=== PATIENT | female | born 1960 | race Caucasian/White ===

== ENCOUNTER 2022-11-04 08:55 | Emergency (ER) | payer BC, SELFPAY ==
[2022-11-04 08:56] VITALS: BP 135/81; PULSE 104; RESP 18; TEMP 36.8; O2SAT 96; BMI 32.3
[2022-11-04 09:06] LABS: Coronavirus 19, PCR Not Detected (NotDetected); Influenza A, PCR Not Detected (NotDetected); Influenza B, PCR Not Detected (NotDetected)
--- NOTE | 2022-11-04 09:28 | XR_ITS ---
PROCEDURE INFORMATION: Exam: XR Chest Exam date and time: 11/04/2022 9:29 AM Age: 62 years old Clinical indication: Fever and shortness of breath; Additional info: Fever, body aches TECHNIQUE: Imaging protocol: Radiologic exam of the chest. Views: 2 views. COMPARISON: No relevant prior studies available. FINDINGS: Lungs: Unremarkable. No consolidation. Pleural spaces: Unremarkable. No pleural effusion. No pneumothorax. Heart/Mediastinum: Unremarkable. No cardiomegaly. Bones/joints: Unremarkable. IMPRESSION: No acute findings.
--- NOTE | 2022-11-04 09:29 | HMH.EDGENADL ---
Discharge Plan Disposition Patient Disposition: Home, Self-Care Condition: Good Prescriptions Prescriptions: New cefdinir 300 mg capsule 300 mg PO BID 10 Days Qty: 20 0RF No Action zolpidem [Ambien] 5 mg tablet 5 mg PO QHS PRN (Reason: Sleep) omeprazole 40 mg capsule,delayed release(DR/EC) 40 mg PO DAILY glyburide-metformin 5-500 mg tablet 1 tab PO BID atorvastatin 10 mg tablet 10 mg PO DAILY escitalopram oxalate 20 mg tablet 20 mg PO DAILY lisinopril 20 mg tablet 20 mg PO DAILY oxybutynin chloride 10 mg tablet extended release 24hr 10 mg PO DAILY levothyroxine 75 mcg tablet 75 mcg PO DAILY Lantus Solostar U-100 Insulin 100 unit/mL (3 mL) insulin pen 10 unit SQ DAILY sodium,potassium,mag sulfates 177 ML recon soln 177 ml PO DAILY Rx Instructions: drink entire amount PM before + AM of procedure, 10-12 hr apart Referrals Follow up/Referrals: Provider,Referral, MD [Primary Care Provider] - See instructions Activity Restrictions/Add. Instructions Additional Instructions/Restrictions: Additional instructions for URINARY TRACT INFECTION: Take antibiotic as prescribed. See your physician in 2-3 days for follow up and culture results. Return immediately if you have an uncontrollable fever greater than 102 degrees, severe back or abdominal pain, inability to urinate, or repetitive vomiting. Continue Tylenol as needed for fever. Clinical Impressions Clinical Impression: Urinary tract infection Instructions Patient Instructions: DI for Urinary Tract Infection (UTI) Discharge ED Provider: Andres Emery General Adult HPI General Chief complaint: Upper Respiratory Infection Stated complaint: Bodyaches weakness fever Time Seen by Provider: 11/04/22 09:25 Mode of Arrival: Ambulatory Source of Information: Patient Limitations: No Limitations Description of Symptoms (Recalled from ER Triage Doc. by RN): pt to ed c/o body ches since she woke up this morning. pt states she has no other symptoms. History of Present Illness HPI narrative: Patient states she woke up this morning with generalized body aches and a low-grade fever. No rhinorrhea, sore throat, earache. No cough. No other pain including no abdominal pain. No dysuria, but had urinary frequency throughout the night. No back or flank pain. No known exposures. She took Tylenol about 1 hour ago for her fever and aches. Related Data Home Medications Medication Instructions Recorded Confirmed atorvastatin 10 mg tablet 10 mg PO DAILY Cholesterol 03/19/19 05/07/19 escitalopram oxalate 20 mg tablet 20 mg PO DAILY GERD 03/19/19 05/07/19 glyburide 5 mg-metformin 500 mg 1 tab PO BID Diabetes 03/19/19 05/07/19 tablet insulin glargine 100 unit/mL (3 10 unit SQ DAILY Diabetes 03/19/19 05/07/19 mL) subcutaneous pen (Lantus Solostar U-100 Insulin) levothyroxine 75 mcg tablet 75 mcg PO DAILY thyroid 03/19/19 05/07/19 lisinopril 20 mg tablet 20 mg PO DAILY bp 03/19/19 05/07/19 omeprazole 40 mg capsule,delayed 40 mg PO DAILY gred 03/19/19 05/07/19 release oxybutynin chloride 10 mg 10 mg PO DAILY bladder 03/19/19 05/07/19 tablet,extended release 24 hr zolpidem 5 mg tablet (Ambien) 5 mg PO QHS PRN Sleep 03/19/19 05/07/19 sodium,potassium,mag sulfates 17.5 177 ml PO DAILY prep 05/01/19 05/07/19 gram-3.13 gram-1.6 gram oral soln Previous Rx's Medication Instructions Recorded cefdinir 300 mg capsule 300 mg PO BID 10 days #20 caps 11/04/22 Allergies Allergy/AdvReac Type Severity Reaction Status Date / Time Sulfa (Sulfonamide Allergy Verified 05/07/19 13:38 Antibiotics) [facility] Disclaimer: The information contained in this section may have been updated after the patient was seen, as this information can be updated by other users. Social History Smoking Status: Never smoker alcohol intake: never substance use type: denies use current occup
[2022-11-04 09:30] VITALS: BP 126/77; PULSE 102; RESP 20; O2SAT 95
[2022-11-04 10:09] LABS: Microscopic, Urine URINE MICROSCOPIC (MICROSCOPIC)
[2022-11-04 10:15] LABS: Basophils # 0.1 K/mm3 (0-0.2); Eosinophils # 0.1 K/mm3 (0.0-0.4); Eosinophils % 0.5 % (0.1-12.0); Hematocrit 41.2 % (37.0-47.0); Hemoglobin 13.4 g/dL (12.2-16.2); Lymphocytes # 1.5 K/mm3 (0.7-4.5); Lymphocytes % 15.2 % (10-50); Mean Corpuscular HGB Conc 32.5 g/dL (31.8-35.4); Mean Corpuscular Volume 89.3 fl (81-99); Monocytes # 0.5 K/mm3 (0.1-1.0); Neutrophils # 7.8 K/mm3 (1.8-7.8); Neutrophils % 78.4 % (37.0-80.0); Platelet Count 250 K/mm3 (142-424); Red Blood Count 4.61 M/mm3 (4.20-5.40); Red Cell Distribution Width 13.3 % (11.5-17.5)
[2022-11-04 10:20] LABS: Appearance,Urine CLEAR (Clear); Blood, Urine 2+ (Negative); Color,Urine YELLOW (Yellow); Glucose,Urine (UA) Negative (Negative); Ketones,Urine Negative (Negative); Leukocyte Esterase,Urine 2+ (Negative); Nitrate,Urine Negative (Negative); Protein,Urine Negative (Negative)
[2022-11-04 10:22] LABS: Bilirubin,Urine Negative (Negative)
[2022-11-04 10:23] LABS: Alanine Aminotransferase 24 U/L (12-78); Albumin Level 4.2 g/dl (3.5-5.0); Albumin/Globulin Ratio 1.4 (1.1-1.8); Alkaline Phosphatase 67 U/L (38-126); Aspartate Amino Transferase 27 U/L (14-36); Bilirubin,Total 1.5 mg/dl (0.2-1.3); Blood Urea Nitrogen 12 mg/dl (7-17); Carbon Dioxide 29 mmol/L (22.0-30.0); Chloride 102 mmol/L (98-107); Creatinine Clearance Estimated 81 mL/min (50-200); Estimated Glomerular Filt Rate 72 ml/min (>60); GFR (African American) 87 ML/MIN (>60); Glucose 160 mg/dl (74-100); Sodium 136 mmol/L (136-145); Total Protein,Serum 7.2 g/dl (6.3-8.2)
[2022-11-04 10:26] LABS: Lactic Acid 1.1 mmol/L (0.7-2.1)
--- NOTE | 2022-11-04 10:53 | PC.NURSE ---
pt given a warm blanket, no other needs at this time. She is aware that we are still waiting on some results to come back. SO at BS. Call light within reach. Pts spouse was given something to drink.
[2022-11-04 10:57] VITALS: BP 101/60; PULSE 96; O2SAT 96
[2022-11-04 11:00] VITALS: BP 102/52; PULSE 95; RESP 17; O2SAT 96
[2022-11-04 11:05] LABS: Bacteria,Urine 2+ /lpf; Squamous Epithelial Cell,Urine Occasional #/hpf (0-5)
--- NOTE | 2022-11-04 11:23 | PC.NURSE ---
MINDI BUITRAGO at to update on POC
[2022-11-04 11:30] VITALS: BP 113/59; PULSE 95; RESP 16; O2SAT 96
[2022-11-04 11:50] VITALS: BP 113/59; PULSE 95; RESP 18; TEMP 36.8; O2SAT 97
== END 2022-11-04 11:52 | disposition home or self-care (01) ==
PROVIDERS: Emergency Provider Emergency Medicine
DX: N39.0 Urinary tract infection, site not specified (principal); R50.9 Fever, unspecified; Z20.822 Contact with and (suspected) exposure to COVID-19
CPT/HCPCS: 71046; 80053; 81001; 83605; 85025; 87040; 87086; 87186; 96374; 99285; C9803; J0696; U0003; U0005

== ENCOUNTER 2022-12-03 12:02 | Emergency (ER) | payer BC, SELFPAY ==
[2022-12-03 12:33] VITALS: BP 133/93; PULSE 88; RESP 18; TEMP 36.6; O2SAT 97; BMI 32.3
--- NOTE | 2022-12-03 13:05 | EXP.UTC ---
Discharge Plan Disposition Patient Disposition: Home, Self-Care Condition: Good Prescriptions Prescriptions: No Action zolpidem [Ambien] 5 mg tablet 5 mg PO QHS PRN (Reason: Sleep) omeprazole 40 mg capsule,delayed release(DR/EC) 40 mg PO DAILY glyburide-metformin 5-500 mg tablet 1 tab PO BID atorvastatin 10 mg tablet 10 mg PO DAILY escitalopram oxalate 20 mg tablet 20 mg PO DAILY lisinopril 20 mg tablet 20 mg PO DAILY oxybutynin chloride 10 mg tablet extended release 24hr 10 mg PO DAILY levothyroxine 75 mcg tablet 75 mcg PO DAILY Lantus Solostar U-100 Insulin 100 unit/mL (3 mL) insulin pen 10 unit SQ DAILY sodium,potassium,mag sulfates 177 ML recon soln 177 ml PO DAILY Rx Instructions: drink entire amount PM before + AM of procedure, 10-12 hr apart cefdinir 300 mg capsule 300 mg PO BID 10 Days Qty: 20 0RF Referrals Follow up/Referrals: Provider,Referral, MD [Primary Care Provider] - See instructions Activity Restrictions/Add. Instructions Additional Instructions/Restrictions: *Monitor Temp, Over the counter Motrin or Tylenol as directed/as needed Tylenol every 4 hours and Motrin every 6 hours (as long as your family doctor has told you that you can take it) for fever or pain. and straight to ER if unable to lower temp less than 101.0 after medication given *Warm salt water gargles may help to soothe the throat *Throat Lozenges? *Warm fluids like tea with honey may help to soothe the throat? *Sleep elevated *Humidifier/Vaporizer Follow up IMMEDIATELY for new or worsening symptoms or no Noticeable improvement over the next 48-72 hours. 911 for difficulty breathing or swallowing You were tested for today for COVID19 your test result should be back in the next 24-48 hours, you may check your results on the [facility] My Health Portal Clinical Impressions Clinical Impression: Encounter for laboratory testing for COVID-19 virus, Viral syndrome Instructions Patient Instructions: COVID-19: Testing and Tracing, Preventing the Spread of Coronavirus Discharge Instructions, DI for Nasal Congestion Discharge ED Provider: Soni Rubio [facility] HPI General Stated complaint: at home covid pos 12/03, cough, runny nose Mode of Arrival: Ambulatory Source of Information: Patient Limitations: No Limitations Time Seen by Provider: 12/03/22 13:05 Description of Symptoms (Recalled from Triage Doc. by RN): C/O CONGESTION, SNEEZING AND COUGH SINCE SUNDAY, HOME TEST WAS POSITIVE FOR COVID HEENT Symptoms (Recalled from RN notes): Yes Resp Symptoms (Recalled from RN notes): No Skin Symptoms (Recalled from RN notes): No MS Symptoms (Recalled from RN notes): No Functional Status (Recalled from RN notes): NA History of Present Illness Provider Complaint: Patient states that she has been having cough, sneezing, and nasal congestion States that she was feeling achy this morning and took and at home COVID test and it was positive States that she came in wanting to get a COVID test to make sure Related Data Home Medications Medication Instructions Recorded Confirmed atorvastatin 10 mg tablet 10 mg PO DAILY Cholesterol 03/19/19 05/07/19 escitalopram oxalate 20 mg tablet 20 mg PO DAILY GERD 03/19/19 05/07/19 glyburide 5 mg-metformin 500 mg 1 tab PO BID Diabetes 03/19/19 05/07/19 tablet insulin glargine 100 unit/mL (3 10 unit SQ DAILY Diabetes 03/19/19 05/07/19 mL) subcutaneous pen (Lantus Solostar U-100 Insulin) levothyroxine 75 mcg tablet 75 mcg PO DAILY thyroid 03/19/19 05/07/19 lisinopril 20 mg tablet 20 mg PO DAILY bp 03/19/19 05/07/19 omeprazole 40 mg capsule,delayed 40 mg PO DAILY gred 03/19/19 05/07/19 release oxybutynin chloride 10 mg 10 mg PO DAILY bladder 03/19/19 05/07/19 tablet,extended release 24 hr zolpidem 5 mg tablet (Ambien) 5 mg PO QHS PRN Sleep 03/19/19 05/07/19 sodium,potassium,mag sulfates 17.5 177 ml PO D
[2022-12-03 13:16] VITALS: BP 133/93; PULSE 88; RESP 18; TEMP 36.6; O2SAT 97
== END 2022-12-03 13:20 | disposition home or self-care (01) ==
PROVIDERS: Emergency Provider Nurse Practitioner
DX: U07.1 COVID-19 (principal); R05.9 Cough, unspecified; R09.89 Other specified symptoms and signs involving the circulatory and respiratory systems; R06.2 Wheezing
CPT/HCPCS: 99212; C9803; G0463; U0003; U0005

== ENCOUNTER 2023-01-02 07:33 | Day surgery (SDC) | payer BC, SELFPAY ==
[2022-12-29 11:30] VITALS: BMI 31.3
[2023-01-02 07:55] VITALS: BP 119/76; PULSE 90; RESP 18; TEMP 36.1; O2SAT 95
--- NOTE | 2023-01-02 08:07 | EXP.ANES.CKL ---
[facility] Disclaimer: The information contained in this section may have been updated after the patient was seen, as this information can be updated by other users. Medical History Hyperlipidemia Hypertension Surgical History History of carpal tunnel release of both wrists Hx of cervical discectomy Family History Other Family history of diabetes mellitus type II Family history of stroke Social History Smoking Status: Never smoker alcohol intake: current substance use type: denies use current occupational status: employed Travel in the last 8 weeks: None household members: spouse and children housing: house education level: college service: No caffeine: Yes special mary needs: No agree to transfusion: No do you feel safe at home: Yes victim of physical abuse: No victim of emotional abuse: No victim of sexual abuse: No would you like helpful sources: No [facility] Anesthesia Checklist Patient Identification Patient Identification: Verbal (Name & ) Structural Data Admitted From: Home Planned Operative Procedure/s: colonoscopy Consent for Planned Operative Procedure(s) Verified: Yes Additional verifications Anesthesia Reactions: No Airway Assessment C-Spine Mobility Assessed: Yes TMJ Mobility Assessed: Yes Dentition: Good Dentition Neurological Assessment Level of Consciousness: Awake, Alert and Appropriate Anesthesia Plan Anesthesia Risk discussed: Yes Anesthesia Plan: Verified ASA Class: II Anesthesia Type: MAC
--- NOTE | 2023-01-02 08:11 | P.PCN_ITS ---
Procedure: Date: 01/02/23 Patient Date of :: 1960 Procedure Performed:: Colonoscopy Indications:: History of colon polyps Note: Colonoscopy in May 2019 revealed a right colon adenoma, hemorrhoids, mo derate bowel preparation, and spasticity/lack of relaxation. A 1-2-year repeat was recommended secondary to the above findings. Performing Provider:: Hugo Abernathy MD Referring Provider:: . Sedation:: Monitored anesthesia care Procedure:: After informed consent was obtained the patient was taken to the endoscopy suite. Sedation ensued after the patient was transferred to the left lateral decubitus position. Pulse, blood pressure, and oxygen saturation were monitored throughout the procedure. Digital rectal exam revealed no significant abnormality. The colonoscope was placed in position. The entire colon was evaluated. The colonoscope was carefully removed and the patient was transferred to recovery in stable condition. Please see findings and specimens below for detail. Findings:: Bowel preparation moderate to poor Note:Preparation quite poor in mid/distal colon Specimens:: None Recommendations:: Repeat colonoscopy in 1-2 years with alternate/extended bowel preparation Complications:: No immediate with the exception of limited preparation Estimated blood obtained (mL): 0
[2023-01-02 08:21] VITALS: O2SAT 95
[2023-01-02 08:55] VITALS: BP 95/58; PULSE 80; RESP 15; TEMP 36.1; O2SAT 92
[2023-01-02 09:05] VITALS: BP 111/61; PULSE 75; RESP 16; O2SAT 94
[2023-01-02 09:25] VITALS: BP 112/76; PULSE 71; RESP 17; O2SAT 96
[2023-01-05 10:20] LABS: POC Glucose,Bedside 201 (70-110)
== END 2023-01-02 09:30 | disposition home or self-care (01) ==
PROVIDERS: Visit Provider Surgery
PROC: 0DJD8ZZ Inspection of Lower Intestinal Tract, Via Natural or Artificial Opening Endoscopic (ICD-10-PCS; CPT 45378; principal; 2023-01-02 08:30)
DX: Z12.11 Encounter for screening for malignant neoplasm of colon (principal); Z86.010 Personal history of colon polyps; Z91.199 Patient's noncompliance with other medical treatment and regimen due to unspecified reason; Z79.899 Other long term (current) drug therapy
CPT/HCPCS: 45378; 82962

== ENCOUNTER 2023-03-11 07:15 | Emergency (ER) | payer BC, SELFPAY ==
[2023-03-11 07:22] VITALS: BP 145/80; PULSE 104; O2SAT 96
[2023-03-11 07:27] VITALS: BP 145/80; PULSE 109; RESP 18; TEMP 37; O2SAT 97; BMI 32.3
[2023-03-11 07:30] VITALS: BP 117/66; PULSE 104; O2SAT 97
[2023-03-11 07:48] LABS: Microscopic, Urine URINE MICROSCOPIC (MICROSCOPIC)
[2023-03-11 08:00] VITALS: BP 124/68; PULSE 89; O2SAT 96
[2023-03-11 08:02] LABS: Appearance,Urine CLEAR (Clear); Bilirubin,Urine Negative (Negative); Blood, Urine 2+ (Negative); Color,Urine YELLOW (Yellow); Glucose,Urine (UA) Negative (Negative); Ketones,Urine Negative (Negative); Leukocyte Esterase,Urine 2+ (Negative); Nitrate,Urine Negative (Negative); PH,Urine 6.5 (5.0-8.5); Protein,Urine Negative (Negative)
--- NOTE | 2023-03-11 08:03 | HMH.EDGENADL ---
Discharge Plan Disposition Patient Disposition: Home, Self-Care Prescriptions Prescriptions: New cefdinir 300 mg capsule 300 mg PO BID 7 Days Qty: 14 0RF No Action zolpidem [Ambien] 5 mg tablet 5 mg PO QHS PRN (Reason: Sleep) omeprazole 40 mg capsule,delayed release(DR/EC) 40 mg PO DAILY glyburide-metformin 5-500 mg tablet 1 tab PO BID atorvastatin 10 mg tablet 10 mg PO DAILY escitalopram oxalate 20 mg tablet 20 mg PO DAILY lisinopril 20 mg tablet 20 mg PO DAILY oxybutynin chloride 10 mg tablet extended release 24hr 10 mg PO DAILY levothyroxine 75 mcg tablet 75 mcg PO DAILY Lantus Solostar U-100 Insulin 100 unit/mL (3 mL) insulin pen 20 unit SQ DAILY Referrals Follow up/Referrals: Provider,Referral, MD [Primary Care Provider] - See instructions Clinical Impressions Clinical Impression: Urinary tract infection Discharge ED Provider: Kartik Stanton General Adult HPI General Chief complaint: PAIN Stated complaint: Bodyaches, possible UTI Time Seen by Provider: 03/11/23 08:03 Mode of Arrival: Ambulatory Source of Information: Patient Limitations: No Limitations Description of Symptoms (Recalled from ER Triage Doc. by RN): Patient reports she feels like her whole body has a slight ache that started sunday. reports she was puling up hemlock plants in the yard night that are poisonous. History of Present Illness HPI narrative: Patient is a 62-year-old female history of diabetes presenting today with generalized malaise and body aches. She states last time she felt like this that she was becoming septic with a urinary tract infection. She has had urinary incontinence which is not a new symptom and denies dysuria urgency or frequency. She denies any other focal symptoms no chest pain abdominal pain no cough fevers chills etc. She just states he feels weird feeling over her body. She did state that she was in her yard on pulling up hemlock however she had no immediate symptoms around that time and began to feel the presenting symptoms the next day. Related Data Home Medications Medication Instructions Recorded Confirmed atorvastatin 10 mg tablet 10 mg PO DAILY Cholesterol 03/19/19 01/02/23 escitalopram oxalate 20 mg tablet 20 mg PO DAILY Anxiety 03/19/19 01/02/23 glyburide 5 mg-metformin 500 mg 1 tab PO BID Diabetes 03/19/19 01/02/23 tablet insulin glargine 100 unit/mL (3 20 unit SQ DAILY Diabetes 03/19/19 01/02/23 mL) subcutaneous pen (Lantus Solostar U-100 Insulin) levothyroxine 75 mcg tablet 75 mcg PO DAILY thyroid 03/19/19 01/02/23 lisinopril 20 mg tablet 20 mg PO DAILY bp 03/19/19 01/02/23 omeprazole 40 mg capsule,delayed 40 mg PO DAILY gred 03/19/19 01/02/23 release oxybutynin chloride 10 mg 10 mg PO DAILY bladder 03/19/19 01/02/23 tablet,extended release 24 hr zolpidem 5 mg tablet (Ambien) 5 mg PO QHS PRN Sleep 03/19/19 01/02/23 Previous Rx's Medication Instructions Recorded cefdinir 300 mg capsule 300 mg PO BID 7 days #14 caps 03/11/23 Allergies Allergy/AdvReac Type Severity Reaction Status Date / Time Sulfa (Sulfonamide Allergy Verified 05/07/19 13:38 Antibiotics) [facility] Disclaimer: The information contained in this section may have been updated after the patient was seen, as this information can be updated by other users. Medical History (Updated 03/11/23 @ 09:28 by Yefri Martinez MD) Hyperlipidemia Hypertension Surgical History History of carpal tunnel release of both wrists Hx of cervical discectomy Family History Other Family history of diabetes mellitus type II Family history of stroke Social History Smoking Status: Never smoker alcohol intake: current substance use type: denies use current
[2023-03-11 08:30] LABS: Bacteria,Urine Trace /lpf; Squamous Epithelial Cell,Urine Occasional #/hpf (0-5)
--- NOTE | 2023-03-11 08:48 | PC.NURSE ---
checked on pt gave her some harlan crackers, at bedside
[2023-03-11 08:51] LABS: Basophils % 0.5 % (0.1-2.0); Chloride 99 mmol/L (98-107); Eosinophils # 0.1 K/mm3 (0.0-0.4); Eosinophils % 1.4 % (0.1-12.0); Hematocrit 39.4 % (37.0-47.0); Hemoglobin 12.4 g/dL (12.2-16.2); Lymphocytes # 1.4 K/mm3 (0.7-4.5); Lymphocytes % 18.8 % (10-50); Mean Corpuscular HGB Conc 31.5 g/dL (31.8-35.4); Mean Corpuscular Hemoglobin 28.5 pg (27.0-31.2); Mean Corpuscular Volume 90.5 fl (81-99); Mean Platelet Volume 9.3 fl (7.4-10.4); Monocytes # 0.4 K/mm3 (0.1-1.0); Monocytes % 4.9 % (1.7-9.3); Neutrophils # 5.6 K/mm3 (1.8-7.8); Neutrophils % 74.3 % (37.0-80.0); Platelet Count 204 K/mm3 (142-424); Potassium 4.2 mmoL/L (3.5-5.1); Red Blood Count 4.35 M/mm3 (4.20-5.40); Red Cell Distribution Width 13.4 % (11.5-17.5); Sodium 136 mmol/L (136-145); White Blood Count 7.6 K/mm3 (4.8-10.8)
[2023-03-11 08:53] LABS: Alanine Aminotransferase 29 U/L (12-78); Aspartate Amino Transferase 26 U/L (14-36); Blood Urea Nitrogen 11 mg/dl (7-17); Creatinine Clearance Estimated 81 mL/min (50-200); Estimated Glomerular Filt Rate 84 ml/min (>60); GFR (African American) 102 ML/MIN (>60)
[2023-03-11 08:54] LABS: Albumin Level 3.9 g/dl (3.5-5.0); Albumin/Globulin Ratio 1.3 (1.1-1.8); Alkaline Phosphatase 66 U/L (38-126); Anion Gap 13.2 mEq/L (5-15); Bilirubin,Total 1.1 mg/dl (0.2-1.3); Carbon Dioxide 28 mmol/L (22.0-30.0); Creatine Kinase 83 U/L (30-135); Globulin 2.9 g/dL (1.3-3.2); Glucose 154 mg/dl (74-100); Magnesium 1.4 mg/dl (1.6-2.3); Phosphorous 4.1 mg/dl (2.5-4.5); Total Protein,Serum 6.8 g/dl (6.3-8.2)
[2023-03-11 09:46] VITALS: BP 117/74; PULSE 84; RESP 18; TEMP 37; O2SAT 97
== END 2023-03-11 09:49 | disposition home or self-care (01) ==
PROVIDERS: Student in an Organized Health Care Education/Training Program; Emergency Provider Family Medicine
DX: N39.0 Urinary tract infection, site not specified (principal); I10 Essential (primary) hypertension; E78.5 Hyperlipidemia, unspecified; E11.9 Type 2 diabetes mellitus without complications
CPT/HCPCS: 80053; 81001; 82550; 83735; 84100; 85025; 87086; 87088; 87186; 96360; 99284; 99285

== ENCOUNTER 2024-08-16 08:03 | Emergency (ER) | payer OTHER, SELFPAY ==
[2024-08-16 08:20] VITALS: BP 110/73; PULSE 82; RESP 20; TEMP 36.4; O2SAT 97; BMI 28.1
--- NOTE | 2024-08-16 08:36 | EXP.UTC ---
Discharge Plan Disposition Patient Disposition: Home, Self-Care Condition: Good Prescriptions Prescriptions: New phenazopyridine [Pyridium] 200 mg tablet 200 mg PO Q8H 2 Days Qty: 6 0RF nitrofurantoin monohyd/m-cryst [Macrobid] 100 mg Capsule 100 mg PO BID Qty: 10 0RF Rx Instructions: must administer with a meal/food ondansetron 4 mg Tablet,Disintegrating 4 mg PO Q8H PRN (Reason: Nausea) Qty: 12 0RF No Action omeprazole 40 mg capsule,delayed release(DR/EC) 40 mg PO DAILY atorvastatin 10 mg tablet 10 mg PO DAILY escitalopram oxalate 20 mg tablet 20 mg PO DAILY lisinopril 20 mg tablet 20 mg PO DAILY tolterodine 4 mg Capsule,Extended Release 24hr 4 mg PO DAILY metformin 500 mg tablet extended release 24 hr 500 mg PO DAILY Patient Comments: TAKE 1 TABLET BY MOUTH EVERY DAY WITH BREAKFAST Mounjaro 7.5 mg/0.5 mL pen injector 7.5 mg SQ WEEKLY Patient Comments: INJECT 7.5 MG UNDER THE SKIN DIRECTED ONCE A WEEK Referrals Follow up/Referrals: Myron Davis MD [Primary Care Provider] - See instructions Activity Restrictions/Add. Instructions Additional Instructions/Restrictions: Drink plenty of fluids. Take tylenol or ibuprofen for pain or fever. Take the medications as directed. Follow up with your regular doctor. GO TO THE ER FOR ANY WORSENING SYMPTOMS We will culture the urine. That will tell what bacteria is causing your infection and which antibiotics will treat it best.This test takes 3 days to complete. The pyridium will make your urine turn orange, this is an expected side effect. It will stain your clothes if it comes into contact with them. Clinical Impressions Clinical Impression: Urinary tract infection Instructions Patient Instructions: Urinary Tract Infection, DI for Urinary Tract Infection (UTI) Print Language Print Language: Tristanian Discharge ED Provider: Ricky Verdugo [facility] General Stated complaint: Pain and frequent urination Mode of Arrival: Ambulatory Source of Information: Patient Limitations: No Limitations Time Seen by Provider: 08/16/24 08:36 Description of Symptoms (Recalled from Triage Doc. by RN): PATIENT C/O BURNING WITH URINATION AND BLADDER PRESSURE X 3 DAYS HEENT Symptoms (Recalled from RN notes): No Resp Symptoms (Recalled from RN notes): No Skin Symptoms (Recalled from RN notes): No MS Symptoms (Recalled from RN notes): No Functional Status (Recalled from RN notes): WNL Related Data Home Medications ?Medication ?Instructions ?Recorded ?Confirmed atorvastatin 10 mg tablet 10 mg PO DAILY Cholesterol 03/19/19 08/16/24 escitalopram oxalate 20 mg tablet 20 mg PO DAILY Anxiety 03/19/19 08/16/24 lisinopril 20 mg tablet 20 mg PO DAILY bp 03/19/19 08/16/24 omeprazole 40 mg capsule,delayed 40 mg PO DAILY gred 03/19/19 08/16/24 release metformin 500 mg tablet,extended 500 mg PO DAILY 08/16/24 08/16/24 release 24 hr tirzepatide 7.5 mg/0.5 mL 7.5 mg SQ WEEKLY 08/16/24 08/16/24 subcutaneous pen injector (Mounjaro) tolterodine 4 mg capsule,extended 4 mg PO DAILY 08/16/24 08/16/24 release 24 hr Previous Rx's ?Medication ?Instructions ?Recorded nitrofurantoin 100 mg PO BID #10 caps 08/16/24 monohydrate/macrocrystals 100 mg capsule (Macrobid) ondansetron 4 mg disintegrating 4 mg PO Q8H PRN Nausea #12 tabs 08/16/24 tablet phenazopyridine 200 mg tablet 200 mg PO Q8H 2 days #6 tabs 08/16/24 (Pyridium) Allergies Allergy/AdvReac Type Severity Reaction Status Date / Time Sulfa (Sulfonamide Allergy Verified 05/07/19 13:38 Antibiotics) Worker's Comp Is this a Worker's Comp case?: No [facility] Disclaimer: The information contained in this section may have been updated after the patient was seen, as this information can be updated by other users. Medical History (Updated 08/16/24 @ 09:37 by Ricky Verdugo APRN) Diabetes mellitus, type 2 Thyroid disease UTI (urinary tract infection) Depression Hyperlipidemia Hypertension Surgical History Hx of cervical discectomy History of carpal tunnel release of both wrists Family History Other Family history of diabetes mellitus type II Family history of stroke Social History Smoking Status: Never smoker alcohol intake: current substance use type: denies use current occupational status: employed Travel in the last 8 weeks: None household members: spouse and children housing: house education level: college service: No caffeine: Yes special mary needs: No agree to transfusion: No do you feel safe at home: Yes victim of physical abuse: No victim of emotional abuse: No victim of sexual abuse: No would you like helpful sources: No ROS Obtained: Yes All systems reviewed & no additional complaints except as documented Constitutional Constitutional: Reports system reviewed and no additional complaints, except as documented, Denies chills and Denies fever(s) Eyes Eyes: Denies eye discharge ENT Ears, Nose, Mouth, and Throat: Denies dysphagia, Denies sore throat and Denies throat swelling Cardiovascular Cardiovascular: Denies chest pain and Denies dyspnea Respiratory Respiratory: Denies chest congestion, Denies cough and Denies dyspnea Gastrointestinal Gastrointestingal: Denies abdominal pain, constipation, diarrhea, dysphagia, nausea or vomiting Genitourinary Female Genitourinary: Reports as per HPI, Reports dysuria, Reports sexual dysfunction, Reports urinary frequency, Denies urinary incontinence and Reports urinary hesitancy Musculoskeletal Musculoskeletal: Denies arthralgias and Reports back pain Integumentary/Breasts Skin/Breast: Denies rash Neurologic Neurologic: Denies paresthesias Allergic/Immunologic Allergic/Immunologic: Denies throat swelling Physical Exam General General appearance: alert and in no apparent distress Head Head exam: atraumatic and normocephalic Eye Eye exam: Present normal appearance, PERRL and EOMI ENT ENT exam: Present normal exam, mucous membranes moist, TM's normal bilaterally and normal external ear exam Neck Neck exam: Present normal inspection, full ROM and trachea midline; Absent tenderness, meningismus or lymphadenopathy Chest Chest inspection: Present normal inspection and symmetric chest wall rise; Absent tenderness Respiratory Respiratory exam: Present normal lung sounds bilaterally; Absent respiratory distress, wheezes or stridor Cardiovascular Cardiovascular exam: Present regular rate, normal rhythm and normal heart sounds Abdominal Exam Abdominal exam: Present soft and normal bowel sounds; Absent distention, tenderness, guarding, rebound, rigidity, incision, psoas sign, obturator sign, heel tap sign, Chahal's sign, Rovsing's sign or tenderness at McBurney's Point Extremities Exam Extremities exam: Present normal inspection, full ROM and normal capillary refill; Absent tenderness, edema, joint swelling, calf tenderness or cyanosis Back Exam Back exam: Present normal inspection and full ROM; Absent tenderness, CVA tenderness (R) or CVA tenderness (L) Neurological Exam Neurological exam: Present alert, oriented X3 and normal gait Psychiatric Psychiatric exam: Present normal affect and normal mood Skin Skin exam: Present warm, dry, intact and normal color Lymphatic Lymphatic Findings: no adenopathy Medical Decision Making Medical Records Medical records reviewed: No I reviewed the patient's medical records. Screening: Per USPSTF and CDC recommendations, given the prevalence of disease in our region, it is our hospital?s policy to screen for HIV and viral Hepatitis for all patients aged 18 and over and those with ongoing risk factors. Jose G Inquiry Pt receiving controlled substance: No Vital Signs: 08/16/24 08:20 Temperature 97.6 F Temperature Source Oral Pulse Rate [Left Brachial] 82 Respiratory Rate 20 Blood Pressure [Left Arm] 110/73 Blood Pressure Mean [Left Arm] 85 Blood Pressure Source [Left Arm] Automatic Cuff Blood Pressure Position [Left Arm] Sitting 02 Sat by Pulse Oximetry 97 Oxygen Delivery Method Room Air Lab Data Lab results reviewed: Yes I reviewed the patient's lab results. Orders (Tests/Meds): ORDERS Category Date Time Status Urine Culture Stat Micro 08/16/24 08:20 Received
[2024-08-16 08:37] LABS: Apearance,Urine Clear (Clear); Color,Urine Yellow (Yellow); Protein,Urine Trace (Negative); Specific Gravity, Urine 1.025 (1.005-1.030)
[2024-08-16 08:38] LABS: Bilirubin,Urine Negative (Negative); Blood, Urine 3+ (Negative); Glucose,Urine (UA) Negative (Negative); Ketones,Urine Negative (Negative); UTC Leukocyte Esterase,Urine 3+ (Negative); UTC Nitrate,Urine Negative (Negative); Urobilinogen,Urine 2 EU/dl (0.2)
[2024-08-16] MEDS: cefTRIAXone 1GM VIAL 1 GM IM (09:10)
[2024-08-16] MEDS: LIDOCAINE 1% 5ML PF VIAL IM (09:10)
[2024-08-16 09:37] VITALS: BP 110/73; PULSE 82; RESP 20; TEMP 36.4; O2SAT 97
== END 2024-08-16 09:40 | disposition home or self-care (01) ==
PROVIDERS: Emergency Provider Nurse Practitioner Family; PCP Internal Medicine
DX: N39.0 Urinary tract infection, site not specified (principal)
CPT/HCPCS: 81003; 87086; 87088; 87186; 96372; 99213; G0381; J0696

== ENCOUNTER 2024-11-04 06:30 | Day surgery (SDC) | payer OTHER, SELFPAY ==
[2024-11-03 11:39] VITALS: BMI 26.6
--- NOTE | 2024-11-04 07:19 | EXP.ANES.CKL ---
[facility] Disclaimer: The information contained in this section may have been updated after the patient was seen, as this information can be updated by other users. Medical History Diabetes mellitus, type 2 Thyroid disease UTI (urinary tract infection) Depression Hyperlipidemia Hypertension Surgical History Hx of cervical discectomy History of carpal tunnel release of both wrists Family History Other Family history of diabetes mellitus type II Family history of stroke Social History Smoking Status: Never smoker alcohol intake: current substance use type: denies use current occupational status: employed Travel in the last 8 weeks: None household members: spouse and children housing: house education level: college service: No caffeine: Yes special mary needs: No agree to transfusion: No do you feel safe at home: Yes victim of physical abuse: No victim of emotional abuse: No victim of sexual abuse: No would you like helpful sources: No Have you lived/traveled outside [place] in past 30 days?: No Contact w/someone who lives/traveled outside [place] past 30 days?: No Exposure to someone with infectious disease in past 14 days?: No Do you have a fever (greater than 100.4 F or 38 C)?: No Have you tested positive for COVID-19: No Exposed to someone with COVID-19 in past 14 days?: No Do you have a sore throat?: No Do you have a cough?: No Do you have any weakness?: No Do you have any diarrhea?: No Are you experiencing any unusual bleeding?: No Do you have any muscle aches/pain?: No Do you have any abdominal pain?: No Are you experiencing loss of taste or smell?: No [facility] Anesthesia Checklist Patient Identification Patient Identification: Arm Band and Verbal (Name & ) Structural Data Admitted From: Home Planned Operative Procedure/s: colonoscopy Consent for Planned Operative Procedure(s) Verified: Yes Verified Documents: Surgical Consent NPO Status Verified Time NPO: 00:00 Additional verifications Patient : No Anesthesia Reactions: No Cardiovascular Assessment Heart Sounds: S1 & S2 Pulse Strength: Baseline Pulse Rhythm: Regular Airway Assessment Mallampati Score:: Class II C-Spine Mobility Assessed: Yes TMJ Mobility Assessed: Yes Dentition: Good Dentition Neurological Assessment Level of Consciousness: Awake and Alert Hx Seizures: No Numbness or tingling in extremities: No Anesthesia Plan Anesthesia Risk discussed: Yes (mac) ASA Class: II Anesthesia Type: MAC
--- NOTE | 2024-11-04 07:21 | HMH.SCOPE ---
Procedure: Date: 11/04/24 Patient Date of :: 1960 Procedure Performed:: Colonoscopy Indications:: History of colon polyps Note: Most recent colonoscopy in December 2022 was complicated by moderate to poor bowel preparation. Prior colonoscopy in May 2019 was somewhat complicated by moderate bowel preparation and fairly significant spasticity. Moderate tortuosity and hemorrhoidal cushions confirmed. An adenomatous polyp of the right colon was excised. Performing Provider:: Hugo Abernathy MD Referring Provider:: . Sedation:: Monitored anesthesia care Procedure:: After informed consent was obtained the patient was taken to the endoscopy suite. Sedation ensued after the patient was transferred to the left lateral decubitus position. Pulse, blood pressure, and oxygen saturation were monitored throughout the procedure. Digital rectal exam revealed no significant abnormality. The colonoscope was placed in position. The entire colon was evaluated. The colonoscope was carefully removed and the patient was transferred to recovery in stable condition. Please see findings and specimens below for detail. Findings:: Bowel preparation poor Specimens:: None Recommendations:: Repeat colonoscopy approximately 3 years with extended/alternate bowel preparation Complications:: No immediate with the exception of poor bowel preparation Estimated blood obtained (mL): 0 Colonoscopy Component Colonoscopy Component Was a colonoscopy performed during today's procedure?: Yes Recommended follow up colonoscopy of at least 10 years?: No If no, follow up colonoscopy recommended in ___ years?: (See above) Reason for not recommending >/= 10 yr follow-up interval?: (See above)
[2024-11-04 07:23] VITALS: BP 108/69; PULSE 77; RESP 18; TEMP 36.5; O2SAT 99; BMI 26.6
[2024-11-04 07:37] LABS: POC Glucose,Bedside 85 (70-110)
--- NOTE | 2024-11-04 07:59 | P.PNANES_ITS ---
[facility] Disclaimer: The information contained in this section may have been updated after the patient was seen, as this information can be updated by other users. Medical History Diabetes mellitus, type 2 Thyroid disease UTI (urinary tract infection) Depression Hyperlipidemia Hypertension Surgical History Hx of cervical discectomy History of carpal tunnel release of both wrists Family History Other Family history of diabetes mellitus type II Family history of stroke Social History Smoking Status: Never smoker alcohol intake: current substance use type: denies use current occupational status: employed Travel in the last 8 weeks: None household members: spouse and children housing: house education level: college service: No caffeine: Yes special mary needs: No agree to transfusion: No do you feel safe at home: Yes victim of physical abuse: No victim of emotional abuse: No victim of sexual abuse: No would you like helpful sources: No Have you lived/traveled outside [place] in past 30 days?: No Contact w/someone who lives/traveled outside [place] past 30 days?: No Exposure to someone with infectious disease in past 14 days?: No Do you have a fever (greater than 100.4 F or 38 C)?: No Have you tested positive for COVID-19: No Exposed to someone with COVID-19 in past 14 days?: No Do you have a sore throat?: No Do you have a cough?: No Do you have any weakness?: No Do you have any diarrhea?: No Are you experiencing any unusual bleeding?: No Do you have any muscle aches/pain?: No Do you have any abdominal pain?: No Are you experiencing loss of taste or smell?: No [facility] Anesthesia Checklist Patient Identification Patient Identification: Verbal (Name & ) Structural Data Admitted From: Home Planned Operative Procedure/s: colonoscopy NPO Status Verified Time NPO: 00:00 Additional verifications Anesthesia Reactions: No Airway Assessment Mallampati Score:: Class II C-Spine Mobility Assessed: Yes TMJ Mobility Assessed: Yes Dentition: Good Dentition (chipped front and back) Neurological Assessment Level of Consciousness: Awake, Alert and Appropriate Anesthesia Plan Anesthesia Risk discussed: Yes Anesthesia Plan: Verified ASA Class: II Anesthesia Type: MAC
[2024-11-04 08:18] VITALS: O2SAT 99
[2024-11-04 08:54] VITALS: BP 109/68; PULSE 75; RESP 16; O2SAT 95
[2024-11-04 09:04] VITALS: BP 123/80; PULSE 79; RESP 16; O2SAT 97
[2024-11-04 09:14] VITALS: BP 129/71; PULSE 77; RESP 16; O2SAT 98
[2024-11-04 09:24] VITALS: BP 133/78; PULSE 70; RESP 16; O2SAT 100
== END 2024-11-04 09:28 | disposition home or self-care (01) ==
PROVIDERS: PCP Internal Medicine; Visit Provider Surgery
PROC: 0DJD8ZZ Inspection of Lower Intestinal Tract, Via Natural or Artificial Opening Endoscopic (ICD-10-PCS; CPT 45378; principal; 2024-11-04 08:20)
DX: Z09 Encounter for follow-up examination after completed treatment for conditions other than malignant neoplasm (principal); Z86.0100 Personal history of colon polyps, unspecified
CPT/HCPCS: 45378; 82962

== ENCOUNTER 2025-03-20 09:31 | Outpatient (CLI) | payer OTHER, SELFPAY | END 2025-03-20 23:59 | disposition home or self-care (01) | LOC: LAB.DROPOF 03-23 09:33 | PROVIDERS: PCP Nurse Practitioner Family; Visit Provider Nurse Practitioner Family | DX: N39.0 Urinary tract infection, site not specified (principal) | CPT/HCPCS: 87086; 87088; 87186 ==

== ENCOUNTER 2025-04-07 15:15 | Outpatient (CLI) | payer OTHER, SELFPAY ==
[2025-04-07 16:48] LABS: Microscopic, Urine URINE MICROSCOPIC (MICROSCOPIC)
[2025-04-07 17:05] LABS: Bilirubin,Urine Negative (Negative); Color,Urine YELLOW (Yellow); Glucose,Urine (UA) Negative (Negative); Ketones,Urine Negative (Negative); Leukocyte Esterase,Urine 1+ (Negative); PH,Urine 6.0 (5.0-8.5); Protein,Urine Negative (Negative); Specific Gravity, Urine 1.020 (1.005-1.030); Urobilinogen,Urine 1.0 EU/dl (0.2)
[2025-04-07 18:48] LABS: RBC,Urine 50-100 #/hpf (0-3); WBC,Urine TNTC #/hpf (0-3)
[2025-04-07 18:49] LABS: Bacteria,Urine 4+ /lpf; Squamous Epithelial Cell,Urine 20-50 #/hpf (0-5)
== END 2025-04-07 23:59 | disposition home or self-care (01) ==
LOC: LAB.DROPOF 04-08 10:49
PROVIDERS: PCP Nurse Practitioner Family; Visit Provider Nurse Practitioner Family
DX: N39.0 Urinary tract infection, site not specified (principal)
CPT/HCPCS: 81001; 87086; 87088; 87186

== ENCOUNTER 2025-04-14 14:03 | Outpatient (CLI) | payer OTHER, SELFPAY ==
--- OUTSIDE RECORDS SUMMARY | 2025-04-14 14:08 | XMS_ITS ---
Author Organization Unknown TREATMENT PLAN Planned Care Start Date Provider Encounter for Check-up [id number] [facility]
--- OUTSIDE RECORDS SUMMARY | 2025-04-14 14:08 | XMS_ITS | Data Portability ---
Author Organization [facility] [address] Omar conley Kristopher FINE CLOSED Address [address] [facility] [address] [place] [address] Assessment Encounter Date Assessment Date Assessment LastModified by Organization Details LastModified Time 10/19/2023 10/19/2023 PREOPERATIVE DIAGNOSES: Urgency, urinary incontinence. POSTOPERATIVE DIAGNOSES: Urgency, urinary incontinence. PROCEDURE: Neuromodulation lead and generator placement with intraoperative programming, complex. ANESTHESIA: General. COMPLICATIONS: None. DISPOSITION: The patient was taken to the recovery room in stable condition. SURGEON: Wilfrido Roman Jr., MD OPERATIVE NOTE: The patient was brought to the operating suite where she was placed in a supine position. Anesthesia was induced without difficulty. She was then placed carefully in the prone position, padding all pressure points. She was sterilely prepped and draped in a normal fashion. We identified the S3 foramen using our finer needles and the assistance of fluoroscopic guidance. We tested the S3 foramen and S3 nerve with good motor responses on the left side. Using the Seldinger technique and the kit provided by [employer], we placed our permanent lead under good position with good responses at all 4 electrodes. This was then tunneled over to a small subcutaneous pocket where it was connected to the rechargeable generator and then placed into the pocket. Intraoperative programming was carried out successfully. The subcutaneous tissue was brought together using 3-0 Vicryl. The skin was brought together using Dermabond. Anesthesia was reversed. The patient was taken to the recovery room in stable condition. [email or web address] Not available 10/19/2023 18:04:18 11/13/2024 11/13/2024 64-year-old fema le with a history of urinary urgency and incontinence, presenting with urinary symptoms. Frequent UTIs persistent. Initial symptom improvement with neuromodulation. Consider weight loss implications on treatment. Evaluate Methionamine use with vitamin C. [email or web address] Not available 11/13/2024 19:26:48 Plan of Treatment Reminders Order Date Submit Date Provider Last Modified By Organization Details Last Modified Time Details Appointments RECHECK 2025 02:45P Sarina ROMAN MD Not available Not available Not available Lab urinalysi s panel, auto 2024 025 [facility], [address], [address], [place], [address], 11/15/2024 12:55:00 culture, urine 2023 024 surya [facility], [address] [place] [address], [id number], 12/14/2023 11:26:48 urinalysi s panel, auto 2023 024 [facility], [address], [address], [place], [address], 11/17/2023 10:50:10 urinalysi s panel, auto 2022 023 [facility], [address], [address], [place], [address], 09/27/2023 07:36:04 culture, urine 2022 023 [facility], [address] [place] [address], [address], 09/27/2023 07:36:04 Referral None recorded. Procedures None recorded. Surgeries sacral neuromodu lation stage 1 (SURG) [email or web address] [facility], [address] [facility], [address], [address], 11/23/2023 16:51:41 sacral neuromodu lation stage 2 (SURG) [email or web address] [facility], [address] [facility], [facility] [address], [place], [address], 11/23/2023 16:51:41 Imaging None recorded. Medication Orders Percocet 5 mg-325 mg tablet 2023 024 [facility], [address] [place] [address], [address], [address], 10/19/2023 13:55:03 doxycycli ne monohydra te 100 mg capsule 2023 024 [facility], [address] [place] [address], [address], 10/19/2023 13:54:59 Patient TargetsNo targets recorded. Patient Instructions Encounter Date Encounter Id Patient Instructions Last Modified By Organization Details Last Modified Time 11/13/2024 [id number] - Add vitamin C to your current Methionamine regimen to increase effectiveness against UTIs. - Monitor your urinary symptoms and report any persistent issues. 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 - Keep track of any changes or recurrence of UTIs and inform us for further evaluation. [email or web address] Not available 11/13/2024 19:26:50 Reason for Referral None Reported. Results Created Date Observation Date Name Description Value Unit Range Abnormal Flag Note LastModifiedBy Organization Detail LastModifiedTime 09/20/2009/20/2023 URINE CULTU RE klebsiella pneumoniae Organi sm: Klebsi lana pneumo niae Not Available [facility] [address] [place], [address], 09/22/2023 16:04:38 09/20/20 23 09/22/2023 URINE CULTU RE urine culture abnormal ISOLA TE #1 COLON Y COUNT : 10,00 0 - 100,0 00 CFU/M L Proba ble Gram Negat martha Bacil rogerio. ID and sensi tivit y in progr ess. See [place] te Resul t(s) Below Klebs iella pneum oniae Not Available [facility] [address] [place] [address], [phone], 09/22/2023 16:04:38 09/20/20 23 09/22/2023 URINE CULTU RE amox/K clav'ate(C) <=8/4 ug/mL susceptib le Not Available [facility] [address] [place] [address], [id number], 09/22/2023 16:04:38 09/20/20 23 09/22/2023 URINE CULTU RE cefazolin <=2 ug/mL susceptib le Not Available [facility] [address] [place] [address], [address], 09/22/2023 16:04:38 09/20/20 23 09/22/2023 URINE CULTU RE ceftazidime <=1 ug/mL susceptib le Not Available [facility] [address] [place] [address], [address], 09/22/2023 16:04:38 09/20/20 23 09/22/2023 URINE CULTU RE ceftriaxone <=1 ug/mL susceptib le Not Available [facility] [address] [place] [address], [address], 09/22/2023 16:04:38 09/20/20 23 09/22/2023 URINE CULTU RE cefuroxime <=4 ug/mL susceptib le Not Available [facility] [address] [place] [address], [address], 09/22/2023 16:04:38 09/20/20 23 09/22/2023 URINE CULTU RE ciprofloxaci n <=0.25 ug/mL susceptib le Not Available [facility] [address] [place] [address], [address], 09/22/2023 16:04:38 09/20/20 23 09/22/2023 URINE CULTU RE gentamicin <=4 ug/mL susceptib le Not Available [facility] [address] [place] [address], [phone], 09/22/2023 16:04:38 09/20/20 23 09/22/2023 URINE CULTU RE imipenem <=1 ug/mL susceptib le Not Available [facility] [address] [place] [address], [id number], 09/22/2023 16:04:38 09/20/20 23 09/22/2023 URINE CULTU RE levofloxacin <=0.5 ug/mL susceptib le Not Available [facility] [address] [place] [address], [address], 09/22/2023 16:04:38 09/20/20 23 09/22/2023 URINE CULTU RE nitrofuranto in >64 ug/mL resistant Not Available [facility] [address] [place] [address], [address], 09/22/2023 16:04:38 09/20/20 23 09/22/2023 URINE CULTU RE piperacillin /robby <=16 ug/mL susceptib le Not Available [facility] [address] [place] [address], [address], 09/22/2023 16:04:38 09/20/20 23 09/22/2023 URINE CULTU RE tetracycline <=4 ug/mL susceptib le Not Available [facility] [address] [place] [address], [address], 09/22/2023 16:04:38 09/20/20 23 09/22/2023 URINE CULTU RE tobramycin <=2 ug/mL susceptib le Not Available [facility] [address] [place] [address], [address], 09/22/2023 16:04:38 09/20/20 23 09/22/2023 URINE CULTU RE trimeth/sulf a <=2/38 ug/mL susceptib le Not Available [facility] [address] [facility], [place], [address], 09/22/2023 16:04:38 09/20/20 23 09/20/2023 urina lysis panel , auto Unknown Analyte Clean Catch Not Available [facility] [address], [place], [address], 09/20/2023 16:18:59 09/20/20 23 09/20/2023 urina lysis panel , auto Unknown Analyte Yellow Not Available [facility] [address], [place], [address], 09/20/2023 16:18:59 09/20/20 23 09/20/2023 urina lysis panel , auto Unknown Analyte Cloudy Not Available [facility] [address], [place], [address], 09/20/2023 16:18:59 09/20/20 23 09/20/2023 urina lysis panel , auto Unknown Analyte 1.020 Not Available [facility] [address], [place], [address], 09/20/2023 16:18:59 09/20/20 23 09/20/2023 urina lysis panel , auto Unknown Analyte 1.003- 1.035 Not Available [facility] [address], [place], [address], 09/20/2023 16:18:59 09/20/20 23 09/20/2023 urina lysis panel , auto Unknown Analyte 5.0 Not Available [facility] [address], [place], [address], 09/20/2023 16:18:59 09/20/20 23 09/20/2023 urina lysis panel , auto Unknown Analyte 5.0-8. 0 Not Available [facility] [address], [place], [address], 09/20/2023 16:18:59 09/20/20 23 09/20/2023 urina lysis panel , auto Unknown Analyte 500 Suim/ul (++) Not Available [facility] [address], [place], [address], 09/20/2023 16:18:59 09/20/20 23 09/20/2023 urina lysis panel , auto Unknown Analyte Negati ve Not Available [facility] [address], [place], [address], 09/20/2023 16:18:59 09/20/20 23 09/20/2023 urina lysis panel , auto Unknown Analyte Negati ve Not Available [facility] [address], [place], [address], 09/20/2023 16:18:59 09/20/20 23 09/20/2023 urina lysis panel , auto Unknown Analyte Negati ve Not Available [facility] [address], [place], [address], 09/20/2023 16:18:59 09/20/20 23 09/20/2023 urina lysis panel , auto Unknown Analyte Negati ve Not Available [facility] [address], [place], [address], 09/20/2023 16:18:59 09/20/20 23 09/20/2023 urina lysis panel , auto Unknown Analyte Negati ve Not Available [facility] [address], [place], [address], 09/20/2023 16:18:59 09/20/20 23 09/20/2023 urina lysis panel , auto Unknown Analyte Normal Not Available [facility] [address], [place], [address], 09/20/2023 16:18:59 09/20/20 23 09/20/2023 urina lysis panel , auto Unknown Analyte Normal Not Available [facility] [address], [place], [address], 09/20/2023 16:18:59 09/20/20 23 09/20/2023 urina lysis panel , auto Unknown Analyte Negati ve Not Available [facility] [address], [place], [address], 09/20/2023 16:18:59 09/20/20 23 09/20/2023 urina lysis panel , auto Unknown Analyte Negati ve Not Available [facility] [address], [place], [address], 09/20/2023 16:18:59 09/20/20 23 09/20/2023 urina lysis panel , auto Unknown Analyte Normal Not Available [facility] [address], [place], [address], 09/20/2023 16:18:59 09/20/20 23 09/20/2023 urina lysis panel , auto Unknown Analyte Normal 1 mg/dl Not Available [facility] [address], [place], [address], 09/20/2023 16:18:59 09/20/20 23 09/20/2023 urina lysis panel , auto Unknown Analyte Negati ve Not Available [facility] [address], [place], [address], 09/20/2023 16:18:59 09/20/20 23 09/20/2023 urina lysis panel , auto Unknown Analyte Negati ve Not Available [facility] [address], [place], [address], 09/20/2023 16:18:59 09/20/20 23 09/20/2023 urina lysis panel , auto Unknown Analyte 250 Kike/ul Not Available [facility] [address], [place], [address], 09/20/2023 16:18:59 09/20/20 23 09/20/2023 urina lysis panel , auto Unknown Analyte Negati ve Not Available [facility] [address], [place], [address], 09/20/2023 16:18:59 10/10/19 24 10/10/2023 urina lysis panel , auto Unknown Analyte Clean Catch Not Available [facility] [address] [place], [address], 10/10/2023 13:39:50 10/10/19 24 10/10/2023 urina lysis panel , auto Unknown Analyte Yellow Not Available [facility] [address] [place], [address], 10/10/2023 13:39:50 10/10/19 24 10/10/2023 urina lysis panel , auto Unknown Analyte Clear Not Available [facility] [address] [place], [address], 10/10/2023 13:39:50 10/10/19 24 10/10/2023 urina lysis panel , auto Unknown Analyte 1.015 Not Available [facility] [address] [place], [address], 10/10/2023 13:39:50 10/10/19 24 10/10/2023 urina lysis panel , auto Unknown Analyte 1.003- 1.035 Not Available [facility] [address] [place], [address], 10/10/2023 13:39:50 10/10/19 24 10/10/2023 urina lysis panel , auto Unknown Analyte 6.0 Not Available [facility] [address] [place], [address], 10/10/2023 13:39:50 10/10/19 24 10/10/2023 urina lysis panel , auto Unknown Analyte 5.0-8. 0 Not Available [facility] [address] [place], [address], 10/10/2023 13:39:50 10/10/19 24 10/10/2023 urina lysis panel , auto Unknown Analyte 25 Sumi/ul Trace Not Available [facility] [address] [place], [address], 10/10/2023 13:39:50 10/10/19 24 10/10/2023 urina lysis panel , auto Unknown Analyte Negati ve Not Available [facility] Schedule [address] [place] [address], [address], 10/10/2023 13:39:50 10/10/19 24 10/10/2023 urina lysis panel , auto Unknown Analyte Negati ve Not Available [facility] Schedule [address] [place] [address], [address], 10/10/2023 13:39:50 10/10/19 24 10/10/2023 urina lysis panel , auto Unknown Analyte Negati ve Not Available [facility] Schedule [address] [place] [address], [address], 10/10/2023 13:39:50 10/10/19 24 10/10/2023 urina lysis panel , auto Unknown Analyte Negati ve Not Available [facility] Schedule [address] [place] [address], [address], 10/10/2023 13:39:50 10/10/19 24 10/10/2023 urina lysis panel , auto Unknown Analyte Negati ve Not Available [facility] Schedule [address] [place] [address], [address], 10/10/2023 13:39:50 10/10/19 24 10/10/2023 urina lysis panel , auto Unknown Analyte Normal Not Available [facility] Schedule [address] [place] [address], [address], 10/10/2023 13:39:50 10/10/19 24 10/10/2023 urina lysis panel , auto Unknown Analyte Normal Not Available [facility] Schedule [address] [place] [address], [address], 10/10/2023 13:39:50 10/10/19 24 10/10/2023 urina lysis panel , auto Unknown Analyte Negati ve Not Available [facility] Schedule [address] [place] [address], [place], [address], 10/10/2023 13:39:50 10/10/19 24 10/10/2023 urina lysis panel , auto Unknown Analyte Negati ve Not Available [facility] Schedule [address] [place], [address], 10/10/2023 13:39:50 10/10/19 24 10/10/2023 urina lysis panel , auto Unknown Analyte Normal Not Available [facility] Schedule [address] [place], [address], 10/10/2023 13:39:50 10/10/19 24 10/10/2023 urina lysis panel , auto Unknown Analyte Normal 1 mg/dl Not Available [facility] Schedule [address] [place], [address], 10/10/2023 13:39:50 10/10/19 24 10/10/2023 urina lysis panel , auto Unknown Analyte Negati ve Not Available [facility] Schedule [address] [place], [address], 10/10/2023 13:39:50 10/10/19 24 10/10/2023 urina lysis panel , auto Unknown Analyte Negati ve Not Available [facility] Schedule [address] [place], [address], 10/10/2023 13:39:50 10/10/19 24 10/10/2023 urina lysis panel , auto Unknown Analyte 50 Kike/ul Not Available [facility] Schedule [address] [place], [address], 10/10/2023 13:39:50 10/10/19 24 10/10/2023 urina lysis panel , auto Unknown Analyte Negati ve Not Available [facility] Schedule [address] [place], [address], 10/10/2023 13:39:50 10/19/19 24 10/19/2023 urina lysis panel , auto Unknown Analyte Clean Catch Not Available [facility] Schedule [address] [place], [address], 10/19/2023 11:45:16 10/19/19 24 10/19/2023 urina lysis panel , auto Unknown Analyte Yellow Not Available [facility] Schedule [address] [place], [address], 10/19/2023 11:45:16 10/19/19 24 10/19/2023 urina lysis panel , auto Unknown Analyte Clear Not Available [facility] Schedule [address] [place] [address], [address], 10/19/2023 11:45:16 10/19/19 24 10/19/2023 urina lysis panel , auto Unknown Analyte 1.020 Not Available [facility] Schedule [address] [place] [address], [address], 10/19/2023 11:45:16 10/19/19 24 10/19/2023 urina lysis panel , auto Unknown Analyte 1.003- 1.035 Not Available [facility] Schedule [address] [place] [address], [address], 10/19/2023 11:45:16 10/19/19 24 10/19/2023 urina lysis panel , auto Unknown Analyte 5.0 Not Available [facility] Schedule [address] [place] [address], [address], 10/19/2023 11:45:16 10/19/19 24 10/19/2023 urina lysis panel , auto Unknown Analyte 5.0-8. 0 Not Available [facility] Schedule [address] [place] [address], [address], 10/19/2023 11:45:16 10/19/19 24 10/19/2023 urina lysis panel , auto Unknown Analyte 75 Sumi/ul (+) Not Available [facility] Schedule [address] [place], [address], 10/19/2023 11:45:16 10/19/19 24 10/19/2023 urina lysis panel , auto Unknown Analyte Negati ve Not Available [facility] Schedule [address] [place], [address], 10/19/2023 11:45:16 10/19/19 24 10/19/2023 urina lysis panel , auto Unknown Analyte Negati ve Not Available [facility] Schedule [address] [place], [address], 10/19/2023 11:45:16 10/19/19 24 10/19/2023 urina lysis panel , auto Unknown Analyte Negati ve Not Available [facility] Schedule [address] [place], [address], 10/19/2023 11:45:16 10/19/19 24 10/19/2023 urina lysis panel , auto Unknown Analyte Negati ve Not Available [facility] Schedule [address] [place], [address], 10/19/2023 11:45:16 10/19/19 24 10/19/2023 urina lysis panel , auto Unknown Analyte Negati ve Not Available [facility] Schedule [address] [place], [address], 10/19/2023 11:45:16 10/19/19 24 10/19/2023 urina lysis panel , auto Unknown Analyte Normal Not Available [facility] Schedule [address] [place], [address], 10/19/2023 11:45:16 10/19/19 24 10/19/2023 urina lysis panel , auto Unknown Analyte Normal Not Available [facility] Schedule [address] [place], [address], 10/19/2023 11:45:16 10/19/19 24 10/19/2023 urina lysis panel , auto Unknown Analyte Negati ve Not Available [facility] Schedule [address] [place], [address], 10/19/2023 11:45:16 10/19/19 24 10/19/2023 urina lysis panel , auto Unknown Analyte Negati ve Not Available [facility] Schedule [address] [place], [address], 10/19/2023 11:45:16 10/19/19 24 10/19/2023 urina lysis panel , auto Unknown Analyte Normal Not Available [facility] Schedule [address] [place], [address], 10/19/2023 11:45:16 10/19/19 24 10/19/2023 urina lysis panel , auto Unknown Analyte Normal 1 mg/dl Not Available [facility] Schedule [address] [place], [address], 10/19/2023 11:45:16 10/19/19 24 10/19/2023 urina lysis panel , auto Unknown Analyte Negati ve Not Available [facility] Schedule [address] [place], [address], 10/19/2023 11:45:16 10/19/19 24 10/19/2023 urina lysis panel , auto Unknown Analyte Negati ve Not Available [facility] Schedule [address] [place], [address], 10/19/2023 11:45:16 10/19/19 24 10/19/2023 urina lysis panel , auto Unknown Analyte 250 Kike/ul Not Available [facility] Schedule [address] [place], [address], 10/19/2023 11:45:16 10/19/19 24 10/19/2023 urina lysis panel , auto Unknown Analyte Negati ve Not Available [facility] Schedule [address] [place], [address], 10/19/2023 11:45:16 11/15/19 24 11/15/2023 urina lysis panel , auto Unknown Analyte Clean Catch Not Available [facility] [address], [place], [address], 11/15/2023 16:39:36 11/15/19 24 11/15/2023 urina lysis panel , auto Unknown Analyte Yellow Not Available [facility] [address], [place], [address], 11/15/2023 16:39:36 11/15/19 24 11/15/2023 urina lysis panel , auto Unknown Analyte Clear Not Available [facility] [address], [place], [address], 11/15/2023 16:39:36 11/15/19 24 11/15/2023 urina lysis panel , auto Unknown Analyte 1.020 Not Available [facility] [address], [place], [address], 11/15/2023 16:39:36 11/15/19 24 11/15/2023 urina lysis panel , auto Unknown Analyte 1.003- 1.035 Not Available [facility] [address], [place], [address], 11/15/2023 16:39:36 11/15/19 24 11/15/2023 urina lysis panel , auto Unknown Analyte 5.0 Not Available [facility] [address], [place], [address], 11/15/2023 16:39:36 11/15/19 24 11/15/2023 urina lysis panel , auto Unknown Analyte 5.0-8. 0 Not Available [facility] [address], [place], [address], 11/15/2023 16:39:36 11/15/19 24 11/15/2023 urina lysis panel , auto Unknown Analyte 500 Sumi/ul (++) Not Available [facility] [facility] [address], [place], [address], 11/15/2023 16:39:36 11/15/19 24 11/15/2023 urina lysis panel , auto Unknown Analyte Negati ve Not Available [facility] [address], [place], [address], 11/15/2023 16:39:36 11/15/19 24 11/15/2023 urina lysis panel , auto Unknown Analyte Negati ve Not Available [facility] [address], [place], [address], 11/15/2023 16:39:36 11/15/19 24 11/15/2023 urina lysis panel , auto Unknown Analyte Negati ve Not Available [facility] [address], [place], [address], 11/15/2023 16:39:36 11/15/19 24 11/15/2023 urina lysis panel , auto Unknown Analyte Negati ve Not Available [facility] [address], [place], [address], 11/15/2023 16:39:36 11/15/19 24 11/15/2023 urina lysis panel , auto Unknown Analyte Negati ve Not Available [facility] [address], [place], [address], 11/15/2023 16:39:36 11/15/19 24 11/15/2023 urina lysis panel , auto Unknown Analyte Normal Not Available [facility] [address], [place], [address], 11/15/2023 16:39:36 11/15/19 24 11/15/2023 urina lysis panel , auto Unknown Analyte Normal Not Available [facility] [address], [place], [address], 11/15/2023 16:39:36 11/15/19 24 11/15/2023 urina lysis panel , auto Unknown Analyte Negati ve Not Available [facility] [address], [place], [address], 11/15/2023 16:39:36 11/15/19 24 11/15/2023 urina lysis panel , auto Unknown Analyte Negati ve Not Available [facility] [address], [place], [address], 11/15/2023 16:39:36 11/15/19 24 11/15/2023 urina lysis panel , auto Unknown Analyte Normal Not Available [facility] [address], [place], [address], 11/15/2023 16:39:36 11/15/19 24 11/15/2023 urina lysis panel , auto Unknown Analyte Normal 1 mg/dl Not Available [facility] [address], [place], [address], 11/15/2023 16:39:36 11/15/19 24 11/15/2023 urina lysis panel , auto Unknown Analyte Negati ve Not Available [facility] [address], [place], [address], 11/15/2023 16:39:36 11/15/19 24 11/15/2023 urina lysis panel , auto Unknown Analyte Negati ve Not Available [facility] [address] [facility] [address], [place], [address], 11/15/2023 16:39:36 11/15/19 24 11/15/2023 urina lysis panel , auto Unknown Analyte 250 Kike/ul Not Available [facility] [address], [place], [address], 11/15/2023 16:39:36 11/15/19 24 11/15/2023 urina lysis panel , auto Unknown Analyte Negati ve Not Available [facility] [address], [place], [address], 11/15/2023 16:39:36 12/07/19 24 12/07/2023 URINE CULTU RE klebsiella pneumoniae Organi sm: Klebsi lana pneumo niae Not Available [facility] [address] [facility] [address], [place], [address], 12/10/2023 09:33:47 12/07/19 24 12/10/2023 URINE CULTU RE urine culture abnormal ISOLA TE #1 COLON Y COUNT : 10,00 0 - 100,0 00 CFU/M L Proba ble Gram Negat martha Bacil rogerio. ID and sensi tivit y in progr ess. See [place] te Resul t(s) Below Klebs iella pneum oniae Not Available [facility] [address] [place] [address], [address], 12/10/2023 09:33:47 12/07/19 24 12/10/2023 URINE CULTU RE amox/K clav'ate(C) <=8/4 ug/mL susceptib le Not Available [facility] [address] [place] [address], [address], 12/10/2023 09:33:47 12/07/19 24 12/10/2023 URINE CULTU RE cefazolin <=2 ug/mL susceptib le Not Available [facility] [address] [place] [address], [address], 12/10/2023 09:33:47 12/07/19 24 12/10/2023 URINE CULTU RE ceftazidime <=1 ug/mL susceptib le Not Available [facility] [address] [place] [address], [address], 12/10/2023 09:33:47 12/07/19 24 12/10/2023 URINE CULTU RE ceftriaxone <=1 ug/mL susceptib le Not Available [facility] [address] [place] [address], [address], 12/10/2023 09:33:47 12/07/19 24 12/10/2023 URINE CULTU RE cefuroxime 16 ug/mL intermedi ate Not Available [facility] [address] [place] [address], [address], 12/10/2023 09:33:47 12/07/19 24 12/10/2023 URINE CULTU RE ciprofloxaci n 0.5 ug/mL intermedi ate Not Available [facility] [address] [place] [address], [address], 12/10/2023 09:33:47 12/07/19 24 12/10/2023 URINE CULTU RE gentamicin <=4 ug/mL susceptib le Not Available [facility] [address] [place] [address], [address], 12/10/2023 09:33:47 12/07/19 24 12/10/2023 URINE CULTU RE imipenem <=1 ug/mL susceptib le Not Available [facility] [address] [place] [address], [address], 12/10/2023 09:33:47 12/07/19 24 12/10/2023 URINE CULTU RE levofloxacin <=0.5 ug/mL susceptib le Not Available [facility] [address] [place] [address], [address], 12/10/2023 09:33:47 12/07/19 24 12/10/2023 URINE CULTU RE nitrofuranto in 64 ug/mL intermedi ate Not Available [facility] [address] [place] [address], [address], 12/10/2023 09:33:47 12/07/19 24 12/10/2023 URINE CULTU RE piperacillin /robby <=16 ug/mL susceptib le Not Available [facility] [address] [place] [address], [address], 12/10/2023 09:33:47 12/07/19 24 12/10/2023 URINE CULTU RE tetracycline <=4 ug/mL susceptib le Not Available [facility] [address] [place] [address], [address], 12/10/2023 09:33:47 12/07/19 24 12/10/2023 URINE CULTU RE tobramycin <=2 ug/mL susceptib le Not Available [facility] [address] [place] [address], [address], 12/10/2023 09:33:47 12/07/19 24 12/10/2023 URINE CULTU RE trimeth/sulf a <=2/38 ug/mL susceptib le Not Available [facility] [address] [facility] [address], [place], [address], 12/10/2023 09:33:47 11/13/19 25 11/13/2024 urina lysis panel , auto Unknown Analyte Clean Catch Not Available [facility] [address], [place], [address], 11/13/2024 14:36:14 11/13/19 25 11/13/2024 urina lysis panel , auto Unknown Analyte Yellow Not Available [facility] [address], [place], [address], 11/13/2024 14:36:14 11/13/19 25 11/13/2024 urina lysis panel , auto Unknown Analyte Clear Not Available [facility] [address], [place], [address], 11/13/2024 14:36:14 11/13/19 25 11/13/2024 urina lysis panel , auto Unknown Analyte 1.005 Not Available [facility] [address], [place], [address], 11/13/2024 14:36:14 11/13/19 25 11/13/2024 urina lysis panel , auto Unknown Analyte 1.003- 1.035 Not Available [facility] [address], [place], [address], 11/13/2024 14:36:14 11/13/19 25 11/13/2024 urina lysis panel , auto Unknown Analyte 6.0 Not Available [facility] [address], [place], [address], 11/13/2024 14:36:14 11/13/19 25 11/13/2024 urina lysis panel , auto Unknown Analyte 5.0-8. 0 Not Available [facility] [address], [place], [address], 11/13/2024 14:36:14 11/13/19 25 11/13/2024 urina lysis panel , auto Unknown Analyte 25 Sumi/ul Trace Not Available [facility] [address], [place], [address], 11/13/2024 14:36:14 11/13/19 25 11/13/2024 urina lysis panel , auto Unknown Analyte Negati ve Not Available [facility] [address], [place], [address], 11/13/2024 14:36:14 11/13/19 25 11/13/2024 urina lysis panel , auto Unknown Analyte Negati ve Not Available [facility] [address], [place], [address], 11/13/2024 14:36:14 11/13/19 25 11/13/2024 urina lysis panel , auto Unknown Analyte Negati ve Not Available [facility] [address], [place], [address], 11/13/2024 14:36:14 11/13/19 25 11/13/2024 urina lysis panel , auto Unknown Analyte Negati ve Not Available [facility] [address], [place], [address], 11/13/2024 14:36:14 11/13/19 25 11/13/2024 urina lysis panel , auto Unknown Analyte Negati ve Not Available [facility] [address], [place], [address], 11/13/2024 14:36:14 11/13/19 25 11/13/2024 urina lysis panel , auto Unknown Analyte Normal Not Available [facility] [address], [place], [address], 11/13/2024 14:36:14 11/13/19 25 11/13/2024 urina lysis panel , auto Unknown Analyte Normal Not Available [facility] [address], [place], [address], 11/13/2024 14:36:14 11/13/19 25 11/13/2024 urina lysis panel , auto Unknown Analyte Negati ve Not Available [facility] [address], [place], [address], 11/13/2024 14:36:14 11/13/19 25 11/13/2024 urina lysis panel , auto Unknown Analyte Negati ve Not Available [facility] [address], [place], [address], 11/13/2024 14:36:14 11/13/19 25 11/13/2024 urina lysis panel , auto Unknown Analyte Normal Not Available [facility] [address], [place], [address], 11/13/2024 14:36:14 11/13/19 25 11/13/2024 urina lysis panel , auto Unknown Analyte Normal 1 mg/dl Not Available [facility] [address], [place], [address], 11/13/2024 14:36:14 11/13/19 25 11/13/2024 urina lysis panel , auto Unknown Analyte Negati ve Not Available [facility] [address], [place], [address], 11/13/2024 14:36:14 11/13/19 25 11/13/2024 urina lysis panel , auto Unknown Analyte Negati ve Not Available [facility] [address], [place], [address], 11/13/2024 14:36:14 11/13/19 25 11/13/2024 urina lysis panel , auto Unknown Analyte 50 Kike/ul Not Available [facility] [address], [place], [address], 11/13/2024 14:36:14 11/13/19 25 11/13/2024 urina lysis panel , auto Unknown Analyte Negati ve Not Available [facility] [address], [place], [address], 11/13/2024 14:36:14 Result Notes None recorded. Problems Name Problem SNOMED Code Status Onset Date Resolution Date Notes Provider Name and Address Organization Details Recorded Time Recurrent urinary tract infection 805086554 Active 2022 WILFRIDO ROMAN JR, MD [address] [place] [address], [address] , [facility] 3 09:29:45 Urinary tract infectious disease 21202688 Active 2022 WILFRIDO ROMAN JR, MD [address] [place] [address], [address], [facility] 3 09:29:46 Urge incontinence of urine 50139596 Active 2022 WILFRIDO ROMAN JR, MD [address] [place] [address], [address] , [facility] 3 09:29:47 Problem Notes None recorded. Procedures Surgical History Date Name Laterality Status Provider Name and Address Organization Details Recorded Time 3 PNE Implantation; Sacral Nerve completed WILFRIDO ROMAN JR, MD [address] [place] [address], [address], [facility] 09/17/2023 07:38:44 3 Cystoscopy - female completed WILFRIDO ROMAN JR, MD [address] [place] [address], [address], [facility] 08/29/2023 14:45:16 9 Post Void Residual; Ultrasound completed Evelyne Hoppern [facility] 10/28/2018 11:26:22 Other completed Evelyne [place] [facility] 10/28/2018 11:17:20 Other completed Evelyne [place] [facility] 10/28/2018 11:17:29 Other completed Evelyne [place] [facility] 10/28/2018 11:17:39 Other completed Evelyne [place] [facility] 10/28/2018 11:17:45 Imaging Results None recorded. Procedure Notes None recorded. Medical Equipment None Reported. Allergies Allergen ID Allergen Name Allergen Category Reaction Reaction Severity Criticality Documentation Date Start Date Code Code System Note Provider Name and Address Organization Details Recorded Time 501644 Substance with sulfonami de structure and antibacte rial mechanism of action (substanc e) medicatio n Not available Not available Not available 10/28/2018 09374 8003 SNOMED Evelyne Ya [facility] 9 11:10:53 Medications Name Sig Start Date Stop Date Status Note LastModified by Organization Details LastModified Time Glucophag e 500 mg tablet As Directed 10/28 completed Frequenc y: as direct.; Medicati on Descript ion: metformi n; Dosage:a s directed ; Route:or al; refills: 0 Not Available Not Available Not Available atorvasta tin 10 mg tablet active Not Available Not Available Not Available oxybutyni n chloride ER 10 mg tablet,ex tended release 24 hr active Not Available Not Available Not Available fluconazo le 150 mg tablet active Not Available Not Available Not Available tolterodi ne ER 4 mg capsule,e xtended release 24 hr active Not Available Not Available Not Available lisinopri l 20 mg tablet active Not Available Not Available Not Available omeprazol e 40 mg capsule,d elayed release active Not Available Not Available Not Available levothyro xine 75 mcg tablet Daily active Not Available Not Available Not Available Macrobid 100 mg capsule Take 1 capsule every 12 hours by oral route. 2022 active Not Available Not Available Not Avai lable levothyro xine 100 mcg tablet active Not Available Not Available Not Available methenami ne hippurate 1 gram tablet TAKE 1 TABLET BY MOUTH TWICE DAILY 2023 active Not Available Not Available Not Avai lable famotidin e 20 mg tablet active Not Available Not Available Not Available glyburide 5 mg-metfor min 500 mg tablet Daily active Not Available Not Available No t Available OneTouch Ultra Test strips active Not Available Not Available Not Available doxycycli ne monohydra te 100 mg capsule Take 1 capsule twice a day by oral route. 2023 active Not Available Not Available Not Avai lable Cipro 500 mg tablet Take 1 tablet every 12 hours by oral route for 14 days. 2023 active Not Available Not Available Not Avai lable pravastat in 20 mg tablet Every night at bedtime 10/28 completed Instruct ions: for choleste rol;Freq uency: qhs;Medi cation Descript ion: pravasta tin; Dosage:1 ; Route:or al; refills: 12 Not Available Not Available Not Available zolpidem 5 mg tablet Bedtime active Not Available Not Available Not Available Percocet 5 mg-325 mg tablet Take 1 tablet every 6 hours by oral route as needed. 2023 active Not Available Not Available Not Avai lable cefdinir 300 mg capsule active Not Available Not Available Not Available multivita min with iron tablet Daily active Duration : 10 days;Josh quency: daily;Me dication Descript ion: multivit mary with iron; Dosage:1 ; Route:or al; refills: 0; Quantity :30 tablet Not Available Not Available Not Available escitalop babs 20 mg tablet active Not Available Not Available Not Available biotin 1 mg tablet Daily active Frequenc y: daily;Me dication Descript ion: biotin; Dosage:1 ; Route:or al; refills: 0 Not Available Not Available Not Available Basaglghanshyam óLpezikPen U-100 Insulin 100 unit/mL (3 mL) subcutane ous active Not Available Not Available Not Available BD Ultra-Fin e Micro Pen Needle 32 gauge x 1/4 active Not Available Not Available Not Available Clenpiq 10 mg-3.5 gram-12 gram/160 mL oral solution active Not Available Not Available Not Available Mounjaro active Not Available Not Avai lable Not Available Vitals Date Recorded Body height Body mass index (BMI) Body weight Provider Name and Address Organization Details Last Updated DateTime 11/13/2024 167.64 cm 33.9 kg/m2 58071.4 g Shruthi Elías [facility] 11/13/2024 14:24:19 Date Recorded Body height Body mass index (BMI) Body weight Provider Name and Address Organization Details Last Updated DateTime 11/15/2023 167.64 cm 33.9 kg/m2 35023.4 g Danny Pyle [facility] 11/15/2023 16:06:35 Date Recorded Body height Body mass index (BMI) Body weight Provider Name and Address Organization Details Last Updated DateTime 09/20/2023 170.18 cm 32.9 kg/m2 88324.4 g Sheree Donald [facility] 09/20/2023 15:02:49 Social History Question Answer Notes LastModified by Organizat ion Details LastModified Time Tobacco Smoking Status Never Smoker Evelyne carlos, [facility] 10/28/2018 11:16:44 Marital Status Informatio n not available 10/28/2018 What Was The Date Of Your Most Recent Tobacco Screening? 04/02/2023 Information not available 04/02/2023 How Much Tobacco Do You Smoke? No Information not available 10/28/2018 Sex: Unknown Functional Status Question Answer Note LastModified by Organizat ion Details LastModified Time What is your level of alcohol consumption? 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 Family History Relationship Description Onset Age of this Age Resolved Age Notes LastModified by Organization Details LastModified Time Unspecified Relation Malignant neoplasm of prostate Uncle Not available 2018 11:16:16 Unspecified Relation Diabetes mellitus Grandm other Not available 10/28/2018 11:16:28 Unspecified Relation Family history of malignant neoplasm Grandf ather Not available 10/28/2018 11:16:35 Unspecified Relation Kidney disease [email or web address] Not available 2022 14:48:03 Mother Diabetes mellitus Not available 2018 11:16:28 Medical History Condition Response Depression Y Diabetes Y Arthritis Y Thyroid Disorder Y Hypertension Y Gynecological HistoryNo gynecological history recorded. Obstetrics History GPAL:G 0 P 0 0 0 0 Past Encounters Encounter ID Performer Location Encounter Start Date Encounter Closed Date Diagnosis/Indication Diagnosis SNOMED-CT Code Diagnosis ICD10 Code Diagnosis Note [id number] MARIA R [facility]LEJO [facility] [address] [facility] [facility] [place] [address] 10/28/2018 10:25:59 10/29/2018 08:43:14 Urge incontinence of urine 64197057 N39.41 Pt has been doing well with oxybutinin until recently. Her u/a today is wnl and PVR only 52 cc. Discussed that her increased caffeine use is probably responsibl e for her increased urgency and leakage. She has been drinking up to 40 oz/day. Discussed drinking 8 0z day of decaf. [id number] WILFRIDO ROMAN JR, MD [facility]ARAH DANI[facility] [address] [place] [address] 04/02/2023 13:16:15 04/09/2023 04:02:50 Recurrent urinary tract infection 165252295 N39.0 Urinary tr act infectious disease 60010993 N39.0 Urge incon tinence of urine 95542818 N39.41 [id number] WILFRIDO ROMAN JR, MD [facility] [address] [place] [address] 08/02/2023 15:01:31 08/02/2023 16:32:59 Acute urinary tract infection 205013841 N39.0 Urge incon tinence of urine 30656035 N39.41 Recurrent urinary tract infection 699196321 N39.0 , [id number] WILFRIDO ROMAN JR, MD SURGERY SCHEDULE [address] [place] [address] 1 08/29/2023 14:42:52 08/29/2023 14:43:44 Recurrent urinary tract infection 524791235 N39.0 , Urge incon tinence of urine 95497546 N39.41 [id number] WILFRIDO ROMAN JR, MD [facility] [address] [place] [address] 0 09/13/2023 16:11:52 09/19/2023 10:45:57 Urge incontinence of urine 46034419 N39.41 [id number] WILFRIDO ROMAN JR, MD [facility] [address] [place] [address] 0 09/20/2023 14:57:25 09/20/2023 15:41:37 Acute urinary tract infection 843530628 N39.0 Urge incon tinence of urine 90374941 N39.41 [id number] WILFRIDO ROMAN JR, MD SURGERY SCHEDULE [address] [place] [address] 1 10/19/2023 11:27:51 10/19/2023 12:19:29 Postoperative pain 455956551 G89.18 [id number] WILFRIDO ROMAN JR, MD [facility] [address] [place] [address] 11/15/2023 15:54:23 11/15/2023 16:22:19 Urge incontinence of urine 76715816 N39.41 [id number] ALLISON ALBERTS MD [facility] [address] [place] [address] 12/07/2023 16:06:10 12/07/2023 16:09:12 Acute urinary tract infection 050594134 N39.0 [id number] WILFRIDO ROMAN JR, MD [facility] [address] [place] [address] 11/13/2024 13:53:24 11/13/2024 14:34:39 Recurrent urinary tract infection 374664899 N39.0 Recommend addition of vitamin C with Methionami ne. Monitor recurrence . Adjust preventive strategies if necessary. Urge incon tinence of urine 29482440 N39.41 Continue neuromodul ation therapy. 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 Evaluate future interventi ons if needed. Health Concerns Section Related Observation LastModified by Organization Detai ls LastModified Time None Recorded Concern Status LastModified by Organization Details LastModified Time None Recorded Advance Directives Directive None Recorded Payers Insurance Date Sequence Insurance Name Policy Number Policy Espinal Covered Member ID Espinal Member ID Guarantor Name 11/16/2024 2 [place] [id number] Salvador Booker Ewalt [id number] Vianey Kenyon Ewewelinat 12/04/2018 1 *SELF PAY* Robert Kenyon Ewalt 11/16/2024 1 [facility] [id number] Vianey Kenyon Ewalt [id number] Vianey Kenyon Ewalt 11/16/2024 GENERIC [facility] [employer] Vianey Kenyon Ewsherman Vianey Kenyon Ewsherman Notes Date Note Type Note Provider Name and Address Organization Details Recorded Time 09/20/2023 text/html Patient has a hi story of two urinary tract infections in November and March. She has never had urinary tract infections before. She did not have any significant symptoms associated with urinary tract infections. Her urinary tract infections were treated easily with anabiotic therapy. She denies hematuria. She denies dysuria. She is asymptomatic today. Methenamine prophylaxis with no urinary infections in the last three months. - Patient does have problems with urgency incontinence. She has been treated with oxybutynin until tolteradine in the past. She remains on tolteradine. Interested in neuromodulation due to persistent symptoms Patient is in today for follow up after peripheral nerve evaluation. She is seeing greater than 50% improvement in her lower urinary tract symptoms, including a decrease in urgency and urgency incontinence. She wishes to proceed with implantation of neuromodulator device. WILFRIDO ROMAN JR, MD [address] [place] [address], [phone], [facility] 09/30/2023 17:02:11 11/15/2023 text/html Patient is in to day for follow-up of urgency incontinence. She underwent neuromodulation, Axonix implantation stages, and 02 October 2023. She reports significant improvement of lower urinary tract symptoms. WILFRIDO ROMAN JR, MD [address] [place] [address], [phone], [facility] 11/17/2023 10:50:13 11/13/2024 text/html The patient is a 64-year-old female presenting with urinary symptoms and recurrent urinary tract infections. Experiencing urinary urgency and incontinence. Reports frequent UTIs approximately monthly. Previous treatment with Methionamine. Ongoing urinary issues. Significant weight loss of 40 pounds noted. Recent neuromodulation therapy. Initially improved symptoms before deterioration. Not taking Methionamine with vitamin C. Patient is in today for follow-up of urgency incontinence. She underwent neuromodulation, Axonix implantation stages, and 02 October 2023. WILFRIDO ROMAN JR, MD [address] [place] [address], [phone], [facility] 11/15/2024 12:55:04 OBGyn Episode No OBEpisode recorded.
[2025-04-14 14:25] VITALS: BMI 26.6
[2025-04-14 14:32] VITALS: BP 115/70; PULSE 80; RESP 16; TEMP 36.7; O2SAT 98
[2025-04-14] MEDS: ERTAPENEM SODIUM 1 GM in 0.9 % SODIUM CHLORIDE 50 ML IV (14:32)
[2025-04-14] MEDS: SODIUM CHLORIDE 0.9% 10ML FLUSH SYRINGE 10 ML IV (14:32)
[2025-04-14] MEDS: 0.9 % SODIUM CHLORIDE 50 ML 25 ML IV (14:32)
[2025-04-14 14:45] LABS: Anion Gap 14.2 mEq/L (5-15); Blood Urea Nitrogen 16 mg/dl (7-17); Calcium 9.3 mg/dl (8.4-10.2); Carbon Dioxide 27 mmol/L (22.0-30.0); Chloride 101 mmol/L (98-107); Creatinine Clearance Estimated 67 mL/min (50-200); Creatinine,Serum 0.80 mg/dl (0.52-1.04); Estimated Glomerular Filt Rate 72 ml/min (>60); GFR (African American) 87 ML/MIN (>60); Glucose 85 mg/dl (74-100); Potassium 4.2 mmoL/L (3.5-5.1); Sodium 138 mmol/L (136-145)
[2025-04-14 15:17] VITALS: BP 111/68; PULSE 78; RESP 16; TEMP 36.7; O2SAT 98
== END 2025-04-14 15:20 | disposition home or self-care (01) ==
LOC: INF 14:05
PROVIDERS: PCP Nurse Practitioner Family; Visit Provider Nurse Practitioner Family
DX: N39.0 Urinary tract infection, site not specified (principal)
CPT/HCPCS: 80048; 96365; J1335

== ENCOUNTER 2025-04-15 14:08 | Outpatient (CLI) | payer OTHER, SELFPAY ==
[2025-04-15 14:10] VITALS: BP 92/64; PULSE 91; RESP 18; TEMP 36.9; O2SAT 96
--- OUTSIDE RECORDS SUMMARY | 2025-04-15 14:11 | XMS_ITS | Data Portability ---
Author Organization [facility] Tyler Omar conley Kristopher PAHOKEE CLOSED Address [address] [facility] [address] [place] [address] Assessment Encounter Date Assessment Date Assessment LastModified [...] Seldinger technique and the kit provided by [employer], we placed our permanent lead under good [...] Lab urinalysi s panel, auto 2024 025 [facility], [address], [address], [place], [address], 11/15/2024 12:55:00 culture, urine 2023 024 surya [facility], [address] [place] [address], [address], 12/14/2023 11:26:48 urinalysi s panel, auto 2023 024 [facility], [address], [address], [place], [address], 11/17/2023 10:50:10 urinalysi s panel, auto 2022 023 [facility], [address], [address], [place], [address], 09/27/2023 07:36:04 culture, urine 2022 023 [facility], [address] [place] [address], [address], 09/27/2023 07:36:04 Referral None recorded. Procedures None recorded. Surgeries sacral neuromodu lation stage 1 (SURG) [email or web address] [facility], [address] [facility], [address], [address], 11/23/2023 16:51:41 sacral neuromodu lation stage 2 (SURG) [email or web address] [facility], [address] [facility], [facility] [address], [place], [address], 11/23/2023 16:51:41 Imaging None recorded. Medication Orders Percocet 5 mg-325 mg tablet 2023 024 [facility], [address] [place] [address], [address], [address], 10/19/2023 13:55:03 doxycycli ne monohydra te 100 mg capsule 2023 024 [facility], [address] [place] [address], [id number], 10/19/2023 13:54:59 Patient TargetsNo targets recorded. Patient Instructions Encounter Date Encounter Id Patient Instructions Last Modified By Organization Details Last Modified Time 11/13/2024 [id number] - Add vitamin C to your current Methionamine regimen to increase effectiveness against UTIs. - Monitor your urinary symptoms and report any persistent issues. 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 [...] sm: Klebsi lana pneumo niae Not Available [facility] [address] [place], [address], 09/22/2023 16:04:38 09/20/20 23 09/22/2023 URINE CULTU RE urine culture abnormal ISOLA TE #1 COLON Y COUNT : 10,00 0 - 100,0 00 CFU/M L Proba ble Gram Negat martha Bacil rogerio. ID and sensi tivit y in progr ess. See [place] te Resul t(s) Below Klebs iella pneum oniae Not Available [facility] [address] [place] [address], [address], 09/22/2023 16:04:38 09/20/20 23 09/22/2023 URINE CULTU RE amox/K clav'ate(C) <=8/4 ug/mL susceptib le Not Available [facility] [address] [place] [address], [address], 09/22/2023 16:04:38 09/20/20 23 09/22/2023 URINE CULTU RE cefazolin <=2 ug/mL susceptib le Not Available [facility] [address] [place] [address], [address], 09/22/2023 16:04:38 09/20/20 23 09/22/2023 URINE CULTU RE ceftazidime <=1 ug/mL susceptib le Not Available [facility] [address] [place] [address], [address], 09/22/2023 16:04:38 09/20/20 23 09/22/2023 URINE CULTU RE ceftriaxone <=1 ug/mL susceptib le Not Available [facility] [address] [place] [address], [address], 09/22/2023 16:04:38 09/20/20 23 09/22/2023 URINE CULTU RE cefuroxime <=4 ug/mL susceptib le Not Available [facility] [address] [place] [address], [address], 09/22/2023 16:04:38 09/20/20 23 09/22/2023 URINE CULTU RE ciprofloxaci n <=0.25 ug/mL susceptib le Not Available [facility] [address] [place] [address], [address], 09/22/2023 16:04:38 09/20/20 23 09/22/2023 URINE CULTU RE gentamicin <=4 ug/mL susceptib le Not Available [facility] [address] [place] [address], [address], 09/22/2023 16:04:38 09/20/20 23 09/22/2023 URINE CULTU RE imipenem <=1 ug/mL susceptib le Not Available [facility] [address] [place] [address], [address], 09/22/2023 16:04:38 09/20/20 23 09/22/2023 URINE CULTU RE levofloxacin <=0.5 ug/mL susceptib le Not Available [facility] [address] [place] [address], [address], 09/22/2023 16:04:38 09/20/20 23 09/22/2023 URINE CULTU RE nitrofuranto in >64 ug/mL resistant Not Available [facility] [address] [place] [address], [address], 09/22/2023 16:04:38 09/20/20 23 09/22/2023 URINE CULTU RE piperacillin /robby <=16 ug/mL susceptib le Not Available [facility] [address] [place] [address], [address], 09/22/2023 16:04:38 09/20/20 23 09/22/2023 URINE CULTU RE tetracycline <=4 ug/mL susceptib le Not Available [facility] [address] [place] [address], [address], 09/22/2023 16:04:38 09/20/20 23 09/22/2023 URINE CULTU RE tobramycin <=2 ug/mL susceptib le Not Available [facility] [address] [place] [address], [address], 09/22/2023 16:04:38 09/20/20 23 09/22/2023 URINE CULTU RE trimeth/sulf a <=2/38 ug/mL susceptib le Not Available [facility] [address] [facility], [place], [address], 09/22/2023 16:04:38 09/20/20 23 09/20/2023 urina lysis panel , auto Unknown Analyte Clean Catch Not Available [facility] [address], [place], [address], 09/20/2023 16:18:59 09/20/20 23 09/20/2023 urina lysis panel , auto Unknown Analyte Yellow Not Available [facility] [address], [place], [address], 09/20/2023 16:18:59 09/20/20 23 09/20/2023 urina lysis panel , auto Unknown Analyte Cloudy Not Available [facility] [address], [place], [address], 09/20/2023 16:18:59 09/20/20 23 09/20/2023 urina lysis panel , auto Unknown Analyte 1.020 Not Available [facility] [address], [place], [address], 09/20/2023 16:18:59 09/20/20 23 09/20/2023 urina lysis panel , auto Unknown Analyte 1.003- 1.035 Not Available [facility] [address], [place], [address], 09/20/2023 16:18:59 09/20/20 23 09/20/2023 urina lysis panel , auto Unknown Analyte 5.0 Not Available [facility] [address], [place], [address], 09/20/2023 16:18:59 09/20/20 23 09/20/2023 urina lysis panel , auto Unknown Analyte 5.0-8. 0 Not Available [facility] [address], [place], [address], 09/20/2023 16:18:59 09/20/20 23 09/20/2023 urina lysis panel , auto Unknown Analyte 500 Sumi/ul (++) Not Available [facility] [address], [place], [address], 09/20/2023 16:18:59 09/20/20 23 09/20/2023 urina lysis panel , auto Unknown Analyte Negati ve Not Available [facility] [address], [place], [address], 09/20/2023 16:18:59 09/20/20 23 09/20/2023 urina lysis panel , auto Unknown Analyte Negati ve Not Available [facility] [address], [place], [address], 09/20/2023 16:18:59 09/20/20 23 09/20/2023 urina lysis panel , auto Unknown Analyte Negati ve Not Available [facility] [address], [place], [address], 09/20/2023 16:18:59 09/20/20 23 09/20/2023 urina lysis panel , auto Unknown Analyte Negati ve Not Available [facility] [address], [place], [address], 09/20/2023 16:18:59 09/20/20 23 09/20/2023 urina lysis panel , auto Unknown Analyte Negati ve Not Available [facility] [address], [place], [address], 09/20/2023 16:18:59 09/20/20 23 09/20/2023 urina lysis panel , auto Unknown Analyte Normal Not Available [facility] [address], [place], [address], 09/20/2023 16:18:59 09/20/20 23 09/20/2023 urina lysis panel , auto Unknown Analyte Normal Not Available [facility] [address], [place], [address], 09/20/2023 16:18:59 09/20/20 23 09/20/2023 urina lysis panel , auto Unknown Analyte Negati ve Not Available [facility] [address], [place], [address], 09/20/2023 16:18:59 09/20/20 23 09/20/2023 urina lysis panel , auto Unknown Analyte Negati ve Not Available [facility] [address], [place], [address], 09/20/2023 16:18:59 09/20/20 23 09/20/2023 urina lysis panel , auto Unknown Analyte Normal Not Available [facility] [address], [place], [address], 09/20/2023 16:18:59 09/20/20 23 09/20/2023 urina lysis panel , auto Unknown Analyte Normal 1 mg/dl Not Available [facility] [address], [place], [address], 09/20/2023 16:18:59 09/20/20 23 09/20/2023 urina lysis panel , auto Unknown Analyte Negati ve Not Available [facility] [address], [place], [address], 09/20/2023 16:18:59 09/20/20 23 09/20/2023 urina lysis panel , auto Unknown Analyte Negati ve Not Available [facility] [address], [place], [address], 09/20/2023 16:18:59 09/20/20 23 09/20/2023 urina lysis panel , auto Unknown Analyte 250 Kike/ul Not Available [facility] [address], [place], [address], 09/20/2023 16:18:59 09/20/20 23 09/20/2023 urina lysis panel , auto Unknown Analyte Negati ve Not Available [facility] [address], [place], [address], 09/20/2023 16:18:59 10/10/19 24 10/10/2023 urina lysis panel , auto Unknown Analyte Clean Catch Not Available [facility] Schedule [address] [place], [address], 10/10/2023 13:39:50 10/10/19 24 10/10/2023 urina lysis panel , auto Unknown Analyte Yellow Not Available [facility] Schedule [address] [place], [address], 10/10/2023 13:39:50 10/10/19 24 10/10/2023 urina lysis panel , auto Unknown Analyte Clear Not Available [facility] Schedule [address] [place], [address], 10/10/2023 13:39:50 10/10/19 24 10/10/2023 urina lysis panel , auto Unknown Analyte 1.015 Not Available [facility] Schedule [address] [place], [address], 10/10/2023 13:39:50 10/10/19 24 10/10/2023 urina lysis panel , auto Unknown Analyte 1.003- 1.035 Not Available [facility] Schedule [address] [place], [address], 10/10/2023 13:39:50 10/10/19 24 10/10/2023 urina lysis panel , auto Unknown Analyte 6.0 Not Available [facility] Schedule [address] [place], [address], 10/10/2023 13:39:50 10/10/19 24 10/10/2023 urina lysis panel , auto Unknown Analyte 5.0-8. 0 Not Available [facility] Schedule [address] [place], [address], 10/10/2023 13:39:50 10/10/19 24 10/10/2023 urina lysis panel , auto Unknown Analyte 25 Sumi/ul Trace Not Available [facility] Schedule [address] [place], [address], 10/10/2023 13:39:50 10/10/19 24 10/10/2023 urina lysis panel , auto Unknown Analyte Negati ve Not Available [facility] Schedule [address] [place] [address], [address], 10/10/2023 13:39:50 10/10/19 24 10/10/2023 urina lysis panel , auto Unknown Analyte Negati ve Not Available [facility] Schedule [address] [place] [address], [address], 10/10/2023 13:39:50 10/10/19 24 10/10/2023 urina lysis panel , auto Unknown Analyte Negati ve Not Available [facility] Schedule [address] [place] [address], [address], 10/10/2023 13:39:50 10/10/19 24 10/10/2023 urina lysis panel , auto Unknown Analyte Negati ve Not Available [facility] Schedule [address] [place] [address], [address], 10/10/2023 13:39:50 10/10/19 24 10/10/2023 urina lysis panel , auto Unknown Analyte Negati ve Not Available [facility] Schedule [address] [place] [address], [address], 10/10/2023 13:39:50 10/10/19 24 10/10/2023 urina lysis panel , auto Unknown Analyte Normal Not Available [facility] Schedule [address] [place] [address], [address], 10/10/2023 13:39:50 10/10/19 24 10/10/2023 urina lysis panel , auto Unknown Analyte Normal Not Available [facility] Schedule [address] [place] [address], [address], 10/10/2023 13:39:50 10/10/19 24 10/10/2023 urina lysis panel , auto Unknown Analyte Negati ve Not Available [facility] Schedule [address] [place] [address], [place], [address], 10/10/2023 13:39:50 10/10/19 24 10/10/2023 urina lysis panel , auto Unknown Analyte Negati ve Not Available [facility] Schedule [address] [place], [address], 10/10/2023 13:39:50 10/10/19 24 10/10/2023 urina lysis panel , auto Unknown Analyte Normal Not Available [facility] Schedule [address] [place], [address], 10/10/2023 13:39:50 10/10/19 24 10/10/2023 urina lysis panel , auto Unknown Analyte Normal 1 mg/dl Not Available [facility] Schedule [address] [place], [address], 10/10/2023 13:39:50 10/10/19 24 10/10/2023 urina lysis panel , auto Unknown Analyte Negati ve Not Available [facility] Schedule [address] [place], [address], 10/10/2023 13:39:50 10/10/19 24 10/10/2023 urina lysis panel , auto Unknown Analyte Negati ve Not Available [facility] Schedule [address] [place], [address], 10/10/2023 13:39:50 10/10/19 24 10/10/2023 urina lysis panel , auto Unknown Analyte 50 Kike/ul Not Available [facility] Schedule [address] [place], [address], 10/10/2023 13:39:50 10/10/19 24 10/10/2023 urina lysis panel , auto Unknown Analyte Negati ve Not Available [facility] Schedule [address] [place], [address], 10/10/2023 13:39:50 10/19/19 24 10/19/2023 urina lysis panel , auto Unknown Analyte Clean Catch Not Available [facility] Schedule [address] [place], [address], 10/19/2023 11:45:16 10/19/19 24 10/19/2023 urina lysis panel , auto Unknown Analyte Yellow Not Available [facility] Schedule [address] [place], [address], 10/19/2023 11:45:16 10/19/19 24 10/19/2023 urina lysis panel , auto Unknown Analyte Clear Not Available [facility] Schedule [address] [place] [address], [address], 10/19/2023 11:45:16 10/19/19 24 10/19/2023 urina lysis panel , auto Unknown Analyte 1.020 Not Available [facility] Schedule [address] [place] [address], [address], 10/19/2023 11:45:16 10/19/19 24 10/19/2023 urina lysis panel , auto Unknown Analyte 1.003- 1.035 Not Available [facility] Schedule [address] [place] [address], [address], 10/19/2023 11:45:16 10/19/19 24 10/19/2023 urina lysis panel , auto Unknown Analyte 5.0 Not Available [facility] Schedule [address] [place] [address], [address], 10/19/2023 11:45:16 10/19/19 24 10/19/2023 urina lysis panel , auto Unknown Analyte 5.0-8. 0 Not Available [facility] Schedule [address] [place] [address], [address], 10/19/2023 11:45:16 10/19/19 24 10/19/2023 urina lysis panel , auto Unknown Analyte 75 Sumi/ul (+) Not Available [facility] Schedule [address] [place], [address], 10/19/2023 11:45:16 10/19/19 24 10/19/2023 urina lysis panel , auto Unknown Analyte Negati ve Not Available [facility] Schedule [address] [place], [address], 10/19/2023 11:45:16 10/19/19 24 10/19/2023 urina lysis panel , auto Unknown Analyte Negati ve Not Available [facility] Schedule [address] [place], [address], 10/19/2023 11:45:16 10/19/19 24 10/19/2023 urina lysis panel , auto Unknown Analyte Negati ve Not Available [facility] Schedule [address] [place], [address], 10/19/2023 11:45:16 10/19/19 24 10/19/2023 urina lysis panel , auto Unknown Analyte Negati ve Not Available [facility] Schedule [address] [place], [address], 10/19/2023 11:45:16 10/19/19 24 10/19/2023 urina lysis panel , auto Unknown Analyte Negati ve Not Available [facility] Schedule [address] [place], [address], 10/19/2023 11:45:16 10/19/19 24 10/19/2023 urina lysis panel , auto Unknown Analyte Normal Not Available [facility] Schedule [address] [place], [address], 10/19/2023 11:45:16 10/19/19 24 10/19/2023 urina lysis panel , auto Unknown Analyte Normal Not Available [facility] Surgery Schedule [address] [place], [address], 10/19/2023 11:45:16 10/19/19 24 10/19/2023 urina lysis panel , auto Unknown Analyte Negati ve Not Available [facility] Schedule [address] [place], [address], 10/19/2023 11:45:16 10/19/19 24 10/19/2023 urina lysis panel , auto Unknown Analyte Negati ve Not Available [facility] Surgery Schedule [address] [place], [address], 10/19/2023 11:45:16 10/19/19 24 10/19/2023 urina lysis panel , auto Unknown Analyte Normal Not Available [facility] Surgery Schedule [address] [place], [address], 10/19/2023 11:45:16 10/19/19 24 10/19/2023 urina lysis panel , auto Unknown Analyte Normal 1 mg/dl Not Available [facility] Schedule [address] [place], [address], 10/19/2023 11:45:16 10/19/19 24 10/19/2023 urina lysis panel , auto Unknown Analyte Negati ve Not Available [facility] Schedule [address] [place], [address], 10/19/2023 11:45:16 10/19/19 24 10/19/2023 urina lysis panel , auto Unknown Analyte Negati ve Not Available [facility] Schedule [address] [place], [address], 10/19/2023 11:45:16 10/19/19 24 10/19/2023 urina lysis panel , auto Unknown Analyte 250 Kike/ul Not Available [facility] Schedule [address] [place], [address], 10/19/2023 11:45:16 10/19/19 24 10/19/2023 urina lysis panel , auto Unknown Analyte Negati ve Not Available [facility] Schedule [address] [place], [address], 10/19/2023 11:45:16 11/15/19 24 11/15/2023 urina lysis panel , auto Unknown Analyte Clean Catch Not Available [facility] [address], [place], [address], 11/15/2023 16:39:36 11/15/19 24 11/15/2023 urina lysis panel , auto Unknown Analyte Yellow Not Available [facility] [address], [place], [address], 11/15/2023 16:39:36 11/15/19 24 11/15/2023 urina lysis panel , auto Unknown Analyte Clear Not Available [facility] [address], [place], [address], 11/15/2023 16:39:36 11/15/19 24 11/15/2023 urina lysis panel , auto Unknown Analyte 1.020 Not Available [facility] [address], [place], [address], 11/15/2023 16:39:36 11/15/19 24 11/15/2023 urina lysis panel , auto Unknown Analyte 1.003- 1.035 Not Available [facility] [address], [place], [address], 11/15/2023 16:39:36 11/15/19 24 11/15/2023 urina lysis panel , auto Unknown Analyte 5.0 Not Available [facility] [address], [place], [address], 11/15/2023 16:39:36 11/15/19 24 11/15/2023 urina lysis panel , auto Unknown Analyte 5.0-8. 0 Not Available [facility] [address], [place], [address], 11/15/2023 16:39:36 11/15/19 24 11/15/2023 urina lysis panel , auto Unknown Analyte 500 Sumi/ul (++) Not Available [facility] [address], [place], [address], 11/15/2023 16:39:36 11/15/19 24 11/15/2023 urina lysis panel , auto Unknown Analyte Negati ve Not Available [facility] [address], [place], [address], 11/15/2023 16:39:36 11/15/19 24 11/15/2023 urina lysis panel , auto Unknown Analyte Negati ve Not Available [facility] [address], [place], [address], 11/15/2023 16:39:36 11/15/19 24 11/15/2023 urina lysis panel , auto Unknown Analyte Negati ve Not Available [facility] [address], [place], [address], 11/15/2023 16:39:36 11/15/19 24 11/15/2023 urina lysis panel , auto Unknown Analyte Negati ve Not Available [facility] [facility] [address], [place], [address], 11/15/2023 16:39:36 11/15/19 24 11/15/2023 urina lysis panel , auto Unknown Analyte Negati ve Not Available [facility] [address], [place], [address], 11/15/2023 16:39:36 11/15/19 24 11/15/2023 urina lysis panel , auto Unknown Analyte Normal Not Available [facility] [address], [place], [address], 11/15/2023 16:39:36 11/15/19 24 11/15/2023 urina lysis panel , auto Unknown Analyte Normal Not Available [facility] [address], [place], [address], 11/15/2023 16:39:36 11/15/19 24 11/15/2023 urina lysis panel , auto Unknown Analyte Negati ve Not Available [facility] [address], [place], [address], 11/15/2023 16:39:36 11/15/19 24 11/15/2023 urina lysis panel , auto Unknown Analyte Negati ve Not Available [facility] [address], [place], [address], 11/15/2023 16:39:36 11/15/19 24 11/15/2023 urina lysis panel , auto Unknown Analyte Normal Not Available [facility] [address], [place], [address], 11/15/2023 16:39:36 11/15/19 24 11/15/2023 urina lysis panel , auto Unknown Analyte Normal 1 mg/dl Not Available [facility] [address], [place], [address], 11/15/2023 16:39:36 11/15/19 24 11/15/2023 urina lysis panel , auto Unknown Analyte Negati ve Not Available [facility] [address], [place], [address], 11/15/2023 16:39:36 11/15/19 24 11/15/2023 urina lysis panel , auto Unknown Analyte Negati ve Not Available [facility] [address] [facility] [address], [place], [address], 11/15/2023 16:39:36 11/15/19 24 11/15/2023 urina lysis panel , auto Unknown Analyte 250 Kike/ul Not Available [facility] [address], [place], [address], 11/15/2023 16:39:36 11/15/19 24 11/15/2023 urina lysis panel , auto Unknown Analyte Negati ve Not Available [facility] [address], [place], [address], 11/15/2023 16:39:36 12/07/19 24 12/07/2023 URINE CULTU RE klebsiella pneumoniae Organi sm: Klebsi lana pneumo niae Not Available [facility] [address] [facility], [place], [address], 12/10/2023 09:33:47 12/07/19 24 12/10/2023 URINE CULTU RE urine culture abnormal ISOLA TE #1 COLON Y COUNT : 10,00 0 - 100,0 00 CFU/M L Proba ble Gram Negat martha Bacil rogerio. ID and sensi tivit y in progr ess. See [place] te Resul t(s) Below Klebs iella pneum oniae Not Available [facility] [address] [place] [address], [address], 12/10/2023 09:33:47 12/07/19 24 12/10/2023 URINE CULTU RE amox/K clav'ate(C) <=8/4 ug/mL susceptib le Not Available [facility] [address] [place] [address], [address], 12/10/2023 09:33:47 12/07/19 24 12/10/2023 URINE CULTU RE cefazolin <=2 ug/mL susceptib le Not Available [facility] [address] [place] [address], [address], 12/10/2023 09:33:47 12/07/19 24 12/10/2023 URINE CULTU RE ceftazidime <=1 ug/mL susceptib le Not Available [facility] [address] [place] [address], [address], 12/10/2023 09:33:47 12/07/19 24 12/10/2023 URINE CULTU RE ceftriaxone <=1 ug/mL susceptib le Not Available [facility] [address] [place] [address], [address], 12/10/2023 09:33:47 12/07/19 24 12/10/2023 URINE CULTU RE cefuroxime 16 ug/mL intermedi ate Not Available [facility] [address] [place] [address], [address], 12/10/2023 09:33:47 12/07/19 24 12/10/2023 URINE CULTU RE ciprofloxaci n 0.5 ug/mL intermedi ate Not Available [facility] [address] [place] [address], [address], 12/10/2023 09:33:47 12/07/19 24 12/10/2023 URINE CULTU RE gentamicin <=4 ug/mL susceptib le Not Available [facility] [address] [place] [address], [address], 12/10/2023 09:33:47 12/07/19 24 12/10/2023 URINE CULTU RE imipenem <=1 ug/mL susceptib le Not Available [facility] [address] [place] [address], [address], 12/10/2023 09:33:47 12/07/19 24 12/10/2023 URINE CULTU RE levofloxacin <=0.5 ug/mL susceptib le Not Available [facility] [address] [place] [address], [address], 12/10/2023 09:33:47 12/07/19 24 12/10/2023 URINE CULTU RE nitrofuranto in 64 ug/mL intermedi ate Not Available [facility] [address] [place] [address], [address], 12/10/2023 09:33:47 12/07/19 24 12/10/2023 URINE CULTU RE piperacillin /robby <=16 ug/mL susceptib le Not Available [facility] [address] [place] [address], [address], 12/10/2023 09:33:47 12/07/19 24 12/10/2023 URINE CULTU RE tetracycline <=4 ug/mL susceptib le Not Available [facility] [address] [place] [address], [address], 12/10/2023 09:33:47 12/07/19 24 12/10/2023 URINE CULTU RE tobramycin <=2 ug/mL susceptib le Not Available [facility] [address] [place] [address], [address], 12/10/2023 09:33:47 12/07/19 24 12/10/2023 URINE CULTU RE trimeth/sulf a <=2/38 ug/mL susceptib le Not Available [facility] [address] [facility], [place], [address], 12/10/2023 09:33:47 11/13/19 25 11/13/2024 urina lysis panel , auto Unknown Analyte Clean Catch Not Available [facility] [address], [place], [address], 11/13/2024 14:36:14 11/13/19 25 11/13/2024 urina lysis panel , auto Unknown Analyte Yellow Not Available [facility] [address], [place], [address], 11/13/2024 14:36:14 11/13/19 25 11/13/2024 urina lysis panel , auto Unknown Analyte Clear Not Available [facility] [address], [place], [address], 11/13/2024 14:36:14 11/13/19 25 11/13/2024 urina lysis panel , auto Unknown Analyte 1.005 Not Available [facility] [address], [place], [address], 11/13/2024 14:36:14 11/13/19 25 11/13/2024 urina lysis panel , auto Unknown Analyte 1.003- 1.035 Not Available [facility] [address], [place], [address], 11/13/2024 14:36:14 11/13/19 25 11/13/2024 urina lysis panel , auto Unknown Analyte 6.0 Not Available [facility] [address], [place], [address], 11/13/2024 14:36:14 11/13/19 25 11/13/2024 urina lysis panel , auto Unknown Analyte 5.0-8. 0 Not Available [facility] [address], [place], [address], 11/13/2024 14:36:14 11/13/19 25 11/13/2024 urina lysis panel , auto Unknown Analyte 25 Sumi/ul Trace Not Available [facility] [address], [place], [address], 11/13/2024 14:36:14 11/13/19 25 11/13/2024 urina lysis panel , auto Unknown Analyte Negati ve Not Available [facility] [address], [place], [address], 11/13/2024 14:36:14 11/13/19 25 11/13/2024 urina lysis panel , auto Unknown Analyte Negati ve Not Available [facility] [address], [place], [address], 11/13/2024 14:36:14 11/13/19 25 11/13/2024 urina lysis panel , auto Unknown Analyte Negati ve Not Available [facility] [address], [place], [address], 11/13/2024 14:36:14 11/13/19 25 11/13/2024 urina lysis panel , auto Unknown Analyte Negati ve Not Available [facility] [address], [place], [address], 11/13/2024 14:36:14 11/13/19 25 11/13/2024 urina lysis panel , auto Unknown Analyte Negati ve Not Available [facility] [address], [place], [address], 11/13/2024 14:36:14 11/13/19 25 11/13/2024 urina lysis panel , auto Unknown Analyte Normal Not Available [facility] [address], [place], [address], 11/13/2024 14:36:14 11/13/19 25 11/13/2024 urina lysis panel , auto Unknown Analyte Normal Not Available [facility] [address], [place], [address], 11/13/2024 14:36:14 11/13/19 25 11/13/2024 urina lysis panel , auto Unknown Analyte Negati ve Not Available [facility] [address], [place], [address], 11/13/2024 14:36:14 11/13/19 25 11/13/2024 urina lysis panel , auto Unknown Analyte Negati ve Not Available [facility] [address], [place], [address], 11/13/2024 14:36:14 11/13/19 25 11/13/2024 urina lysis panel , auto Unknown Analyte Normal Not Available [facility] [address], [place], [address], 11/13/2024 14:36:14 11/13/19 25 11/13/2024 urina lysis panel , auto Unknown Analyte Normal 1 mg/dl Not Available [facility] [address], [place], [address], 11/13/2024 14:36:14 11/13/19 25 11/13/2024 urina lysis panel , auto Unknown Analyte Negati ve Not Available [facility] [address], [place], [address], 11/13/2024 14:36:14 11/13/19 25 11/13/2024 urina lysis panel , auto Unknown Analyte Negati ve Not Available [facility] [address], [place], [address], 11/13/2024 14:36:14 11/13/19 25 11/13/2024 urina lysis panel , auto Unknown Analyte 50 Kike/ul Not Available [facility] [address], [place], [address], 11/13/2024 14:36:14 11/13/19 25 11/13/2024 urina lysis panel , auto Unknown Analyte Negati ve Not Available [facility] [address], [place], [address], 11/13/2024 14:36:14 Result Notes None recorded. Problems Name Problem SNOMED Code Status Onset Date Resolution Date Notes Provider Name and Address Organization Details Recorded Time Recurrent urinary tract infection 328115961 Active 2022 WILFRIDO ROMAN JR, MD [address] [place] [address], [address] , [facility] 3 09:29:45 Urinary tract infectious disease 90416888 Active 2022 WILFRIDO ROMAN JR, MD [address] [place] [address], [address], [facility] 3 09:29:46 Urge incontinence of urine 46470270 Active 2022 WILFRIDO ROMAN JR, MD [address] [place] [address], [address] , [facility] 3 09:29:47 Problem Notes None recorded. Procedures Surgical History Date Name Laterality Status Provider Name and Address Organization Details Recorded Time 3 PNE Implantation; Sacral Nerve completed WILFRIDO ROMAN JR, MD [address] [place] [address], [address], [facility] 09/17/2023 07:38:44 3 Cystoscopy - female completed WILFRIDO ROMAN JR, MD [address] [place] [address], [address], [facility] 08/29/2023 14:45:16 9 Post Void Residual; Ultrasound completed Evelyne Hoppern [facility] 10/28/2018 11:26:22 Other completed Evelyne [place] [facility] 10/28/2018 11:17:20 Other completed Evelyne [place] [facility] 10/28/2018 11:17:29 Other completed Evelyne [place] [facility] 10/28/2018 11:17:39 Other completed Evelyne [place] [facility] 10/28/2018 11:17:45 Imaging Results None recorded. Procedure Notes None recorded. Medical Equipment None Reported. Allergies Allergen ID Allergen Name Allergen Category Reaction Reaction Severity Criticality Documentation Date Start Date Code Code System Note Provider Name and Address Organization Details Recorded Time 955007 Substance with sulfonami de structure and antibacte rial mechanism of action (substanc e) medicatio n Not available Not available Not available 10/28/2018 02479 8003 SNOMED Evelyne Ya [facility] 9 11:10:53 Medications Name Sig Start Date [...] Not Available Not Available Not Available Basaglghanshyam LópezikPen U-100 Insulin 100 unit/mL (3 mL) subcutane [...] Updated DateTime 11/13/2024 167.64 cm 33.9 kg/m2 66121.4 g Shruthi Elías [facility] 11/13/2024 14:24:19 Date Recorded Body height Body mass index (BMI) Body weight Provider Name and Address Organization Details Last Updated DateTime 11/15/2023 167.64 cm 33.9 kg/m2 50078.4 g Danny Pyle [facility] 11/15/2023 16:06:35 Date Recorded Body height Body mass index (BMI) Body weight Provider Name and Address Organization Details Last Updated DateTime 09/20/2023 170.18 cm 32.9 kg/m2 88361.4 g Sheree Donald [facility] 09/20/2023 15:02:49 Social History Question Answer Notes LastModified by Organizat ion Details LastModified Time Tobacco Smoking Status Never Smoker Evelyne carlos, [facility] 10/28/2018 11:16:44 Marital Status Informatio [...] not available 04/02/2023 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 Obstetrics History GPAL:G 0 P 0 0 0 0 Past Encounters Encounter ID Performer Location Encounter Start Date Encounter Closed Date Diagnosis/Indication Diagnosis SNOMED-CT Code Diagnosis ICD10 Code Diagnosis Note [id number] MARIA R ALEJO [facility] [address] [facility] [place] [address] 10/28/2018 10:25:59 10/29/2018 08:43:14 Urge incontinence of urine 27770629 N39.41 Pt has been doing well with oxybutinin until recently. Her u/a today is wnl and PVR only 52 cc. Discussed that her increased caffeine use is probably responsibl e for her increased urgency and leakage. She has been drinking up to 40 oz/day. Discussed drinking 8 0z day of decaf. [id number] WILFRIDO ROMAN JR, MD TARAH DANIELA [facility] [address] [place] [address] 04/02/2023 13:16:15 04/09/2023 04:02:50 Recurrent urinary tract infection 082791442 N39.0 Urinary tr act infectious disease 55719201 N39.0 Urge incon tinence of urine 07397545 N39.41 [id number] WILFRIDO ROMAN JR, MD [facility] [address] [address] 08/02/2023 15:01:31 08/02/2023 16:32:59 Acute urinary tract infection 823418045 N39.0 Urge incon tinence of urine 52987870 N39.41 Recurrent urinary tract infection 195704651 N39.0 , [id number] WILFRIDO ROMAN JR, MD SURGERY SCHEDULE [address] [place] [address] 1 08/29/2023 14:42:52 08/29/2023 14:43:44 Recurrent urinary tract infection 166300984 N39.0 , Urge incon tinence of urine 48614789 N39.41 [id number] WILFRIDO ROMAN JR, MD [facility] [address] [facility] [address] 0 09/13/2023 16:11:52 09/19/2023 10:45:57 Urge incontinence of urine 38568258 N39.41 [id number] WILFRIDO ROMAN JR, MD [facility] [address] [facility] [address] [address] 0 09/20/2023 14:57:25 09/20/2023 15:41:37 Acute urinary tract infection 903143574 N39.0 Urge incon tinence of urine 53426555 N39.41 [id number] WILFRIDO ROMAN JR, MD SURGERY SCHEDULE [address] [place] [address] 1 10/19/2023 11:27:51 10/19/2023 12:19:29 Postoperative pain 745034379 G89.18 [id number] WILFRIDO ROMAN JR, MD [facility] [address] [place] [address] 11/15/2023 15:54:23 11/15/2023 16:22:19 Urge incontinence of urine 93992288 N39.41 [id number] ALLISON ALBERTS MD [facility] [address] [place] [address] 12/07/2023 16:06:10 12/07/2023 16:09:12 Acute urinary tract infection 138094859 N39.0 [id number] WILFRIDO ROMAN JR, MD [facility] [address] [facility] [address] [place] [address] 11/13/2024 13:53:24 11/13/2024 14:34:39 Recurrent urinary tract infection 019774080 N39.0 Recommend addition of vitamin C with Methionami ne. Monitor recurrence . Adjust preventive strategies if necessary. Urge incon tinence of urine 93275056 N39.41 Continue neuromodul ation therapy. 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 Evaluate future interventi ons if needed. Health Concerns Section Related Observation LastModified by Organization Detai ls LastModified Time None Recorded Concern Status LastModified by Organization Details LastModified Time None Recorded Advance Directives Directive None Recorded Payers Insurance Date Sequence Insurance Name Policy Number Policy Espinal Covered Member ID Espinal Member ID Guarantor Name 11/16/2024 2 [place] [id number] Salvador Booker Ewalt [id number] Vianey Kenyon Ewewelinat 12/04/2018 1 *SELF PAY* Robert Kenyon Ewalt 11/16/2024 1 [facility] [id number] Vianey Kenyon Ewalt [id number] Vianey Kenyon Ewalt 11/16/2024 GENERIC INSURANCE - [...] of neuromodulator device. WILFRIDO ROMAN JR, MD [address] [place] [address], [address], [facility] 09/30/2023 17:02:11 11/15/2023 text/html Patient is in to day for follow-up of urgency incontinence. She underwent neuromodulation, Axonix implantation stages, and 02 October 2023. She reports significant improvement of lower urinary tract symptoms. WILFRIDO ROMAN JR, MD [address] [place] [address], [address], [facility] 11/17/2023 10:50:13 11/13/2024 text/html The patient is [...] 02 October 2023. WILFRIDO ROMAN JR, MD [address] [place] [address], [address], [facility] 11/15/2024 12:55:04 OBGyn Episode No OBEpisode recorded.
[2025-04-15] MEDS: ERTAPENEM SODIUM 1 GM in 0.9 % SODIUM CHLORIDE 50 ML IV (14:19)
[2025-04-15] MEDS: SODIUM CHLORIDE 0.9% 10ML FLUSH SYRINGE 10 ML IV (14:20)
[2025-04-15 15:26] VITALS: BP 99/59; PULSE 82; RESP 18; TEMP 37; O2SAT 96
== END 2025-04-15 23:59 | disposition home or self-care (01) ==
LOC: INF 14:09
PROVIDERS: PCP Nurse Practitioner Family; Visit Provider Nurse Practitioner Family
DX: N39.0 Urinary tract infection, site not specified (principal)
CPT/HCPCS: 96365; J1335

== ENCOUNTER 2025-04-16 13:56 | Outpatient (CLI) | payer OTHER, SELFPAY ==
[2025-04-16 14:15] VITALS: BP 97/58; PULSE 84; RESP 17; O2SAT 96
[2025-04-16] MEDS: ERTAPENEM SODIUM 1 GM in 0.9 % SODIUM CHLORIDE 50 ML IV (14:15)
[2025-04-16 14:50] VITALS: BP 98/60; PULSE 79; RESP 16
== END 2025-04-16 15:00 | disposition home or self-care (01) ==
LOC: INF 13:56
PROVIDERS: PCP Nurse Practitioner Family; Visit Provider Nurse Practitioner Family
DX: N39.0 Urinary tract infection, site not specified (principal)
CPT/HCPCS: 96365; J1335

== ENCOUNTER 2025-04-17 14:28 | Outpatient (CLI) | payer OTHER, SELFPAY ==
--- OUTSIDE RECORDS SUMMARY | 2025-04-17 14:30 | XMS_ITS | Encounter Summary ---
[facility] [address] [place] [address] Care Team Providers Care Wet Process Miller Name Role Phone Vianey Gasca PA-C Primary Care Provider Reason for Visit * Reason Comments Med Refill Encounter Details Date Type Department Care Team (Late Contact Info) Description 03/01/2021 Refill [facility] [address] [address] Vianey Gasca PA-C [address] [address] Acquired hypothyroidism; Benign essential hypertension Social History Tobacco Use Types Packs/Day Years Used Date Smoking Tobacco: Never Smokeless Tobacco: Never Alcohol Use Standard Drinks/Week Comments Yes 0 (1 standard drink = 0.6 oz pur e alcohol) PHQ-2 Answer Date Recorded Retired Total Score 0 03/01/2021 Comments No Sex and Gender Information Value Date Recorded Sex Assigned at Female 12/30/2024 1:06 PM EDT Legal Sex Female 1:34 PM EDT Gender Identity Not on file Sexual Orientation Straight 12/30/2024 1: 06 PM EDT documented as of this encounter Plan of Treatment Upcoming Encounters Date Type Department Care Team (Late Contact Info) Description 05/05/2025 2:45 PM EDT Office Visit [facility] [address] [place] [address] Vianey Gasca PA-C [address] [address] 05/18/2025 2:40 PM EDT Appointment [facility] [address] [place] [address] documented as of this encounter Visit Diagnoses Diagnosis Acquired hypothyroidism Unspecified hypothyroidism Benign essential hypertension Essential hypertension, benign documented in this encounter Care Teams Wet Process Miller Relationship Specialty Start Date End Date Vianey Gasca PA-C [address] [address] PCP - General Internal Medicine 10/27/19 documented as of this encounter
--- OUTSIDE RECORDS SUMMARY | 2025-04-17 14:30 | XMS_ITS | Encounter Summary ---
[facility] Organization [facility] Address [address] [place] [address] Care Team Providers Care Haul Driver Name Role Phone Vianey Gasca PA-C Primary Care Provider Encounter Details Date Type Department Care Team (Late st Contact Info) Description 01/06/2025 Results Follow-Up [facility] [address] [place] [address] Dia Casas MD [address] [facility] [address] [place] [address] Social History Tobacco Use Types Packs/Day Years Used Date Smoking Tobacco: Never Smokeless Tobacco: Never Alcohol Use Standard Drinks/Week Comments Yes 0 (1 standard drink = 0.6 oz pur e alcohol) occ PHQ-2 Answer Date Recorded Retired PHQ-9: Brief Depression Severity Measure Score 0 11/09/2022 PHQ-2 Answer Date Recorded Patient Health Questionnaire-2 Score 0 10/16/2024 Comments No Sex and Gender Information Value Date Recorded Sex Assigned at Female 12/30/2024 1:06 PM EDT Legal Sex Female 1:34 PM EDT Gender Identity Not on file Sexual Orientation Straight 12/30/2024 1: 06 PM EDT documented as of this encounter Progress Notes * Dia Casas MD - 01/06/2025 8:33 AM EDT ASCUS, hpv neg. ASCUS b/c atrophy. documented in this encounter Plan of Treatment Upcoming Encounters Date Type Department Care Team (Late st Contact Info) Description 05/05/2025 2:45 PM EDT Office Visit [facility] INTERNAL MEDICINE [address] [phone] Vianey Gasca PA-C [address] [address] 05/18/2025 2:40 PM EDT Appointment [address] [address] documented as of this encounter Visit Diagnoses Not on filedocumented in this encounter Care Teams Haul Driver Relationship Specialty Start Date End Date Vianey Gasca PA-C [address] [address] PCP - General Internal Medicine 10/27/19 documented as of this encounter
--- OUTSIDE RECORDS SUMMARY | 2025-04-17 14:30 | XMS_ITS | Encounter Summary ---
[facility] Organization [facility] Address [address] [place] [address] Care Team Providers Care Cardiac Care Nurse Name Role Phone Vianey Gasca PA-C Primary Care Provider Reason for Visit * Reason Comments Med Refill Encounter Details Date Type Department Care Team (Late st Contact Info) Description 02/17/2025 Refill [facility] INTERNAL MEDICINE [address] [phone] Vianey Gasca PA-C [address] [address] Social History Tobacco Use Types Packs/Day Years [...] Description 05/05/2025 2:45 PM EDT Office Visit [facility] INTERNAL MEDICINE 2100 [facility] [address] [place] [address] Vianey Gasca PA-C [address] [address] 05/18/2025 2:40 PM EDT Appointment [facility] [address] [place] [address] documented as of this encounter Visit Diagnoses Not on filedocumented in this encounter Care Teams Cardiac Care Nurse Relationship Specialty Start Date End Date Vianey Gasca PA-C [address] [address] PCP - General Internal Medicine 10/27/19 documented as of this encounter
--- OUTSIDE RECORDS SUMMARY | 2025-04-17 14:30 | XMS_ITS | Encounter Summary ---
[facility] [address] [place] [address] Care Team Providers Care Travel Professional Name Role Phone Vianey Gasca PA-C Primary Care Provider Reason for Visit * Reason Comments Med Refill Encounter Details Date Type Department Care Team (Late st Contact Info) Description 03/16/2025 Refill [facility] INTERNAL MEDICINE [address] [phone] Vianey Gasca PA-C [address] [place] [phone] Mixed hyperlipidemia; Benign essential hypertension Social History Tobacco Use [...] Description 05/05/2025 2:45 PM EDT Office Visit [facility] INTERNAL MEDICINE [address] [phone] Vianey Gasca PA-C [address] [address] 05/18/2025 2:40 PM EDT Appointment [facility] [address] [place] [address] documented as of this encounter Visit Diagnoses Diagnosis Mixed hyperlipidemia Benign essential hypertension Essential hypertension, benign documented in this encounter Care Teams Travel Professional Relationship Specialty Start Date End Date Vianey Gasca PA-C [address] [address] PCP - General Internal Medicine 10/27/19 documented as of this encounter
--- OUTSIDE RECORDS SUMMARY | 2025-04-17 14:30 | XMS_ITS | Encounter Summary ---
Author Organization [facility] Address [address] [place] [address] Care Team Providers Care Room Service Food Service Attendant Name Role Phone Vianey Gasca PA-C Primary Care Provider Reason for Visit * Reason Comments Med Refill Encounter Details Date Type Department Care Team (Late st Contact Info) Description 03/16/2025 Refill [facility] INTERNAL MEDICINE [address] [address] Vianey Gasca PA-C [address] [place] [phone] Vitamin D deficiency Social History Tobacco Use Types Packs/Day Years [...] Description 05/05/2025 2:45 PM EDT Office Visit [facility] 2100 [facility] [address] [place] [address] Vianey Gasca PA-C [address] [address] 05/18/2025 2:40 PM EDT Appointment [facility] [address] [place] [address] documented as of this encounter Visit Diagnoses Diagnosis Vitamin D deficiency documented in this encounter Care Teams Room Service Food Service Attendant Relationship Specialty Start Date End Date Vianey Gasca PA-C [address] [address] PCP - General Internal Medicine 10/27/19 documented as of this encounter
--- OUTSIDE RECORDS SUMMARY | 2025-04-17 14:30 | XMS_ITS | Encounter Summary ---
[facility] Address [address] [place] [address] Care Team Providers Care Cardiac Monitor Name Role Phone Vianey Gasca PA-C Primary Care Provider Reason for Visit * Reason Comments Med Refill Encounter Details Date Type Department Care Team (Late st Contact Info) Description 03/16/2025 Refill [facility] INTERNAL MEDICINE [address] [phone] Dilan Chappell MD [address] [address] OAB (overactive bladder) Social History Tobacco Use Types Packs/Day Years [...] [facility]IC[facility] [address] [phone] Vianey Gasca PA-C [address] [address] 05/18/2025 2:40 PM EDT Appointment [facility] [address] [place] [address] documented as of this encounter Visit Diagnoses Diagnosis OAB (overactive bladder) documented in this encounter Care Teams Cardiac Monitor Relationship Specialty Start Date End Date Vianey Gasca PA-C [address] [address] PCP - General Internal Medicine 10/27/19 documented as of this encounter
--- OUTSIDE RECORDS SUMMARY | 2025-04-17 14:30 | XMS_ITS | Encounter Summary ---
[facility] [address] [place] [address] Care Team Providers Care Regulatory Affairs Portfolio Leader Name Role Phone Vianey Gasca PA-C Primary Care Provider Reason for Visit * Reason Onset Date Comments MEDICATION CONCERN 04/09/2025 Encounter Details Date Type Department Care Team (Late st Contact Info) Description 04/09/2025 Telephone [facility] INTERNAL MEDICINE [address] [phone] Vianey Gasca PA-C [address] [address] MEDICATION CONCERN Social History Tobacco Use Types Packs/Day Years [...] PM EDT documented as of this encounter Miscellaneous Notes * Telephone Encounter - Michael Sanchez MD - 04/09/2025 4:54 PM EDT Ok sent in semglee same units as lantus current script * Telephone Encounter - Adriana Vaughan RegSched Rep - 04/09/2025 3:07 PM EDT Caller: Vianey Perla Relationship: Self Best call back number: [phone] Which medication are you concerned about: Lantus SoloStar 100 UNIT/ML injection pen What are your concerns: PATIENT STATES HER INSURANCE WILL NOT COVER THIS MEDICATION ANYMORE BUT WILL COVER SEMGLEE. SHE WOULD LIKE TO KNOW IF THIS CAN BE CHANGED TO SEMGLEE INSTEAD. documented in this encounter Plan of Treatment Upcoming Encounters Date Type Department Care Team (Late st Contact Info) Description 05/05/2025 2:45 PM EDT Office Visit [facility] INTERNAL MEDICINE [address] [address] Vianey Gasca PA-C [address] [address] 05/18/2025 2:40 PM EDT Appointment [facility] [address] [place] [address] documented as of this encounter Visit Diagnoses Diagnosis Type 2 diabetes mellitus without complication, without long-term current use of insulin- Primary documented in this encounter Care Teams Regulatory Affairs Portfolio Leader Relationship Specialty Start Date End Date Vianey Gasca PA-C [address] [address] PCP - General Internal Medicine 10/27/19 documented as of this encounter
--- OUTSIDE RECORDS SUMMARY | 2025-04-17 14:30 | XMS_ITS | Encounter Summary ---
[facility] [address] [place] [address] Care Team Providers Care Nutrition Specialist Name Role Phone Vianey Gasca PA-C Primary Care Provider Reason for Visit * Reason Comments Med Refill Encounter Details Date Type Department Care Team (Late st Contact Info) Description 03/16/2025 Refill [facility] INTERNAL MEDICINE [address] [phone] Dilan Chappell MD [address] [address] Social History Tobacco Use Types [...] Description 05/05/2025 2:45 PM EDT Office Visit [facility] INTER[facility] MEDICINE 2100 [facility] [address] [place] [address] Vianey Gasca PA-C 2100 [facility] [address] [place] [address] 05/18/2025 2:40 PM EDT Appointment [facility] [address] [place] [address] documented as of this encounter Visit Diagnoses Not on filedocumented in this encounter Care Teams Nutrition Specialist Relationship Specialty Start Date End Date Vianey Gasca PA-C [address] [address] PCP - General Internal Medicine 10/27/19 documented as of this encounter
--- OUTSIDE RECORDS SUMMARY | 2025-04-17 14:31 | XMS_ITS | Encounter Summary ---
[facility] Address [address] [place] [address] Care Team Providers Care Process Planner Name Role Phone Vianey Gasca PA-C Primary Care Provider Reason for Visit * Reason Onset Date Comments MAMMOGRAM 04/09/2025 Encounter Details Date Type Department Care Team (Late st Contact Info) Description 04/09/2025 Telephone [facility] INTERNAL MEDICINE [address] [phone] Vianey Gasca PA-C [address] [address] MAMMOGRAM Social History Tobacco Use Types Packs/Day Years [...] MD - 04/09/2025 4:54 PM EDT Ok noted * Telephone Encounter - Earline Galeano RN - 04/09/2025 4:38 PM EDT A referral has been placed for a mammogram by patient's QA TESTER. She will call the [facility] to schedule. * Telephone Encounter - Adriana Vaughan RegSched Rep - 04/09/2025 3:09 PM EDT Caller: Vianey Perla Relationship: Self Best call back number: [phone] What orders are you requesting (i.e. lab or imaging): MAMMOGRAM In what timeframe would the patient need to come in: SOON POSSIBLE Where will you receive your lab/imaging services: [facility] Additional notes: documented in this encounter Plan of Treatment Upcoming Encounters Date Type Department Care Team (Late st Contact Info) Description 05/05/2025 2:45 PM EDT Office Visit [facility] INTER[facility] MEDICINE [address] [phone] Vianey Gasca PA-C [address] [address] 05/18/2025 2:40 PM EDT Appointment [facility] [address] [place] [address] documented as of this encounter Visit Diagnoses Not on filedocumented in this encounter Care Teams Process Planner Relationship Specialty Start Date End Date Vianey Gasca PA-C [address] [address] PCP - General Internal Medicine 10/27/19 documented as of this encounter
--- OUTSIDE RECORDS SUMMARY | 2025-04-17 14:31 | XMS_ITS | Encounter Summary ---
[facility] [address] [place] [address] Care Team Providers Care Miller Head Name Role Phone Vianey Gasca PA-C Primary Care Provider Reason for Visit * Reason Comments Med Refill Encounter Details Date Type Department Care Team (Late st Contact Info) Description 04/15/2025 Refill [facility] INTERNAL MEDICINE [address] [phone] Dilan Chappell MD [address] [address] OAB (overactive bladder) Social History [...] Description 05/05/2025 2:45 PM EDT Office Visit [facility] INTERNAL MEDICINE [address] [phone] Vianey Gasca PA-C [address] [address] 05/18/2025 2:40 PM EDT Appointment [facility] [address] [place] [address] documented as of this encounter Visit Diagnoses Diagnosis OAB (overactive bladder) documented in this encounter Care Teams Miller Head Relationship Specialty Start Date End Date Vianey Gasca PA-C [address] [address] PCP - General Internal Medicine 10/27/19 documented as of this encounter
--- OUTSIDE RECORDS SUMMARY | 2025-04-17 14:31 | XMS_ITS | Encounter Summary ---
[facility] Address [address] [place] [address] Care Team Providers Care Speech And Hearing Director Name Role Phone Vianey Gasca PA-C Primary Care Provider Reason for Visit * Reason Comments Med Refill Encounter Details Date Type Department Care Team (Late st Contact Info) Description 03/28/2024 Refill [facility] INTERNAL MEDICINE [address] [phone] Vianey Gasca PA-C [address] [address] Type 2 diabetes mellitus without complication, without long-term current use of insulin Social History Tobacco Use Types Packs/Day Years Used Date Smoking Tobacco: Never Smokeless Tobacco: Never Alcohol Use Standard Drinks/Week Comments Yes 0 (1 standard drink = 0.6 oz pur e alcohol) occ PHQ-2 Answer Date Recorded Retired PHQ-9: Brief Depression Severity Measure Score 0 11/09/2022 PHQ-2 Answer Date Recorded Retired PHQ-9: Brief Depression Severity Measure Score 0 11/02/2023 Comments No Sex and Gender Information Value Date Recorded Sex Assigned at Female 12/30/2024 1:06 PM EDT Legal Sex Female 1:34 PM EDT Gender Identity Not on file Sexual Orientation Straight 12/30/2024 1: 06 PM EDT documented as of this encounter Miscellaneous Notes * Telephone Encounter - Dorothy Horta MA - 03/28/2024 10:13 AM EDT Rx Refill Note Requested Prescriptions Pending Prescriptions Disp Refills Mounjaro 5 MG/0.5ML solution pen-injector pen [Pharmacy Med Name: MOUNJARO 5 MG/0.5 ML PEN] 2 mL 2 Sig: INJECT 0.5 MG UNDER THE SKIN ONCE WEEKLY Last office visit with prescribing clinician: 03/11/2024 Last telemedicine visit with prescribing clinician: Visit date not found Next office visit with prescribing clinician: 06/12/2024 Would you like a call back once the refill request has been completed: [] Yes [] No If the office needs to give you a call back, can they leave a voicemail: [] Yes [] No Dorothy Horta MA 03/28/24, 10:13 EDT documented in this encounter Plan of Treatment Upcoming Encounters Date Type Department Care Team (Late st Contact Info) Description 05/05/2025 2:45 PM EDT Office Visit [facility] INTERNAL MEDICINE [address] [address] Vianey Gasca PA-C [address] [address] 05/18/2025 2:40 PM EDT Appointment [facility] [address] [place] [address] documented as of this encounter Visit Diagnoses Diagnosis Type 2 diabetes mellitus without complication, without long-term current use of insulin documented in this encounter Care Teams Speech And Hearing Director Relationship Specialty Start Date End Date Vianey Gasca PA-C [address] [address] PCP - General Internal Medicine 10/27/19 documented as of this encounter
--- OUTSIDE RECORDS SUMMARY | 2025-04-17 14:31 | XMS_ITS | Clinical Summary ---
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 023 Active Blood Glucose Monitoring Suppl (ONE TOUCH ULTRA MINI) w/Device kitIndications:Ty pe 2 diabetes mellitus without complication, without long-term current use of insulin CHECK BLOOD SUGAR ONCE DAILY 1 each 024 Active OneTouch Ultra Test test stripIndications: Type 2 diabetes mellitus without complication, without long-term current use of insulin CHECK BLOOD SUGAR ONCE DAILY 100 each 024 Active zolpidem (AMBIEN) 5 MG tabletIndications :Primary insomnia TAKE 1 TABLET BY MOUTH ONCE DAILY AT NIGHT NEEDED FOR SLEEP 30 tablet 025 Active estradiol (ESTRACE VAGINAL) 0.1 MG/GM vaginal cream Insert 1 gm intravaginally 1 times each week 1 each 12 025 Active omeprazole (priLOSEC) 40 MG capsule TAKE 1 CAPSULE BY MOUTH ONCE DAILY BEFORE A MEAL 90 capsule 025 Active Cyanocobalamin (VITAMIN B-12 PO) Take 1 tablet by mouth Daily. Active Ascorbic Acid (VITAMIN C PO) Take 1 tablet by mouth Daily. Active VITAMIN D PO Take 1 tablet by mouth Daily. Active BD Pen Needle Micro U/F 32G X 6 MM misc DIRECTED 100 each Active Mounjaro 10 MG/0.5ML solution auto-injector INJECT 10 MG UNDER THE SKIN ONCE WEEKLY 2 mL 2 Active metFORMIN ER (GLUCOPHAGE-XR) 500 MG 24 hr tablet TAKE 1 TABLET BY MOUTH ONCE DAILY WITH BREAKFAST 90 tablet 025 Active atorvastatin (LIPITOR) 10 MG tabletIndications :Mixed hyperlipidemia TAKE 1 TABLET BY MOUTH ONCE DAILY 90 tablet 025 Active lisinopril (PRINIVIL,ZESTRIL ) 20 MG tabletIndications :Benign essential hypertension TAKE 1 TABLET BY MOUTH ONCE DAILY 90 tablet 025 Active escitalopram (LEXAPRO) 20 MG tablet TAKE 1 TABLET BY MOUTH ONCE DAILY 90 tablet 025 Active levothyroxine (SYNTHROID, LEVOTHROID) 112 MCG tablet TAKE 1 TABLET BY MOUTH ONCE DAILY 30 tablet 4 025 Active vitamin D (ERGOCALCIFEROL) 1.25 MG (75717 UT) capsule capsuleIndication s:Vitamin D deficiency TAKE 1 CAPSULE BY MOUTH 1 (ONE) TIME PER WEEK. 12 capsule 025 Active insulin glargine (Semglee) 100 UNIT/ML injectionIndicati ons:Type 2 diabetes mellitus without complication, without long-term current use of insulin Inject 20 Units under the skin into the appropriate area as directed Daily. 6 mL 2 025 Active tolterodine LA (DETROL LA) 4 MG 24 hr capsuleIndication s:OAB (overactive bladder) TAKE 1 CAPSULE BY MOUTH ONCE DAILY 90 capsule 025 Active Lantus SoloStar 100 UNIT/ML injection pen INJECT 20 UNITS UNDER THE SKIN INTO THE APPROPRIATE AREA DIRECTED DAILY. 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 I have asked her to monitor symptoms since gym started today. She will recheck COVID test in the next couple days at her home. ASCUS with positive high risk HPV cervical 12/28 History of cervical dysplasia 12/29/2023 Overview (12/29/2023): H/o dysplasia in the 20's - burnt off , then in 40's frozen. Encounter for hepatitis C sc reening test for low risk patient 08/09/2023 Recurrent UTI 08/09/2023 Skin lesion 08/09/2023 Right wrist pain 08/09/2023 Acute cystitis without hematuria 11/09/2022 Assessment & Plan (11/11/2022 2:21 PM EST): Finish all medication as directed. Acute vaginitis 11/09/2022 Encounter for screening mamm ogram for malignant neoplasm of breast 04/05/2022 Stress incontinence 04/05/2022 Abnormal EKG 04/05/2022 Overview (04/05/2022): No abnormalities noted today. Routine medical exam 09/11/2021 Overview (11/03/2023): She is current on Covid vaccinations including booster. MMG and DEXA ordered. Pap today. Breast exam WNL Reviewed labs from 08/2023. Focus on weight loss and A1C control. Colonoscopy performed in 2022 suggested repeat in 1-2 years due to poor prep. EKG showed concern for pulmonary hypertension. ECHO ordered. Left hip pain 09/11/2021 Overview (09/11/2021): Osteoarthritis? She really needs to increase her activity and exercise throughout the day. We will first refer to physical therapy for evaluation. She is encouraged to perform gentle stretches each morning. Mixed stress and urge urinary incontinence 10/27 Overview (08/09/2023): She is a candidate for bladder pacemaker. She follow-up with Dr. Baltazar. Assessment & Plan (10/27/2019 9:35 AM EST): Discussed importance of weight loss and keeping blood sugars under control. Hyperlipidemia 11/07/2018 Overview (01/22/2025): Continue atorvastatin 10mg nightly as directed. Assessment & Plan (10/08/2022 1:31 PM EST): Continue atorvastatin 10mg tablets daily. Try and eat a low fat, low cholesterol diet. Repeat cholesterol panel. Assessment & Plan (08/18/2020 12:27 PM EST): Lipid abnormalities are improving with treatment. Nutritional counseling was provided. and Pharmacotherapy as ordered. Lipids will be reassessed in 6 months. Assessment & Plan (03/22/2020 4:33 PM EDT): Fasting order placed. She is due to have labs in 4 weeks. Continue low-fat, low-cholesterol diet. Assessment & Plan (07/16/2019 2:06 PM EDT): Lipid abnormalities are stable. Type 2 diabetes mellitus wit hout complication, without long-term current use of insulin 11/07/2018 Assessment & Plan (08/18/2020 12:30 PM EST): Diabetes is improving with treatment. Continue current treatment regimen. Dietary recommendations for ADA diet. Diabetes will be reassessed in 6 months. Assessment & Plan (03/22/2020 4:34 PM EDT): Patient is compliant with medications. Encouraged her to continue low-fat, low-cholesterol, low sugar diet. Increase physical activity to at least 20 to 30 minutes a day. Assessment & Plan (07/16/2019 2:06 PM EDT): Diabetes is stable. Class 2 severe obesity due t o excess calories with serious comorbidity in adult 11/07/2018 Overview (11/03/2023): Body mass index is 35.23 kg/m . Discussed importance of weight loss. Recommend low fat, low calorie diet. Recommend daily cardiovascular exercise. Goal is to lose 5 lbs in one month. Hypothyroidism 11/07/2018 Assessment & Plan (07/16/2019 2:06 PM EDT): Thyroid is under replaced. Primary insomnia 11/07/2018 Overview (08/18/2020): Continue zolpidem 5mg nightly as needed. OAB (overactive bladder) 11/07/2018 Overview (11/09/2022): Bladder muscle dysfunction- overactive. Symptoms likely worsened by UTI. Assessment & Plan (07/16/2019 2:07 PM EDT): Increase in symptoms on the 10 mg oxybutynin. Benign essential hypertension 11/07/2018 Assessment & Plan (08/18/2020 12:28 PM EST): Hypertension is improving with treatment. Continue current treatment regimen. Dietary sodium restriction. Weight loss. Regular aerobic exercise. Continue current medications. Blood pressure will be reassessed at the next regular appointment. Assessment & Plan (03/22/2020 4:33 PM EDT): Hypertension is improving with treatment. Continue current treatment regimen. Dietary sodium restriction. Weight loss. Regular aerobic exercise. Continue current medications. Ambulatory blood pressure monitoring. Blood pressure will be reassessed at the next regular appointment. Assessment & Plan (07/16/2019 2:05 PM EDT): Hypertension is well controlled. Stress incontinence, female 11/07/2018 Vaginal discharge 11/07/2018 Resolved Problems Problem Noted Date Diagnosed Date Resolved Date Diabetes mellitus 11/07/2018 03/11/2024 Hypertensive disorder 11/07/20182019 Overview (11/07/2018): Hypertensive Disorder, Systemic Arterial Encounters Date Type Department Care Team Description 04/17/2025 Telephone [facility] [address] [phone] Vianey Gasca PA-C 04/15/2025 Refill [facility] [address] [phone] Dilan Chappell MD OAB (overactive bladder) 04/09/2025 [facility] [address] [phone] Vianey Gasca PA-C MAMMOGRAM 04/09/2025 [facility] [address] [phone] Vianey Gasca PA-C MEDICATION CONCERN 03/16/2025 [facility] [address] [phone] Dilan Chappell MD OAB (overactive bladder) 03/16/2025 [facility] [address] [phone] Vianey Gasca PA-C Vitamin D deficiency 03/16/2025 [facility] [address] [phone] Vianey Gasca PA-C Mixed hyperlipidemia; Benign essential hypertension 03/16/2025 [facility] [address] [phone] Dilan Chappell MD 02/17/2025 [facility] [address] [place] [phone] Vianey Gasca PA-C 02/02/2025 Results Follow-Up [facility] [address] [facility] [address] [place] [address] Vianey Gasca PA-C 02/02/2025 Refill [facility] [address] [facility] [address] [place] [address] Vianey Gasca PA-C 01/27/2025 8:50 AM EDT Lab [facility] [place] [address] [place] [address] Benign essential hypertension; Mixed hyperlipidemia; Acquired hypothyroidism; Encounter for vitamin deficiency screening; Vitamin D deficiency; Recurrent UTI 01/27/2025 Travel 01/22/2025 3:30 PM EDT Office Visit [facility] [address] [facility] [address] [place] [address] Vianey Gasca PA-C Type 2 diabetes mellitus without complication, without long-term current use of insulin (Primary Dx); Acquired hypothyroidism; Recurrent UTI; Benign essential hypertension; Mixed hyperlipidemia; Vitamin D deficiency; Encounter for vitamin deficiency screening 01/22/2025 Travel from Last 3 Months Immunizations Immunization Administration Dates Next Due COVID-19 (MODERNA) 1st,2nd,3 rd Dose Monovalent 08/05/2021,12/29/2020,12/01/2020 Flu Vaccine Intradermal Quad 18-64YR 07/16/2019 Flu Vaccine Quad PF >36MO 07/12/2021,08/18/2017 Fluzone (or Fluarix & Flulav al for VFC) >6mos 07/21/2023,07/06/2020,07/18/2018,08/18 Fluzone High-Dose 65+YRS 07/08/2024 Fluzone Quad >6mos (Multi-dose) 07/07/2016,08/18,07/18/2014 Pneumococcal Conjugate 13-Va lent (PCV13) 08/16/2020,07/16/2019 Pneumococcal Conjugate 20-Va lent (PCV20) 11/02/2023 Pneumococcal Polysaccharide (PPSV23) 04/09/2013 Shingrix 09/30/2021,07/22/2021 Tdap 04/09/2013 flucelvax quad pfs =>4 YRS 07/16/2019 Family History Medical History Relation Name Comments Arthritis Father osteo Hypertension Father Osteoarthritis Father Arthritis Mother osteo Diabetes Mother Osteoarthritis Mother Cancer Other 1 grandfather Diabetes Other 2 grandmother Breast cancer Neg Hx Ovarian cancer Neg Hx Relation Name Status Comments Father Mother Other 1 grandfather Other 2 grandmother Social History Tobacco Use Types Packs/Day Years [...] Orientation Straight 12/30/2024 1: 06 PM EDT Last Filed Vital Signs Vital Sign Reading Time Taken Comments Blood Pressure 108/74 01/22/2025 3:14 PM EDT Pulse 80 01/22/2025 3:14 PM EDT Temperature 36.9 C (98.4 F) 01/22/2025 3:14 PM EDT Respiratory Rate 16 09/09/2021 3:24 PM EST Oxygen Saturation 97% 10/16/2024 2:33 PM EST Inhaled Oxygen Concentration - - Weight 79.8 kg (176 lb) 01/22/2025 3:14 PM EDT Height 165.1 cm (5' 5 ) 01/22/2025 3:14 PM EDT Body Mass Index 29.29 01/22/2025 3:14 PM EDT Plan of Treatment Upcoming Encounters Date Type Department Care Team (Late st Contact Info) Description 05/05/2025 2:45 PM EDT Office Visit [facility] [address] [place] [phone] Vianey Gasca PA-C [address] [place] [phone] 05/18/2025 2:40 PM EDT Appointment [facility] [address] [phone] Health Maintenance Due Date Last Done Comments COLOGUARD 2003 COLON CANCER SCREENING 5 YEA R SIGMOID[address]COPY 2003 [address] COLONOGRAPHY 2003 FECAL OCCULT BLOOD TEST 2003 FIT Testing (1 year) 2003 TDAP/TD VACCINES (2 - Td or Tdap) 04/09/2023 013 COVID-19 Vaccine (5 - 2023-2 5 season) 2024 08/03/2023, 08/05/2021, 12/29/2020, Additional history exists DIABETIC EYE EXAM 08/14/2024 08/14/2023, , 06/15/2015 ANNUAL PHYSICAL 11/02/2024 11/02/2023, 12/28/2017 DIABETIC FOOT EXAM 11/02/2024 11/02/2023 INFLUENZA VACCINE 07/01/2025 07/08/2024, , 07/12/2021, Additional history exists HEMOGLOBIN A1C 07/24/2025 01/22/2025, 10/01, 06/05/2024, Additional history exists DXA SCAN 12/11/2025 12/12/2023, 05/09/2021 MAMMOGRAM 12/11/2025 12/12/2023, 12/2022, 05/05/2021, Additional history exists LIPID PANEL 01/27/2026 01/27/2025, 10/01, 06/05/2024, Additional history exists URINE MICROALBUMIN-CREATININ E RATIO (uACR) 01/27/2026 01/27/2025 COLONOSCOPY 01/02/2033 01/02/2023, 07/29/2013 COLORECTAL CANCER SCREENING 01/02/2033 ZOSTER VACCINE Completed 09/30/2021, 07/22/2021 HEPATITIS C SCREENING Completed 09/13/2023 Pneumococcal Vaccine 50+ Completed 024, 08/16/2020, 07/16/2019, Additional history exists Procedures Procedure Name Priority Date/Time Associated Diagnosis Comments CBC AND DIFFERENTIAL Routine 01/27/2025 8:53 AM EDT Benign essential hypertension CBC WITH AUTO DIFFERENTIAL Routine 01/27/2025 8:53 AM EDT Benign essential hypertension URINALYSIS, MICROSCOPIC ONLY Routine 01/27/2025 8:53 AM EDT Recurrent UTI VITAMIN D,25-HYDROXY Routine 01/27/2025 8:53 AM EDT Vitamin D deficiency Encounter for vitamin deficiency screening VITAMIN B12 Routine 01/27/2025 8:53 AM EDT Encounter for vitamin deficiency screening T3, FREE Routine 01/27/2025 8:53 AM EDT Acquired hypothyroidism T4, FREE Routine 01/27/2025 8:53 AM EDT Acquired hypothyroidism TSH Routine 01/27/2025 8:53 AM EDT Acquired hypothyroidism MICROALBUMIN / CREATININE URINE RATIO Routine 01/27/2025 8:53 AM EDT Mixed hyperlipidemia LIPID PANEL Routine 01/27/2025 8:53 AM EDT Mixed hyperlipidemia COMPREHENSIVE METABOLIC PANEL Routine 01/27/2025 8:53 AM EDT Benign essential hypertension Mixed hyperlipidemia POCT GLYCOSYLATED HEMOGLOBIN (HGB A1C) Routine 01/22/2025 3:35 PM EDT Type 2 diabetes mellitus without complication, without long-term current use of insulin DEXA BONE DENSITY AXIAL Routine 12/12/2023 4:23 PM EDT Post-menopausal MAMMO SCREENING DIGITAL TOMOSYNTHESIS BILATERAL W CAD Routine 12/12/2023 4:08 PM EDT Encounter for screening mammogram for malignant neoplasm of breast HEPATITIS C ANTIBODY Routine 09/13/2023 8:34 AM EST Encounter for hepatitis C screening test for low risk patient SCANNED - EYE EXAM 08/14/2023 SCANNED - COLONOSCOPY 01/02/2023 from Last 3 Months or Most Recently Relevant to Health Maintenance Results * (ABNORMAL) Urinalysis, Microscopic Only - Urine, Clean Catch (01/27/2025 8:53 AM EDT) RBC, UA 0-2 None Seen, 0-2 /HPF 01/28/2025 12:36 AM EDT [facility] WBC, UA 21-50(A) None Seen, 0-2 /HPF 01/28/2025 12:36 AM EDT [facility] Bacteria, UA None Seen None Seen /HPF 01/28/2025 12:36 AM EDT [facility] Squamous Epithelial Cells, UA 3-6(A) None Seen, 0-2 /HPF 01/28/2025 12:36 AM EDT [facility] Hyaline Casts, UA 0-2 None Seen /LPF 01/28/2025 12:36 AM EDT [facility] Methodology Automated Microscopy 01/28/2025 12:36 AM EDT [facility] Urine Urine specimen obtained by clean catch procedure / Unknown Collection / Unknown 01/27/2025 8:53 AM EDT 01/27/2025 8:53 AM EDT us Vianey Gasca PA-C URINE ORDERABLES Final Result [facility]
[address] [place] [address], * (ABNORMAL) CBC Auto Differential (01/27/2025 8:53 AM EDT) WBC 5.55 3.40 - 10.80 10*3/mm3 01/28/2025 1:16 AM [facility] RBC 4.41 3.77 - 5.28 10*6/mm3 01/28/2025 1:16 AM [facility] Hemoglobin 13.1 12.0 - 15.9 g/dL 01/28/2025 1:16 AM [facility] Hematocrit 40.6 34.0 - 46.6 % 01/28/2025 1:16 AM [facility] MCV 92.1 79.0 - 97.0 fL 01/28/2025 1:16 AM [facility] MCH 29.7 26.6 - 33.0 pg 01/28/2025 1:16 AM [facility] MCHC 32.3 31.5 - 35.7 g/dL 01/28/2025 1:16 AM [facility] RDW 12.4 12.3 - 15.4 % 01/28/2025 1:16 AM [facility] RDW-SD 42.1 37.0 - 54.0 fl 01/28/2025 1:16 AM [facility] MPV 12.5(H) 6.0 - 12.0 fL 01/28/2025 1:16 AM [facility] Platelets 214 140 - 450 10*3/mm3 01/28/2025 1:16 AM [facility] Neutrophil % 50.4 42.7 - 76.0 % 01/28/2025 1:16 AM [facility] Lymphocyte % 39.6 19.6 - 45.3 % 01/28/2025 1:16 AM [facility] Monocyte % 6.5 5.0 - 12.0 % 01/28/2025 1:16 AM [facility] Eosinophil % 2.2 0.3 - 6.2 % 01/28/2025 1:16 AM [facility] Basophil % 1.1 0.0 - 1.5 % 01/28/2025 1:16 AM [facility] Immature Grans % 0.2 0.0 - 0.5 % 01/28/2025 1:16 AM EDT [facility] Neutrophils, Absolute 2.80 1.70 - 7.00 10*3/mm3 01/28/2025 1:16 AM EDT [facility] Lymphocytes, Absolute 2.20 0.70 - 3.10 10*3/mm3 01/28/2025 1:16 AM EDT [facility] Monocytes, Absolute 0.36 0.10 - 0.90 10*3/mm3 01/28/2025 1:16 AM EDT [facility] Eosinophils, Absolute 0.12 0.00 - 0.40 10*3/mm3 01/28/2025 1:16 AM EDT [facility] Basophils, Absolute 0.06 0.00 - 0.20 10*3/mm3 01/28/2025 1:16 AM EDT [facility] Immature Grans, Absolute 0.01 0.00 - 0.05 10*3/mm3 01/28/2025 1:16 AM EDT [facility] nRBC 0.0 0.0 - 0.2 /100 WBC 01/28/2025 1:16 AM EDT [facility] Blood Venipuncture / Unknown 01/27/2025 8:53 AM EDT 01/27/2025 8:53 AM EDT us Vianey Gasca PA-C LAB BLOOD ORDERABLES F inal Result [facility]
[address] [place] [address], * Microalbumin / Creatinine Urine Ratio - Urine, Clean Catch (01/27/2025 8:53 AM EDT) Microalbumin/C reatinine Ratio 11.0 0.0 - 29.0 mg/g 01/28/2025 2:12 AM EDT [facility] Creatinine, Urine 172.8 mg/dL 01/28/2025 2:12 AM EDT [facility] Microalbumin, Urine 1.9 mg/dL 01/28/2025 2:12 AM EDT [facility] Urine Urine specimen obtained by clean catch procedure / Unknown Collection / Unknown 01/27/2025 8:53 AM EDT 01/27/2025 8:53 AM EDT Vianey Gasca PA-C URINE ORDERABLES Final Result Performing Organization Address City/[facility]/ZIP Co de Phone Number [facility]
[address] [place] [address], * Vitamin D,25-Hydroxy (01/27/2025 8:53 AM EDT) 25 Hydroxy, Vitamin D 83.6 30.0 - 100.0 ng/ml 01/28/2025 1:06 AM EDT [facility] Blood Venipuncture / Unknown 01/27/2025 8:53 AM EDT 01/27/2025 8:53 AM EDT Narrative [facility] - 01/28/2025 1:06 AM EDT Reference Range for Total Vitamin D 25(OH) Deficiency <20.0 ng/mL Insufficiency 21-29 ng/mL Sufficiency 30-100 ng/mL Toxicity >100 ng/ml Vianey Gasca PA-C LAB BLOOD ORDERABLES F inal Result [facility]
[address] [place] [address], * T3, Free (01/27/2025 8:53 AM EDT) T3, Free 2.90 2.00 - 4.40 pg/mL 01/28/2025 12:33 AM EDT [facility] Blood Venipuncture / Unknown 01/27/2025 8:53 AM EDT 01/27/2025 8:53 AM EDT Vianey Gasca PA-C LAB BLOOD ORDERABLES F inal Result Performing Organization Address City/[facility]/ZIP Co de Phone Number [facility]
[address] [place] [address], * TSH (01/27/2025 8:53 AM EDT) Pathologist [facility] TSH 1.170 0.270 - 4.200 uIU/mL 01/28/2025 12:33 AM EDT [facility] Blood Venipuncture / Unknown 01/27/2025 8:53 AM EDT 01/27/2025 8:53 AM EDT Vianey Gasca PA-C LAB BLOOD ORDERABLES F inal Result Performing Organization Address [facility] de Phone Number [facility]
[address] [place] [address], * T4, Free (01/27/2025 8:53 AM EDT) [facility] Free T4 1.45 0.92 - 1.68 ng/dL 01/28/2025 12:33 AM EDT [facility] Blood Venipuncture / Unknown 01/27/2025 8:53 AM EDT 01/27/2025 8:53 AM EDT Vianey Gasca PA-C LAB BLOOD ORDERABLES F inal Result Performing Organization Address City/[facility]/ZIP Co de Phone Number [facility]
[address] [place] [address], * Vitamin B12 (01/27/2025 8:53 AM EDT) Pathologist [facility] Vitamin B-12 360 211 - 946 pg/mL 01/28/2025 1:06 AM EDT [facility] Blood Venipuncture / Unknown 01/27/2025 8:53 AM EDT 01/27/2025 8:53 AM EDT [facility] - 01/28/2025 1:06 AM EDT Results may be falsely increased if patient taking Biotin. Vianey Gasca PA-C LAB BLOOD ORDERABLES F inal Result [facility]
[address] [place] [address], * Lipid Panel (01/27/2025 8:53 AM EDT) Total Cholesterol 129 0 - 200 mg/dL 01/28/2025 12:28 AM EDT [facility] Triglycerides 62 0 - 150 mg/dL 01/28/2025 12:28 AM EDT [facility] HDL Cholesterol 53 40 - 60 mg/dL 01/28/2025 12:28 AM EDT [facility] LDL Cholesterol 63 0 - 100 mg/dL 01/28/2025 12:28 AM EDT [facility] VLDL Cholesterol 13 5 - 40 mg/dL 01/28/2025 12:28 AM EDT [facility] LDL/HDL Ratio 1.20 01/28/2025 12:28 AM EDT [facility] Blood Venipuncture / Unknown 01/27/2025 8:53 AM EDT 01/27/2025 8:53 AM EDT [facility] - 01/28/2025 12:28 AM EDT Cholesterol Reference Ranges (U.S. Department of Health and Human Services ATP III Classifications) Desirable <200 mg/dL Borderline High 200-239 mg/dL High Risk >240 mg/dL Triglyceride Reference Ranges (U.S. Department of Health and Human Services ATP III Classifications) Normal <150 mg/dL Borderline High 150-199 mg/dL High 200-499 mg/dL Very High >500 mg/dL HDL Reference Ranges (U.S. Department of Health and Human Services ATP III Classifications) Low <40 mg/dl (major risk factor for CHD) High >60 mg/dl ('negative' risk factor for CHD) LDL Reference Ranges (U.S. Department of Health and Human Services ATP III Classifications) Optimal <100 mg/dL Near Optimal 100-129 mg/dL Borderline High 130-159 mg/dL High 160-189 mg/dL Very High >189 mg/dL LDL is calculated using the NIH LDL-C calculation. Vianey Gasca PA-C LAB BLOOD ORDERABLES F inal Result [facility]
[address] [place] [address], * Comprehensive Metabolic Panel (01/27/2025 8:53 AM EDT) Glucose 68 65 - 99 mg/dL 01/28/2025 12:28 AM EDT [facility] BUN 15 8 - 23 mg/dL 01/28/2025 12:28 AM EDT [facility] Creatinine 0.70 0.57 - 1.00 mg/dL 01/28/2025 12:28 AM EDT [facility] Sodium 141 136 - 145 mmol/L 01/28/2025 12:28 AM EDT [facility] Potassium 4.4 3.5 - 5.2 mmol/L 01/28/2025 12:28 AM EDT [facility] Chloride 105 98 - 107 mmol/L 01/28/2025 12:28 AM EDT [facility] CO2 27.7 22.0 - 29.0 mmol/L 01/28/2025 12:28 AM EDT [facility] Calcium 9.4 8.6 - 10.5 mg/dL 01/28/2025 12:28 AM EDT [facility] Total Protein 6.6 6.0 - 8.5 g/dL 01/28/2025 12:28 AM EDT [facility] Albumin 4.1 3.5 - 5.2 g/dL 01/28/2025 12:28 AM EDT [facility] ALT (SGPT) 15 1 - 33 U/L 01/28/2025 12:28 AM EDT [facility] AST (SGOT) 23 1 - 32 U/L 01/28/2025 12:28 AM T [facility] Alkaline Phosphatase 62 39 - 117 U/L 01/28/2025 12:28 AM T [facility] Total Bilirubin 0.6 0.0 - 1.2 mg/dL 01/28/2025 12:28 AM [facility] Globulin 2.5 gm/dL 01/28/2025 12:28 AM [facility] A/G Ratio 1.6 g/dL 01/28/2025 12:28 AM [facility] BUN/Creatinine Ratio 21.4 7.0 - 25.0 01/28/2025 12:28 AM T [facility] Anion Gap 8.3 5.0 - 15.0 mmol/L 01/28/2025 12:28 AM [facility] eGFR 95.5 >60.0 mL/min/1.7 3 01/28/2025 12:28 AM [facility] Blood Venipuncture / Unknown 01/27/2025 8:53 AM EDT 01/27/2025 8:53 AM EDT [facility] - 01/28/2025 12:28 AM EDT GFR Categories in Chronic Kidney Disease (CKD) GFR Category GFR (mL/min/1.73) Interpretation G1 90 or greater Normal or high (1) G2 60-89 Mild decrease (1) G3a 45-59 Mild to moderate decrease G3b 30-44 Moderate to severe decrease G4 15-29 Severe decrease G5 14 or less Kidney failure (1)In the absence of evidence of kidney disease, neither GFR category G1 or G2 fulfill the criteria for CKD. eGFR calculation 2020 CKD-EPI creatinine equation, which does not include race as a factor us Vianey Gasca PA-C LAB BLOOD ORDERABLES F inal Result [facility]
[address] [place] [address], * (ABNORMAL) POC Glycosylated Hemoglobin (Hb A1C) (01/22/2025 3:35 PM EDT) Hemoglobin A1C 5.8(A) 4.5 - 5.7 % [facility] Lot Number [id number] [facility] Expiration Date 08/19/2026 [facility] Blood 01/22/2025 3:35 PM EDT us Vianey Gasca PA-C POINT OF CARE TEST ORD ERABLES Final Result [facility]
[address] [place] [address], [place] [phone] * DEXA Bone Density Axial (12/12/2023 4:23 PM EDT) Anatomical Region Laterality Modality Wrist, Hip, L-spine N/A Other 12/13/2023 8:19 AM EDT Impressions 12/13/2023 4:51 PM EDT Osteopenia of the left femoral neck. The ten year fracture risk assessment is calculated at 7.8% for major systemic osteoporotic fracture and 0.6% for a hip fracture. Less than 3% risk in the [place] for hip fracture and less than 20% risk of any systemic osteoporotic fracture is considered less than the threshold for where pharmacological therapy is recommended by the National Osteoporosis Foundation. All the treatment decisions require clinical judgment and consideration of individual patient factors, including patient preferences, co-morbidities, previous drug use, risk factors not captured in the FRAX model (frailty, falls, vitamin D deficiency, increased bone turnover, interval significant decline in bone density) and possible under or over estimation of fracture risk by FRAX. Approaches to reduce osteoporosis related fracture risk include optimizing calcium and vitamin D status, appropriate weight bearing exercises and fall-prevention measurements. The National Osteoporosis Foundation recommends (http://www.nof.org/hcp/practice/cyrrmrzn-ngy-wkqufwtl-guidelines/clinicians-chandrakant de) that FDA-approved medical therapies be considered in postmenopausal women and men aged equal or greater than 50 years with : a) hip or vertebral (clinical or morphometric) fracture; b) T-score of -2.5 or less at the spine or hip; c) Ten-year fracture probability by FRAX of greater than 3% for hip fracture of greater than 20% for major osteoporotic fracture. Secondary causes of bone loss should be evaluated if clinically indicated since the etiology of low BMD cannot be determined by BMD measurement alone. FOLLOWUP: Consider repeating the study in 2-3 years to reassess the patient's status or sooner if there is some new clinical indication. INTERVAL CHANGE: There was a decrease in bone mineral density of the L1-L4 vertebrae by 4.1%, and total left hip by 5.6% compared to previous study performed on 05/09/2021. At this facility, the least significant change in the BMD at the left hip with 95% confidence is 0.392558 gm/cm2 at the hip and 0.612204 g/cm2 at the lumbar spine. Report dictated by: Nikki Sood PA-c I have personally reviewed this case and agree with the findings above: Electronically Signed: Paul Schwab MD 12/13/2023 4:51 PM EDT Workstation ID: [id number] Narrative 12/13/2023 4:51 PM EDT DUAL-ENERGY X-RAY ABSORPTIOMETRY (DXA) INDICATION: Postmenopausal, screening for osteoporosis COMPARISON: Previous bone mineral density exam performed on 05/09/2021 PROCEDURE: A DXA scan was performed using a Hologic densitometer. The lumbar spine L1-L4 was evaluated as well as left total hip. The T-score compares the patient's bone mineral density with the peak bone mass of young normal patients. According to criteria established by the World Health Organization, patients with T-scores between 1.0 and 2.5 standard deviations BELOW the mean are osteopenic (low bone mass). Patients with T-scores EQUAL TO OR GREATER than 2.5 standard deviations below the mean are osteoporotic. The Z-score compares the patient bone mineral density with age and sex matched peers. According to the International Society for Clinical Densitometry's 2007 consensus conference: In women prior to menopause and men less than age 50, Z-scores, not T-scores are preferred. A Z-score of -2.0 or lower is defined as below the expected range for age and a Z-score above -2.0 is within the expected range for age. The WHO diagnostic criteria may be applied in women in the menopausal transition. Osteoporosis cannot be diagnosed in men under age 50 on the basis of BMD alone. TECHNICAL QUALITY: The study is of good technical quality. RESULTS: Lumbar Spine: The BMD measured in the L1-L4 region is 1.100 g/cm2. The average T-score is 0.5. The Z-score is 2.3. Total Hip: The BMD measured at the left total proximal femur is 0.976 g/cm2. The T-score is 0.3. The Z-score is 1.5. Femoral Neck: The BMD measured at the left femoral neck is 0.713 g/cm2. The T-score is -1.2. The Z-score is 0.3. Procedure Note Arben Schwab MD - 12/13/2023 DUAL-ENERGY X-RAY ABSORPTIOMETRY (DXA) INDICATION: Postmenopausal, screening for osteoporosis COMPARISON: Previous bone mineral density exam performed on 05/09/2021 PROCEDURE: A DXA scan was performed using a Hologic densitometer. The lumbar spine L1-L4 was evaluated as well as left total hip. The T-score compares the patient's bone mineral density with the peak bonemass of young normal patients. According to criteria established by the[facility] Health Organization, patients with T-scores between 1.0 and 2.5standard deviations BELOW the mean are osteopenic (low bone mass). Patients with T-scores EQUAL TO ORGREATER than 2.5 standard deviations below the mean are osteoporotic. The Z-score compares the patient bone mineral density with age and sexmatched peers. According to the International Society for ClinicalDensitometry's 2007 consensus conference: In women prior to menopause andmen less than age 50, Z-scores, not T-scores are preferred. A Z-score of -2.0 or lower is defined as belowthe expected range for age and a Z-score above -2.0 is within theexpected range for age. The WHO diagnostic criteria may be applied inwomen in the menopausal transition. Osteoporosis cannot be diagnosed in men under age 50 on the basis of BMDalone. TECHNICAL QUALITY: The study is of good technical quality. RESULTS: Lumbar Spine: The BMD measured in the L1-L4 region is 1.100 g/cm2. Theaverage T- score is 0.5. The Z-score is 2.3. Total Hip: The BMD measured at the left total proximal femur is 0.976g/cm2. The T-score is 0.3. The Z-score is 1.5. Femoral Neck: The BMD measured at the left femoral neck is 0.713 g/cm2.The T- score is -1.2. The Z-score is 0.3. IMPRESSION: Osteopenia of the left femoral neck. The ten year fracture risk assessment is calculated at 7.8% for majorsystemic osteoporotic fracture and 0.6% for a hip fracture. Less than 3%risk in the [place] for hip fracture and less than 20% risk of anysystemic osteoporotic fracture is considered less than the threshold for where pharmacological therapy isrecommended by the National Osteoporosis Foundation. All the treatment decisions require clinical judgment and consideration ofindividual patient factors, including patient preferences, co-morbidities,previous drug use, risk factors not captured in the FRAX model (frailty,falls, vitamin D deficiency, increased bone turnover, interval significant decline in bone density) andpossible under or over estimation of fracture risk by FRAX. Approaches toreduce osteoporosis related fracture risk include optimizing calcium andvitamin D status, appropriate weight bearing exercises and fall-prevention measurements. The NationalOsteoporosis Foundation recommends(http://www.nof.org/hcp/practice/svhqxyrk-frt-dthcgnnr-guidelines/clin ician s-guide) that FDA-approved medical therapies be considered in postmenopausal women and men aged equal or greater than 50 years with :a) hip or vertebral (clinical or morphometric) fracture; b) T-score of-2.5 or less at the spine or hip; c) Ten-year fracture probability by FRAXof greater than 3% for hip fracture of greater than 20% for major osteoporotic fracture. Secondary causes of bone loss should be evaluated if clinically indicatedsince the etiology of low BMD cannot be determined by BMD measurementalone. FOLLOWUP: Consider repeating the study in 2-3 years to reassess thepatient's status or sooner if there is some new clinical indication. INTERVAL CHANGE: There was a decrease in bone mineral density of theL1-L4 vertebrae by 4.1%, and total left hip by 5.6% compared to previousstudy performed on 05/09/2021. At this facility, the least significant change in the BMD at the left hipwith 95% confidence is 0.600339 gm/cm2 at the hip and 0.589602 g/cm2 atthe lumbar spine. Report dictated by: Nikki Sood PA-c I have personally reviewed this case and agree with the findings above: Electronically Signed: Paul Schwab MD 12/13/2023 4:51 PM EDT Workstation ID: [id number] Vianey Gasca PA-C IM DXA ORDERABLES Fin al Result * Mammo Screening Digital Tomosynthesis Bilateral With CAD (12/12/2023 4:08 PM EDT) Anatomical Region Laterality Modality Breast N/A Mammography 12/14/2023 12:1 3 PM EDT Impressions 12/14/2023 12:13 PM EDT Negative bilateral mammogram. RECOMMENDATION: Continue annual screening mammography. BI-RADS CATEGORY 1, NEGATIVE. CAD was utilized. The standard false-negative rate of mammography is between 10% and 25%. Complex patterns or increased breast density will markedly elevate the false-negative rate of mammography. A letter, in lay terminology, with the results of this exam will be mailed to the patient. This report was finalized on 12/14/2023 12:[address] Irlanda Jimenez MD. Narrative 12/14/2023 12:13 PM EDT DIGITAL SCREENING MAMMOGRAM WITH TOMOSYNTHESIS HISTORY: Screening Mammography. Low dose full field digital breast tomosynthesis imaging was performed with 2D and 3D acquisitions consisting of bilateral CC and MLO views. Examination is compared to prior examination dating back to 12/11/2014. Examination is read in conjunction with computer aided detection. FINDINGS: There are scattered areas of fibroglandular density. No suspicious masses, microcalcifications or areas of architectural distortion are present. Vianey Gasca PA-C Ade MAMMOGRAPHY ORDERA BLES Final Result * Hepatitis C antibody (09/13/2023 8:34 AM EST) Hepatitis C Ab Non-Reacti ve Non-Reacti ve 09/14/2023 12:14 AM EST [facility] Blood Venipuncture / Unknown 09/13/2023 8:34 AM EST 09/13/2023 8:41 AM EST Narrative [facility] - 09/14/2023 12:14 AM EST Results may be falsely decreased if patient taking Biotin. Vianey Gasca PA-C LAB BLOOD ORDERABLES F inal Result [facility]
[address] [place] [address], [place] [phone] * SCANNED - EYE EXAM (08/14/2023) Anatomical Region Laterality Modality Other Vianey Gasca PA-C CHART REVIEW TABS F inal Result * SCANNED - COLONOSCOPY (01/02/2023) Vianey Gasca PA-C CHART REVIEW TABS F inal Result from Last 3 Months or Most Recently Relevant to Health Maintenance Insurance R Care Teams [employer]ical Instruments As[employer] Relationship Specialty Start Date End Date Vianey Gasca PA-C [address] [facility] [address] [place] [address] PCP - General Internal Medicine 10/27/19
--- OUTSIDE RECORDS SUMMARY | 2025-04-17 14:31 | XMS_ITS | Encounter Summary ---
[facility] [address] [place] [address] Care Team Providers Care Security Expert Name Role Phone Vianey Gasca PA-C Primary Care Provider Encounter Details Date Type Department Care Team (Late st Contact Info) Description 04/17/2025 Telephone [facility] [address] [facility] [address] [place] [address] Vianey Gasca PA-C [address] [address] Social History Tobacco Use Types [...] encounter Miscellaneous Notes * Telephone Encounter - Kathia Rainey MA - 04/17/2025 11:09 AM EDT Advised patient via my chart that I have received a prior authorization request from the pharmacy for the ALEX valdes injector . I submitted he request to the insurance company and once I have a response back from them I will let her now as well. documented in this encounter Plan of Treatment Upcoming Encounters Date Type Department Care Team (Late st Contact Info) Description 05/05/2025 2:45 PM EDT Office Visit [facility] [address] [phone] Vianey Gasca PA-C [address] [address] 05/18/2025 2:40 PM EDT Appointment PSYCHIATRIC [address] [place] [address] documented as of this encounter Visit Diagnoses Not on filedocumented in this encounter Care Teams Security Expert Relationship Specialty Start Date End Date Vianey Gasca PA-C [address] [address] PCP - General Internal Medicine 10/27/19 documented as of this encounter
--- OUTSIDE RECORDS SUMMARY | 2025-04-17 14:31 | XMS_ITS | Data Portability ---
Author Organization [facility] [place] Omar conley Kristopher [place] [facility] Address [address] [facility] [facility] [address] [place] [address] Assessment Encounter Date Assessment Date Assessment LastModified [...] Seldinger technique and the kit provided by [email or web address], we placed our permanent lead under good [...] Details Last Modified Time Details Appointments RECHECK 2024 04:15P Sarina ROMAN MD Not available Not available Not available RECHECK 2025 02:45P Sarina ROMAN MD Not available Not available Not available Lab urinalysi s panel, auto 2024 025 [facility], [address], [place], [address], 11/15/2024 12:55:00 culture, urine [email or web address] [facility] [address] [facility], [address] [place] [address], [address], 12/14/2023 11:26:48 urinalysi s panel, auto 2023 024 [facility], [address], [address], [place], [address], 11/17/2023 10:50:10 urinalysi s panel, auto 2022 023 [facility], [address], [address], [place], [address], 09/27/2023 07:36:04 culture, urine 2022 023 [facility], [address] [place] [address], [address], 09/27/2023 07:36:04 Referral None recorded. Procedures None recorded. Surgeries sacral neuromodu lation stage 1 (SURG) [email or web address] [facility], [address], [address], 11/23/2023 16:51:41 sacral neuromodu lation stage 2 (SURG) [email or web address] [facility], [address] [address], [place], [address], 11/23/2023 16:51:41 Imaging None recorded. Medication Orders Percocet 5 mg-325 mg tablet 2023 024 [facility], [address] [place] [address], [facility], [place], [address], 10/19/2023 13:55:03 doxycycli ne monohydra te 100 mg capsule 2023 024 [facility], [address] [place] [address], [facility], [place], [address], 10/19/2023 13:54:59 Patient TargetsNo targets recorded. Patient Instructions Encounter Date Encounter Id Patient Instructions Last Modified By Organization Details Last Modified Time 11/13/2024 [id number] - Add vitamin C to your current Methionamine regimen to increase effectiveness against UTIs. - Monitor your urinary symptoms and report any persistent issues. 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 ID and sensi tivit y in progr ess. See [place] te Resul t(s) Below Klebs iella pneum oniae Not Available [facility] [address] [place] [address], [address], 09/22/2023 16:04:38 09/20/20 23 09/22/2023 URINE CULTU RE amox/K clav'ate(C) <=8/4 ug/mL susceptib le Not Available [facility] [address] [place] [address], [address], 09/22/2023 16:04:38 09/20/20 23 09/22/2023 URINE CULTU RE cefazolin <=2 ug/mL susceptib le Not Available [facility] [address] [place] [address], [address], 09/22/2023 16:04:38 09/20/20 23 09/22/2023 URINE CULTU RE ceftazidime <=1 ug/mL susceptib le Not Available [facility] [address] [place] [address], [address], 09/22/2023 16:04:38 09/20/20 23 09/22/2023 URINE CULTU RE ceftriaxone <=1 ug/mL susceptib le Not Available [facility] [address] [place] [address], [address], 09/22/2023 16:04:38 09/20/20 23 09/22/2023 URINE CULTU RE cefuroxime <=4 ug/mL susceptib le Not Available [facility] [address] [place] [address], [address], 09/22/2023 16:04:38 09/20/20 23 09/22/2023 URINE CULTU RE ciprofloxaci n <=0.25 ug/mL susceptib le Not Available [facility] [address] [place] [address], [address], 09/22/2023 16:04:38 09/20/20 23 09/22/2023 URINE CULTU RE gentamicin <=4 ug/mL susceptib le Not Available [facility] [address] [place] [address], [address], 09/22/2023 16:04:38 09/20/20 23 09/22/2023 URINE CULTU RE imipenem <=1 ug/mL susceptib le Not Available [facility] [address] [place] [address], [address], 09/22/2023 16:04:38 09/20/20 23 09/22/2023 URINE CULTU RE levofloxacin <=0.5 ug/mL susceptib le Not Available [facility] [address] [place] [address], [address], 09/22/2023 16:04:38 09/20/20 23 09/22/2023 URINE CULTU RE nitrofuranto in >64 ug/mL resistant Not Available [facility] [address] [place] [address], [address], 09/22/2023 16:04:38 09/20/20 23 09/22/2023 URINE CULTU RE piperacillin /robby <=16 ug/mL susceptib le Not Available [facility] [address] [place] [address], [address], 09/22/2023 16:04:38 09/20/20 23 09/22/2023 URINE CULTU RE tetracycline <=4 ug/mL susceptib le Not Available [facility] [address] [place] [address], [address], 09/22/2023 16:04:38 09/20/20 23 09/22/2023 URINE CULTU RE tobramycin <=2 ug/mL susceptib le Not Available [facility] [address] [place] [address], [address], 09/22/2023 16:04:38 09/20/20 23 09/22/2023 URINE CULTU RE trimeth/sulf a <=2/38 ug/mL susceptib le Not Available [facility] [address] [place], [address], 09/22/2023 16:04:38 09/20/20 23 09/20/2023 urina lysis panel , auto Unknown Analyte Clean Catch Not Available [facility] [address], [place], [address], 09/20/2023 16:18:59 09/20/20 23 09/20/2023 urina lysis panel , auto Unknown Analyte Yellow Not Available [facility] [address], [place], [address], 09/20/2023 16:18:59 09/20/20 23 09/20/2023 urina lysis panel , auto Unknown Analyte Cloudy Not Available [facility] [address], [place], [address], 09/20/2023 16:18:59 09/20/20 23 09/20/2023 urina lysis panel , auto Unknown Analyte 1.020 Not Available [facility] [address], [place], [address], 09/20/2023 16:18:59 09/20/20 23 09/20/2023 urina lysis panel , auto Unknown Analyte 1.003- 1.035 Not Available [facility] [address], [place], [address], 09/20/2023 16:18:59 09/20/20 23 09/20/2023 urina lysis panel , auto Unknown Analyte 5.0 Not Available [facility] [address], [place], [address], 09/20/2023 16:18:59 09/20/20 23 09/20/2023 urina lysis panel , auto Unknown Analyte 5.0-8. 0 Not Available [facility] [address], [place], [address], 09/20/2023 16:18:59 09/20/20 23 09/20/2023 urina lysis panel , auto Unknown Analyte 500 Sumi/ul (++) Not Available [facility] [address], [place], [address], 09/20/2023 16:18:59 09/20/20 23 09/20/2023 urina lysis panel , auto Unknown Analyte Negati ve Not Available [facility] [address], [place], [address], 09/20/2023 16:18:59 09/20/20 23 09/20/2023 urina lysis panel , auto Unknown Analyte Negati ve Not Available [facility] [address], [place], [address], 09/20/2023 16:18:59 09/20/20 23 09/20/2023 urina lysis panel , auto Unknown Analyte Negati ve Not Available [facility] [address], [place], [address], 09/20/2023 16:18:59 09/20/20 23 09/20/2023 urina lysis panel , auto Unknown Analyte Negati ve Not Available [facility] [address], [place], [address], 09/20/2023 16:18:59 09/20/20 23 09/20/2023 urina lysis panel , auto Unknown Analyte Negati ve Not Available [facility] [address], [place], [address], 09/20/2023 16:18:59 09/20/20 23 09/20/2023 urina lysis panel , auto Unknown Analyte Normal Not Available [facility] [address], [place], [address], 09/20/2023 16:18:59 09/20/20 23 09/20/2023 urina lysis panel , auto Unknown Analyte Normal Not Available [facility] [address], [place], [address], 09/20/2023 16:18:59 09/20/20 23 09/20/2023 urina lysis panel , auto Unknown Analyte Negati ve Not Available [facility] [address], [place], [address], 09/20/2023 16:18:59 09/20/20 23 09/20/2023 urina lysis panel , auto Unknown Analyte Negati ve Not Available [facility] [address], [place], [address], 09/20/2023 16:18:59 09/20/20 23 09/20/2023 urina lysis panel , auto Unknown Analyte Normal Not Available [facility] [address], [place], [address], 09/20/2023 16:18:59 09/20/20 23 09/20/2023 urina lysis panel , auto Unknown Analyte Normal 1 mg/dl Not Available [facility] [address], [place], [address], 09/20/2023 16:18:59 09/20/20 23 09/20/2023 urina lysis panel , auto Unknown Analyte Negati ve Not Available [facility] [address], [place], [address], 09/20/2023 16:18:59 09/20/20 23 09/20/2023 urina lysis panel , auto Unknown Analyte Negati ve Not Available [facility] [address], [place], [address], 09/20/2023 16:18:59 09/20/20 23 09/20/2023 urina lysis panel , auto Unknown Analyte 250 Kike/ul Not Available [facility] [address], [place], [address], 09/20/2023 16:18:59 09/20/20 23 09/20/2023 urina lysis panel , auto Unknown Analyte Negati ve Not Available [facility] [address], [place], [address], 09/20/2023 16:18:59 10/10/19 24 10/10/2023 urina lysis panel , auto Unknown Analyte Clean Catch Not Available [facility] Surgery Schedule [address] [place], [address], 10/10/2023 13:39:50 10/10/19 24 10/10/2023 urina lysis panel , auto Unknown Analyte Yellow Not Available [facility] Surgery Schedule [address] [place], [address], 10/10/2023 13:39:50 10/10/19 24 10/10/2023 urina lysis panel , auto Unknown Analyte Clear Not Available [facility] Surgery Schedule [address] [place], [address], 10/10/2023 13:39:50 10/10/19 24 10/10/2023 urina lysis panel , auto Unknown Analyte 1.015 Not Available [facility] Surgery Schedule [address] [place] [address], [address], 10/10/2023 13:39:50 10/10/19 24 10/10/2023 urina lysis panel , auto Unknown Analyte 1.003- 1.035 Not Available [facility] Schedule [address] [place] [address], [address], 10/10/2023 13:39:50 10/10/19 24 10/10/2023 urina lysis panel , auto Unknown Analyte 6.0 Not Available [facility] Schedule [address] [place], [address], 10/10/2023 13:39:50 10/10/19 24 10/10/2023 urina lysis panel , auto Unknown Analyte 5.0-8. 0 Not Available [facility] Surgery Schedule [facility] [place], [address], 10/10/2023 13:39:50 10/10/19 24 10/10/2023 urina lysis panel , auto Unknown Analyte 25 Sumi/ul Trace Not Available [facility] Schedule [address] [place], [address], 10/10/2023 13:39:50 10/10/19 24 10/10/2023 urina lysis panel , auto Unknown Analyte Negati ve Not Available [facility] Surgery Schedule [address] [place], [address], 10/10/2023 13:39:50 10/10/19 24 10/10/2023 urina lysis panel , auto Unknown Analyte Negati ve Not Available [facility] Schedule [address] [place], [address], 10/10/2023 13:39:50 10/10/19 24 10/10/2023 urina lysis panel , auto Unknown Analyte Negati ve Not Available [facility] Surgery Schedule [address] [place], [address], 10/10/2023 13:39:50 10/10/19 24 10/10/2023 urina lysis panel , auto Unknown Analyte Negati ve Not Available [facility] Surgery Schedule [address] [place], [address], 10/10/2023 13:39:50 10/10/19 24 10/10/2023 urina lysis panel , auto Unknown Analyte Negati ve Not Available [facility] Schedule [address] [place], [address], 10/10/2023 13:39:50 10/10/19 24 10/10/2023 urina lysis panel , auto Unknown Analyte Normal Not Available [facility] Surgery Schedule [address] [place], [address], 10/10/2023 13:39:50 10/10/19 24 10/10/2023 urina lysis panel , auto Unknown Analyte Normal Not Available [facility] Surgery Schedule [address] [place], [address], 10/10/2023 13:39:50 10/10/19 24 10/10/2023 urina lysis panel , auto Unknown Analyte Negati ve Not Available [facility] Schedule [address] [place], [address], 10/10/2023 13:39:50 10/10/19 24 10/10/2023 urina lysis panel , auto Unknown Analyte Negati ve Not Available [facility] Schedule [address] [place], [address], 10/10/2023 13:39:50 10/10/19 24 10/10/2023 urina lysis panel , auto Unknown Analyte Normal Not Available [facility] Surgery Schedule [address] [place], [address], 10/10/2023 13:39:50 10/10/19 24 10/10/2023 urina lysis panel , auto Unknown Analyte Normal 1 mg/dl Not Available [facility] Surgery Schedule [address] [place], [address], 10/10/2023 13:39:50 10/10/19 24 10/10/2023 urina lysis panel , auto Unknown Analyte Negati ve Not Available [facility] Schedule [address] [place], [address], 10/10/2023 13:39:50 10/10/19 24 10/10/2023 urina lysis panel , auto Unknown Analyte Negati ve Not Available [facility] Schedule [address] [place], [address], 10/10/2023 13:39:50 10/10/19 24 10/10/2023 urina lysis panel , auto Unknown Analyte 50 Kike/ul Not Available [facility] Surgery Schedule [address] [place], [address], 10/10/2023 13:39:50 10/10/19 24 10/10/2023 urina lysis panel , auto Unknown Analyte Negati ve Not Available [facility] Surgery Schedule [address] [place], [address], 10/10/2023 13:39:50 10/19/19 24 10/19/2023 urina lysis panel , auto Unknown Analyte Clean Catch Not Available [facility] Surgery Schedule [address] [place], [address], 10/19/2023 11:45:16 10/19/19 24 10/19/2023 urina lysis panel , auto Unknown Analyte Yellow Not Available [facility] Surgery Schedule [address] [place], [address], 10/19/2023 11:45:16 10/19/19 24 10/19/2023 urina lysis panel , auto Unknown Analyte Clear Not Available [facility] Surgery Schedule [address] [place], [address], 10/19/2023 11:45:16 10/19/19 24 10/19/2023 urina lysis panel , auto Unknown Analyte 1.020 Not Available [facility] Surgery Schedule [address] [place], [address], 10/19/2023 11:45:16 10/19/19 24 10/19/2023 urina lysis panel , auto Unknown Analyte 1.003- 1.035 Not Available [facility] Surgery Schedule [address] [place], [address], 10/19/2023 11:45:16 10/19/19 24 10/19/2023 urina lysis panel , auto Unknown Analyte 5.0 Not Available [facility] Surgery Schedule [address] [place], [address], 10/19/2023 11:45:16 10/19/19 24 10/19/2023 urina lysis panel , auto Unknown Analyte 5.0-8. 0 Not Available [facility] Surgery Schedule [address] [place], [address], 10/19/2023 11:45:16 10/19/19 24 10/19/2023 urina lysis panel , auto Unknown Analyte 75 Sumi/ul (+) Not Available [facility] Surgery Schedule [address] [place], [address], 10/19/2023 11:45:16 10/19/19 24 10/19/2023 urina lysis panel , auto Unknown Analyte Negati ve Not Available [facility] Surgery Schedule [address] [place], [address], 10/19/2023 11:45:16 10/19/19 24 10/19/2023 urina lysis panel , auto Unknown Analyte Negati ve Not Available [facility] Surgery Schedule [address] [place], [address], 10/19/2023 11:45:16 10/19/19 24 10/19/2023 urina lysis panel , auto Unknown Analyte Negati ve Not Available [facility] Surgery Schedule [address] [place], [address], 10/19/2023 11:45:16 10/19/19 24 10/19/2023 urina lysis panel , auto Unknown Analyte Negati ve Not Available [facility] Surgery Schedule [address] [place], [address], 10/19/2023 11:45:16 10/19/19 24 10/19/2023 urina lysis panel , auto Unknown Analyte Negati ve Not Available [facility] Surgery Schedule [address] [place], [address], 10/19/2023 11:45:16 10/19/19 24 10/19/2023 urina lysis panel , auto Unknown Analyte Normal Not Available [facility] Surgery Schedule [address] [place], [address], 10/19/2023 11:45:16 10/19/19 24 10/19/2023 urina lysis panel , auto Unknown Analyte Normal Not Available [facility] Surgery Schedule [address] [place], [address], 10/19/2023 11:45:16 10/19/19 24 10/19/2023 urina lysis panel , auto Unknown Analyte Negati ve Not Available [facility] Surgery Schedule [address] [place], [address], 10/19/2023 11:45:16 10/19/19 24 10/19/2023 urina lysis panel , auto Unknown Analyte Negati ve Not Available [facility] Surgery Schedule [address] [place], [address], 10/19/2023 11:45:16 10/19/19 24 10/19/2023 urina lysis panel , auto Unknown Analyte Normal Not Available [facility] Surgery Schedule [address] [place], [address], 10/19/2023 11:45:16 10/19/19 24 10/19/2023 urina lysis panel , auto Unknown Analyte Normal 1 mg/dl Not Available [facility] Surgery Schedule [address] [place], [address], 10/19/2023 11:45:16 10/19/19 24 10/19/2023 urina lysis panel , auto Unknown Analyte Negati ve Not Available [facility] Surgery Schedule [address] [place], [address], 10/19/2023 11:45:16 10/19/19 24 10/19/2023 urina lysis panel , auto Unknown Analyte Negati ve Not Available [facility] Surgery Schedule [address] [place], [address], 10/19/2023 11:45:16 10/19/19 24 10/19/2023 urina lysis panel , auto Unknown Analyte 250 Kike/ul Not Available [facility] Surgery Schedule [address] [place], [address], 10/19/2023 11:45:16 10/19/19 24 10/19/2023 urina lysis panel , auto Unknown Analyte Negati ve Not Available [facility] Surgery Schedule [address], [place], [address], 10/19/2023 11:45:16 11/15/19 24 11/15/2023 urina lysis panel , auto Unknown Analyte Clean Catch Not Available [facility] [address], [place], [address], 11/15/2023 16:39:36 11/15/19 24 11/15/2023 urina lysis panel , auto Unknown Analyte Yellow Not Available [facility] [address], [place], [address], 11/15/2023 16:39:36 11/15/19 24 11/15/2023 urina lysis panel , auto Unknown Analyte Clear Not Available [facility] [place] [address], [place], [address], 11/15/2023 16:39:36 11/15/19 24 11/15/2023 urina lysis panel , auto Unknown Analyte 1.020 Not Available [facility] [address], [place], [address], 11/15/2023 16:39:36 11/15/19 24 11/15/2023 urina lysis panel , auto Unknown Analyte 1.003- 1.035 Not Available [facility] [address], [place], [address], 11/15/2023 16:39:36 11/15/19 24 11/15/2023 urina lysis panel , auto Unknown Analyte 5.0 Not Available [facility] [address], [place], [address], 11/15/2023 16:39:36 11/15/19 24 11/15/2023 urina lysis panel , auto Unknown Analyte 5.0-8. 0 Not Available [facility] [address], [place], [address], 11/15/2023 16:39:36 11/15/19 24 11/15/2023 urina lysis panel , auto Unknown Analyte 500 Sumi/ul (++) Not Available [facility] [address], [place], [address], 11/15/2023 16:39:36 11/15/19 24 11/15/2023 urina lysis panel , auto Unknown Analyte Negati ve Not Available [facility] [address], [place], [address], 11/15/2023 16:39:36 11/15/19 24 11/15/2023 urina lysis panel , auto Unknown Analyte Negati ve Not Available [facility] [address], [place], [address], 11/15/2023 16:39:36 11/15/19 24 11/15/2023 urina lysis panel , auto Unknown Analyte Negati ve Not Available [facility] [address], [place], [address], 11/15/2023 16:39:36 11/15/19 24 11/15/2023 urina lysis panel , auto Unknown Analyte Negati ve Not Available [facility] [facility] [address], [place], [address], 11/15/2023 16:39:36 11/15/19 24 11/15/2023 urina lysis panel , auto Unknown Analyte Negati ve Not Available [facility] [address], [place], [address], 11/15/2023 16:39:36 11/15/19 24 11/15/2023 urina lysis panel , auto Unknown Analyte Normal Not Available [facility] [address], [place], [address], 11/15/2023 16:39:36 11/15/19 24 11/15/2023 urina lysis panel , auto Unknown Analyte Normal Not Available [facility] [address], [place], [address], 11/15/2023 16:39:36 11/15/19 24 11/15/2023 urina lysis panel , auto Unknown Analyte Negati ve Not Available [facility] [address], [place], [address], 11/15/2023 16:39:36 11/15/19 24 11/15/2023 urina lysis panel , auto Unknown Analyte Negati ve Not Available [facility] [address], [place], [address], 11/15/2023 16:39:36 11/15/19 24 11/15/2023 urina lysis panel , auto Unknown Analyte Normal Not Available [facility] [address], [place], [address], 11/15/2023 16:39:36 11/15/19 24 11/15/2023 urina lysis panel , auto Unknown Analyte Normal 1 mg/dl Not Available [facility] [address], [place], [address], 11/15/2023 16:39:36 11/15/19 24 11/15/2023 urina lysis panel , auto Unknown Analyte Negati ve Not Available [facility] [address], [place], [address], 11/15/2023 16:39:36 11/15/19 24 11/15/2023 urina lysis panel , auto Unknown Analyte Negati ve Not Available [facility] [address], [place], [address], 11/15/2023 16:39:36 11/15/19 24 11/15/2023 urina lysis panel , auto Unknown Analyte 250 Kike/ul Not Available [facility] [address], [place], [address], 11/15/2023 16:39:36 11/15/19 24 11/15/2023 urina lysis panel , auto Unknown Analyte Negati ve Not Available [facility] [address], [place], [address], 11/15/2023 16:39:36 12/07/19 24 12/07/2023 URINE CULTU RE klebsiella pneumoniae Organi sm: Klebsi lana pneumo niae Not Available [facility] [address] [place] [address], [place], [address], 12/10/2023 09:33:47 12/07/19 24 12/10/2023 URINE CULTU RE urine culture abnormal ISOLA TE #1 COLON Y COUNT : 10,00 0 - 100,0 00 CFU/M L Proba ble Gram Negat martha Bacil rogerio. ID and sensi tivit y in progr ess. See [place] te Resul t(s) Below Klebs iella pneum oniae Not Available [facility] [address] [place] [address], [address], 12/10/2023 09:33:47 12/07/19 24 12/10/2023 URINE CULTU RE amox/K clav'ate(C) <=8/4 ug/mL susceptib le Not Available [facility] [address] [place] [address], [address], 12/10/2023 09:33:47 12/07/19 24 12/10/2023 URINE CULTU RE cefazolin <=2 ug/mL susceptib le Not Available [facility] [address] [place] [address], [address], 12/10/2023 09:33:47 12/07/19 24 12/10/2023 URINE CULTU RE ceftazidime <=1 ug/mL susceptib le Not Available [facility] [address] [place] [address], [address], 12/10/2023 09:33:47 12/07/19 24 12/10/2023 URINE CULTU RE ceftriaxone <=1 ug/mL susceptib le Not Available [facility] [address] [place] [address], [address], 12/10/2023 09:33:47 12/07/19 24 12/10/2023 URINE CULTU RE cefuroxime 16 ug/mL intermedi ate Not Available [facility] [address] [place] [address], [address], 12/10/2023 09:33:47 12/07/19 24 12/10/2023 URINE CULTU RE ciprofloxaci n 0.5 ug/mL intermedi ate Not Available [facility] [address] [place] [address], [address], 12/10/2023 09:33:47 12/07/19 24 12/10/2023 URINE CULTU RE gentamicin <=4 ug/mL susceptib le Not Available [facility] [address] [place] [address], [address], 12/10/2023 09:33:47 12/07/19 24 12/10/2023 URINE CULTU RE imipenem <=1 ug/mL susceptib le Not Available [facility] [address] [place] [address], [address], 12/10/2023 09:33:47 12/07/19 24 12/10/2023 URINE CULTU RE levofloxacin <=0.5 ug/mL susceptib le Not Available [facility] [address] [place] [address], [address], 12/10/2023 09:33:47 12/07/19 24 12/10/2023 URINE CULTU RE nitrofuranto in 64 ug/mL intermedi ate Not Available [facility] [address] [place] [address], [address], 12/10/2023 09:33:47 12/07/19 24 12/10/2023 URINE CULTU RE piperacillin /robby <=16 ug/mL susceptib le Not Available [facility] [address] [place] [address], [address], 12/10/2023 09:33:47 12/07/19 24 12/10/2023 URINE CULTU RE tetracycline <=4 ug/mL susceptib le Not Available [facility] [address] [place] [address], [address], 12/10/2023 09:33:47 12/07/19 24 12/10/2023 URINE CULTU RE tobramycin <=2 ug/mL susceptib le Not Available [facility] [address] [place], [address], 12/10/2023 09:33:47 12/07/19 24 12/10/2023 URINE CULTU RE trimeth/sulf a <=2/38 ug/mL susceptib le Not Available [facility] [address] [place], [address], 12/10/2023 09:33:47 11/13/19 25 11/13/2024 urina lysis panel , auto Unknown Analyte Clean Catch Not Available [facility] [address], [place], [address], 11/13/2024 14:36:14 11/13/19 25 11/13/2024 urina lysis panel , auto Unknown Analyte Yellow Not Available [facility] [address], [place], [address], 11/13/2024 14:36:14 11/13/19 25 11/13/2024 urina lysis panel , auto Unknown Analyte Clear Not Available [facility] [address], [place], [address], 11/13/2024 14:36:14 11/13/19 25 11/13/2024 urina lysis panel , auto Unknown Analyte 1.005 Not Available [facility] [address], [place], [address], 11/13/2024 14:36:14 11/13/19 25 11/13/2024 urina lysis panel , auto Unknown Analyte 1.003- 1.035 Not Available [facility] [address], [place], [address], 11/13/2024 14:36:14 11/13/19 25 11/13/2024 urina lysis panel , auto Unknown Analyte 6.0 Not Available [facility] [address], [place], [address], 11/13/2024 14:36:14 11/13/19 25 11/13/2024 urina lysis panel , auto Unknown Analyte 5.0-8. 0 Not Available [facility] [address], [place], [address], 11/13/2024 14:36:14 11/13/19 25 11/13/2024 urina lysis panel , auto Unknown Analyte 25 Sumi/ul Trace Not Available [facility] [address], [place], [address], 11/13/2024 14:36:14 11/13/19 25 11/13/2024 urina lysis panel , auto Unknown Analyte Negati ve Not Available [facility] [address], [place], [address], 11/13/2024 14:36:14 11/13/19 25 11/13/2024 urina lysis panel , auto Unknown Analyte Negati ve Not Available [facility] [address], [place], [address], 11/13/2024 14:36:14 11/13/19 25 11/13/2024 urina lysis panel , auto Unknown Analyte Negati ve Not Available [facility] [address], [place], [address], 11/13/2024 14:36:14 11/13/19 25 11/13/2024 urina lysis panel , auto Unknown Analyte Negati ve Not Available [facility] [address], [place], [address], 11/13/2024 14:36:14 11/13/19 25 11/13/2024 urina lysis panel , auto Unknown Analyte Negati ve Not Available [facility] [address], [place], [address], 11/13/2024 14:36:14 11/13/19 25 11/13/2024 urina lysis panel , auto Unknown Analyte Normal Not Available [facility] [address], [place], [address], 11/13/2024 14:36:14 11/13/19 25 11/13/2024 urina lysis panel , auto Unknown Analyte Normal Not Available [facility] [address], [place], [address], 11/13/2024 14:36:14 11/13/19 25 11/13/2024 urina lysis panel , auto Unknown Analyte Negati ve Not Available [facility] [address], [place], [address], 11/13/2024 14:36:14 11/13/19 25 11/13/2024 urina lysis panel , auto Unknown Analyte Negati ve Not Available [facility] [address], [place], [address], 11/13/2024 14:36:14 11/13/19 25 11/13/2024 urina lysis panel , auto Unknown Analyte Normal Not Available [facility] [address], [place], [address], 11/13/2024 14:36:14 11/13/19 25 11/13/2024 urina lysis panel , auto Unknown Analyte Normal 1 mg/dl Not Available [facility] [address], [place], [address], 11/13/2024 14:36:14 11/13/19 25 11/13/2024 urina lysis panel , auto Unknown Analyte Negati ve Not Available [facility] [address], [place], [address], 11/13/2024 14:36:14 11/13/19 25 11/13/2024 urina lysis panel , auto Unknown Analyte Negati ve Not Available [facility] [address], [place], [address], 11/13/2024 14:36:14 11/13/19 25 11/13/2024 urina lysis panel , auto Unknown Analyte 50 Kike/ul Not Available [facility] [address], [place], [address], 11/13/2024 14:36:14 11/13/19 25 11/13/2024 urina lysis panel , auto Unknown Analyte Negati ve Not Available [facility] [address], [place], [address], 11/13/2024 14:36:14 Result Notes None recorded. Problems Name Problem SNOMED Code Status Onset Date Resolution Date Notes Provider Name and Address Organization Details Recorded Time Recurrent urinary tract infection 439327132 Active 2022 WILFRIDO ROMAN JR, MD [address] [place] [address], [address], [facility] 3 09:29:45 Urinary tract infectious disease 09136383 Active 2022 WILFRIDO ROMAN JR, MD [address] [place] [address], [address], [facility] 3 09:29:46 Urge incontinence of urine 35185466 Active 2022 WILFRIDO ROMAN JR, MD [address] [place] [address], [address], [facility] 09:29:47 Problem Notes None recorded. Procedures Surgical History Date Name Laterality Status Provider Name and Address Organization Details Recorded Time 3 PNE Implantation; Sacral Nerve completed WILFRIDO ROMAN JR, MD [address] [place] [address], [address], [facility] 09/17/2023 07:38:44 3 Cystoscopy - female completed WILFRIDO ROMAN JR, MD [address] [place] [address], [address], [facility] 08/29/2023 14:45:16 9 Post Void Residual; Ultrasound completed Evelyne Fetlon [place] - [facility] 10/28/2018 11:26:22 Other completed Evelyne Felton [place] [facility] 10/28/2018 11:17:20 Other completed Evelyne Fel[place] [facility] 10/28/2018 11:17:29 Other completed Evelyne [place] [facility] 10/28/2018 11:17:39 Other completed [facility] [place] [facility] 10/28/2018 11:17:45 Imaging Results None recorded. Procedure Notes None recorded. Medical Equipment None Reported. Allergies Allergen ID Allergen Name Allergen Category Reaction Reaction Severity Criticality Documentation Date Start Date Code Code System Note Provider Name and Address Organization Details Recorded Time 160491 Substance with sulfonami de structure and antibacte rial mechanism of action (substanc e) medicatio n Not available Not available Not available 10/28/2018 66389 8003 SNOMED Evelyne Felton carlos [facility] 9 11:10:53 Medications Name Sig Start [...] Not Available Not Available Not Available Basaglghanshyam Leonard U-100 Insulin 100 unit/mL (3 mL) subcutane [...] Updated DateTime 11/13/2024 167.64 cm 33.9 kg/m2 55416.4 g Shruthi Mckilney [facility] 11/13/2024 14:24:19 Date Recorded Body height Body mass index (BMI) Body weight Provider Name and Address Organization Details Last Updated DateTime 11/15/2023 167.64 cm 33.9 kg/m2 45041.4 g Danny Pyle [facility] 11/15/2023 16:06:35 Date Recorded Body height Body mass index (BMI) Body weight Provider Name and Address Organization Details Last Updated DateTime 09/20/2023 170.18 cm 32.9 kg/m2 94875.4 g Sheree Bennett [facility] 09/20/2023 15:02:49 Social History Question Answer Notes LastModified by Organizat ion Details LastModified Time Tobacco Smoking Status Never [facility]/28[facility]2018 11:16:44 Marital Status Informatio n not [...] not available 04/02/2023 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 Her u/a today is wnl and PVR only 52 cc. Discussed that her increased caffeine use is probably responsibl e for her increased urgency and leakage. She has been drinking up to 40 oz/day. Discussed drinking 8 0z day of decaf. [id number] WILFRIDO ROMAN JR, MD [facility] [address] [facility] [address] [place] [address] 04/02/2023 13:16:15 04/09/2023 04:02:50 Recurrent urinary tract infection 633294770 N39.0 Urinary tr act infectious disease 76641650 N39.0 Urge incon tinence of urine 61930213 N39.41 [id number] WILFRIDO ROMAN JR, MD [facility] [address] [place] [address],[address] [place] [address] 08/02/2023 15:01:31 08/02/2023 16:32:59 Acute urinary tract infection 973938124 N39.0 Urge incon tinence of urine 34548421 N39.41 Recurrent urinary tract infection 880699355 N39.0 , [id number] WILFRIDO ROMAN JR, MD SURGERY SCHEDULE [address] [place] [address] 08/29/2023 14:42:52 08/29/2023 14:43:44 Recurrent urinary tract infection 301070399 N39.0 , Urge incon tinence of urine 49821438 N39.41 [id number] WILFRIDO ROMAN JR, MD [facility] [address] [place] [address],[address] [place] [address] 09/13/2023 16:11:52 09/19/2023 10:45:57 Urge incontinence of urine 06819542 N39.41 [id number] WILFRIDO ROMAN JR, MD [facility] [address] [place] [address],[place] [place] [address] 09/20/2023 14:57:25 09/20/2023 15:41:37 Acute urinary tract infection 356845121 N39.0 Urge incon tinence of urine 37088116 N39.41 [id number] WILFRIDO ROMAN JR, MD SURGERY SCHEDULE [address] [place] [address] 1 10/19/2023 11:27:51 10/19/2023 12:19:29 Postoperative pain 213604609 G89.18 [id number] WILFRIDO ROMAN JR, MD [facility] [address] [place] [address] 11/15/2023 15:54:23 11/15/2023 16:22:19 Urge incontinence of urine 93482267 N39.41 [id number] ALLISON ALBERTS MD [facility] [address] [facility] [address] [place] [address] 12/07/2023 16:06:10 12/07/2023 16:09:12 Acute urinary tract infection 966385449 N39.0 [id number] WILFRIDO ROMAN JR, MD [facility] [address] [facility] [address] [place] [address] 11/13/2024 13:53:24 11/13/2024 14:34:39 Recurrent urinary tract infection 201768020 N39.0 Recommend addition of vitamin C with Methionami ne. Monitor recurrence . Adjust preventive strategies if necessary. Urge incon tinence of urine 75881103 N39.41 Continue neuromodul ation therapy. 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 Evaluate future interventi ons if needed. Health Concerns Section Related Observation LastModified by Organization Detai ls LastModified Time None Recorded Concern Status LastModified by Organization Details LastModified Time None Recorded Advance Directives Directive None Recorded Payers Insurance Date Sequence Insurance Name Policy Number Policy Espinal Covered Member ID Espinal Member ID Guarantor Name 11/16/2024 2 [id number] [id number] Salvador Booker Ewewelinat [id number] Vianey Kenyon Ewalt 12/04/2018 1 *SELF PAY* Robert Kenyon Ewalt 11/16/2024 1 UMR [id number] Vianey Kenyon Ewalt [id number] Vianey Kenyon Ewalt 11/16/2024 GENERIC INSURANCE - MOVED-HOLD Vianey Kenyon Ewsherman Vianey Kenyon Minda Notes Date Note Type Note Provider Name [...] of neuromodulator device. WILFRIDO ROMAN JR, MD [address] [place] [address] [place], [address], [facility] 09/30/2023 17:02:11 11/15/2023 text/html Patient is in to day for follow-up of urgency incontinence. She underwent neuromodulation, Axonix implantation stages, and 02 October 2023. She reports significant improvement of lower urinary tract symptoms. WILFRIDO ROMAN JR, MD [facility] [place], [address], [facility] 11/17/2023 10:50:13 11/13/2024 text/html The patient is [...] 02 October 2023. WILFRIDO ROMAN JR, MD [facility] [place], [address], [facility] 11/15/2024 12:55:04 OBGyn Episode No OBEpisode recorded.
[2025-04-17 14:45] VITALS: BP 97/70; PULSE 71; RESP 18; O2SAT 98
[2025-04-17 15:25] VITALS: BP 106/60; PULSE 80; RESP 18; O2SAT 98
== END 2025-04-17 15:26 | disposition home or self-care (01) ==
LOC: INF 14:29
PROVIDERS: PCP Nurse Practitioner Family; Visit Provider Nurse Practitioner Family
DX: N39.0 Urinary tract infection, site not specified (principal)
CPT/HCPCS: 96365

== ENCOUNTER 2025-04-18 14:01 | Outpatient (CLI) | payer OTHER, SELFPAY ==
--- OUTSIDE RECORDS SUMMARY | 2025-04-18 14:04 | XMS_ITS | Encounter Summary ---
[facility] [address] [place] [address] Care Team Providers Care Medical Staffing Coordinator Name Role Phone Vianey Gasca PA-C Primary Care Provider Reason for Visit * Reason Comments Med Refill Encounter Details Date Type Department Care Team (Late st Contact Info) Description 03/16/2025 Refill [facility] [address] [address] Vianey Gasca PA-C [address] [place] [phone] Mixed hyperlipidemia; Benign essential hypertension Social History [...] Description 05/05/2025 2:45 PM EDT Office Visit [facility] [address] [address] Vianey Gasca PA-C [address] [address] 05/18/2025 2:40 PM EDT Appointment [facility] [address] [place] [address] documented as of this encounter Visit Diagnoses Diagnosis Mixed hyperlipidemia Benign essential hypertension Essential hypertension, benign documented in this encounter Care Teams Medical Staffing Coordinator Relationship Specialty Start Date End Date Vianey Gasca PA-C [address] [address] PCP - General Internal Medicine 10/27/19 documented as of this encounter
--- OUTSIDE RECORDS SUMMARY | 2025-04-18 14:04 | XMS_ITS | Encounter Summary ---
Author Organization [facility] Address [address] [place] [address] Care Team Providers Care Financial Analysis Advisor Name Role Phone Vianey Gasca PA-C Primary Care Provider Encounter Details Date Type Department Care Team (Late st Contact Info) Description 01/06/2025 Results Follow-Up [facility] [address] [place] [address] Dia Casas MD [address] [facility] [address] [place] [address] Social History Tobacco Use Types Packs/Day Years [...] [facility] [address] [id number] Vianey Gasca PA-C [address] [address] 05/18/2025 2:40 PM EDT Appointment [address] [address] documented as of this encounter Visit Diagnoses Not on filedocumented in this encounter Care Teams Financial Analysis Advisor Relationship Specialty Start Date End Date Vianey Gasca PA-C [address] [address] PCP - General Internal Medicine 10/27/19 documented as of this encounter
--- OUTSIDE RECORDS SUMMARY | 2025-04-18 14:04 | XMS_ITS | Clinical Summary ---
Author Organization [facility] Address [address] [place] [address] Care Team Providers Care History Department Chair Name Role Phone Vianey Gasca PA-C Primary [...] 025 Active vitamin D (ERGOCALCIFEROL) 1.25 MG (59324 UT) capsule capsuleIndication s:Vitamin D deficiency TAKE [...] Type Department Care Team Description 04/17/2025 Telephone [facility] [address] [address] Vianey Gasca PA-C 04/15/2025 Refill [facility] [address] [address] Dilan Chappell MD OAB (overactive bladder) 04/09/2025 [facility] INTERNAL MEDICINE [address] [address] Vianey Gasca PA-C MAMMOGRAM 04/09/2025 [facility] INTERNAL MEDICINE [address] [address] Vianey Gasca PA-C MEDICATION CONCERN 03/16/2025 [facility] INTERNAL MEDICINE [address] [address] Dilan Chappell MD OAB (overactive bladder) 03/16/[facility] [address] [address] Vianey Gasca PA-C Vitamin D deficiency 03/16/2025 [facility] INTER[facility] MEDICINE [address] [address] Vianey Gasca PA-C Mixed hyperlipidemia; Benign essential hypertension 03/16/2025 [facility] [address] [address] Dilan Chappell MD 02/17/2025 [facility] INTERNAL MEDICINE [address] [place] [address] Vianey Gasca PA-C 02/02/2025 Results Follow-Up [facility] 2101 [facility] [address] [place] [address] Vianey Gasca PA-C 02/02/2025 Refill [facility] 210 [facility] [address] [place] [address] Vianey Gasca PA-C 01/27/2025 8:50 AM EDT Lab [facility] [place] [address] [place] [address] Benign essential hypertension; Mixed hyperlipidemia; Acquired hypothyroidism; Encounter for vitamin deficiency screening; Vitamin D deficiency; Recurrent UTI 01/27/2025 Travel 01/22/2025 3:30 PM EDT Office Visit [facility] 210 [facility] [address] [place] [address] Vianey Gasca PA-C Type 2 diabetes mellitus [...] Description 05/05/2025 2:45 PM EDT Office Visit [facility] [address] [place] [address] Vianey Gasca PA-C [address] [place] [phone] 05/18/2025 2:40 PM EDT Appointment [facility] [address] [place] [address] Health [...] Seen, 0-2 /HPF 01/28/2025 12:36 AM EDT [facility] WBC, UA 21-50(A) None Seen, 0-2 /HPF 01/28/2025 12:36 AM EDT [facility] Bacteria, UA None Seen None Seen /HPF 01/28/2025 12:36 AM EDT [facility] Squamous Epithelial Cells, UA 3-6(A) None Seen, 0-2 /HPF 01/28/2025 12:36 AM EDT [facility] Hyaline Casts, UA 0-2 None Seen /LPF 01/28/2025 12:36 AM EDT [facility] Methodology Automated Microscopy 01/28/2025 12:36 AM EDT [facility] Urine Urine specimen obtained by clean catch procedure / Unknown Collection / Unknown 01/27/2025 8:53 AM EDT 01/27/2025 8:53 AM EDT us Vianey Gasca PA-C URINE ORDERABLES Final Result [facility]
[address] [place] [address], * (ABNORMAL) CBC Auto Differential (01/27/2025 8:53 AM EDT) WBC 5.55 3.40 - 10.80 10*3/mm3 01/28/2025 1:16 AM [facility] RBC 4.41 3.77 - 5.28 10*6/mm3 01/28/2025 1:16 AM [facility] Hemoglobin 13.1 12.0 - 15.9 g/dL 01/28/2025 1:16 AM [facility] Hematocrit 40.6 34.0 - 46.6 % 01/28/2025 1:16 AM [facility] MCV 92.1 79.0 - 97.0 fL 01/28/2025 1:16 AM [facility] MCH 29.7 26.6 - 33.0 pg 01/28/2025 1:16 AM [facility] MCHC 32.3 31.5 - 35.7 g/dL 01/28/2025 1:16 AM [facility] RDW 12.4 12.3 - 15.4 % 01/28/2025 1:16 AM [facility] RDW-SD 42.1 37.0 - 54.0 fl 01/28/2025 1:16 AM [facility] MPV 12.5(H) 6.0 - 12.0 fL 01/28/2025 1:16 AM [facility] Platelets 214 140 - 450 10*3/mm3 01/28/2025 1:16 AM [facility] Neutrophil % 50.4 42.7 - 76.0 % 01/28/2025 1:16 AM [facility] Lymphocyte % 39.6 19.6 - 45.3 % 01/28/2025 1:16 AM [facility] Monocyte % 6.5 5.0 - 12.0 % 01/28/2025 1:16 AM [facility] Eosinophil % 2.2 0.3 - 6.2 % 01/28/2025 1:16 AM [facility] Basophil % 1.1 0.0 - 1.5 % 01/28/2025 1:16 AM [facility] Immature Grans % 0.2 0.0 - 0.5 % 01/28/2025 1:16 AM EDT [facility] Neutrophils, Absolute 2.80 1.70 - 7.00 10*3/mm3 01/28/2025 1:16 AM EDT [facility] Lymphocytes, Absolute 2.20 0.70 - 3.10 10*3/mm3 01/28/2025 1:16 AM EDT [facility] Monocytes, Absolute 0.36 0.10 - 0.90 10*3/mm3 01/28/2025 1:16 AM EDT [facility] Eosinophils, Absolute 0.12 0.00 - 0.40 10*3/mm3 01/28/2025 1:16 AM EDT [facility] Basophils, Absolute 0.06 0.00 - 0.20 10*3/mm3 01/28/2025 1:16 AM EDT [facility] Immature Grans, Absolute 0.01 0.00 - 0.05 10*3/mm3 01/28/2025 1:16 AM EDT [facility] nRBC 0.0 0.0 - 0.2 /100 WBC 01/28/2025 1:16 AM EDT [facility] Blood Venipuncture / Unknown 01/27/2025 8:53 AM EDT 01/27/2025 8:53 AM EDT us Vianey Gasca PA-C LAB BLOOD ORDERABLES F inal Result [facility]
[address] [place] [address], * Microalbumin / Creatinine Urine Ratio - Urine, Clean Catch (01/27/2025 8:53 AM EDT) Microalbumin/C reatinine Ratio 11.0 0.0 - 29.0 mg/g 01/28/2025 2:12 AM EDT [facility] Creatinine, Urine 172.8 mg/dL 01/28/2025 2:12 AM EDT [facility] Microalbumin, Urine 1.9 mg/dL 01/28/2025 2:12 AM EDT [facility] Urine Urine specimen obtained by clean catch procedure / Unknown Collection / Unknown 01/27/2025 8:53 AM EDT 01/27/2025 8:53 AM EDT Vianey Gasca PA-C URINE ORDERABLES Final Result Performing Organization Address City/[facility]/ZIP Co de Phone Number [facility]
[address] [place] [address], * Vitamin D,25-Hydroxy (01/27/2025 8:53 AM EDT) 25 Hydroxy, Vitamin D 83.6 30.0 - 100.0 ng/ml 01/28/2025 1:06 AM EDT [facility] Blood Venipuncture / Unknown 01/27/2025 8:53 AM EDT 01/27/2025 8:53 AM EDT Narrative [facility] - 01/28/2025 1:06 AM EDT Reference Range for Total Vitamin D 25(OH) Deficiency <20.0 ng/mL Insufficiency 21-29 ng/mL Sufficiency 30-100 ng/mL Toxicity >100 ng/ml Vianey Gasca PA-C LAB BLOOD ORDERABLES F inal Result [facility]
[address] [place] [address], * T3, Free (01/27/2025 8:53 AM EDT) T3, Free 2.90 2.00 - 4.40 pg/mL 01/28/2025 12:33 AM EDT [facility] Blood Venipuncture / Unknown 01/27/2025 8:53 AM EDT 01/27/2025 8:53 AM EDT Vianey Gasca PA-C LAB BLOOD ORDERABLES F inal Result Performing Organization Address City/[facility]/ZIP Co de Phone Number [facility]
[address] [place] [address], * TSH (01/27/2025 8:53 AM EDT) Pathologist [facility] TSH 1.170 0.270 - 4.200 uIU/mL 01/28/2025 12:33 AM EDT [facility] Blood Venipuncture / Unknown 01/27/2025 8:53 AM EDT 01/27/2025 8:53 AM EDT Vianey Gasca PA-C LAB BLOOD ORDERABLES F inal Result Performing Organization Address [facility] de Phone Number [facility]
[address] [place] [address], * T4, Free (01/27/2025 8:53 AM EDT) [facility] Free T4 1.45 0.92 - 1.68 ng/dL 01/28/2025 12:33 AM EDT [facility] Blood Venipuncture / Unknown 01/27/2025 8:53 AM EDT 01/27/2025 8:53 AM EDT Vianey Gasca PA-C LAB BLOOD ORDERABLES F inal Result Performing Organization Address [facility]/ZIP Co de Phone Number [facility]
[address] [place] [address], * Vitamin B12 (01/27/2025 8:53 AM EDT) Pathologist [facility] Vitamin B-12 360 211 - 946 pg/mL 01/28/2025 1:06 AM EDT [facility] Blood Venipuncture / Unknown 01/27/2025 8:53 AM EDT 01/27/2025 8:53 AM EDT [facility] - 01/28/2025 1:06 AM EDT Results may be falsely increased if patient taking Biotin. Vianey Gasca PA-C LAB BLOOD ORDERABLES F inal Result [facility]
[address] [place] [address], * Lipid Panel (01/27/2025 8:53 AM EDT) Total Cholesterol 129 0 - 200 mg/dL 01/28/2025 12:28 AM EDT [facility] Triglycerides 62 0 - 150 mg/dL 01/28/2025 12:28 AM EDT [facility] HDL Cholesterol 53 40 - 60 mg/dL 01/28/2025 12:28 AM EDT [facility] LDL Cholesterol 63 0 - 100 mg/dL 01/28/2025 12:28 AM EDT [facility] VLDL Cholesterol 13 5 - 40 mg/dL 01/28/2025 12:28 AM EDT [facility] LDL/HDL Ratio 1.20 01/28/2025 12:28 AM EDT [facility] Blood Venipuncture / Unknown 01/27/2025 8:53 AM EDT 01/27/2025 8:53 AM EDT [facility] - 01/28/2025 12:28 AM EDT [...] PA-C LAB BLOOD ORDERABLES F inal Result [facility]
[address] [place] [address], * Comprehensive Metabolic Panel (01/27/2025 8:53 AM EDT) Glucose 68 65 - 99 mg/dL 01/28/2025 12:28 AM EDT [facility] BUN 15 8 - 23 mg/dL 01/28/2025 12:28 AM EDT [facility] Creatinine 0.70 0.57 - 1.00 mg/dL 01/28/2025 12:28 AM EDT [facility] Sodium 141 136 - 145 mmol/L 01/28/2025 12:28 AM EDT [facility] Potassium 4.4 3.5 - 5.2 mmol/L 01/28/2025 12:28 AM EDT [facility] Chloride 105 98 - 107 mmol/L 01/28/2025 12:28 AM EDT [facility] CO2 27.7 22.0 - 29.0 mmol/L 01/28/2025 12:28 AM EDT [facility] Calcium 9.4 8.6 - 10.5 mg/dL 01/28/2025 12:28 AM EDT [facility] Total Protein 6.6 6.0 - 8.5 g/dL 01/28/2025 12:28 AM EDT [facility] Albumin 4.1 3.5 - 5.2 g/dL 01/28/2025 12:28 AM EDT [facility] ALT (SGPT) 15 1 - 33 U/L 01/28/2025 12:28 AM EDT [facility] AST (SGOT) 23 1 - 32 U/L 01/28/2025 12:28 AM T [facility] Alkaline Phosphatase 62 39 - 117 U/L 01/28/2025 12:28 AM T [facility] Total Bilirubin 0.6 0.0 - 1.2 mg/dL 01/28/2025 12:28 AM [facility] Globulin 2.5 gm/dL 01/28/2025 12:28 AM [facility] A/G Ratio 1.6 g/dL 01/28/2025 12:28 AM [facility] BUN/Creatinine Ratio 21.4 7.0 - 25.0 01/28/2025 12:28 AM T [facility] Anion Gap 8.3 5.0 - 15.0 mmol/L 01/28/2025 12:28 AM [facility] eGFR 95.5 >60.0 mL/min/1.7 3 01/28/2025 12:28 AM [facility] Blood Venipuncture / Unknown 01/27/2025 8:53 AM EDT 01/27/2025 8:53 AM EDT [facility] - 01/28/2025 12:28 AM EDT [...] PA-C LAB BLOOD ORDERABLES F inal Result [facility]
[address] [place] [address], * (ABNORMAL) POC Glycosylated Hemoglobin (Hb A1C) (01/22/2025 3:35 PM EDT) Hemoglobin A1C 5.8(A) 4.5 - 5.7 % [facility] Lot Number [id number] [facility] Expiration Date 08/19/2026 [facility] Blood 01/22/2025 3:35 PM EDT us Vianey Gasca PA-C POINT OF CARE TEST ORD ERABLES Final Result [facility]
[address] [place] [address], [place] [phone] * DEXA Bone Density Axial (12/12/2023 4:23 [...] fall-prevention measurements. The National Osteoporosis Foundation recommends (http://www.nof.org/hcp/practice/zxustjub-wix-pinffgcu-guidelines/clinicians-chandrakant de) that FDA-approved medical therapies be considered [...] the left hip with 95% confidence is 0.508622 gm/cm2 at the hip and 0.103005 g/cm2 at the lumbar spine. Report dictated by: Nikki Sood PA-c I have personally reviewed this case and agree with the findings above: Electronically Signed: Paul Schwab MD 12/13/2023 4:51 PM EDT Workstation ID: [id number] Narrative 12/13/2023 4:51 PM EDT DUAL-ENERGY X-RAY [...] normal patients. According to criteria established by the[facility], patients with T-scores between [...] exercises and fall-prevention measurements. The NationalOsteoporosis Foundation recommends(http://www.nof.org/hcp/practice/vygfqarw-scg-lomfdqho-guidelines/clin ician s-guide) that FDA-approved medical therapies be [...] at the left hipwith 95% confidence is 0.582743 gm/cm2 at the hip and 0.772367 g/cm2 atthe lumbar spine. Report dictated by: Nikki Sood PA-c I have personally reviewed this case and agree with the findings above: Electronically Signed: Paul Schwab MD 12/13/2023 4:51 PM EDT Workstation ID: [id number] Vianey Gasca PA-C IM DXA ORDERABLES Fin [...] ve Non-Reacti ve 09/14/2023 12:14 AM EST [facility] Blood Venipuncture / Unknown 09/13/2023 8:34 AM EST 09/13/2023 8:41 AM EST Narrative [facility] - 09/14/2023 12:14 AM EST Results may be falsely decreased if patient taking Biotin. Vianey Gasca PA-C LAB BLOOD ORDERABLES F inal Result [facility]
[address] [place] [address], [place] [phone] * SCANNED - EYE EXAM (08/14/2023) Anatomical Region Laterality Modality Other Vianey Gasca PA-C CHART REVIEW TABS F inal Result * SCANNED - COLONOSCOPY (01/02/2023) Vianey Gasca PA-C CHART REVIEW TABS F inal Result from Last 3 Months or Most Recently Relevant to Health Maintenance Insurance R Care Teams History Department Chair Relationship Specialty Start Date End Date Vianey Gasca PA-C [address] [facility] [address] [place] [address] PCP - General Internal Medicine 10/27/19
--- OUTSIDE RECORDS SUMMARY | 2025-04-18 14:04 | XMS_ITS | Encounter Summary ---
[facility] Address [address] [place] [address] Care Team Providers Care Set Key Driver Name Role Phone Vianey Gasca PA-C Primary Care Provider Reason for Visit * Reason Onset Date Comments MEDICATION CONCERN 04/09/2025 Encounter Details Date Type Department Care Team (Late st Contact Info) Description 04/09/2025 Telephone [facility] [address] [phone] Vianey Gasca PA-C [address] [address] MEDICATION CONCERN Social History Tobacco [...] Perla Relationship: Self Best call back number: [phone] Which medication are you concerned about: Lantus [...] 05/05/2025 2:45 PM EDT Office Visit [facility] [address] [address] Vianey Gasca PA-C [address] [address] 05/18/2025 2:40 PM EDT Appointment [facility] [address] [place] [address] documented as of this encounter Visit Diagnoses Diagnosis Type 2 diabetes mellitus without complication, without long-term current use of insulin- Primary documented in this encounter Care Teams Set Key Driver Relationship Specialty Start Date End Date Vianey Gasca PA-C [address] [address] PCP - General Internal Medicine 10/27/19 documented as of this encounter
--- OUTSIDE RECORDS SUMMARY | 2025-04-18 14:04 | XMS_ITS | Encounter Summary ---
Author Organization [facility] Address [address] [place] [address] Care Team Providers Care Management Professor Name Role Phone Vianey Gasca PA-C Primary Care Provider Reason for Visit * Reason Comments Med Refill Encounter Details Date Type Department Care Team (Late Contact Info) Description 03/01/2021 Refill [facility] [address] [address] Vianey Gasca PA-C [address] [address] Acquired hypothyroidism; Benign essential hypertension [...] Description 05/05/2025 2:45 PM EDT Office Visit [facility] [address] [place] [phone] Vianey Gasca PA-C [address] [address] 05/18/2025 2:40 PM EDT Appointment [facility] [address] [place] [address] documented as of this encounter Visit Diagnoses Diagnosis Acquired hypothyroidism Unspecified hypothyroidism Benign essential hypertension Essential hypertension, benign documented in this encounter Care Teams Management Professor Relationship Specialty Start Date End Date Vianey Gasca PA-C [address] [address] PCP - General Internal Medicine 10/27/19 documented as of this encounter
--- OUTSIDE RECORDS SUMMARY | 2025-04-18 14:04 | XMS_ITS | Encounter Summary ---
[facility] Address [address] [place] [address] Care Team Providers Care Ammunition Officer Name Role Phone Vianey Gasca PA-C Primary Care Provider Reason for Visit * Reason Comments Med Refill Encounter Details Date Type Department Care Team (Late st Contact Info) Description 02/17/2025 Refill [facility] [address] [phone] Vianey Gasca PA-C [address] [address] Social History Tobacco Use Types [...] [facility] [address] [facility] [address] [place] [address] Vianey Gasca PA-C [address] [address] 05/18/2025 2:40 PM EDT Appointment [facility] [address] [place] [address] documented as of this encounter Visit Diagnoses Not on filedocumented in this encounter Care Teams Ammunition Officer Relationship Specialty Start Date End Date Vianey Gasca PA-C [address] [address] PCP - General Internal Medicine 10/27/19 documented as of this encounter
--- OUTSIDE RECORDS SUMMARY | 2025-04-18 14:04 | XMS_ITS | Encounter Summary ---
[facility] Address [address] [place] [address] Care Team Providers Care Caregiver Services Home Name Role Phone Vianey Gasca PA-C Primary Care Provider Reason for Visit * Reason Comments Med Refill Encounter Details Date Type Department Care Team (Late st Contact Info) Description 03/16/2025 Refill [facility] MEDICINE [address] [phone] Vianey Gasca PA-C [address] [place] [phone] Vitamin D deficiency Social History Tobacco Use [...] Description 05/05/2025 2:45 PM EDT Office Visit [facility] [address] [facility] [address] [place] [address] Vianey Gasca PA-C [address] [address] 05/18/2025 2:40 PM EDT Appointment [facility] [address] [place] [address] documented as of this encounter Visit Diagnoses Diagnosis Vitamin D deficiency documented in this encounter Care Teams Caregiver Services Home Relationship Specialty Start Date End Date Vianey Gasca PA-C [address] [address] PCP - General Internal Medicine 10/27/19 documented as of this encounter
--- OUTSIDE RECORDS SUMMARY | 2025-04-18 14:04 | XMS_ITS | Encounter Summary ---
[facility] Address [address] [place] [address] Care Team Providers Care Schedule Manager Name Role Phone Vianey Gasca PA-C Primary Care Provider Reason for Visit * Reason Comments Med Refill Encounter Details Date Type Department Care Team (Late st Contact Info) Description 03/16/2025 Refill [facility] [address] [phone] Dilan Chappell MD [address] [address] OAB (overactive bladder) Social History [...] Office Visit [facility] [address] [phone] Vianey Gasca PA-C [address] [address] 05/18/2025 2:40 PM EDT [facility]ointment [facility] [address] [place] [address] documented as of this encounter Visit Diagnoses Diagnosis OAB (overactive bladder) documented in this encounter Care Teams Schedule Manager Relationship Specialty Start Date End Date Vianey Gasca PA-C [address] [address] PCP - General Internal Medicine 10/27/19 documented as of this encounter
--- OUTSIDE RECORDS SUMMARY | 2025-04-18 14:04 | XMS_ITS | Encounter Summary ---
[facility] [address] [place] [address] Care Team Providers Care Organ Pipe Maker Metal Name Role Phone Vianey Gasca PA-C Primary Care Provider Reason for Visit * Reason Comments Med Refill Encounter Details Date Type Department Care Team (Late st Contact Info) Description 03/16/2025 Refill [facility] [address] [address] Dilan Chappell MD [address] [address] Social History Tobacco Use Types [...] Office Visit [facility] [address] [facility] [address] [place] [address] Vianey Gasca PA-C [address] [facility] [address] [place] [address] 05/18/2025 2:40 PM EDT Appointment [facility] [address] [place] [address] documented as of this encounter Visit Diagnoses Not on filedocumented in this encounter Care Teams Organ Pipe Maker Metal Relationship Specialty Start Date End Date Vianey Gasca PA-C [address] [address] PCP - General Internal Medicine 10/27/19 documented as of this encounter
--- OUTSIDE RECORDS SUMMARY | 2025-04-18 14:05 | XMS_ITS | Encounter Summary ---
[facility] Address [address] [place] [address] Care Team Providers Care Manager Medical Device Name Role Phone Vianey Gasca PA-C Primary Care Provider Reason for Visit * Reason Comments Med Refill Encounter Details Date Type Department Care Team (Late st Contact Info) Description 03/28/2024 Refill [facility] [address] [address] Vianey Gasca PA-C [address] [address] Type 2 diabetes mellitus without [...] 05/05/2025 2:45 PM EDT Office Visit [facility] [address] [address] Vianey Gasca PA-C [address] [address] 05/18/2025 2:40 PM EDT Appointment [facility] [address] [place] [address] documented as of this encounter Visit Diagnoses Diagnosis Type 2 diabetes mellitus without complication, without long-term current use of insulin documented in this encounter Care Teams Manager Medical Device Relationship Specialty Start Date End Date Vianey Gasca PA-C [address] [address] PCP - General Internal Medicine 10/27/19 documented as of this encounter
--- OUTSIDE RECORDS SUMMARY | 2025-04-18 14:05 | XMS_ITS | Encounter Summary ---
[facility] [address] [place] [address] Care Team Providers Care Sheet Metal Insulator Name Role Phone Vianey Gasca PA-C Primary Care Provider Reason for Visit * Reason Comments Med Refill Encounter Details Date Type Department Care Team (Late st Contact Info) Description 04/15/2025 Refill [facility] INTERNAL MEDICINE [address] [phone] Dilan Chappell MD [address] [address] OAB (overactive bladder) Social History [...] 05/05/2025 2:45 PM EDT Office Visit [facility] INTERNAL MEDICINE [address] [phone] Vianey Gasca PA-C [address] [address] 05/18/2025 2:40 PM EDT Appointment [facility] [address] [place] [address] documented as of this encounter Visit Diagnoses Diagnosis OAB (overactive bladder) documented in this encounter Care Teams Sheet Metal Insulator Relationship Specialty Start Date End Date Vianey Gasca PA-C [address] [address] PCP - General Internal Medicine 10/27/19 documented as of this encounter
--- OUTSIDE RECORDS SUMMARY | 2025-04-18 14:05 | XMS_ITS | Encounter Summary ---
[facility] [address] [place] [address] Care Team Providers Care Electrifier Operator Name Role Phone Vianey Gasca PA-C Primary Care Provider Encounter Details Date Type Department Care Team (Late st Contact Info) Description 04/17/2025 Telephone [facility] INTERNAL MEDICINE 2101 [facility] [address] [place] [address] Vianey Gasca PA-C [address] [address] Social History Tobacco Use Types [...] encounter Miscellaneous Notes * Telephone Encounter - Kathai Rainey MA - 04/17/2025 11:09 AM EDT [...] 2:45 PM EDT Office Visit [facility] INTERNAL MEDICINE [address] [phone] Vianey Gasca PA-C [address] [address] 05/18/2025 2:40 PM EDT Appointment [facility] [address] [place] [address] documented as of this encounter Visit Diagnoses Not on filedocumented in this encounter Care Teams Electrifier Operator Relationship Specialty Start Date End Date Vianey Gasca PA-C [address] [address] PCP - General Internal Medicine 10/27/19 documented as of this encounter
--- OUTSIDE RECORDS SUMMARY | 2025-04-18 14:05 | XMS_ITS | Encounter Summary ---
[facility] [address] [place] [address] Care Team Providers Care Descriptive Catalog Librarian Name Role Phone Vianey Gasca PA-C Primary Care Provider Reason for Visit * Reason Onset Date Comments MAMMOGRAM 04/09/2025 Encounter Details Date Type Department Care Team (Late st Contact Info) Description 04/09/2025 Telephone [facility] INTERNAL MEDICINE [address] [phone] Vianey Gasca PA-C [address] [address] MAMMOGRAM Social History Tobacco Use [...] been placed for a mammogram by patient's EGG SEPARATOR. She will call the [place] mammography center to schedule. * Telephone Encounter - Adriana Vaughan RegSched Rep - 04/09/2025 3:09 PM EDT Caller: Vianey Perla Relationship: Self Best call back number: [phone] What orders are you requesting (i.e. lab or imaging): MAMMOGRAM In what timeframe would the patient need to come in: SOON POSSIBLE Where will you receive your lab/imaging services: [facility] Additional notes: documented in this encounter Plan of Treatment Upcoming Encounters Date Type Department Care Team (Late st Contact Info) Description 05/05/2025 2:45 PM EDT Office Visit [facility] INTERNAL MEDICINE [address] [phone] Vianey Gasca PA-C [address] [address] 05/18/2025 2:40 PM EDT Appointment [facility] [address] [place] [address] documented as of this encounter Visit Diagnoses Not on filedocumented in this encounter Care Teams Descriptive Catalog Librarian Relationship Specialty Start Date End Date Vianey Gasca PA-C [address] [address] PCP - General Internal Medicine 10/27/19 documented as of this encounter
[2025-04-18] MEDS: ERTAPENEM SODIUM 1 GM in 0.9 % SODIUM CHLORIDE 50 ML IV (14:15)
== END 2025-04-18 14:54 | disposition home or self-care (01) ==
LOC: INF 14:02
PROVIDERS: PCP Nurse Practitioner Family; Visit Provider Nurse Practitioner Family
DX: N39.0 Urinary tract infection, site not specified (principal)
CPT/HCPCS: 96365; J1335

== ENCOUNTER 2025-04-19 14:00 | Outpatient (CLI) | payer OTHER, SELFPAY ==
--- OUTSIDE RECORDS SUMMARY | 2025-04-19 14:02 | XMS_ITS | Encounter Summary ---
[facility] [address] [place] [address] Care Team Providers Care Ocean Clam Boat Captain Name Role Phone Vianey Gasca PA-C Primary Care Provider Encounter Details Date Type Department Care Team (Late st Contact Info) Description 01/06/2025 Results Follow-Up [facility] [address] [place] [address] Dia Casas MD 1700 [facility] [address] [place] [address] Social History Tobacco Use Types Packs/Day Years [...] Description 05/05/2025 2:45 PM EDT Office Visit [facility] INTERNAL MEDICINE [address] [phone] Vianey Gasca PA-C [address] [address] 05/18/2025 2:40 PM EDT Appointment [address] [address] documented as of this encounter Visit Diagnoses Not on filedocumented in this encounter Care Teams Ocean Clam Boat Captain Relationship Specialty Start Date End Date Vianey Gasca PA-C [address] [address] PCP - General Internal Medicine 10/27/19 documented as of this encounter
--- OUTSIDE RECORDS SUMMARY | 2025-04-19 14:02 | XMS_ITS | Encounter Summary ---
[facility] Address [address] [place] [address] Care Team Providers Care Mud Boss Name Role Phone Vianey Gasca PA-C Primary Care Provider Reason for Visit * Reason Comments Med Refill Encounter Details Date Type Department Care Team (Late st Contact Info) Description 03/16/2025 Refill [facility] INTERNAL MEDICINE [address] [phone] Dilan Chappell MD [address] [address] Social History Tobacco Use Types [...] Description 05/05/2025 2:45 PM EDT Office Visit [facility] INTERNAL MEDICINE 2100 [facility] [address] [place] [address] Vianey Gasca PA-C 2100 [facility] [address] [place] [address] 05/18/2025 2:40 PM EDT Appointment [facility] [address] [place] [address] documented as of this encounter Visit Diagnoses Not on filedocumented in this encounter Care Teams Mud Boss Relationship Specialty Start Date End Date Vianey Gasca PA-C [address] [address] PCP - General Internal Medicine 10/27/19 documented as of this encounter
--- OUTSIDE RECORDS SUMMARY | 2025-04-19 14:02 | XMS_ITS | Encounter Summary ---
[facility] Address [address] [place] [address] Care Team Providers Care Algologist Name Role Phone Vianey Gasca PA-C Primary Care Provider Reason for Visit * Reason Onset Date Comments MAMMOGRAM 04/09/2025 Encounter Details Date Type Department Care Team (Late st Contact Info) Description 04/09/2025 Telephone [facility] INTERNAL MEDICINE [address] [phone] Vianey Gasca PA-C [address] [address] MAMMOGRAM Social History Tobacco Use [...] been placed for a mammogram by patient's MARKETING FINANCE MANAGER. She will call the [place] mammography center to schedule. * Telephone Encounter - Adriana Vaughan RegSched Rep - 04/09/2025 3:09 PM EDT Caller: Vianey Perla Relationship: Self Best call back number: [phone] What orders are you requesting (i.e. lab or imaging): MAMMOGRAM In what timeframe would the patient need to come in: SOON POSSIBLE Where will you receive your lab/imaging services: [facility] OUT[facility] Additional notes: documented in this encounter Plan of Treatment Upcoming Encounters Date Type Department Care Team (Late st Contact Info) Description 05/05/2025 2:45 PM EDT Office Visit [facility] INTERNAL MEDICINE [address] [phone] Vianey Gasca PA-C [address] [address] 05/18/2025 2:40 PM EDT Appointment [facility] [address] [place] [address] documented as of this encounter Visit Diagnoses Not on filedocumented in this encounter Care Teams Algologist Relationship Specialty Start Date End Date Vianey Gasca PA-C [address] [address] PCP - General Internal Medicine 10/27/19 documented as of this encounter
--- OUTSIDE RECORDS SUMMARY | 2025-04-19 14:02 | XMS_ITS | Encounter Summary ---
[facility] Address [address] [place] [address] Care Team Providers Care Safety Engineer Pressure Vessels Name Role Phone Vianey Gasca PA-C Primary Care Provider Encounter Details Date Type Department Care Team (Late st Contact Info) Description 04/17/2025 Telephone [facility] INTERNAL MEDICINE [address] [phone] Vianey Gasca PA-C [address] [address] Social History Tobacco Use Types [...] [facility] INTERNAL MEDIC[facility] [address] [phone] Vianey Gasca PA-C [address] [address] 05/18/2025 2:40 PM EDT Appointment [facility] [address] [place] [address] documented as of this encounter Visit Diagnoses Not on filedocumented in this encounter Care Teams Safety Engineer Pressure Vessels Relationship Specialty Start Date End Date Vianey Gasca PA-C [address] [address] PCP - General Internal Medicine 10/27/19 documented as of this encounter
--- OUTSIDE RECORDS SUMMARY | 2025-04-19 14:02 | XMS_ITS | Encounter Summary ---
[facility] [address] [place] [address] Care Team Providers Care Technical Laboratory Asst Name Role Phone Vianey Gasca PA-C Primary Care Provider Reason for Visit * Reason Comments Med Refill Encounter Details Date Type Department Care Team (Late st Contact Info) Description 03/16/2025 Refill [facility] INTERNAL MEDICINE [address] [phone] Vianey Gasca PA-C 2101 [place] [id number] Vitamin D deficiency Social History Tobacco Use [...] Visit [facility] INTER[facility] MEDICINE 2100 [facility] [address] [place] [address] Vianey Gasca PA-C [address] [address] 05/18/2025 2:40 PM EDT Appointment [facility] [address] [place] [address] documented as of this encounter Visit Diagnoses Diagnosis Vitamin D deficiency documented in this encounter Care Teams Technical Laboratory Asst Relationship Specialty Start Date End Date Vianey Gasca PA-C [address] [address] PCP - General Internal Medicine 10/27/19 documented as of this encounter
--- OUTSIDE RECORDS SUMMARY | 2025-04-19 14:02 | XMS_ITS | Encounter Summary ---
[facility] Address [address] [place] [address] Care Team Providers Care Doughnut Icer Machine Name Role Phone Vianey Gasca PA-C Primary Care Provider Reason for Visit * Reason Comments Med Refill Encounter Details Date Type Department Care Team (Late Contact Info) Description 03/01/2021 Refill [facility] INTERNAL MEDICINE [address] [phone] Vianey Gasca PA-C [address] [address] Acquired hypothyroidism; Benign essential hypertension [...] Description 05/05/2025 2:45 PM EDT Office Visit [facility] INTERNAL MEDICINE [address] [place] [phone] Vianey Gasca PA-C [address] [address] 05/18/2025 2:40 PM EDT Appointment [facility] [address] [place] [address] documented as of this encounter Visit Diagnoses Diagnosis Acquired hypothyroidism Unspecified hypothyroidism Benign essential hypertension Essential hypertension, benign documented in this encounter Care Teams Doughnut Icer Machine Relationship Specialty Start Date End Date Vianey Gasca PA-C [address] [address] PCP - General Internal Medicine 10/27/19 documented as of this encounter
--- OUTSIDE RECORDS SUMMARY | 2025-04-19 14:02 | XMS_ITS | Clinical Summary ---
Author Organization [facility] Address [address] [place] [address] Care Team Providers Care Machine Joiner Cementer Name Role Phone Vianey Gasca PA-C Primary [...] 025 Active vitamin D (ERGOCALCIFEROL) 1.25 MG (20594 UT) capsule capsuleIndication s:Vitamin D deficiency TAKE [...] Type Department Care Team Description 04/17/2025 Telephone [facility] INTERNAL MEDICINE [address] [address] Vianey Gasca PA-C 04/15/2025 Refill [facility] INTERNAL MEDICINE [address] [phone] Dilan Chappell MD OAB (overactive bladder) 04/09/2025 [facility] INTERNAL MEDICINE [address] [address] Vianey Gasca PA-C MAMMOGRAM 04/09/2025 [facility] INTERNAL MEDICINE [address] [address] Vianey Gasca PA-C MEDICATION CONCERN 03/16/2025 [facility] INTERNAL MEDICINE [address] [address] Dilan Chappell MD OAB (overactive bladder) 03/16/2025 [facility] INTERNAL MEDICINE [address] [address] Vianey Gasca PA-C Vitamin D deficiency 03/16/2025 [facility] INTERNAL MEDICINE [address] [address] Vianey Gasca PA-C Mixed hyperlipidemia; Benign essential hypertension 03/16/2025 [facility] INTERNAL MEDICINE [address] [address] Dilan Chappell MD 02/17/2025 [facility] INTERNAL MEDICINE [address] [place] [phone] Vianey Gasca PA-C 02/02/2025 Results Follow-Up [facility] INTERNAL MEDICINE [address] [facility] [address] [place] [address] Vianey Gasca PA-C 02/02/2025 Refill [facility] INTERNAL MEDICINE 210 [facility] [address] [place] [address] Vianey Gasca PA-C 01/27/2025 8:50 AM EDT Lab [facility] [address] [place] [address] Benign essential hypertension; Mixed hyperlipidemia; Acquired hypothyroidism; Encounter for vitamin deficiency screening; Vitamin D deficiency; Recurrent UTI 01/27/2025 Travel 01/22/2025 3:30 PM EDT Office Visit [facility] INTERNAL MEDICINE 210 [facility] [address] [place] [address] Vianey Gasca PA-C Type 2 diabetes mellitus [...] Description 05/05/2025 2:45 PM EDT Office Visit [facility] INTERNAL MEDICINE [address] [place] [phone] Vianey Gasca PA-C [address] [place] [phone] 05/18/2025 2:40 PM EDT Appointment [facility] [address] [place] [address] Health [...] Seen, 0-2 /HPF 01/28/2025 12:36 AM EDT [facility] WBC, UA 21-50(A) None Seen, 0-2 /HPF 01/28/2025 12:36 AM EDT [facility] Bacteria, UA None Seen None Seen /HPF 01/28/2025 12:36 AM EDT [facility] Squamous Epithelial Cells, UA 3-6(A) None Seen, 0-2 /HPF 01/28/2025 12:36 AM EDT [facility] Hyaline Casts, UA 0-2 None Seen /LPF 01/28/2025 12:36 AM EDT [facility] Methodology Automated Microscopy 01/28/2025 12:36 AM EDT [facility] Urine Urine specimen obtained by clean catch procedure / Unknown Collection / Unknown 01/27/2025 8:53 AM EDT 01/27/2025 8:53 AM EDT us Vianey Gasca PA-C URINE ORDERABLES Final Result [facility]
[address] [place] [address], * (ABNORMAL) CBC Auto Differential (01/27/2025 8:53 AM EDT) WBC 5.55 3.40 - 10.80 10*3/mm3 01/28/2025 1:16 AM [facility] RBC 4.41 3.77 - 5.28 10*6/mm3 01/28/2025 1:16 AM [facility] Hemoglobin 13.1 12.0 - 15.9 g/dL 01/28/2025 1:16 AM [facility] Hematocrit 40.6 34.0 - 46.6 % 01/28/2025 1:16 AM [facility] MCV 92.1 79.0 - 97.0 fL 01/28/2025 1:16 AM [facility] MCH 29.7 26.6 - 33.0 pg 01/28/2025 1:16 AM [facility] MCHC 32.3 31.5 - 35.7 g/dL 01/28/2025 1:16 AM [facility] RDW 12.4 12.3 - 15.4 % 01/28/2025 1:16 AM [facility] RDW-SD 42.1 37.0 - 54.0 fl 01/28/2025 1:16 AM [facility] MPV 12.5(H) 6.0 - 12.0 fL 01/28/2025 1:16 AM [facility] Platelets 214 140 - 450 10*3/mm3 01/28/2025 1:16 AM [facility] Neutrophil % 50.4 42.7 - 76.0 % 01/28/2025 1:16 AM [facility] Lymphocyte % 39.6 19.6 - 45.3 % 01/28/2025 1:16 AM [facility] Monocyte % 6.5 5.0 - 12.0 % 01/28/2025 1:16 AM [facility] Eosinophil % 2.2 0.3 - 6.2 % 01/28/2025 1:16 AM [facility] Basophil % 1.1 0.0 - 1.5 % 01/28/2025 1:16 AM [facility] Immature Grans % 0.2 0.0 - 0.5 % 01/28/2025 1:16 AM EDT [facility] Neutrophils, Absolute 2.80 1.70 - 7.00 10*3/mm3 01/28/2025 1:16 AM EDT [facility] Lymphocytes, Absolute 2.20 0.70 - 3.10 10*3/mm3 01/28/2025 1:16 AM EDT [facility] Monocytes, Absolute 0.36 0.10 - 0.90 10*3/mm3 01/28/2025 1:16 AM EDT [facility] Eosinophils, Absolute 0.12 0.00 - 0.40 10*3/mm3 01/28/2025 1:16 AM EDT [facility] Basophils, Absolute 0.06 0.00 - 0.20 10*3/mm3 01/28/2025 1:16 AM EDT [facility] Immature Grans, Absolute 0.01 0.00 - 0.05 10*3/mm3 01/28/2025 1:16 AM EDT [facility] nRBC 0.0 0.0 - 0.2 /100 WBC 01/28/2025 1:16 AM EDT [facility] Blood Venipuncture / Unknown 01/27/2025 8:53 AM EDT 01/27/2025 8:53 AM EDT us Vianey Gasca PA-C LAB BLOOD ORDERABLES F inal Result [facility]
[address] [place] [address], * Microalbumin / Creatinine Urine Ratio - Urine, Clean Catch (01/27/2025 8:53 AM EDT) Microalbumin/C reatinine Ratio 11.0 0.0 - 29.0 mg/g 01/28/2025 2:12 AM EDT [facility] Creatinine, Urine 172.8 mg/dL 01/28/2025 2:12 AM EDT [facility] Microalbumin, Urine 1.9 mg/dL 01/28/2025 2:12 AM EDT [facility] Urine Urine specimen obtained by clean catch procedure / Unknown Collection / Unknown 01/27/2025 8:53 AM EDT 01/27/2025 8:53 AM EDT Vianey Gasca PA-C URINE ORDERABLES Final Result Performing Organization Address City/[facility]/ZIP Co de Phone Number [facility]
[address] [place] [address], * Vitamin D,25-Hydroxy (01/27/2025 8:53 AM EDT) 25 Hydroxy, Vitamin D 83.6 30.0 - 100.0 ng/ml 01/28/2025 1:06 AM EDT [facility] Blood Venipuncture / Unknown 01/27/2025 8:53 AM EDT 01/27/2025 8:53 AM EDT Narrative [facility] - 01/28/2025 1:06 AM EDT Reference Range for Total Vitamin D 25(OH) Deficiency <20.0 ng/mL Insufficiency 21-29 ng/mL Sufficiency 30-100 ng/mL Toxicity >100 ng/ml Vianey Gasca PA-C LAB BLOOD ORDERABLES F inal Result [facility]
[address] [place] [address], * T3, Free (01/27/2025 8:53 AM EDT) T3, Free 2.90 2.00 - 4.40 pg/mL 01/28/2025 12:33 AM EDT [facility] Blood Venipuncture / Unknown 01/27/2025 8:53 AM EDT 01/27/2025 8:53 AM EDT Vianey Gasca PA-C LAB BLOOD ORDERABLES F inal Result Performing Organization Address City/[facility]/ZIP Co de Phone Number [facility]
[address] [place] [address], * TSH (01/27/2025 8:53 AM EDT) Pathologist [facility] TSH 1.170 0.270 - 4.200 uIU/mL 01/28/2025 12:33 AM EDT [facility] Blood Venipuncture / Unknown 01/27/2025 8:53 AM EDT 01/27/2025 8:53 AM EDT Vianey Gasca PA-C LAB BLOOD ORDERABLES F inal Result Performing Organization Address [facility] de Phone Number [facility]
[address] [place] [address], * T4, Free (01/27/2025 8:53 AM EDT) [facility] Free T4 1.45 0.92 - 1.68 ng/dL 01/28/2025 12:33 AM EDT [facility] Blood Venipuncture / Unknown 01/27/2025 8:53 AM EDT 01/27/2025 8:53 AM EDT Vianey Gasca PA-C LAB BLOOD ORDERABLES F inal Result Performing Organization Address City/[facility]/ZIP Co de Phone Number [facility]
[address] [place] [address], * Vitamin B12 (01/27/2025 8:53 AM EDT) Pathologist [facility] Vitamin B-12 360 211 - 946 pg/mL 01/28/2025 1:06 AM EDT [facility] Blood Venipuncture / Unknown 01/27/2025 8:53 AM EDT 01/27/2025 8:53 AM EDT [facility] - 01/28/2025 1:06 AM EDT Results may be falsely increased if patient taking Biotin. Vianey Gasca PA-C LAB BLOOD ORDERABLES F inal Result [facility]
[address] [place] [address], * Lipid Panel (01/27/2025 8:53 AM EDT) Total Cholesterol 129 0 - 200 mg/dL 01/28/2025 12:28 AM EDT [facility] Triglycerides 62 0 - 150 mg/dL 01/28/2025 12:28 AM EDT [facility] HDL Cholesterol 53 40 - 60 mg/dL 01/28/2025 12:28 AM EDT [facility] LDL Cholesterol 63 0 - 100 mg/dL 01/28/2025 12:28 AM EDT [facility] VLDL Cholesterol 13 5 - 40 mg/dL 01/28/2025 12:28 AM EDT [facility] LDL/HDL Ratio 1.20 01/28/2025 12:28 AM EDT [facility] Blood Venipuncture / Unknown 01/27/2025 8:53 AM EDT 01/27/2025 8:53 AM EDT [facility]ORY - 01/28/2025 12:28 AM EDT [...] PA-C LAB BLOOD ORDERABLES F inal Result [facility]
[address] [place] [address], * Comprehensive Metabolic Panel (01/27/2025 8:53 AM EDT) Glucose 68 65 - 99 mg/dL 01/28/2025 12:28 AM EDT [facility] BUN 15 8 - 23 mg/dL 01/28/2025 12:28 AM EDT [facility] Creatinine 0.70 0.57 - 1.00 mg/dL 01/28/2025 12:28 AM EDT [facility] Sodium 141 136 - 145 mmol/L 01/28/2025 12:28 AM EDT [facility] Potassium 4.4 3.5 - 5.2 mmol/L 01/28/2025 12:28 AM EDT [facility] Chloride 105 98 - 107 mmol/L 01/28/2025 12:28 AM EDT [facility] CO2 27.7 22.0 - 29.0 mmol/L 01/28/2025 12:28 AM EDT [facility] Calcium 9.4 8.6 - 10.5 mg/dL 01/28/2025 12:28 AM EDT [facility] Total Protein 6.6 6.0 - 8.5 g/dL 01/28/2025 12:28 AM EDT [facility] Albumin 4.1 3.5 - 5.2 g/dL 01/28/2025 12:28 AM EDT [facility] ALT (SGPT) 15 1 - 33 U/L 01/28/2025 12:28 AM EDT [facility] AST (SGOT) 23 1 - 32 U/L 01/28/2025 12:28 AM T [facility] Alkaline Phosphatase 62 39 - 117 U/L 01/28/2025 12:28 AM T [facility] Total Bilirubin 0.6 0.0 - 1.2 mg/dL 01/28/2025 12:28 AM [facility] Globulin 2.5 gm/dL 01/28/2025 12:28 AM [facility] A/G Ratio 1.6 g/dL 01/28/2025 12:28 AM [facility] BUN/Creatinine Ratio 21.4 7.0 - 25.0 01/28/2025 12:28 AM T [facility] Anion Gap 8.3 5.0 - 15.0 mmol/L 01/28/2025 12:28 AM [facility] eGFR 95.5 >60.0 mL/min/1.7 3 01/28/2025 12:28 AM [facility] Blood Venipuncture / Unknown 01/27/2025 8:53 AM EDT 01/27/2025 8:53 AM EDT [facility] - 01/28/2025 12:28 AM EDT [...] PA-C LAB BLOOD ORDERABLES F inal Result [facility]
[address] [place] [address], * (ABNORMAL) POC Glycosylated Hemoglobin (Hb A1C) (01/22/2025 3:35 PM EDT) Hemoglobin A1C 5.8(A) 4.5 - 5.7 % [facility] Lot Number [id number] [facility] Expiration Date 08/19/2026 [facility] Blood 01/22/2025 3:35 PM EDT us Vianey Gasca PA-C POINT OF CARE TEST ORD ERABLES Final Result [facility]
[address] [place] [address], [place] [phone] * DEXA Bone Density Axial (12/12/2023 4:23 [...] fall-prevention measurements. The National Osteoporosis Foundation recommends (http://www.nof.org/hcp/practice/mlihntnh-qxn-ivhhtwjw-guidelines/clinicians-chandrakant de) that FDA-approved medical therapies be considered [...] the left hip with 95% confidence is 0.981355 gm/cm2 at the hip and 0.879889 g/cm2 at the lumbar spine. Report dictated by: Nikki Sood PA-c I have personally reviewed this case and agree with the findings above: Electronically Signed: Paul Schwab MD 12/13/2023 4:51 PM EDT Workstation ID: [id number] Narrative 12/13/2023 4:51 PM EDT DUAL-ENERGY X-RAY [...] exercises and fall-prevention measurements. The NationalOsteoporosis Foundation recommends(http://www.nof.org/hcp/practice/fvvncmeh-mbw-tjmynsdl-guidelines/clin ician s-guide) that FDA-approved medical therapies be [...] at the left hipwith 95% confidence is 0.692789 gm/cm2 at the hip and 0.192713 g/cm2 atthe lumbar spine. Report dictated by: Nikki Sood PA-c I have personally reviewed this case and agree with the findings above: Electronically Signed: Paul Schwab MD 12/13/2023 4:51 PM EDT Workstation ID: [id number] Vianey Gasca PA-C IM DXA ORDERABLES Fin [...] ve Non-Reacti ve 09/14/2023 12:14 AM EST [facility] Blood Venipuncture / Unknown 09/13/2023 8:34 AM EST 09/13/2023 8:41 AM EST Narrative [facility] - 09/14/2023 12:14 AM EST Results may be falsely decreased if patient taking Biotin. Vianey Gasca PA-C LAB BLOOD ORDERABLES F inal Result [facility]
[address] [place] [address], [place] [phone] * SCANNED - EYE EXAM (08/14/2023) Anatomical Region Laterality Modality Other Vianey Gasca PA-C CHART REVIEW TABS F inal Result * SCANNED - COLONOSCOPY (01/02/2023) Vianey Gasca PA-C CHART REVIEW TABS F inal Result from Last 3 Months or Most Recently Relevant to Health Maintenance Insurance R Care Teams Machine Joiner Cementer Relationship Specialty Start Date End Date Vianey Gasca PA-C [address] [facility] [address] [place] [address] PCP - General Internal Medicine 10/27/19
--- OUTSIDE RECORDS SUMMARY | 2025-04-19 14:02 | XMS_ITS | Encounter Summary ---
[facility] Address [address] [place] [address] Care Team Providers Care Roll Up Helper Name Role Phone Vianey Gasca PA-C Primary Care Provider Reason for Visit * Reason Comments Med Refill Encounter Details Date Type Department Care Team (Late st Contact Info) Description 03/16/2025 Refill [facility] INTERNAL MEDICINE [address] [phone] Vianey Gasca PA-C [address] [place] [id number] Mixed hyperlipidemia; Benign essential hypertension Social History [...] [facility] INTER[facility] MEDICINE [address] [address] Vianey Gasca PA-C [address] [address] 05/18/2025 2:40 PM EDT Appointment [facility] [address] [place] [address] documented as of this encounter Visit Diagnoses Diagnosis Mixed hyperlipidemia Benign essential hypertension Essential hypertension, benign documented in this encounter Care Teams Roll Up Helper Relationship Specialty Start Date End Date Vianey Gasca PA-C [address] [address] PCP - General Internal Medicine 10/27/19 documented as of this encounter
--- OUTSIDE RECORDS SUMMARY | 2025-04-19 14:02 | XMS_ITS | Encounter Summary ---
[facility] Address [address] [place] [address] Care Team Providers Care Lens Edge Grinder Machine Name Role Phone Vianey Gasca PA-C Primary Care Provider Reason for Visit * Reason Comments Med Refill Encounter Details Date Type Department Care Team (Late st Contact Info) Description 04/15/2025 Refill [facility] INTERNAL MEDICINE [address] [phone] Dilan Chappell MD [address] [address] OAB (overactive bladder) Social History [...] 2:45 PM EDT Office Visit [facility] INTERNAL MEDICINE [address] [phone] Vianey Gasca PA-C [address] [address] 05/18/2025 2:40 PM EDT Appointment [facility] [address] [place] [address] documented as of this encounter Visit Diagnoses Diagnosis OAB (overactive bladder) documented in this encounter Care Teams Lens Edge Grinder Machine Relationship Specialty Start Date End Date Vianey Gasca PA-C [address] [address] PCP - General Internal Medicine 10/27/19 documented as of this encounter
--- OUTSIDE RECORDS SUMMARY | 2025-04-19 14:02 | XMS_ITS | Encounter Summary ---
[facility] [address] [place] [address] Care Team Providers Care Structural Engineer Name Role Phone Vianey Gasca PA-C Primary Care Provider Reason for Visit * Reason Comments Med Refill Encounter Details Date Type Department Care Team (Late st Contact Info) Description 03/16/2025 Refill [facility] INTERNAL MEDICINE [address] [phone] Dilan Chappell MD [address] [address] OAB (overactive bladder) Social History [...] Description 05/05/2025 2:45 PM EDT Office Visit [facility] INTERNAL MEDICINE [address] [phone] Vianey Gasca PA-C [address] [address] 05/18/2025 2:40 PM EDT Appointment [facility] [address] [place] [address] documented as of this encounter Visit Diagnoses Diagnosis OAB (overactive bladder) documented in this encounter Care Teams Structural Engineer Relationship Specialty Start Date End Date Vianey Gasca PA-C [address] [address] PCP - General Internal Medicine 10/27/19 documented as of this encounter
--- OUTSIDE RECORDS SUMMARY | 2025-04-19 14:02 | XMS_ITS | Encounter Summary ---
[facility] Address [address] [place] [address] Care Team Providers Care Histology Aide Name Role Phone Vianey Gasca PA-C Primary Care Provider Reason for Visit * Reason Onset Date Comments MEDICATION CONCERN 04/09/2025 Encounter Details Date Type Department Care Team (Late st Contact Info) Description 04/09/[address] [facility] INTERNAL MEDICINE [address] [phone] Vianey Gasca PA-C [address] [address] MEDICATION CONCERN Social History Tobacco [...] Perla Relationship: Self Best call back number: [phone] Which medication are you concerned about: Lantus [...] Description 05/05/2025 2:45 PM EDT Office Visit [facility] INTERNAL MEDICINE [address] [phone] Vianey Gasca PA-C [address] [address] 05/18/2025 2:40 PM EDT Appointment [facility] [address] [place] [phone] documented as of this encounter Visit Diagnoses Diagnosis Type 2 diabetes mellitus without complication, without long-term current use of insulin- Primary documented in this encounter Care Teams Histology Aide Relationship Specialty Start Date End Date Vianey Gasca PA-C [address] [address] PCP - General Internal Medicine 10/27/19 documented as of this encounter
--- OUTSIDE RECORDS SUMMARY | 2025-04-19 14:02 | XMS_ITS | Data Portability ---
Author Organization [facility] [place] Omar conley Kristopher [facility] Address [address] [place] [address] Assessment Encounter Date Assessment Date Assessment LastModified [...] Seldinger technique and the kit provided by [employer], we placed our permanent lead under good [...] Lab urinalysi s panel, auto 2024 025 [facility], [address], [place], [address], 11/15/2024 12:55:00 culture, urine [email or web address] [facility], [address] [place] [address], [address], 12/14/2023 11:26:48 urinalysi s panel, auto 2023 024 [facility], [address], [address], [place], [address], 11/17/2023 10:50:10 urinalysi s panel, auto 2022 023 [facility], [address], [address], [place], [address], 09/27/2023 07:36:04 culture, urine 2022 023 [facility], [address] [place] [address], [address], 09/27/2023 07:36:04 Referral None recorded. Procedures None recorded. Surgeries sacral neuromodu lation stage 1 (SURG) [email or web address] [facility], [address], [address], 11/23/2023 16:51:41 sacral neuromodu lation stage 2 (SURG) [email or web address] [facility], [address] [address], [place], [address], 11/23/2023 16:51:41 Imaging None recorded. Medication Orders Percocet 5 mg-325 mg tablet [address] [facility], [address] [place] [address], [facility], [place], [address], 10/19/2023 13:55:03 doxycycli ne monohydra te 100 mg capsule [address] [facility], [address] [place] [address], [facility], [place], [address], 10/19/2023 13:54:59 Patient TargetsNo targets recorded. Patient Instructions Encounter Date Encounter Id Patient Instructions Last Modified By Organization Details Last Modified Time 11/13/2024 [id number] - Add vitamin C to your current Methionamine regimen to increase effectiveness against UTIs. - Monitor your urinary symptoms and report any persistent issues. 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 [...] sm: Klebsi lana pneumo niae Not Available [facility] [address] [place], [address], 09/22/2023 16:04:38 09/20/2009/22/2023 URINE CULTU RE urine culture abnormal ISOLA TE #1 COLON Y COUNT : 10,00 0 - 100,0 00 CFU/M L Proba ble Gram Negat martha Bacil rogerio. ID and sensi tivit y in progr ess. See [place] te Resul t(s) Below Klebs iella pneum oniae Not Available [facility] [address] [place] [address], [address], 09/22/2023 16:04:38 09/20/20 23 09/22/2023 URINE CULTU RE amox/K clav'ate(C) <=8/4 ug/mL susceptib le Not Available [facility] [address] [place] [address], [address], 09/22/2023 16:04:38 09/20/20 23 09/22/2023 URINE CULTU RE cefazolin <=2 ug/mL susceptib le Not Available [facility] [address] [place] [address], [address], 09/22/2023 16:04:38 09/20/20 23 09/22/2023 URINE CULTU RE ceftazidime <=1 ug/mL susceptib le Not Available [facility] [address] [place] [address], [address], 09/22/2023 16:04:38 09/20/20 23 09/22/2023 URINE CULTU RE ceftriaxone <=1 ug/mL susceptib le Not Available [facility] [address] [place] [address], [address], 09/22/2023 16:04:38 09/20/20 23 09/22/2023 URINE CULTU RE cefuroxime <=4 ug/mL susceptib le Not Available [facility] [address] [place] [address], [address], 09/22/2023 16:04:38 09/20/20 23 09/22/2023 URINE CULTU RE ciprofloxaci n <=0.25 ug/mL susceptib le Not Available [facility] [address] [place] [address], [address], 09/22/2023 16:04:38 09/20/20 23 09/22/2023 URINE CULTU RE gentamicin <=4 ug/mL susceptib le Not Available [facility] [address] [place] [address], [address], 09/22/2023 16:04:38 09/20/20 23 09/22/2023 URINE CULTU RE imipenem <=1 ug/mL susceptib le Not Available [facility] [address] [place] [address], [address], 09/22/2023 16:04:38 09/20/20 23 09/22/2023 URINE CULTU RE levofloxacin <=0.5 ug/mL susceptib le Not Available [facility] [address] [place] [address], [address], 09/22/2023 16:04:38 09/20/20 23 09/22/2023 URINE CULTU RE nitrofuranto in >64 ug/mL resistant Not Available [facility] [address] [place] [address], [address], 09/22/2023 16:04:38 09/20/20 23 09/22/2023 URINE CULTU RE piperacillin /robby <=16 ug/mL susceptib le Not Available [facility] [address] [place] [address], [address], 09/22/2023 16:04:38 09/20/20 23 09/22/2023 URINE CULTU RE tetracycline <=4 ug/mL susceptib le Not Available [facility] [address] [place] [address], [address], 09/22/2023 16:04:38 09/20/20 23 09/22/2023 URINE CULTU RE tobramycin <=2 ug/mL susceptib le Not Available [facility] [address] [place] [address], [address], 09/22/2023 16:04:38 09/20/20 23 09/22/2023 URINE CULTU RE trimeth/sulf a <=2/38 ug/mL susceptib le Not Available [facility] [address] [place], [address], 09/22/2023 16:04:38 09/20/20 23 09/20/2023 urina lysis panel , auto Unknown Analyte Clean Catch Not Available [facility] [address], [place], [address], 09/20/2023 16:18:59 09/20/20 23 09/20/2023 urina lysis panel , auto Unknown Analyte Yellow Not Available [facility] [address], [place], [address], 09/20/2023 16:18:59 09/20/20 23 09/20/2023 urina lysis panel , auto Unknown Analyte Cloudy Not Available [facility] [address], [place], [address], 09/20/2023 16:18:59 09/20/20 23 09/20/2023 urina lysis panel , auto Unknown Analyte 1.020 Not Available [facility] [address], [place], [address], 09/20/2023 16:18:59 09/20/20 23 09/20/2023 urina lysis panel , auto Unknown Analyte 1.003- 1.035 Not Available [facility] [address], [place], [address], 09/20/2023 16:18:59 09/20/20 23 09/20/2023 urina lysis panel , auto Unknown Analyte 5.0 Not Available [facility] [address], [place], [address], 09/20/2023 16:18:59 09/20/20 23 09/20/2023 urina lysis panel , auto Unknown Analyte 5.0-8. 0 Not Available [facility] [address], [place], [address], 09/20/2023 16:18:59 09/20/20 23 09/20/2023 urina lysis panel , auto Unknown Analyte 500 Sumi/ul (++) Not Available [facility] [address], [place], [address], 09/20/2023 16:18:59 09/20/20 23 09/20/2023 urina lysis panel , auto Unknown Analyte Negati ve Not Available [facility] [address], [place], [address], 09/20/2023 16:18:59 09/20/20 23 09/20/2023 urina lysis panel , auto Unknown Analyte Negati ve Not Available [facility] [address], [place], [address], 09/20/2023 16:18:59 09/20/20 23 09/20/2023 urina lysis panel , auto Unknown Analyte Negati ve Not Available [facility] [address], [place], [address], 09/20/2023 16:18:59 09/20/20 23 09/20/2023 urina lysis panel , auto Unknown Analyte Negati ve Not Available [facility] [address], [place], [address], 09/20/2023 16:18:59 09/20/20 23 09/20/2023 urina lysis panel , auto Unknown Analyte Negati ve Not Available [facility] [address], [place], [address], 09/20/2023 16:18:59 09/20/20 23 09/20/2023 urina lysis panel , auto Unknown Analyte Normal Not Available [facility] [address], [place], [address], 09/20/2023 16:18:59 09/20/20 23 09/20/2023 urina lysis panel , auto Unknown Analyte Normal Not Available [facility] [address], [place], [address], 09/20/2023 16:18:59 09/20/20 23 09/20/2023 urina lysis panel , auto Unknown Analyte Negati ve Not Available [facility] [address], [place], [address], 09/20/2023 16:18:59 09/20/20 23 09/20/2023 urina lysis panel , auto Unknown Analyte Negati ve Not Available [facility] [address], [place], [address], 09/20/2023 16:18:59 09/20/20 23 09/20/2023 urina lysis panel , auto Unknown Analyte Normal Not Available [facility] [address], [place], [address], 09/20/2023 16:18:59 09/20/20 23 09/20/2023 urina lysis panel , auto Unknown Analyte Normal 1 mg/dl Not Available [facility] [address], [place], [address], 09/20/2023 16:18:59 09/20/20 23 09/20/2023 urina lysis panel , auto Unknown Analyte Negati ve Not Available [facility] [address], [place], [address], 09/20/2023 16:18:59 09/20/20 23 09/20/2023 urina lysis panel , auto Unknown Analyte Negati ve Not Available [facility] [address], [place], [address], 09/20/2023 16:18:59 09/20/20 23 09/20/2023 urina lysis panel , auto Unknown Analyte 250 Kike/ul Not Available [facility] [address], [place], [address], 09/20/2023 16:18:59 09/20/20 23 09/20/2023 urina lysis panel , auto Unknown Analyte Negati ve Not Available [facility] [address], [place], [address], 09/20/2023 16:18:59 10/10/19 24 10/10/2023 urina lysis panel , auto Unknown Analyte Clean Catch Not Available [facility] Surgery Schedule [address] [place], [address], 10/10/2023 13:39:50 10/10/19 24 10/10/2023 urina lysis panel , auto Unknown Analyte Yellow Not Available [facility] Schedule [address] [place], [address], 10/10/2023 13:39:50 10/10/19 24 10/10/2023 urina lysis panel , auto Unknown Analyte Clear Not Available [facility] Schedule [address] [place], [address], 10/10/2023 13:39:50 10/10/19 24 10/10/2023 urina lysis panel , auto Unknown Analyte 1.015 Not Available [facility] Surgery Schedule [address] [place] [address], [address], 10/10/2023 13:39:50 10/10/19 24 10/10/2023 urina lysis panel , auto Unknown Analyte 1.003- 1.035 Not Available [facility] Schedule [address] [place] [address], [address], 10/10/2023 13:39:50 10/10/19 24 10/10/2023 urina lysis panel , auto Unknown Analyte 6.0 Not Available [facility] Schedule [address] [place], [address], 10/10/2023 13:39:50 10/10/19 24 10/10/2023 urina lysis panel , auto Unknown Analyte 5.0-8. 0 Not Available [facility] Surgery Schedule [facility] [place], [address], 10/10/2023 13:39:50 10/10/19 24 10/10/2023 urina lysis panel , auto Unknown Analyte 25 Sumi/ul Trace Not Available [facility] Schedule [address] [place], [address], 10/10/2023 13:39:50 10/10/19 24 10/10/2023 urina lysis panel , auto Unknown Analyte Negati ve Not Available [facility] Surgery Schedule [address] [place], [address], 10/10/2023 13:39:50 10/10/19 24 10/10/2023 urina lysis panel , auto Unknown Analyte Negati ve Not Available [facility] Surgery Schedule [address] [place], [address], 10/10/2023 13:39:50 10/10/19 24 10/10/2023 urina lysis panel , auto Unknown Analyte Negati ve Not Available [facility] Surgery Schedule [address] [place], [address], 10/10/2023 13:39:50 10/10/19 24 10/10/2023 urina lysis panel , auto Unknown Analyte Negati ve Not Available [facility] Surgery Schedule [address] [place], [address], 10/10/2023 13:39:50 10/10/19 24 10/10/2023 urina lysis panel , auto Unknown Analyte Negati ve Not Available [facility] Surgery Schedule [address] [place], [address], 10/10/2023 13:39:50 10/10/19 24 10/10/2023 urina lysis panel , auto Unknown Analyte Normal Not Available [facility] Surgery Schedule [address] [place], [address], 10/10/2023 13:39:50 10/10/19 24 10/10/2023 urina lysis panel , auto Unknown Analyte Normal Not Available [facility] Schedule [address] [place], [address], 10/10/2023 13:39:50 10/10/19 24 10/10/2023 urina lysis panel , auto Unknown Analyte Negati ve Not Available [facility] Schedule [address] [place], [address], 10/10/2023 13:39:50 10/10/19 24 10/10/2023 urina lysis panel , auto Unknown Analyte Negati ve Not Available [facility] Surgery Schedule [address] [place], [address], 10/10/2023 13:39:50 10/10/19 24 10/10/2023 urina lysis panel , auto Unknown Analyte Normal Not Available [facility] Surgery Schedule [address] [place], [address], 10/10/2023 13:39:50 10/10/19 24 10/10/2023 urina lysis panel , auto Unknown Analyte Normal 1 mg/dl Not Available [facility] Surgery Schedule [address] [place], [address], 10/10/2023 13:39:50 10/10/19 24 10/10/2023 urina lysis panel , auto Unknown Analyte Negati ve Not Available [facility] Surgery Schedule [address] [place], [address], 10/10/2023 13:39:50 10/10/19 24 10/10/2023 urina lysis panel , auto Unknown Analyte Negati ve Not Available [facility] Surgery Schedule [address] [place], [address], 10/10/2023 13:39:50 10/10/19 24 10/10/2023 urina lysis panel , auto Unknown Analyte 50 Kike/ul Not Available [facility] Surgery Schedule [address] [place], [address], 10/10/2023 13:39:50 10/10/19 24 10/10/2023 urina lysis panel , auto Unknown Analyte Negati ve Not Available [facility] Surgery Schedule [address] [place], [address], 10/10/2023 13:39:50 10/19/19 24 10/19/2023 urina lysis panel , auto Unknown Analyte Clean Catch Not Available [facility] Surgery Schedule [address] [place], [address], 10/19/2023 11:45:16 10/19/19 24 10/19/2023 urina lysis panel , auto Unknown Analyte Yellow Not Available [facility] Surgery Schedule [address] [place], [address], 10/19/2023 11:45:16 10/19/19 24 10/19/2023 urina lysis panel , auto Unknown Analyte Clear Not Available [facility] Surgery Schedule [address] [place], [address], 10/19/2023 11:45:16 10/19/19 24 10/19/2023 urina lysis panel , auto Unknown Analyte 1.020 Not Available [facility] Surgery Schedule [address] [place], [address], 10/19/2023 11:45:16 10/19/19 24 10/19/2023 urina lysis panel , auto Unknown Analyte 1.003- 1.035 Not Available [facility] Surgery Schedule [address] [place], [address], 10/19/2023 11:45:16 10/19/19 24 10/19/2023 urina lysis panel , auto Unknown Analyte 5.0 Not Available [facility] Surgery Schedule [address] [place], [address], 10/19/2023 11:45:16 10/19/19 24 10/19/2023 urina lysis panel , auto Unknown Analyte 5.0-8. 0 Not Available [facility] Surgery Schedule [address] [place], [address], 10/19/2023 11:45:16 10/19/19 24 10/19/2023 urina lysis panel , auto Unknown Analyte 75 Sumi/ul (+) Not Available [facility] Surgery Schedule [address] [place], [address], 10/19/2023 11:45:16 10/19/19 24 10/19/2023 urina lysis panel , auto Unknown Analyte Negati ve Not Available [facility] Surgery Schedule [address] [place], [address], 10/19/2023 11:45:16 10/19/19 24 10/19/2023 urina lysis panel , auto Unknown Analyte Negati ve Not Available [facility] Surgery Schedule [address] [place], [address], 10/19/2023 11:45:16 10/19/19 24 10/19/2023 urina lysis panel , auto Unknown Analyte Negati ve Not Available [facility] Surgery Schedule [address] [place], [address], 10/19/2023 11:45:16 10/19/19 24 10/19/2023 urina lysis panel , auto Unknown Analyte Negati ve Not Available [facility] Surgery Schedule [address] [place], [address], 10/19/2023 11:45:16 10/19/19 24 10/19/2023 urina lysis panel , auto Unknown Analyte Negati ve Not Available [facility] Surgery Schedule [address] [place], [address], 10/19/2023 11:45:16 10/19/19 24 10/19/2023 urina lysis panel , auto Unknown Analyte Normal Not Available [facility] Surgery Schedule [address] [place], [address], 10/19/2023 11:45:16 10/19/19 24 10/19/2023 urina lysis panel , auto Unknown Analyte Normal Not Available [facility] Surgery Schedule [address] [place], [address], 10/19/2023 11:45:16 10/19/19 24 10/19/2023 urina lysis panel , auto Unknown Analyte Negati ve Not Available [facility] Surgery Schedule [address] [place], [address], 10/19/2023 11:45:16 10/19/19 24 10/19/2023 urina lysis panel , auto Unknown Analyte Negati ve Not Available [facility] Surgery Schedule [address] [place], [address], 10/19/2023 11:45:16 10/19/19 24 10/19/2023 urina lysis panel , auto Unknown Analyte Normal Not Available [facility] Surgery Schedule [address] [place], [address], 10/19/2023 11:45:16 10/19/19 24 10/19/2023 urina lysis panel , auto Unknown Analyte Normal 1 mg/dl Not Available [facility] Surgery Schedule [address] [place], [address], 10/19/2023 11:45:16 10/19/19 24 10/19/2023 urina lysis panel , auto Unknown Analyte Negati ve Not Available [facility] Surgery Schedule [address] [place], [address], 10/19/2023 11:45:16 10/19/19 24 10/19/2023 urina lysis panel , auto Unknown Analyte Negati ve Not Available [facility] Surgery Schedule [address] [place], [address], 10/19/2023 11:45:16 10/19/19 24 10/19/2023 urina lysis panel , auto Unknown Analyte 250 Kike/ul Not Available [facility] Surgery Schedule [address] [place], [address], 10/19/2023 11:45:16 10/19/19 24 10/19/2023 urina lysis panel , auto Unknown Analyte Negati ve Not Available [facility] Surgery Schedule [address], [place], [address], 10/19/2023 11:45:16 11/15/19 24 11/15/2023 urina lysis panel , auto Unknown Analyte Clean Catch Not Available [facility] [address], [place], [address], 11/15/2023 16:39:36 11/15/19 24 11/15/2023 urina lysis panel , auto Unknown Analyte Yellow Not Available [facility] [address], [place], [address], 11/15/2023 16:39:36 11/15/19 24 11/15/2023 urina lysis panel , auto Unknown Analyte Clear Not Available [facility] [address] [place] [address], [place], [address], 11/15/2023 16:39:36 11/15/19 24 11/15/2023 urina lysis panel , auto Unknown Analyte 1.020 Not Available [facility] [address], [place], [address], 11/15/2023 16:39:36 11/15/19 24 11/15/2023 urina lysis panel , auto Unknown Analyte 1.003- 1.035 Not Available [facility] [address], [place], [address], 11/15/2023 16:39:36 11/15/19 24 11/15/2023 urina lysis panel , auto Unknown Analyte 5.0 Not Available [facility] [address], [place], [address], 11/15/2023 16:39:36 11/15/19 24 11/15/2023 urina lysis panel , auto Unknown Analyte 5.0-8. 0 Not Available [facility] [address], [place], [address], 11/15/2023 16:39:36 11/15/19 24 11/15/2023 urina lysis panel , auto Unknown Analyte 500 Sumi/ul (++) Not Available [facility] [address], [place], [address], 11/15/2023 16:39:36 11/15/19 24 11/15/2023 urina lysis panel , auto Unknown Analyte Negati ve Not Available [facility] [address], [place], [address], 11/15/2023 16:39:36 11/15/19 24 11/15/2023 urina lysis panel , auto Unknown Analyte Negati ve Not Available [facility] [address], [place], [address], 11/15/2023 16:39:36 11/15/19 24 11/15/2023 urina lysis panel , auto Unknown Analyte Negati ve Not Available [facility] [address], [place], [address], 11/15/2023 16:39:36 11/15/19 24 11/15/2023 urina lysis panel , auto Unknown Analyte Negati ve Not Available [facility] [address], [place], [address], 11/15/2023 16:39:36 11/15/19 24 11/15/2023 urina lysis panel , auto Unknown Analyte Negati ve Not Available [facility] [address], [place], [address], 11/15/2023 16:39:36 11/15/19 24 11/15/2023 urina lysis panel , auto Unknown Analyte Normal Not Available [facility] [address], [place], [address], 11/15/2023 16:39:36 11/15/19 24 11/15/2023 urina lysis panel , auto Unknown Analyte Normal Not Available [facility] [address], [place], [address], 11/15/2023 16:39:36 11/15/19 24 11/15/2023 urina lysis panel , auto Unknown Analyte Negati ve Not Available [facility] [address], [place], [address], 11/15/2023 16:39:36 11/15/19 24 11/15/2023 urina lysis panel , auto Unknown Analyte Negati ve Not Available [facility] [address], [place], [address], 11/15/2023 16:39:36 11/15/19 24 11/15/2023 urina lysis panel , auto Unknown Analyte Normal Not Available [facility] [address], [place], [address], 11/15/2023 16:39:36 11/15/19 24 11/15/2023 urina lysis panel , auto Unknown Analyte Normal 1 mg/dl Not Available [facility] [address], [place], [address], 11/15/2023 16:39:36 11/15/19 24 11/15/2023 urina lysis panel , auto Unknown Analyte Negati ve Not Available [facility] [address] [facility] [address], [place], [address], 11/15/2023 16:39:36 11/15/19 24 11/15/2023 urina lysis panel , auto Unknown Analyte Negati ve Not Available [facility] [address], [place], [address], 11/15/2023 16:39:36 11/15/19 24 11/15/2023 urina lysis panel , auto Unknown Analyte 250 Kike/ul Not Available [facility] [address] [facility] [address], [place], [address], 11/15/2023 16:39:36 11/15/19 24 11/15/2023 urina lysis panel , auto Unknown Analyte Negati ve Not Available [facility] [address], [place], [address], 11/15/2023 16:39:36 12/07/19 24 12/07/2023 URINE CULTU RE klebsiella pneumoniae Organi sm: Klebsi lana pneumo niae Not Available [facility] [address] [place] [address], [place], [address], 12/10/2023 09:33:47 12/07/19 24 12/10/2023 URINE CULTU RE urine culture abnormal ISOLA TE #1 COLON Y COUNT : 10,00 0 - 100,0 00 CFU/M L Proba ble Gram Negat martha Bacil rogerio. ID and sensi tivit y in progr ess. See Cambria te Resul t(s) Below Klebs iella pneum oniae Not Available [facility] [address] [place] [address], [address], 12/10/2023 09:33:47 12/07/19 24 12/10/2023 URINE CULTU RE amox/K clav'ate(C) <=8/4 ug/mL susceptib le Not Available [facility] [address] [place] [address], [address], 12/10/2023 09:33:47 12/07/19 24 12/10/2023 URINE CULTU RE cefazolin <=2 ug/mL susceptib le Not Available [facility] [address] [place] [address], [address], 12/10/2023 09:33:47 12/07/19 24 12/10/2023 URINE CULTU RE ceftazidime <=1 ug/mL susceptib le Not Available [facility] [address] [place] [address], [address], 12/10/2023 09:33:47 12/07/19 24 12/10/2023 URINE CULTU RE ceftriaxone <=1 ug/mL susceptib le Not Available [facility] [address] [place] [address], [address], 12/10/2023 09:33:47 12/07/19 24 12/10/2023 URINE CULTU RE cefuroxime 16 ug/mL intermedi ate Not Available [facility] [address] [place] [address], [address], 12/10/2023 09:33:47 12/07/19 24 12/10/2023 URINE CULTU RE ciprofloxaci n 0.5 ug/mL intermedi ate Not Available [facility] [address] [place] [address], [address], 12/10/2023 09:33:47 12/07/19 24 12/10/2023 URINE CULTU RE gentamicin <=4 ug/mL susceptib le Not Available [facility] [address] [place] [address], [address], 12/10/2023 09:33:47 12/07/19 24 12/10/2023 URINE CULTU RE imipenem <=1 ug/mL susceptib le Not Available [facility] [address] [place] [address], [address], 12/10/2023 09:33:47 12/07/19 24 12/10/2023 URINE CULTU RE levofloxacin <=0.5 ug/mL susceptib le Not Available [facility] [address] [place] [address], [address], 12/10/2023 09:33:47 12/07/19 24 12/10/2023 URINE CULTU RE nitrofuranto in 64 ug/mL intermedi ate Not Available [facility] [address] [place] [address], [address], 12/10/2023 09:33:47 12/07/19 24 12/10/2023 URINE CULTU RE piperacillin /robby <=16 ug/mL susceptib le Not Available [facility] [address] [place] [address], [address], 12/10/2023 09:33:47 12/07/19 24 12/10/2023 URINE CULTU RE tetracycline <=4 ug/mL susceptib le Not Available [facility] [address] [place] [address], [address], 12/10/2023 09:33:47 12/07/19 24 12/10/2023 URINE CULTU RE tobramycin <=2 ug/mL susceptib le Not Available [facility] [address] [place], [address], 12/10/2023 09:33:47 12/07/19 24 12/10/2023 URINE CULTU RE trimeth/sulf a <=2/38 ug/mL susceptib le Not Available [facility] [address] [place], [address], 12/10/2023 09:33:47 11/13/19 25 11/13/2024 urina lysis panel , auto Unknown Analyte Clean Catch Not Available [facility] [address], [place], [address], 11/13/2024 14:36:14 11/13/19 25 11/13/2024 urina lysis panel , auto Unknown Analyte Yellow Not Available [facility] [address], [place], [address], 11/13/2024 14:36:14 11/13/19 25 11/13/2024 urina lysis panel , auto Unknown Analyte Clear Not Available [facility] [address], [place], [address], 11/13/2024 14:36:14 11/13/19 25 11/13/2024 urina lysis panel , auto Unknown Analyte 1.005 Not Available [facility] [address], [place], [address], 11/13/2024 14:36:14 11/13/19 25 11/13/2024 urina lysis panel , auto Unknown Analyte 1.003- 1.035 Not Available [facility] [address], [place], [address], 11/13/2024 14:36:14 11/13/19 25 11/13/2024 urina lysis panel , auto Unknown Analyte 6.0 Not Available [facility] [address], [place], [address], 11/13/2024 14:36:14 11/13/19 25 11/13/2024 urina lysis panel , auto Unknown Analyte 5.0-8. 0 Not Available [facility] [address], [place], [address], 11/13/2024 14:36:14 11/13/19 25 11/13/2024 urina lysis panel , auto Unknown Analyte 25 Sumi/ul Trace Not Available [facility] [address], [place], [address], 11/13/2024 14:36:14 11/13/19 25 11/13/2024 urina lysis panel , auto Unknown Analyte Negati ve Not Available [facility] [address], [place], [address], 11/13/2024 14:36:14 11/13/19 25 11/13/2024 urina lysis panel , auto Unknown Analyte Negati ve Not Available [facility] [address], [place], [address], 11/13/2024 14:36:14 11/13/19 25 11/13/2024 urina lysis panel , auto Unknown Analyte Negati ve Not Available [facility] [address], [place], [address], 11/13/2024 14:36:14 11/13/19 25 11/13/2024 urina lysis panel , auto Unknown Analyte Negati ve Not Available [facility] [address], [place], [address], 11/13/2024 14:36:14 11/13/19 25 11/13/2024 urina lysis panel , auto Unknown Analyte Negati ve Not Available [facility] [address], [place], [address], 11/13/2024 14:36:14 11/13/19 25 11/13/2024 urina lysis panel , auto Unknown Analyte Normal Not Available [facility] [address], [place], [address], 11/13/2024 14:36:14 11/13/19 25 11/13/2024 urina lysis panel , auto Unknown Analyte Normal Not Available [facility] [address], [place], [address], 11/13/2024 14:36:14 11/13/19 25 11/13/2024 urina lysis panel , auto Unknown Analyte Negati ve Not Available [facility] [address], [place], [address], 11/13/2024 14:36:14 11/13/19 25 11/13/2024 urina lysis panel , auto Unknown Analyte Negati ve Not Available [facility] [address], [place], [address], 11/13/2024 14:36:14 11/13/19 25 11/13/2024 urina lysis panel , auto Unknown Analyte Normal Not Available [facility] [address], [place], [address], 11/13/2024 14:36:14 11/13/19 25 11/13/2024 urina lysis panel , auto Unknown Analyte Normal 1 mg/dl Not Available [facility] [address], [place], [address], 11/13/2024 14:36:14 11/13/19 25 11/13/2024 urina lysis panel , auto Unknown Analyte Negati ve Not Available [facility] [address], [place], [address], 11/13/2024 14:36:14 11/13/19 25 11/13/2024 urina lysis panel , auto Unknown Analyte Negati ve Not Available [facility] [address], [place], [address], 11/13/2024 14:36:14 11/13/19 25 11/13/2024 urina lysis panel , auto Unknown Analyte 50 Kike/ul Not Available [facility] [address], [place], [address], 11/13/2024 14:36:14 11/13/19 25 11/13/2024 urina lysis panel , auto Unknown Analyte Negati ve Not Available [facility] [address], [place], [address], 11/13/2024 14:36:14 Result Notes None recorded. Problems Name Problem SNOMED Code Status Onset Date Resolution Date Notes Provider Name and Address Organization Details Recorded Time Recurrent urinary tract infection 406472084 Active 2022 WILFRIDO ROMAN JR, MD [address] [place] [address], [address], [facility] 3 09:29:45 Urinary tract infectious disease 57759577 Active 2022 WILFRIDO ROMAN JR, MD [address] [place] [address], [address], [facility] 3 09:29:46 Urge incontinence of urine 70697669 Active 2022 WILFRIDO ROMAN JR, MD [address] [place] [address], [address], [facility] 09:29:47 Problem Notes None recorded. Procedures Surgical History Date Name Laterality Status Provider Name and Address Organization Details Recorded Time 3 PNE Implantation; Sacral Nerve completed WILFRIDO ROMAN JR, MD [address] [place] [address], [address], [facility] 09/17/2023 07:38:44 3 Cystoscopy - female completed WILRFIDO ROMAN JR, MD [address] [place] [address], [address], [facility] 08/29/2023 14:45:16 9 Post Void Residual; Ultrasound completed Evelyne Felton [place] [facility] 10/28/2018 11:26:22 Other completed Evelyne Fel[place] [facility] 10/28/2018 11:17:20 Other completed Evelyne [place] [facility] 10/28/2018 11:17:29 Other completed [place]ne [place] [facility] 10/28/2018 11:17:39 Other completed [facility] [place] [facility] 10/28/2018 11:17:45 Imaging Results None recorded. Procedure Notes None recorded. Medical Equipment None Reported. Allergies Allergen ID Allergen Name Allergen Category Reaction Reaction Severity Criticality Documentation Date Start Date Code Code System Note Provider Name and Address Organization Details Recorded Time 792530 Substance with sulfonami de structure and antibacte rial mechanism of action (substanc e) medicatio n Not available Not available Not available 10/28/2018 23961 8003 SNOMED Evelyne Felton carlos [facility] 9 11:10:53 Medications Name Sig Start Date [...] Updated DateTime 11/13/2024 167.64 cm 33.9 kg/m2 64919.4 g Shruthi Mckinley [facility] 11/13/2024 14:24:19 Date Recorded Body height Body mass index (BMI) Body weight Provider Name and Address Organization Details Last Updated DateTime 11/15/2023 167.64 cm 33.9 kg/m2 82776.4 g Danny Pyle [facility] 11/15/2023 16:06:35 Date Recorded Body height Body mass index (BMI) Body weight Provider Name and Address Organization Details Last Updated DateTime 09/20/2023 170.18 cm 32.9 kg/m2 48138.4 g Sheree Bennett [facility] 09/20/2023 15:02:49 Social History Question Answer Notes LastModified by Organizat ion Details LastModified Time Tobacco Smoking Status Never [facility]/28/2018 11:16:44 Marital Status Informatio n not [...] not available 04/02/2023 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 Obstetrics History GPAL:G 0 P 0 0 0 0 Past Encounters Encounter ID Performer Location Encounter Start Date Encounter Closed Date Diagnosis/Indication Diagnosis SNOMED-CT Code Diagnosis ICD10 Code Diagnosis Note [id number] MARIA R ALEJO MD UROLOGY [facility] [address] [address] 10/28/2018 10:25:59 10/29/2018 08:43:14 Urge incontinence of urine 65900926 N39.41 Pt has been doing well with oxybutinin until recently. Her u/a today is wnl and PVR only 52 cc. Discussed that her increased caffeine use is probably responsibl e for her increased urgency and leakage. She has been drinking up to 40 oz/day. Discussed drinking 8 0z day of decaf. [id number] WILFRIDO ROMAN JR, MD [facility] [address] [facility] [address] [place] [address] 04/02/2023 13:16:15 04/09/2023 04:02:50 Recurrent urinary tract infection 454526724 N39.0 Urinary tr act infectious disease 77028039 N39.0 Urge incon tinence of urine 39074942 N39.41 [id number] WILFRIDO ROMAN JR, MD [facility] [address] [place] [address],[place] [address] 08/02/2023 15:01:31 08/02/2023 16:32:59 Acute urinary tract infection 929055726 N39.0 Urge incon tinence of urine 85128798 N39.41 Recurrent urinary tract infection 898416100 N39.0 , [id number] WILFRIDO ROMAN JR, MD SURGERY SCHEDULE [address] [place] [address] 08/29/2023 14:42:52 08/29/2023 14:43:44 Recurrent urinary tract infection 295463741 N39.0 , Urge incon tinence of urine 71061752 N39.41 [id number] WILFRIDO ROMAN JR, MD [facility] [address] [place] [address],[place] [address] 09/13/2023 16:11:52 09/19/2023 10:45:57 Urge incontinence of urine 45914821 N39.41 [id number] WILFRIDO ROMAN JR, MD [facility] [address] [place] [address],[place] [address] 09/20/2023 14:57:25 09/20/2023 15:41:37 Acute urinary tract infection 842820437 N39.0 Urge incon tinence of urine 18503451 N39.41 [id number] WILFRIDO ROMAN JR, MD SURGERY SCHEDULE [address] [place] [address] 1 10/19/2023 11:27:51 10/19/2023 12:19:29 Postoperative pain 519583000 G89.18 [id number] WILFRIDO ROMAN JR, MD [facility] [address] [place] [address] 11/15/2023 15:54:23 11/15/2023 16:22:19 Urge incontinence of urine 29264756 N39.41 [id number] ALLISON ALBERTS MD [facility] [address] [place] [address] 12/07/2023 16:06:10 12/07/2023 16:09:12 Acute urinary tract infection 624643341 N39.0 [id number] WILFRIDO ROMAN JR, MD [facility] [address] [place] [address] 11/13/2024 13:53:24 11/13/2024 14:34:39 Recurrent urinary tract infection 499761951 N39.0 Recommend addition of vitamin C with Methionami ne. Monitor recurrence . Adjust preventive strategies if necessary. Urge incon tinence of urine 26086683 N39.41 Continue neuromodul ation therapy. Allow for adjustment of net programmer analyst settings by patient. Evaluate future interventi ons if needed. Health Concerns Section Related Observation LastModified by Organization Detai ls LastModified Time None Recorded Concern Status LastModified by Organization Details LastModified Time None Recorded Advance Directives Directive None Recorded Payers Insurance Date Sequence Insurance Name Policy Number Policy Espinal Covered Member ID Espinal Member ID Guarantor Name 11/16/2024 2 [id number]) [id number] Salvador Booker Ewewelinat [id number] Vianey Kenyon Ewalt 12/04/2018 1 *SELF PAY* Robert Kenyon Ewalt 11/16/2024 1 UMR [id number] Vianey Kenyon Ewalt [id number] Vianey Kenyon Ewalt 11/16/2024 GENERIC INSURANCE - [...] of neuromodulator device. WILFRIDO ROMAN JR, MD [address] [place] [address] [place], [address], [facility] 09/30/2023 17:02:11 11/15/2023 text/html Patient is in to day for follow-up of urgency incontinence. She underwent neuromodulation, Axonix implantation stages, and 02 October 2023. She reports significant improvement of lower urinary tract symptoms. WILFRIDO ROMAN JR, MD [facility] [place], [address], [facility] 11/17/2023 10:50:13 11/13/2024 text/html The patient is [...] 02 October 2023. WILFRIDO ROMAN JR, MD [facility] [place], [address], [facility] 11/15/2024 12:55:04 OBGyn Episode No OBEpisode recorded.
--- OUTSIDE RECORDS SUMMARY | 2025-04-19 14:02 | XMS_ITS | Encounter Summary ---
[facility] [address] [place] [address] Care Team Providers Care Raymond Mill Operator Name Role Phone Vianey Gasca PA-C Primary Care Provider Reason for Visit * Reason Comments Med Refill Encounter Details Date Type Department Care Team (Late st Contact Info) Description 03/28/2024 Refill [facility] [address] [address] Vianey Gasca PA-C [address] [address] Type 2 diabetes mellitus without [...] Description 05/05/2025 2:45 PM EDT Office Visit [facility] [address] [address] Vianey Gasca PA-C [address] [address] 05/18/2025 2:40 PM EDT Appointment [facility] [address] [place] [address] documented as of this encounter Visit Diagnoses Diagnosis Type 2 diabetes mellitus without complication, without long-term current use of insulin documented in this encounter Care Teams Raymond Mill Operator Relationship Specialty Start Date End Date Vianey Gasca PA-C [address] [address] PCP - General Internal Medicine 10/27/19 documented as of this encounter
[2025-04-19] MEDS: ERTAPENEM SODIUM 1 GM in 0.9 % SODIUM CHLORIDE 50 ML IV (14:36)
== END 2025-04-19 15:12 | disposition home or self-care (01) ==
LOC: INF 14:01
PROVIDERS: PCP Nurse Practitioner Family; Visit Provider Nurse Practitioner Family
DX: N39.0 Urinary tract infection, site not specified (principal)
CPT/HCPCS: 96365; J1335

== ENCOUNTER 2025-04-20 13:56 | Outpatient (CLI) | payer OTHER, SELFPAY ==
--- OUTSIDE RECORDS SUMMARY | 2025-04-20 13:59 | XMS_ITS | Encounter Summary ---
[facility] [address] [place] [address] Care Team Providers Care Gas Station Manager Name Role Phone Vianey Gasca PA-C Primary Care Provider Reason for Visit * Reason Comments Med Refill Encounter Details Date Type Department Care Team (Late st Contact Info) Description 03/16/2025 Refill [facility] [address] [address] Dilan Chappell MD [address] [address] Social History Tobacco Use [...] 05/05/2025 2:45 PM EDT Office Visit [facility] [address] [facility] [address] [place] [address] Vianey Gasca PA-C [address] [facility] [address] [place] [address] 05/18/2025 2:40 PM EDT Appointment [facility] [address] [place] [address] documented as of this encounter Visit Diagnoses Not on filedocumented in this encounter Care Teams Gas Station Manager Relationship Specialty Start Date End Date Vianey Gasca PA-C [address] [address] PCP - General Internal Medicine 10/27/19 documented as of this encounter
--- OUTSIDE RECORDS SUMMARY | 2025-04-20 13:59 | XMS_ITS | Encounter Summary ---
[facility] Address [address] [place] [address] Care Team Providers Care Composition Board Press Operator Name Role Phone Vianey Gasca PA-C Primary Care Provider Reason for Visit * Reason Comments Med Refill Encounter Details Date Type Department Care Team (Late st Contact Info) Description 03/16/2025 Refill [facility] [address] [phone] Vianey Gasca PA-C [address] [place] [phone] Mixed hyperlipidemia; Benign essential hypertension Social History [...] Description 05/05/2025 2:45 PM EDT Office Visit [facility] [address] [phone] Vianey Gasca PA-C [address] [address] 05/18/2025 2:40 PM EDT Appointment [facility] [address] [place] [address] documented as of this encounter Visit Diagnoses Diagnosis Mixed hyperlipidemia Benign essential hypertension Essential hypertension, benign documented in this encounter Care Teams Composition Board Press Operator Relationship Specialty Start Date End Date Vianey Gasca PA-C [address] [address] PCP - General Internal Medicine 10/27/19 documented as of this encounter
--- OUTSIDE RECORDS SUMMARY | 2025-04-20 13:59 | XMS_ITS | Encounter Summary ---
[facility] Address [address] [place] [address] Care Team Providers Care Test Pilot Name Role Phone Vianey Gasca PA-C Primary Care Provider Encounter Details Date Type Department Care Team (Late st Contact Info) Description 01/06/2025 Results Follow-Up [facility] [address] [place] [address] Dia Casas MD [address]00 [facility] [address] [place] [address] Social History Tobacco Use Types Packs/Day Years [...] Visit [facility] [address] [phone] Vianey Gasca PA-C [address] [address] 05/18/2025 2:40 PM EDT Appointment [address] [address] documented as of this encounter Visit Diagnoses Not on filedocumented in this encounter Care Teams Test Pilot Relationship Specialty Start Date End Date Vianey Gasca PA-C [address] [address] PCP - General Internal Medicine 10/27/19 documented as of this encounter
--- OUTSIDE RECORDS SUMMARY | 2025-04-20 13:59 | XMS_ITS | Encounter Summary ---
[facility] [address] [place] [address] Care Team Providers Care Back Up Worker Name Role Phone Vianey Gasca PA-C Primary Care Provider Reason for Visit * Reason Comments Med Refill Encounter Details Date Type Department Care Team (Late st Contact Info) Description 03/16/2025 Refill [facility] [address] [phone] Vianey Gasca PA-C [address] [place] [id number] Vitamin D deficiency Social History Tobacco Use [...] Description 05/05/2025 2:45 PM EDT Office Visit [facility] [address] [facility] [address] [place] [address] Vianey Gasca PA-C [address] [address] 05/18/2025 2:40 PM EDT Appointment [facility] [address] [place] [address] documented as of this encounter Visit Diagnoses Diagnosis Vitamin D deficiency documented in this encounter Care Teams Back Up Worker Relationship Specialty Start Date End Date Vianey Gasca PA-C [address] [address] PCP - General Internal Medicine 10/27/19 documented as of this encounter
--- OUTSIDE RECORDS SUMMARY | 2025-04-20 14:00 | XMS_ITS | Encounter Summary ---
[facility] Address [address] [place] [address] Care Team Providers Care Public Safety Telecommunicator Name Role Phone Vianey Gasca PA-C Primary Care Provider Reason for Visit * Reason Onset Date Comments MEDICATION CONCERN 04/09/2025 Encounter Details Date Type Department Care Team (Late st Contact Info) Description 04/09/2025 Telephone [facility] [address] [phone] Vianey Gasca PA-C [address] [address] MEDICATION CONCERN Social History Tobacco [...] Perla Relationship: Self Best call back number: [phone] Which medication are you concerned about: Lantus [...] Description 05/05/2025 2:45 PM EDT Office Visit [facility] [address] [phone] Vianey Gasca PA-C [address] [address] 05/18/2025 2:40 PM EDT Appointment [facility] [address] [place] [address] documented as of this encounter Visit Diagnoses Diagnosis Type 2 diabetes mellitus without complication, without long-term current use of insulin- Primary documented in this encounter Care Teams Public Safety Telecommunicator Relationship Specialty Start Date End Date Vianey Gasca PA-C [address] [address] PCP - General Internal Medicine 10/27/19 documented as of this encounter
--- OUTSIDE RECORDS SUMMARY | 2025-04-20 14:00 | XMS_ITS | Encounter Summary ---
[facility] [address] [place] [address] Care Team Providers Care Triage Rn Name Role Phone Vianey Gasca PA-C Primary Care Provider Reason for Visit * Reason Onset Date Comments MAMMOGRAM 04/09/2025 Encounter Details Date Type Department Care Team (Late st Contact Info) Description 04/09/2025 Telephone [facility] INTER[facility] [address] [phone] Vianey Gasca PA-C [address] [address] MAMMOGRAM Social History Tobacco Use [...] been placed for a mammogram by patient's PROTECTION MANAGER. She will call the [place] mammography center to schedule. * Telephone Encounter - Adriana Vaughan RegSched Rep - 04/09/2025 3:09 PM EDT Caller: Vianey Perla Relationship: Self Best call back number: [phone] What orders are you requesting (i.e. lab or imaging): MAMMOGRAM In what timeframe would the patient need to come in: SOON POSSIBLE Where will you receive your lab/imaging services: [facility] Additional notes: documented in this encounter Plan of Treatment Upcoming Encounters Date Type Department Care Team (Late st Contact Info) Description 05/05/2025 2:45 PM EDT Office Visit [facility] [address] [phone] Vianey Gasca PA-C [address] [address] 05/18/2025 2:40 PM EDT Appointment [facility] [address] [place] [address] documented as of this encounter Visit Diagnoses Not on filedocumented in this encounter Care Teams Triage Rn Relationship Specialty Start Date End Date Vianey Gasca PA-C [address] [address] PCP - General Internal Medicine 10/27/19 documented as of this encounter
--- OUTSIDE RECORDS SUMMARY | 2025-04-20 14:00 | XMS_ITS | Encounter Summary ---
[facility] [address] [place] [address] Care Team Providers Care Cloth Grader Supervisor Name Role Phone Vianey Gasca PA-C Primary Care Provider Encounter Details Date Type Department Care Team (Late st Contact Info) Description 04/17/2025 Telephone [facility]INE 2101 [facility] [address] [place] [address] Vianey Gasca PA-C [address] [address] Social History Tobacco Use Types [...] Description 05/05/2025 2:45 PM EDT Office Visit [facility] [address] [phone] Vianey Gasca PA-C [address] [address] 05/18/2025 2:40 PM EDT Appointment [facility] [address] [place] [address] documented as of this encounter Visit Diagnoses Not on filedocumented in this encounter Care Teams Cloth Grader Supervisor Relationship Specialty Start Date End Date Vianey Gasca PA-C [address] [address] PCP - General Internal Medicine 10/27/19 documented as of this encounter
--- OUTSIDE RECORDS SUMMARY | 2025-04-20 14:00 | XMS_ITS | Encounter Summary ---
[facility] [address] [place] [address] Care Team Providers Care President Finance Company Name Role Phone Vianey Gasca PA-C Primary Care Provider Reason for Visit * Reason Comments Med Refill Encounter Details Date Type Department Care Team (Late Contact Info) Description 03/01/2021 Refill [facility] [address] [phone] Vianey Gasca PA-C [address] [address] Acquired hypothyroidism; Benign essential hypertension [...] Description 05/05/2025 2:45 PM EDT Office Visit [facility] [address] [place] [phone] Vianey Gasca PA-C [address] [address] 05/18/2025 2:40 PM EDT Appointment [facility] [address] [place] [address] documented as of this encounter Visit Diagnoses Diagnosis Acquired hypothyroidism Unspecified hypothyroidism Benign essential hypertension Essential hypertension, benign documented in this encounter Care Teams President Finance Company Relationship Specialty Start Date End Date Vianey Gasca PA-C [address] [address] PCP - General Internal Medicine 10/27/19 documented as of this encounter
--- OUTSIDE RECORDS SUMMARY | 2025-04-20 14:00 | XMS_ITS | Encounter Summary ---
[facility] [address] [place] [address] Care Team Providers Care Segment Producer Name Role Phone Vianey Gasca PA-C Primary Care Provider Reason for Visit * Reason Comments Med Refill Encounter Details Date Type Department Care Team (Late st Contact Info) Description 04/15/2025 Refill [facility] [address] [phone] Dilan Chappell MD [address] [address] OAB (overactive bladder) Social History [...] [facility] [address] [phone] Vianey Gasca PA-C [address] [address] 05/18/2025 2:40 PM EDT Appointment [facility] [address] [place] [address] documented as of this encounter Visit Diagnoses Diagnosis OAB (overactive bladder) documented in this encounter Care Teams Segment Producer Relationship Specialty Start Date End Date Vianey Gasca PA-C [address] [address] PCP - General Internal Medicine 10/27/19 documented as of this encounter
--- OUTSIDE RECORDS SUMMARY | 2025-04-20 14:00 | XMS_ITS | Encounter Summary ---
[facility] [address] [place] [address] Care Team Providers Care Software Licensing Analyst Name Role Phone Vianey Gasca PA-C Primary Care Provider Reason for Visit * Reason Comments Med Refill Encounter Details Date Type Department Care Team (Late st Contact Info) Description 03/16/2025 Refill [facility] [address] [phone] Dilan Chappell MD [address] [address] OAB (overactive bladder) Social History [...] Description 05/05/2025 2:45 PM EDT Office Visit [facility] [address] [phone] Vianey Gasca PA-C [address] [address] 05/18/2025 2:40 PM EDT Appointment [facility] [address] [place] [address] documented as of this encounter Visit Diagnoses Diagnosis OAB (overactive bladder) documented in this encounter Care Teams Software Licensing Analyst Relationship Specialty Start Date End Date Vianey Gasca PA-C [address] [address] PCP - General Internal Medicine 10/27/19 documented as of this encounter
--- OUTSIDE RECORDS SUMMARY | 2025-04-20 14:00 | XMS_ITS | Encounter Summary ---
[facility] Address [address] [place] [address] Care Team Providers Care Racker Octave Board Name Role Phone Vianey Gasca PA-C Primary Care Provider Reason for Visit * Reason Comments Med Refill Encounter Details Date Type Department Care Team (Late st Contact Info) Description 03/28/2024 Refill [facility] [address] [phone] Vianey Gasca PA-C [address] [address] Type 2 diabetes mellitus without [...] Description 05/05/2025 2:45 PM EDT Office Visit [facility] [address] [phone] Vianey Gasca PA-C [address] [address] 05/18/2025 2:40 PM EDT Appointment [facility] [address] [place] [address] documented as of this encounter Visit Diagnoses Diagnosis Type 2 diabetes mellitus without complication, without long-term current use of insulin documented in this encounter Care Teams Racker Octave Board Relationship Specialty Start Date End Date Vianey Gasca PA-C [address] [address] PCP - General Internal Medicine 10/27/19 documented as of this encounter
--- OUTSIDE RECORDS SUMMARY | 2025-04-20 14:00 | XMS_ITS | Clinical Summary ---
Author Organization [facility] Address [address] [place] [address] Care Team Providers Care Vocational Education Teacher Name Role Phone Vianey Gasca PA-C Primary [...] 025 Active vitamin D (ERGOCALCIFEROL) 1.25 MG (85277 UT) capsule capsuleIndication s:Vitamin D deficiency TAKE [...] Type Department Care Team Description 04/17/2025 Telephone [facility] INTER[facility] MEDICINE [address] [address] Vianey Gasca PA-C 04/15/2025 Refill [facility] INTER[facility] MED[facility]INE [address] [address] Dilan Chappell MD OAB (overactive bladder) 04/09/2025 [facility] INTERNAL MEDICINE [address] [address] Vianey Gasca PA-C MAMMOGRAM 04/09/2025 [facility] INTERNAL MEDICINE [address] [address] Vianey Gasca PA-C MEDICATION CONCERN 03/16/2025 [facility] INTERNAL MEDICINE [address] [address] Dilan Chappell MD OAB (overactive bladder) 03/16/2025 [facility] [address] [address] Vianey Gasca PA-C Vitamin D deficiency 03/16/2025 [facility] INTERNAL MEDICINE [address] [address] Vianey Gasca PA-C Mixed hyperlipidemia; Benign essential hypertension 03/16/2025 [facility] [address] [address] Dilan Chappell MD 02/17/2025 [facility] INTERNAL MEDICINE [address] [place] [phone] Vianey Gasca PA-C 02/02/2025 Results Follow-Up [facility] INTER[facility] MEDICINE [address] [facility] [address] [place] [address] Vianey Gasca PA-C 02/02/2025 Refill [facility] INTER[facility] MEDICINE [address] [facility] [address] [place] [address] Vianey Gasca PA-C 01/27/2025 8:50 AM EDT Lab [facility] [address] [place] [address] Benign essential hypertension; Mixed hyperlipidemia; Acquired hypothyroidism; Encounter for vitamin deficiency screening; Vitamin D deficiency; Recurrent UTI 01/27/2025 Travel 01/22/2025 3:30 PM EDT Office Visit [facility] INTERNAL MEDICINE [address] [facility] [address] [place] [address] Vianey Gasca PA-C Type 2 diabetes mellitus [...] Description 05/05/2025 2:45 PM EDT Office Visit [facility] INTERNAL MEDICINE [address] [place] [phone] Vianey Gasca PA-C [address] [place] [phone] 05/18/2025 2:40 PM EDT Appointment [facility] [address] [address] Health [...] Seen, 0-2 /HPF 01/28/2025 12:36 AM EDT [facility] WBC, UA 21-50(A) None Seen, 0-2 /HPF 01/28/2025 12:36 AM EDT [facility] Bacteria, UA None Seen None Seen /HPF 01/28/2025 12:36 AM EDT [facility] Squamous Epithelial Cells, UA 3-6(A) None Seen, 0-2 /HPF 01/28/2025 12:36 AM EDT [facility] Hyaline Casts, UA 0-2 None Seen /LPF 01/28/2025 12:36 AM EDT [facility] Methodology Automated Microscopy 01/28/2025 12:36 AM EDT [facility] Urine Urine specimen obtained by clean catch procedure / Unknown Collection / Unknown 01/27/2025 8:53 AM EDT 01/27/2025 8:53 AM EDT us Vianey Gasca PA-C URINE ORDERABLES Final Result [facility]
[address] [place] [address], * (ABNORMAL) CBC Auto Differential (01/27/2025 8:53 AM EDT) WBC 5.55 3.40 - 10.80 10*3/mm3 01/28/2025 1:16 AM [facility] RBC 4.41 3.77 - 5.28 10*6/mm3 01/28/2025 1:16 AM [facility] Hemoglobin 13.1 12.0 - 15.9 g/dL 01/28/2025 1:16 AM [facility] Hematocrit 40.6 34.0 - 46.6 % 01/28/2025 1:16 AM [facility] MCV 92.1 79.0 - 97.0 fL 01/28/2025 1:16 AM [facility] MCH 29.7 26.6 - 33.0 pg 01/28/2025 1:16 AM [facility] MCHC 32.3 31.5 - 35.7 g/dL 01/28/2025 1:16 AM [facility] RDW 12.4 12.3 - 15.4 % 01/28/2025 1:16 AM [facility] RDW-SD 42.1 37.0 - 54.0 fl 01/28/2025 1:16 AM [facility] MPV 12.5(H) 6.0 - 12.0 fL 01/28/2025 1:16 AM [facility] Platelets 214 140 - 450 10*3/mm3 01/28/2025 1:16 AM [facility] Neutrophil % 50.4 42.7 - 76.0 % 01/28/2025 1:16 AM [facility] Lymphocyte % 39.6 19.6 - 45.3 % 01/28/2025 1:16 AM [facility] Monocyte % 6.5 5.0 - 12.0 % 01/28/2025 1:16 AM [facility] Eosinophil % 2.2 0.3 - 6.2 % 01/28/2025 1:16 AM [facility] Basophil % 1.1 0.0 - 1.5 % 01/28/2025 1:16 AM [facility] Immature Grans % 0.2 0.0 - 0.5 % 01/28/2025 1:16 AM EDT [facility] Neutrophils, Absolute 2.80 1.70 - 7.00 10*3/mm3 01/28/2025 1:16 AM EDT [facility] Lymphocytes, Absolute 2.20 0.70 - 3.10 10*3/mm3 01/28/2025 1:16 AM EDT [facility] Monocytes, Absolute 0.36 0.10 - 0.90 10*3/mm3 01/28/2025 1:16 AM EDT [facility] Eosinophils, Absolute 0.12 0.00 - 0.40 10*3/mm3 01/28/2025 1:16 AM EDT [facility] Basophils, Absolute 0.06 0.00 - 0.20 10*3/mm3 01/28/2025 1:16 AM EDT [facility] Immature Grans, Absolute 0.01 0.00 - 0.05 10*3/mm3 01/28/2025 1:16 AM EDT [facility] nRBC 0.0 0.0 - 0.2 /100 WBC 01/28/2025 1:16 AM EDT [facility] Blood Venipuncture / Unknown 01/27/2025 8:53 AM EDT 01/27/2025 8:53 AM EDT us Vianey Gasca PA-C LAB BLOOD ORDERABLES F inal Result [facility]
[address] [place] [address], * Microalbumin / Creatinine Urine Ratio - Urine, Clean Catch (01/27/2025 8:53 AM EDT) Microalbumin/C reatinine Ratio 11.0 0.0 - 29.0 mg/g 01/28/2025 2:12 AM EDT [facility] Creatinine, Urine 172.8 mg/dL 01/28/2025 2:12 AM EDT [facility] Microalbumin, Urine 1.9 mg/dL 01/28/2025 2:12 AM EDT [facility] Urine Urine specimen obtained by clean catch procedure / Unknown Collection / Unknown 01/27/2025 8:53 AM EDT 01/27/2025 8:53 AM EDT Vianey Gasca PA-C URINE ORDERABLES Final Result Performing Organization Address City/[facility]/ZIP Co de Phone Number [facility]
[address] [place] [address], * Vitamin D,25-Hydroxy (01/27/2025 8:53 AM EDT) 25 Hydroxy, Vitamin D 83.6 30.0 - 100.0 ng/ml 01/28/2025 1:06 AM EDT [facility] Blood Venipuncture / Unknown 01/27/2025 8:53 AM EDT 01/27/2025 8:53 AM EDT Narrative [facility] - 01/28/2025 1:06 AM EDT Reference Range for Total Vitamin D 25(OH) Deficiency <20.0 ng/mL Insufficiency 21-29 ng/mL Sufficiency 30-100 ng/mL Toxicity >100 ng/ml Vianey Gasca PA-C LAB BLOOD ORDERABLES F inal Result [facility]
[address] [place] [address], * T3, Free (01/27/2025 8:53 AM EDT) T3, Free 2.90 2.00 - 4.40 pg/mL 01/28/2025 12:33 AM EDT [facility] Blood Venipuncture / Unknown 01/27/2025 8:53 AM EDT 01/27/2025 8:53 AM EDT Vianey Gasca PA-C LAB BLOOD ORDERABLES F inal Result Performing Organization Address City/[facility]/ZIP Co de Phone Number [facility]
[address] [place] [address], * TSH (01/27/2025 8:53 AM EDT) Pathologist [facility] TSH 1.170 0.270 - 4.200 uIU/mL 01/28/2025 12:33 AM EDT [facility] Blood Venipuncture / Unknown 01/27/2025 8:53 AM EDT 01/27/2025 8:53 AM EDT Vianey Gasca PA-C LAB BLOOD ORDERABLES F inal Result Performing Organization Address [facility] de Phone Number [facility]
[address] [place] [address], * T4, Free (01/27/2025 8:53 AM EDT) [facility] Free T4 1.45 0.92 - 1.68 ng/dL 01/28/2025 12:33 AM EDT [facility] Blood Venipuncture / Unknown 01/27/2025 8:53 AM EDT 01/27/2025 8:53 AM EDT Vianey Gasca PA-C LAB BLOOD ORDERABLES F inal Result Performing Organization Address City/[facility]/ZIP Co de Phone Number [facility]
[address] [place] [address], * Vitamin B12 (01/27/2025 8:53 AM EDT) Pathologist [facility] Vitamin B-12 360 211 - 946 pg/mL 01/28/2025 1:06 AM EDT [facility] Blood Venipuncture / Unknown 01/27/2025 8:53 AM EDT 01/27/2025 8:53 AM EDT [facility] - 01/28/2025 1:06 AM EDT Results may be falsely increased if patient taking Biotin. Vianey Gasca PA-C LAB BLOOD ORDERABLES F inal Result [facility]
[address] [place] [address], * Lipid Panel (01/27/2025 8:53 AM EDT) Total Cholesterol 129 0 - 200 mg/dL 01/28/2025 12:28 AM EDT [facility] Triglycerides 62 0 - 150 mg/dL 01/28/2025 12:28 AM EDT [facility] HDL Cholesterol 53 40 - 60 mg/dL 01/28/2025 12:28 AM EDT [facility] LDL Cholesterol 63 0 - 100 mg/dL 01/28/2025 12:28 AM EDT [facility] VLDL Cholesterol 13 5 - 40 mg/dL 01/28/2025 12:28 AM EDT [facility] LDL/HDL Ratio 1.20 01/28/2025 12:28 AM EDT [facility] Blood Venipuncture / Unknown 01/27/2025 8:53 AM EDT 01/27/2025 8:53 AM EDT [facility] - 01/28/2025 12:28 AM EDT [...] PA-C LAB BLOOD ORDERABLES F inal Result [facility]
[address] [place] [address], * Comprehensive Metabolic Panel (01/27/2025 8:53 AM EDT) Glucose 68 65 - 99 mg/dL 01/28/2025 12:28 AM EDT [facility] BUN 15 8 - 23 mg/dL 01/28/2025 12:28 AM EDT [facility] Creatinine 0.70 0.57 - 1.00 mg/dL 01/28/2025 12:28 AM EDT [facility] Sodium 141 136 - 145 mmol/L 01/28/2025 12:28 AM EDT [facility] Potassium 4.4 3.5 - 5.2 mmol/L 01/28/2025 12:28 AM EDT [facility] Chloride 105 98 - 107 mmol/L 01/28/2025 12:28 AM EDT [facility] CO2 27.7 22.0 - 29.0 mmol/L 01/28/2025 12:28 AM EDT [facility] Calcium 9.4 8.6 - 10.5 mg/dL 01/28/2025 12:28 AM EDT [facility] Total Protein 6.6 6.0 - 8.5 g/dL 01/28/2025 12:28 AM EDT [facility] Albumin 4.1 3.5 - 5.2 g/dL 01/28/2025 12:28 AM EDT [facility] ALT (SGPT) 15 1 - 33 U/L 01/28/2025 12:28 AM EDT [facility] AST (SGOT) 23 1 - 32 U/L 01/28/2025 12:28 AM T [facility] Alkaline Phosphatase 62 39 - 117 U/L 01/28/2025 12:28 AM T [facility] Total Bilirubin 0.6 0.0 - 1.2 mg/dL 01/28/2025 12:28 AM [facility] Globulin 2.5 gm/dL 01/28/2025 12:28 AM [facility] A/G Ratio 1.6 g/dL 01/28/2025 12:28 AM [facility] BUN/Creatinine Ratio 21.4 7.0 - 25.0 01/28/2025 12:28 AM T [facility] Anion Gap 8.3 5.0 - 15.0 mmol/L 01/28/2025 12:28 AM [facility] eGFR 95.5 >60.0 mL/min/1.7 3 01/28/2025 12:28 AM [facility] Blood Venipuncture / Unknown 01/27/2025 8:53 AM EDT 01/27/2025 8:53 AM EDT [facility] - 01/28/2025 12:28 AM EDT [...] PA-C LAB BLOOD ORDERABLES F inal Result [facility]
[address] [place] [address], * (ABNORMAL) POC Glycosylated Hemoglobin (Hb A1C) (01/22/2025 3:35 PM EDT) Hemoglobin A1C 5.8(A) 4.5 - 5.7 % [facility] Lot Number [id number] [facility] Expiration Date 08/19/2026 [facility] Blood 01/22/2025 3:35 PM EDT us Vianey Gasca PA-C POINT OF CARE TEST ORD ERABLES Final Result [facility]
[address] [place] [address], [place] [phone] * DEXA Bone Density Axial (12/12/2023 4:23 [...] fall-prevention measurements. The National Osteoporosis Foundation recommends (http://www.nof.org/hcp/practice/vcpnchyp-blm-uhmbuana-guidelines/clinicians-chandrakant de) that FDA-approved medical therapies be considered [...] the left hip with 95% confidence is 0.107367 gm/cm2 at the hip and 0.186856 g/cm2 at the lumbar spine. Report dictated by: Nikki Sood PA-c I have personally reviewed this case and agree with the findings above: Electronically Signed: Paul Schwab MD 12/13/2023 4:51 PM EDT Workstation ID: [id number] Narrative 12/13/2023 4:51 PM EDT DUAL-ENERGY X-RAY [...] normal patients. According to criteria established by the[facility], patients with T-scores between [...] exercises and fall-prevention measurements. The NationalOsteoporosis Foundation recommends(http://www.nof.org/hcp/practice/lljmsteh-par-fbnexsym-guidelines/clin ician s-guide) that FDA-approved medical therapies be [...] at the left hipwith 95% confidence is 0.967827 gm/cm2 at the hip and 0.459385 g/cm2 atthe lumbar spine. Report dictated by: Nikki Sood PA-c I have personally reviewed this case and agree with the findings above: Electronically Signed: Paul Schwab MD 12/13/2023 4:51 PM EDT Workstation ID: [id number] Vianey Gasca PA-C IM DXA ORDERABLES Fin [...] ve Non-Reacti ve 09/14/2023 12:14 AM EST [facility] Blood Venipuncture / Unknown 09/13/2023 8:34 AM EST 09/13/2023 8:41 AM EST Narrative [facility] - 09/14/2023 12:14 AM EST Results may be falsely decreased if patient taking Biotin. Vianey Gasca PA-C LAB BLOOD ORDERABLES F inal Result [facility]
[address] [place] [address], [place] [phone] * SCANNED - EYE EXAM (08/14/2023) Anatomical Region Laterality Modality Other Vianey Gasca PA-C CHART REVIEW TABS F inal Result * SCANNED - COLONOSCOPY (01/02/2023) Vianey Gasca PA-C CHART REVIEW TABS F inal Result from Last 3 Months or Most Recently Relevant to Health Maintenance Insurance R Care Teams Vocational Education Teacher Relationship Specialty Start Date End Date Vianey Gasca PA-C [address] [facility] [address] [place] [address] PCP - General Internal Medicine 10/27/19
[2025-04-20 14:09] VITALS: BP 105/60; PULSE 72; RESP 16; TEMP 36.5; O2SAT 98
[2025-04-20] MEDS: ERTAPENEM SODIUM 1 GM in 0.9 % SODIUM CHLORIDE 50 ML IV (14:09)
[2025-04-20] MEDS: SODIUM CHLORIDE 0.9% 10ML FLUSH SYRINGE 10 ML IV (14:09)
[2025-04-20 14:45] VITALS: BP 118/69; PULSE 77; RESP 16; TEMP 36.5; O2SAT 98
== END 2025-04-20 14:50 | disposition home or self-care (01) ==
LOC: INF 13:58
PROVIDERS: PCP Nurse Practitioner Family; Visit Provider Nurse Practitioner Family
DX: N39.0 Urinary tract infection, site not specified (principal)
CPT/HCPCS: 96365; J1335

== ENCOUNTER 2025-04-24 12:20 | Outpatient (CLI) | payer OTHER, SELFPAY ==
[2025-04-24 17:22] LABS: Microscopic, Urine URINE MICROSCOPIC (MICROSCOPIC)
[2025-04-24 17:39] LABS: Bilirubin,Urine Negative (Negative); Color,Urine YELLOW (Yellow); Glucose,Urine (UA) Negative (Negative); Ketones,Urine Negative (Negative); Leukocyte Esterase,Urine TRACE (Negative); PH,Urine 6.0 (5.0-8.5); Protein,Urine Negative (Negative); Specific Gravity, Urine 1.020 (1.005-1.030); Urobilinogen,Urine 0.2 EU/dl (0.2)
[2025-04-24 20:06] LABS: Bacteria,Urine Trace /lpf
--- OUTSIDE RECORDS SUMMARY | 2025-04-27 12:24 | XMS_ITS | Encounter Summary ---
[facility] Address [address] [place] [address] Care Team Providers Care Blanker Press Operator Name Role Phone Vianey Gasca PA-C Primary Care Provider Reason for Visit * Reason Comments Med Refill Encounter Details Date Type Department Care Team (Late st Contact Info) Description 03/28/2024 Refill [facility] INTER[facility] MEDICINE [address] [address] Vianey Gasca PA-C [address] [address] Type 2 diabetes mellitus without [...] Description 05/05/2025 2:45 PM EDT Office Visit [facility] INTER[facility] MED[facility] [address] [address] Vianey Gasca PA-C [address] [address] 05/18/2025 2:40 PM EDT Appointment [facility] [address] [place] [address] documented as of this encounter Visit Diagnoses Diagnosis Type 2 diabetes mellitus without complication, without long-term current use of insulin documented in this encounter Care Teams Blanker Press Operator Relationship Specialty Start Date End Date Vianey Gasca PA-C [address] [address] PCP - General Internal Medicine 10/27/19 documented as of this encounter
--- OUTSIDE RECORDS SUMMARY | 2025-04-27 12:24 | XMS_ITS | Encounter Summary ---
[facility] [address] [place] [address] Care Team Providers Care Bootmaker Name Role Phone Vianey Gasca PA-C Primary Care Provider Reason for Visit * Reason Onset Date Comments MAMMOGRAM 04/09/2025 Encounter Details Date Type Department Care Team (Late st Contact Info) Description 04/09/2025 Telephone [facility] INTER[facility] MEDICINE [address] [phone] Vianey Gasca PA-C [address] [address] MAMMOGRAM Social History Tobacco Use [...] been placed for a mammogram by patient's TAX PROFESSIONAL. She will call the [place] [facility] to schedule. * Telephone Encounter - Adriana Vaughan RegSched Rep - 04/09/2025 3:09 PM EDT Caller: Vianey Perla Relationship: Self Best call back number: [phone] What orders are you requesting (i.e. lab or imaging): MAMMOGRAM In what timeframe would the patient need to come in: SOON POSSIBLE Where will you receive your lab/imaging services: [facility] Additional notes: documented in this encounter Plan of Treatment Upcoming Encounters Date Type Department Care Team (Late st Contact Info) Description 05/05/2025 2:45 PM EDT Office Visit [facility] INTER[facility] MEDICINE [address] [phone] Vianey Gasca PA-C [address] [address] 05/18/2025 2:40 PM EDT Appointment [facility] [address] [place] [address] documented as of this encounter Visit Diagnoses Not on filedocumented in this encounter Care Teams Bootmaker Relationship Specialty Start Date End Date Vianey Gasca PA-C [address] [address] PCP - General Internal Medicine 10/27/19 documented as of this encounter
--- OUTSIDE RECORDS SUMMARY | 2025-04-27 12:24 | XMS_ITS | Encounter Summary ---
[facility] Address [address] [place] [address] Care Team Providers Care Home Energy Consultant Name Role Phone Vianey Gasca PA-C Primary Care Provider Reason for Visit * Reason Onset Date Comments MEDICATION CONCERN 04/09/2025 Encounter Details Date Type Department Care Team (Late st Contact Info) Description 04/09/2025 Telephone [facility] INTERNAL MEDICINE [address] [phone] Vianey Gasca PA-C [address] [address] MEDICATION CONCERN Social History Tobacco [...] Perla Relationship: Self Best call back number: [phone] Which medication are you concerned about: Lantus [...] Description 05/05/2025 2:45 PM EDT Office Visit [facility] [address] [address] Vianey Gasca PA-C [address] [address] 05/18/2025 2:40 PM EDT Appointment [facility] [address] [place] [address] documented as of this encounter Visit Diagnoses Diagnosis Type 2 diabetes mellitus without complication, without long-term current use of insulin- Primary documented in this encounter Care Teams Home Energy Consultant Relationship Specialty Start Date End Date Vianey Gasca PA-C [address] [address] PCP - General Internal Medicine 10/27/19 documented as of this encounter
--- OUTSIDE RECORDS SUMMARY | 2025-04-27 12:24 | XMS_ITS | Encounter Summary ---
[facility] Address [address] [place] [address] Care Team Providers Care Category Development Analyst Name Role Phone Vianey Gasca PA-C Primary Care Provider Reason for Visit * Reason Comments Med Refill Encounter Details Date Type Department Care Team (Late Contact Info) Description 03/01/[address] [facility] INTER[facility] MED[facility]INE [address] [phone] Vianey Gasca PA-C [address] [address] Acquired hypothyroidism; Benign essential hypertension [...] 2:45 PM EDT Office Visit [facility] INTER[facility] MEDICINE [address] [place] [phone] Vianey Gasca PA-C [address] [address] 05/18/2025 2:40 PM EDT Appointment [facility] [address] [place] [address] documented as of this encounter Visit Diagnoses Diagnosis Acquired hypothyroidism Unspecified hypothyroidism Benign essential hypertension Essential hypertension, benign documented in this encounter Care Teams Category Development Analyst Relationship Specialty Start Date End Date Vianey Gasca PA-C [address] [address] PCP - General Internal Medicine 10/27/19 documented as of this encounter
--- OUTSIDE RECORDS SUMMARY | 2025-04-27 12:24 | XMS_ITS | Encounter Summary ---
[facility] Address [address] [place] [address] Care Team Providers Care Firepot Operator And Tender Name Role Phone Vianey Gasca PA-C Primary Care Provider Reason for Visit * Reason Comments Med Refill Encounter Details Date Type Department Care Team (Late st Contact Info) Description 04/15/2025 Refill [facility] [address] [phone] Dilan Chappell MD [address] [address] OAB (overactive bladder) Social History [...] Description 05/05/2025 2:45 PM EDT Office Visit [facility] [address] [phone] Vianey Gasca PA-C [address] [address] 05/18/2025 2:40 PM EDT [facility]ointment [facility] [address] [place] [address] documented as of this encounter Visit Diagnoses Diagnosis OAB (overactive bladder) documented in this encounter Care Teams Firepot Operator And Tender Relationship Specialty Start Date End Date Vianey Gasca PA-C [address] [address] PCP - General Internal Medicine 10/27/19 documented as of this encounter
--- OUTSIDE RECORDS SUMMARY | 2025-04-27 12:24 | XMS_ITS | Encounter Summary ---
[facility] [address] [place] [address] Care Team Providers Care Process Inspector Name Role Phone Vianey Gasca PA-C Primary Care Provider Reason for Visit * Reason Comments Med Refill Encounter Details Date Type Department Care Team (Late st Contact Info) Description 03/16/2025 Refill [facility] [address] [phone] Dilan Chappell MD [address] [address] OAB (overactive bladder) Social History [...] Office Visit [facility] [address] [phone] Vianey Gasca PA-C [address] [address] 05/18/2025 2:40 PM EDT Appointment [facility] [address] [place] [address] documented as of this encounter Visit Diagnoses Diagnosis OAB (overactive bladder) documented in this encounter Care Teams Process Inspector Relationship Specialty Start Date End Date Vianey Gasca PA-C [address] [address] PCP - General Internal Medicine 10/27/19 documented as of this encounter
--- OUTSIDE RECORDS SUMMARY | 2025-04-27 12:24 | XMS_ITS | Encounter Summary ---
[facility] Address [address] [place] [address] Care Team Providers Care Facility Administrator Name Role Phone Vianey Gasca PA-C Primary Care Provider Encounter Details Date Type Department Care Team (Late st Contact Info) Description 01/06/2025 Results Follow-Up [facility] [address] [place] [address] Dia Casas MD [address] [facility] [address] [place] [address] Social History Tobacco Use Types Packs/Day Years [...] [facility] [address] [id number] Vianey Gasca PA-C [address] [address] 05/18/2025 2:40 PM EDT Appointment [address] [phone] documented as of this encounter Visit Diagnoses Not on filedocumented in this encounter Care Teams Facility Administrator Relationship Specialty Start Date End Date Vianey Gasca PA-C [address] [id number] PCP - General Internal Medicine 10/27/19 documented as of this encounter
--- OUTSIDE RECORDS SUMMARY | 2025-04-27 12:24 | XMS_ITS | Data Portability ---
Author Organization [facility] Linwood Omar conley Kristopher [place] Address [address] [facility] [address] [place] [address] Assessment Encounter Date Assessment Date Assessment LastModified [...] Seldinger technique and the kit provided by [employer], we placed our permanent lead under good [...] Lab urinalysi s panel, auto 2024 025 [facility], [address], [address], [place], [address], 11/15/2024 12:55:00 culture, urine [email or web address] [facility], [address] [place] [address], [address], 12/14/2023 11:26:48 urinalysi s panel, auto 2023 024 [facility], [address], [address], [place], [address], 11/17/2023 10:50:10 urinalysi s panel, auto 2022 023 [facility], [address], [address], [place], [address], 09/27/2023 07:36:04 culture, urine 2022 023 [facility], [address] [place] [address], [address], 09/27/2023 07:36:04 Referral None recorded. Procedures None recorded. Surgeries sacral neuromodu lation stage 1 (SURG) [email or web address] [facility], [address], [address], 11/23/2023 16:51:41 sacral neuromodu lation stage 2 (SURG) [email or web address] [facility], [address] [address], [place], [address], 11/23/2023 16:51:41 Imaging None recorded. Medication Orders Percocet 5 mg-325 mg tablet 2023 024 [facility], [address] [place] [address], [facility] [address], [place], [address], 10/19/2023 13:55:03 doxycycli ne monohydra te 100 mg capsule 2023 024 [facility], [address] [place] [address], [facility], [place], [address], 10/19/2023 13:54:59 Patient TargetsNo targets recorded. Patient Instructions Encounter Date Encounter Id Patient Instructions Last Modified By Organization Details Last Modified Time 11/13/2024 [id number] - Add vitamin C to your current Methionamine regimen to increase effectiveness against UTIs. - Monitor your urinary symptoms and report any persistent issues. 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 ID and sensi tivit y in progr ess. See Shannon te Resul t(s) Below Klebs iella pneum oniae Not Available [facility] [address] [place] [address], [address], 09/22/2023 16:04:38 09/20/20 23 09/22/2023 URINE CULTU RE amox/K clav'ate(C) <=8/4 ug/mL susceptib le Not Available [facility] [address] [place] [address], [address], 09/22/2023 16:04:38 09/20/20 23 09/22/2023 URINE CULTU RE cefazolin <=2 ug/mL susceptib le Not Available [facility] [address] [place] [address], [address], 09/22/2023 16:04:38 09/20/20 23 09/22/2023 URINE CULTU RE ceftazidime <=1 ug/mL susceptib le Not Available [facility] [address] [place] [address], [address], 09/22/2023 16:04:38 09/20/20 23 09/22/2023 URINE CULTU RE ceftriaxone <=1 ug/mL susceptib le Not Available [facility] [address] [place] [address], [address], 09/22/2023 16:04:38 09/20/20 23 09/22/2023 URINE CULTU RE cefuroxime <=4 ug/mL susceptib le Not Available [facility] [address] [place] [address], [address], 09/22/2023 16:04:38 09/20/20 23 09/22/2023 URINE CULTU RE ciprofloxaci n <=0.25 ug/mL susceptib le Not Available [facility] [address] [place] [address], [address], 09/22/2023 16:04:38 09/20/20 23 09/22/2023 URINE CULTU RE gentamicin <=4 ug/mL susceptib le Not Available [facility] [address] [place] [address], [address], 09/22/2023 16:04:38 09/20/20 23 09/22/2023 URINE CULTU RE imipenem <=1 ug/mL susceptib le Not Available [facility] [address] [place] [address], [address], 09/22/2023 16:04:38 09/20/20 23 09/22/2023 URINE CULTU RE levofloxacin <=0.5 ug/mL susceptib le Not Available [facility] [address] [place] [address], [address], 09/22/2023 16:04:38 09/20/20 23 09/22/2023 URINE CULTU RE nitrofuranto in >64 ug/mL resistant Not Available [facility] [address] [place] [address], [address], 09/22/2023 16:04:38 09/20/20 23 09/22/2023 URINE CULTU RE piperacillin /robby <=16 ug/mL susceptib le Not Available [facility] [address] [place] [address], [address], 09/22/2023 16:04:38 09/20/20 23 09/22/2023 URINE CULTU RE tetracycline <=4 ug/mL susceptib le Not Available [facility] [address] [place] [address], [address], 09/22/2023 16:04:38 09/20/20 23 09/22/2023 URINE CULTU RE tobramycin <=2 ug/mL susceptib le Not Available [facility] [address] [place] [address], [address], 09/22/2023 16:04:38 09/20/20 23 09/22/2023 URINE CULTU RE trimeth/sulf a <=2/38 ug/mL susceptib le Not Available [facility] [address] [place], [address], 09/22/2023 16:04:38 09/20/20 23 09/20/2023 urina lysis panel , auto Unknown Analyte Clean Catch Not Available [facility] [address], [place], [address], 09/20/2023 16:18:59 09/20/20 23 09/20/2023 urina lysis panel , auto Unknown Analyte Yellow Not Available [facility] [address], [place], [address], 09/20/2023 16:18:59 09/20/20 23 09/20/2023 urina lysis panel , auto Unknown Analyte Cloudy Not Available [facility] [address], [place], [address], 09/20/2023 16:18:59 09/20/20 23 09/20/2023 urina lysis panel , auto Unknown Analyte 1.020 Not Available [facility] [address], [place], [address], 09/20/2023 16:18:59 09/20/20 23 09/20/2023 urina lysis panel , auto Unknown Analyte 1.003- 1.035 Not Available [facility] [address], [place], [address], 09/20/2023 16:18:59 09/20/20 23 09/20/2023 urina lysis panel , auto Unknown Analyte 5.0 Not Available [facility] [address], [place], [address], 09/20/2023 16:18:59 09/20/20 23 09/20/2023 urina lysis panel , auto Unknown Analyte 5.0-8. 0 Not Available [facility] [address], [place], [address], 09/20/2023 16:18:59 09/20/20 23 09/20/2023 urina lysis panel , auto Unknown Analyte 500 Sumi/ul (++) Not Available [facility] [address], [place], [address], 09/20/2023 16:18:59 09/20/20 23 09/20/2023 urina lysis panel , auto Unknown Analyte Negati ve Not Available [facility] [address], [place], [address], 09/20/2023 16:18:59 09/20/20 23 09/20/2023 urina lysis panel , auto Unknown Analyte Negati ve Not Available [facility] [address], [place], [address], 09/20/2023 16:18:59 09/20/20 23 09/20/2023 urina lysis panel , auto Unknown Analyte Negati ve Not Available [facility] [address], [place], [address], 09/20/2023 16:18:59 09/20/20 23 09/20/2023 urina lysis panel , auto Unknown Analyte Negati ve Not Available [facility] [address], [place], [address], 09/20/2023 16:18:59 09/20/20 23 09/20/2023 urina lysis panel , auto Unknown Analyte Negati ve Not Available [facility] [address], [place], [address], 09/20/2023 16:18:59 09/20/20 23 09/20/2023 urina lysis panel , auto Unknown Analyte Normal Not Available [facility] [address], [place], [address], 09/20/2023 16:18:59 09/20/20 23 09/20/2023 urina lysis panel , auto Unknown Analyte Normal Not Available [facility] [address], [place], [address], 09/20/2023 16:18:59 09/20/20 23 09/20/2023 urina lysis panel , auto Unknown Analyte Negati ve Not Available [facility] [address], [place], [address], 09/20/2023 16:18:59 09/20/20 23 09/20/2023 urina lysis panel , auto Unknown Analyte Negati ve Not Available [facility] [address], [place], [address], 09/20/2023 16:18:59 09/20/20 23 09/20/2023 urina lysis panel , auto Unknown Analyte Normal Not Available [facility] [address], [place], [address], 09/20/2023 16:18:59 09/20/20 23 09/20/2023 urina lysis panel , auto Unknown Analyte Normal 1 mg/dl Not Available [facility] [address], [place], [address], 09/20/2023 16:18:59 09/20/20 23 09/20/2023 urina lysis panel , auto Unknown Analyte Negati ve Not Available [facility] [address], [place], [address], 09/20/2023 16:18:59 09/20/20 23 09/20/2023 urina lysis panel , auto Unknown Analyte Negati ve Not Available [facility] [address], [place], [address], 09/20/2023 16:18:59 09/20/20 23 09/20/2023 urina lysis panel , auto Unknown Analyte 250 Kike/ul Not Available [facility] [address], [place], [address], 09/20/2023 16:18:59 09/20/20 23 09/20/2023 urina lysis panel , auto Unknown Analyte Negati ve Not Available [facility] [address], [place], [address], 09/20/2023 16:18:59 10/10/19 24 10/10/2023 urina lysis panel , auto Unknown Analyte Clean Catch Not Available [facility] Schedule [address] [place], [address], 10/10/2023 13:39:50 10/10/19 24 10/10/2023 urina lysis panel , auto Unknown Analyte Yellow Not Available [facility] Schedule [address] [place], [address], 10/10/2023 13:39:50 10/10/19 24 10/10/2023 urina lysis panel , auto Unknown Analyte Clear Not Available [facility] Schedule [address] [place], [address], 10/10/2023 13:39:50 10/10/19 24 10/10/2023 urina lysis panel , auto Unknown Analyte 1.015 Not Available [facility] Schedule [address] [place] [address], [address], 10/10/2023 13:39:50 10/10/19 24 10/10/2023 urina lysis panel , auto Unknown Analyte 1.003- 1.035 Not Available [facility] Schedule [address] [place] [address], [address], 10/10/2023 13:39:50 10/10/19 24 10/10/2023 urina lysis panel , auto Unknown Analyte 6.0 Not Available [facility] Schedule [address] [place], [address], 10/10/2023 13:39:50 10/10/19 24 10/10/2023 urina lysis panel , auto Unknown Analyte 5.0-8. 0 Not Available [facility] Surgery Schedule [facility] [place], [address], 10/10/2023 13:39:50 10/10/19 24 10/10/2023 urina lysis panel , auto Unknown Analyte 25 Sumi/ul Trace Not Available [facility] Schedule [address] [place], [address], 10/10/2023 13:39:50 10/10/19 24 10/10/2023 urina lysis panel , auto Unknown Analyte Negati ve Not Available [facility] Schedule [address] [place], [address], 10/10/2023 13:39:50 10/10/19 24 10/10/2023 urina lysis panel , auto Unknown Analyte Negati ve Not Available [facility] Schedule [address] [place], [address], 10/10/2023 13:39:50 10/10/19 24 10/10/2023 urina lysis panel , auto Unknown Analyte Negati ve Not Available [facility] Schedule [address] [place], [address], 10/10/2023 13:39:50 10/10/19 24 10/10/2023 urina lysis panel , auto Unknown Analyte Negati ve Not Available [facility] Schedule [address] [place], [address], 10/10/2023 13:39:50 10/10/19 24 10/10/2023 urina lysis panel , auto Unknown Analyte Negati ve Not Available [facility] Schedule [address] [place], [address], 10/10/2023 13:39:50 10/10/19 24 10/10/2023 urina lysis panel , auto Unknown Analyte Normal Not Available [facility] Schedule [address] [place], [address], 10/10/2023 13:39:50 10/10/19 24 10/10/2023 urina lysis panel , auto Unknown Analyte Normal Not Available [facility] Schedule [address] [place], [address], 10/10/2023 13:39:50 10/10/19 24 10/10/2023 urina lysis panel , auto Unknown Analyte Negati ve Not Available [facility] Schedule [address] [place], [address], 10/10/2023 13:39:50 10/10/19 24 10/10/2023 urina lysis panel , auto Unknown Analyte Negati ve Not Available [facility] Schedule [address] [place], [address], 10/10/2023 13:39:50 10/10/19 24 10/10/2023 urina lysis panel , auto Unknown Analyte Normal Not Available [facility] Schedule [address] [place], [address], 10/10/2023 13:39:50 10/10/19 24 10/10/2023 urina lysis panel , auto Unknown Analyte Normal 1 mg/dl Not Available [facility] Schedule [address] [place], [address], 10/10/2023 13:39:50 10/10/19 24 10/10/2023 urina lysis panel , auto Unknown Analyte Negati ve Not Available [facility] Schedule [address] [place], [address], 10/10/2023 13:39:50 10/10/19 24 10/10/2023 urina lysis panel , auto Unknown Analyte Negati ve Not Available [facility] Schedule [address] [place], [address], 10/10/2023 13:39:50 10/10/19 24 10/10/2023 urina lysis panel , auto Unknown Analyte 50 Kike/ul Not Available [facility] Schedule [address] [place], [address], 10/10/2023 13:39:50 10/10/19 24 10/10/2023 urina lysis panel , auto Unknown Analyte Negati ve Not Available [facility] Schedule [address] [place], [address], 10/10/2023 13:39:50 10/19/19 24 10/19/2023 urina lysis panel , auto Unknown Analyte Clean Catch Not Available [facility] Schedule [address] [place], [address], 10/19/2023 11:45:16 10/19/19 24 10/19/2023 urina lysis panel , auto Unknown Analyte Yellow Not Available [facility] Schedule [address] [place], [address], 10/19/2023 11:45:16 10/19/19 24 10/19/2023 urina lysis panel , auto Unknown Analyte Clear Not Available [facility] Schedule [address] [place], [address], 10/19/2023 11:45:16 10/19/19 24 10/19/2023 urina lysis panel , auto Unknown Analyte 1.020 Not Available [facility] Schedule [address] [place], [address], 10/19/2023 11:45:16 10/19/19 24 10/19/2023 urina lysis panel , auto Unknown Analyte 1.003- 1.035 Not Available [facility] Schedule [address] [place], [address], 10/19/2023 11:45:16 10/19/19 24 10/19/2023 urina lysis panel , auto Unknown Analyte 5.0 Not Available [facility] Schedule [address] [place], [address], 10/19/2023 11:45:16 10/19/19 24 10/19/2023 urina lysis panel , auto Unknown Analyte 5.0-8. 0 Not Available [facility] Schedule [address] [place], [address], 10/19/2023 11:45:16 10/19/19 24 10/19/2023 urina lysis panel , auto Unknown Analyte 75 Sumi/ul (+) Not Available [facility] Schedule [address] [place], [address], 10/19/2023 11:45:16 10/19/19 24 10/19/2023 urina lysis panel , auto Unknown Analyte Negati ve Not Available [facility] Schedule [address] [place], [address], 10/19/2023 11:45:16 10/19/19 24 10/19/2023 urina lysis panel , auto Unknown Analyte Negati ve Not Available [facility] Schedule [address] [place], [address], 10/19/2023 11:45:16 10/19/19 24 10/19/2023 urina lysis panel , auto Unknown Analyte Negati ve Not Available [facility] Schedule [address] [place], [address], 10/19/2023 11:45:16 10/19/19 24 10/19/2023 urina lysis panel , auto Unknown Analyte Negati ve Not Available [facility] Schedule [address] [place], [address], 10/19/2023 11:45:16 10/19/19 24 10/19/2023 urina lysis panel , auto Unknown Analyte Negati ve Not Available [facility] Schedule [address] [place], [address], 10/19/2023 11:45:16 10/19/19 24 10/19/2023 urina lysis panel , auto Unknown Analyte Normal Not Available [facility] Schedule [address] [place], [address], 10/19/2023 11:45:16 10/19/19 24 10/19/2023 urina lysis panel , auto Unknown Analyte Normal Not Available [facility] Schedule [address] [place], [address], 10/19/2023 11:45:16 10/19/19 24 10/19/2023 urina lysis panel , auto Unknown Analyte Negati ve Not Available [facility] Schedule [address] [place], [address], 10/19/2023 11:45:16 10/19/19 24 10/19/2023 urina lysis panel , auto Unknown Analyte Negati ve Not Available [facility] Schedule [address] [place], [address], 10/19/2023 11:45:16 10/19/19 24 10/19/2023 urina lysis panel , auto Unknown Analyte Normal Not Available [facility] Schedule [address] [place], [address], 10/19/2023 11:45:16 10/19/19 24 10/19/2023 urina lysis panel , auto Unknown Analyte Normal 1 mg/dl Not Available [facility] Schedule [address] [place], [address], 10/19/2023 11:45:16 10/19/19 24 10/19/2023 urina lysis panel , auto Unknown Analyte Negati ve Not Available [facility] Schedule [address] [place], [address], 10/19/2023 11:45:16 10/19/19 24 10/19/2023 urina lysis panel , auto Unknown Analyte Negati ve Not Available [facility] Schedule [address] [place], [address], 10/19/2023 11:45:16 10/19/19 24 10/19/2023 urina lysis panel , auto Unknown Analyte 250 Kike/ul Not Available [facility] Schedule [address] [place], [address], 10/19/2023 11:45:16 10/19/19 24 10/19/2023 urina lysis panel , auto Unknown Analyte Negati ve Not Available [facility] Surgery Schedule [address], [place], [address], 10/19/2023 11:45:16 11/15/19 24 11/15/2023 urina lysis panel , auto Unknown Analyte Clean Catch Not Available [facility] [address], [place], [address], 11/15/2023 16:39:36 11/15/19 24 11/15/2023 urina lysis panel , auto Unknown Analyte Yellow Not Available [facility] [address], [place], [address], 11/15/2023 16:39:36 11/15/19 24 11/15/2023 urina lysis panel , auto Unknown Analyte Clear Not Available [facility] [place] [address], [place], [address], 11/15/2023 16:39:36 11/15/19 24 11/15/2023 urina lysis panel , auto Unknown Analyte 1.020 Not Available [facility] [address], [place], [address], 11/15/2023 16:39:36 11/15/19 24 11/15/2023 urina lysis panel , auto Unknown Analyte 1.003- 1.035 Not Available [facility] [address], [place], [address], 11/15/2023 16:39:36 11/15/19 24 11/15/2023 urina lysis panel , auto Unknown Analyte 5.0 Not Available [facility] [address], [place], [address], 11/15/2023 16:39:36 11/15/19 24 11/15/2023 urina lysis panel , auto Unknown Analyte 5.0-8. 0 Not Available [facility] [address], [place], [address], 11/15/2023 16:39:36 11/15/19 24 11/15/2023 urina lysis panel , auto Unknown Analyte 500 Sumi/ul (++) Not Available [facility] [address], [place], [address], 11/15/2023 16:39:36 11/15/19 24 11/15/2023 urina lysis panel , auto Unknown Analyte Negati ve Not Available [facility] [address], [place], [address], 11/15/2023 16:39:36 11/15/19 24 11/15/2023 urina lysis panel , auto Unknown Analyte Negati ve Not Available [facility] [address], [place], [address], 11/15/2023 16:39:36 11/15/19 24 11/15/2023 urina lysis panel , auto Unknown Analyte Negati ve Not Available [facility] [address], [place], [address], 11/15/2023 16:39:36 11/15/19 24 11/15/2023 urina lysis panel , auto Unknown Analyte Negati ve Not Available [facility] [facility] [address], [place], [address], 11/15/2023 16:39:36 11/15/19 24 11/15/2023 urina lysis panel , auto Unknown Analyte Negati ve Not Available [facility] [address], [place], [address], 11/15/2023 16:39:36 11/15/19 24 11/15/2023 urina lysis panel , auto Unknown Analyte Normal Not Available [facility] [address], [place], [address], 11/15/2023 16:39:36 11/15/19 24 11/15/2023 urina lysis panel , auto Unknown Analyte Normal Not Available [facility] [address], [place], [address], 11/15/2023 16:39:36 11/15/19 24 11/15/2023 urina lysis panel , auto Unknown Analyte Negati ve Not Available [facility] [address], [place], [address], 11/15/2023 16:39:36 11/15/19 24 11/15/2023 urina lysis panel , auto Unknown Analyte Negati ve Not Available [facility] [address], [place], [address], 11/15/2023 16:39:36 11/15/19 24 11/15/2023 urina lysis panel , auto Unknown Analyte Normal Not Available [facility] [address], [place], [address], 11/15/2023 16:39:36 11/15/19 24 11/15/2023 urina lysis panel , auto Unknown Analyte Normal 1 mg/dl Not Available [facility] [address], [place], [address], 11/15/2023 16:39:36 11/15/19 24 11/15/2023 urina lysis panel , auto Unknown Analyte Negati ve Not Available [facility] [address] [facility] [address], [place], [address], 11/15/2023 16:39:36 11/15/19 24 11/15/2023 urina lysis panel , auto Unknown Analyte Negati ve Not Available [facility] [address], [place], [address], 11/15/2023 16:39:36 11/15/19 24 11/15/2023 urina lysis panel , auto Unknown Analyte 250 Kike/ul Not Available [facility] [address] [facility] [address], [place], [address], 11/15/2023 16:39:36 11/15/19 24 11/15/2023 urina lysis panel , auto Unknown Analyte Negati ve Not Available [facility] [address], [place], [address], 11/15/2023 16:39:36 12/07/19 24 12/07/2023 URINE CULTU RE klebsiella pneumoniae Organi sm: Klebsi lana pneumo niae Not Available [facility] [address] [place] [address], [place], [address], 12/10/2023 09:33:47 12/07/19 24 12/10/2023 URINE CULTU RE urine culture abnormal ISOLA TE #1 COLON Y COUNT : 10,00 0 - 100,0 00 CFU/M L Proba ble Gram Negat martha Bacil rogerio. ID and sensi tivit y in progr ess. See Shannon te Resul t(s) Below Klebs iella pneum oniae Not Available [facility] [address] [place] [address], [address], 12/10/2023 09:33:47 12/07/19 24 12/10/2023 URINE CULTU RE amox/K clav'ate(C) <=8/4 ug/mL susceptib le Not Available [facility] [address] [place] [address], [address], 12/10/2023 09:33:47 12/07/19 24 12/10/2023 URINE CULTU RE cefazolin <=2 ug/mL susceptib le Not Available [facility] [address] [place] [address], [address], 12/10/2023 09:33:47 12/07/19 24 12/10/2023 URINE CULTU RE ceftazidime <=1 ug/mL susceptib le Not Available [facility] [address] [place] [address], [address], 12/10/2023 09:33:47 12/07/19 24 12/10/2023 URINE CULTU RE ceftriaxone <=1 ug/mL susceptib le Not Available [facility] [address] [place] [address], [address], 12/10/2023 09:33:47 12/07/19 24 12/10/2023 URINE CULTU RE cefuroxime 16 ug/mL intermedi ate Not Available [facility] [address] [place] [address], [address], 12/10/2023 09:33:47 12/07/19 24 12/10/2023 URINE CULTU RE ciprofloxaci n 0.5 ug/mL intermedi ate Not Available [facility] [address] [place] [address], [address], 12/10/2023 09:33:47 12/07/19 24 12/10/2023 URINE CULTU RE gentamicin <=4 ug/mL susceptib le Not Available [facility] [address] [place] [address], [address], 12/10/2023 09:33:47 12/07/19 24 12/10/2023 URINE CULTU RE imipenem <=1 ug/mL susceptib le Not Available [facility] [address] [place] [address], [address], 12/10/2023 09:33:47 12/07/19 24 12/10/2023 URINE CULTU RE levofloxacin <=0.5 ug/mL susceptib le Not Available [facility] [address] [place] [address], [address], 12/10/2023 09:33:47 12/07/19 24 12/10/2023 URINE CULTU RE nitrofuranto in 64 ug/mL intermedi ate Not Available [facility] [address] [place] [address], [address], 12/10/2023 09:33:47 12/07/19 24 12/10/2023 URINE CULTU RE piperacillin /robby <=16 ug/mL susceptib le Not Available [facility] [address] [place] [address], [address], 12/10/2023 09:33:47 12/07/19 24 12/10/2023 URINE CULTU RE tetracycline <=4 ug/mL susceptib le Not Available [facility] [address] [place] [address], [address], 12/10/2023 09:33:47 12/07/19 24 12/10/2023 URINE CULTU RE tobramycin <=2 ug/mL susceptib le Not Available [facility] [address] [place], [address], 12/10/2023 09:33:47 12/07/19 24 12/10/2023 URINE CULTU RE trimeth/sulf a <=2/38 ug/mL susceptib le Not Available [facility] [address] [place], [address], 12/10/2023 09:33:47 11/13/19 25 11/13/2024 urina lysis panel , auto Unknown Analyte Clean Catch Not Available [facility] [address], [place], [address], 11/13/2024 14:36:14 11/13/19 25 11/13/2024 urina lysis panel , auto Unknown Analyte Yellow Not Available [facility] [address], [place], [address], 11/13/2024 14:36:14 11/13/19 25 11/13/2024 urina lysis panel , auto Unknown Analyte Clear Not Available [facility] [address], [place], [address], 11/13/2024 14:36:14 11/13/19 25 11/13/2024 urina lysis panel , auto Unknown Analyte 1.005 Not Available [facility] [address], [place], [address], 11/13/2024 14:36:14 11/13/19 25 11/13/2024 urina lysis panel , auto Unknown Analyte 1.003- 1.035 Not Available [facility] [address], [place], [address], 11/13/2024 14:36:14 11/13/19 25 11/13/2024 urina lysis panel , auto Unknown Analyte 6.0 Not Available [facility] [address], [place], [address], 11/13/2024 14:36:14 11/13/19 25 11/13/2024 urina lysis panel , auto Unknown Analyte 5.0-8. 0 Not Available [facility] [address], [place], [address], 11/13/2024 14:36:14 11/13/19 25 11/13/2024 urina lysis panel , auto Unknown Analyte 25 Sumi/ul Trace Not Available [facility] [address], [place], [address], 11/13/2024 14:36:14 11/13/19 25 11/13/2024 urina lysis panel , auto Unknown Analyte Negati ve Not Available [facility] [address], [place], [address], 11/13/2024 14:36:14 11/13/19 25 11/13/2024 urina lysis panel , auto Unknown Analyte Negati ve Not Available [facility] [address], [place], [address], 11/13/2024 14:36:14 11/13/19 25 11/13/2024 urina lysis panel , auto Unknown Analyte Negati ve Not Available [facility] [address], [place], [address], 11/13/2024 14:36:14 11/13/19 25 11/13/2024 urina lysis panel , auto Unknown Analyte Negati ve Not Available [facility] [address], [place], [address], 11/13/2024 14:36:14 11/13/19 25 11/13/2024 urina lysis panel , auto Unknown Analyte Negati ve Not Available [facility] [address], [place], [address], 11/13/2024 14:36:14 11/13/19 25 11/13/2024 urina lysis panel , auto Unknown Analyte Normal Not Available [facility] [address], [place], [address], 11/13/2024 14:36:14 11/13/19 25 11/13/2024 urina lysis panel , auto Unknown Analyte Normal Not Available [facility] [address], [place], [address], 11/13/2024 14:36:14 11/13/19 25 11/13/2024 urina lysis panel , auto Unknown Analyte Negati ve Not Available [facility] [address], [place], [address], 11/13/2024 14:36:14 11/13/19 25 11/13/2024 urina lysis panel , auto Unknown Analyte Negati ve Not Available [facility] [address], [place], [address], 11/13/2024 14:36:14 11/13/19 25 11/13/2024 urina lysis panel , auto Unknown Analyte Normal Not Available [facility] [address], [place], [address], 11/13/2024 14:36:14 11/13/19 25 11/13/2024 urina lysis panel , auto Unknown Analyte Normal 1 mg/dl Not Available [facility] [address], [place], [address], 11/13/2024 14:36:14 11/13/19 25 11/13/2024 urina lysis panel , auto Unknown Analyte Negati ve Not Available [facility] [address], [place], [address], 11/13/2024 14:36:14 11/13/19 25 11/13/2024 urina lysis panel , auto Unknown Analyte Negati ve Not Available [facility] [address], [place], [address], 11/13/2024 14:36:14 11/13/19 25 11/13/2024 urina lysis panel , auto Unknown Analyte 50 Kike/ul Not Available [facility] [address], [place], [address], 11/13/2024 14:36:14 11/13/19 25 11/13/2024 urina lysis panel , auto Unknown Analyte Negati ve Not Available [facility] [address], [place], [address], 11/13/2024 14:36:14 Result Notes None recorded. Problems Name Problem SNOMED Code Status Onset Date Resolution Date Notes Provider Name and Address Organization Details Recorded Time Recurrent urinary tract infection 772721701 Active 2022 WILFRIDO ROMAN JR, MD [address] [place] [address], [address], [facility] 3 09:29:45 Urinary tract infectious disease 07084910 Active 2022 WILFRIDO ROMAN JR, MD [address] [place] [address], [address], [facility] 3 09:29:46 Urge incontinence of urine 76163802 Active 2022 WILFRIDO ROMAN JR, MD [address] [place] [address], [address], [facility] 09:29:47 Problem Notes None recorded. Procedures Surgical History Date Name Laterality Status Provider Name and Address Organization Details Recorded Time 3 PNE Implantation; Sacral Nerve completed WILFRIDO ROMAN JR, MD [address] [place] [address], [address], [facility] 09/17/2023 07:38:44 3 Cystoscopy - female completed WILFRIDO ROMAN JR, MD [address] [place] [address], [address], [facility] 08/29/2023 14:45:16 9 Post Void Residual; Ultrasound completed Evelyne Felton [place] [facility] 10/28/2018 11:26:22 Other completed Evelyne Fel[place] [facility] 10/28/2018 11:17:20 Other completed Evelyne [place] [facility] 10/28/2018 11:17:29 Other completed Evelyne [place] [facility] 10/28/2018 11:17:39 Other completed [facility] [place] [facility] 10/28/2018 11:17:45 Imaging Results None recorded. Procedure Notes None recorded. Medical Equipment None Reported. Allergies Allergen ID Allergen Name Allergen Category Reaction Reaction Severity Criticality Documentation Date Start Date Code Code System Note Provider Name and Address Organization Details Recorded Time 833507 Substance with sulfonami de structure and antibacte rial mechanism of action (substanc e) medicatio n Not available Not available Not available 10/28/2018 43117 8003 SNOMED Evelyne Felton carlos [facility] 9 11:10:53 Medications Name Sig [...] Updated DateTime 11/13/2024 167.64 cm 33.9 kg/m2 94452.4 g Shruthi Mckinley [facility] 11/13/2024 14:24:19 Date Recorded Body height Body mass index (BMI) Body weight Provider Name and Address Organization Details Last Updated DateTime 11/15/2023 167.64 cm 33.9 kg/m2 89783.4 g Danny Pyle [facility] 11/15/2023 16:06:35 Date Recorded Body height Body mass index (BMI) Body weight Provider Name and Address Organization Details Last Updated DateTime 09/20/2023 170.18 cm 32.9 kg/m2 24953.4 g Sheree Bennett [facility] 09/20/2023 15:02:49 Social History Question Answer Notes LastModified by Organizat ion Details LastModified Time Tobacco Smoking Status Never [facility] 11:16:44 Marital Status Informatio n [...] not available 04/02/2023 What is your occupation? [employer] @ [employer] Information not available 10/28/2018 Mental Status None [...] History Condition Response Diabetes Y Arthritis Y Depression Y Thyroid Disorder Y Hypertension Y Gynecological HistoryNo gynecological history recorded. Obstetrics History GPAL:G 0 P 0 0 0 0 Past Encounters Encounter ID Performer Location Encounter Start Date Encounter Closed Date Diagnosis/Indication Diagnosis SNOMED-CT Code Diagnosis ICD10 Code Diagnosis Note [id number] MARIA R ALEJO MD UROLOGY [facility] [address] [facility] [address] 10/28/2018 10:25:59 10/29/2018 08:43:14 Urge incontinence of urine 41413887 N39.41 Pt has been doing well with oxybutinin until recently. Her u/a today is wnl and PVR only 52 cc. Discussed that her increased caffeine use is probably responsibl e for her increased urgency and leakage. She has been drinking up to 40 oz/day. Discussed drinking 8 0z day of decaf. [id number] WILFRIDO ROMAN JR, MD [facility] [address] [facility] [address] [place] [address] 04/02/2023 13:16:15 04/09/2023 04:02:50 Recurrent urinary tract infection 162290441 N39.0 Urinary tr act infectious disease 56530834 N39.0 Urge incon tinence of urine 02274647 N39.41 [id number] WILFRIDO ROMAN JR, MD [facility] [address] [place] [address],[place] [address] 08/02/2023 15:01:31 08/02/2023 16:32:59 Acute urinary tract infection 501366697 N39.0 Urge incon tinence of urine 06872195 N39.41 Recurrent urinary tract infection 553637376 N39.0 , [id number] WILFRIDO ROMAN JR, MD SURGERY SCHEDULE [address] [place] [address] 08/29/2023 14:42:52 08/29/2023 14:43:44 Recurrent urinary tract infection 394333019 N39.0 , Urge incon tinence of urine 82036030 N39.41 [id number] WILFRIDO ROMAN JR, MD [facility] [address] [place] [address],[place] [address] 0 09/13/2023 16:11:52 09/19/2023 10:45:57 Urge incontinence of urine 97923495 N39.41 [id number] WILFRIDO ROMAN JR, MD [facility] [address] [place] [address],[place] [address] 0 09/20/2023 14:57:25 09/20/2023 15:41:37 Acute urinary tract infection 264317172 N39.0 Urge incon tinence of urine 91574548 N39.41 [id number] WILFRIDO ROMAN JR, MD SURGERY SCHEDULE [address] [place] [address] 1 10/19/2023 11:27:51 10/19/2023 12:19:29 Postoperative pain 263504837 G89.18 [id number] WILFRIDO ROMAN JR, MD [facility] [address] [facility] [address] [place] [address] 11/15/2023 15:54:23 11/15/2023 16:22:19 Urge incontinence of urine 19536143 N39.41 [id number] ALLISON ALBERTS MD [facility] [address] [facility] [facility] [facility] [address] [place] [address] 12/07/2023 16:06:10 12/07/2023 16:09:12 Acute urinary tract infection 341417903 N39.0 [id number] WILFRIDO ROMAN JR, MD [facility] [address] [facility] [facility] [facility] [address] [place] [address] 11/13/2024 13:53:24 11/13/2024 14:34:39 Recurrent urinary tract infection 310635283 N39.0 Recommend addition of vitamin C with Methionami ne. Monitor recurrence . Adjust preventive strategies if necessary. Urge incon tinence of urine 42774137 N39.41 Continue neuromodul ation therapy. Allow for adjustment of perl programmer settings by patient. Evaluate future interventi ons if needed. Health Concerns Section Related Observation LastModified by Organization Detai ls LastModified Time None Recorded Concern Status LastModified by Organization Details LastModified Time None Recorded Advance Directives Directive None Recorded Payers Insurance Date Sequence Insurance Name Policy Number Policy Espinal Covered Member ID Espinal Member ID Guarantor Name 11/16/2024 2 [place] [id number] Salvador Booker Ewalt [id number] Vianey Kenyon Ewalt 12/04/2018 1 *SELF PAY* Robert Kenyon Ewalt 04/27/2025 1 UMR [id number] Vianey Kenyon Ewalt [id number] Vianey Kenyon Ewalt 11/16/2024 GENERIC INSURANCE - MOVED-HOLD Vianey Kenyon Ewalt Vianey Kenyon Ewalt OBGyn Episode No OBEpisode recorded.
--- OUTSIDE RECORDS SUMMARY | 2025-04-27 12:24 | XMS_ITS | Encounter Summary ---
[facility] [address] [place] [address] Care Team Providers Care Inside Wirer Name Role Phone Vianey Gasca PA-C Primary Care Provider Reason for Visit * Reason Comments Med Refill Encounter Details Date Type Department Care Team (Late st Contact Info) Description 03/16/2025 Refill [facility] [address] [address] Vianey Gasca PA-C [address] [place] [id number] Mixed hyperlipidemia; Benign essential hypertension Social History [...] [facility] [address] [address] Vianey Gasca PA-C [address] [address] 05/18/2025 2:40 PM EDT Appointment [facility] [address] [place] [address] documented as of this encounter Visit Diagnoses Diagnosis Mixed hyperlipidemia Benign essential hypertension Essential hypertension, benign documented in this encounter Care Teams Inside Wirer Relationship Specialty Start Date End Date Vianey Gasca PA-C [address] [address] PCP - General Internal Medicine 10/27/19 documented as of this encounter
--- OUTSIDE RECORDS SUMMARY | 2025-04-27 12:24 | XMS_ITS | Clinical Summary ---
Author Organization [facility] Address [address] [place] [address] Care Team Providers Care History Department Chair [...] 025 Active vitamin D (ERGOCALCIFEROL) 1.25 MG (33043 UT) capsule capsuleIndication s:Vitamin D deficiency TAKE [...] Type Department Care Team Description 04/17/2025 Telephone [facility] INTERNAL MEDICINE [address] [address] Vianey Gasca PA-C 04/15/2025 Refill [facility] [address] [address] Dilan Chappell MD OAB (overactive bladder) 04/09/2025 [facility] INTERNAL MEDICINE [address] [address] Vianey Gasca PA-C MAMMOGRAM 04/09/2025 [facility] INTERNAL MEDICINE [address] [address] Vianey Gasca PA-C MEDICATION CONCERN 03/16/2025 [facility] INTERNAL MEDICINE [address] [address] Dilan Chappell MD OAB (overactive bladder) [facility] [address] [address] Vianey Gasca PA-C Vitamin D deficiency 03/16/2025 [facility] INTERNAL MEDICINE [address] [address] Vianey Gasca PA-C Mixed hyperlipidemia; Benign essential hypertension 03/[facility] [address] [address] Dilan Chappell MD 02/17/2025 [facility] INTERNAL MEDICINE [address] [place] [phone] Vianey Gasca PA-C 02/02/2025 Results Follow-Up [facility] [address] [facility] [address] [address] [place] [address] Vianey Gasca PA-C 02/02/2025 Refill [facility] 210 [facility] [address] [place] [address] Vianey Gasca PA-C 01/27/2025 8:50 AM EDT Lab [facility] [address] [place] [address] Benign essential hypertension; Mixed hyperlipidemia; Acquired hypothyroidism; Encounter for vitamin deficiency screening; Vitamin D deficiency; Recurrent UTI 01/27/2025 Travel from Last 3 Months Immunizations Immunization [...] Description 05/05/2025 2:45 PM EDT Office Visit [facility] INTERNAL MEDICINE [address] [address] Vianey Gasca PA-C [address] [address] 05/18/2025 2:40 PM EDT Appointment [facility] [address] [place] [phone] Health Maintenance Due Date Last Done Comments MJ 2003 COLON CANCER SCREENING 5 YEA R [...] Seen, 0-2 /HPF 01/28/2025 12:36 AM EDT [facility] WBC, UA 21-50(A) None Seen, 0-2 /HPF 01/28/2025 12:36 AM EDT [facility] Bacteria, UA None Seen None Seen /HPF 01/28/2025 12:36 AM EDT [facility] Squamous Epithelial Cells, UA 3-6(A) None Seen, 0-2 /HPF 01/28/2025 12:36 AM EDT [facility] Hyaline Casts, UA 0-2 None Seen /LPF 01/28/2025 12:36 AM EDT [facility] Methodology Automated Microscopy 01/28/2025 12:36 AM EDT [facility] Urine Urine specimen obtained by clean catch procedure / Unknown Collection / Unknown 01/27/2025 8:53 AM EDT 01/27/2025 8:53 AM EDT Vianey Gasca PA-C URINE ORDERABLES Final Result [facility]
[address] [place] [address], * (ABNORMAL) CBC Auto Differential (01/27/2025 8:53 AM EDT) WBC 5.55 3.40 - 10.80 10*3/mm3 01/28/2025 1:16 AM EDT [facility] RBC 4.41 3.77 - 5.28 10*6/mm3 01/28/2025 1:16 AM EDT [facility] Hemoglobin 13.1 12.0 - 15.9 g/dL 01/28/2025 1:16 AM EDT [facility] Hematocrit 40.6 34.0 - 46.6 % 01/28/2025 1:16 AM EDT [facility] MCV 92.1 79.0 - 97.0 fL 01/28/2025 1:16 AM [facility] MCH 29.7 26.6 - 33.0 pg 01/28/2025 1:16 AM [facility] MCHC 32.3 31.5 - 35.7 g/dL 01/28/2025 1:16 AM [facility] RDW 12.4 12.3 - 15.4 % 01/28/2025 1:16 AM [facility] RDW-SD 42.1 37.0 - 54.0 fl 01/28/2025 1:16 AM [facility] MPV 12.5(H) 6.0 - 12.0 fL 01/28/2025 1:16 AM [facility] Platelets 214 140 - 450 10*3/mm3 01/28/2025 1:16 AM [facility] Neutrophil % 50.4 42.7 - 76.0 % 01/28/2025 1:16 AM [facility] Lymphocyte % 39.6 19.6 - 45.3 % 01/28/2025 1:16 AM [facility] Monocyte % 6.5 5.0 - 12.0 % 01/28/2025 1:16 AM [facility] Eosinophil % 2.2 0.3 - 6.2 % 01/28/2025 1:16 AM [facility] Basophil % 1.1 0.0 - 1.5 % 01/28/2025 1:16 AM [facility] Immature Grans % 0.2 0.0 - 0.5 % 01/28/2025 1:16 AM [facility] Neutrophils, Absolute 2.80 1.70 - 7.00 10*3/mm3 01/28/2025 1:16 AM [facility] Lymphocytes, Absolute 2.20 0.70 - 3.10 10*3/mm3 01/28/2025 1:16 AM [facility] Monocytes, Absolute 0.36 0.10 - 0.90 10*3/mm3 01/28/2025 1:16 AM EDT [facility] Eosinophils, Absolute 0.12 0.00 - 0.40 10*3/mm3 01/28/2025 1:16 AM EDT [facility] Basophils, Absolute 0.06 0.00 - 0.20 10*3/mm3 01/28/2025 1:16 AM EDT [facility] Immature Grans, Absolute 0.01 0.00 - 0.05 10*3/mm3 01/28/2025 1:16 AM EDT [facility] nRBC 0.0 0.0 - 0.2 /100 WBC 01/28/2025 1:16 AM EDT [facility] Blood Venipuncture / Unknown 01/27/2025 8:53 AM EDT 01/27/2025 8:53 AM EDT Vianey Gasca PA-C LAB BLOOD ORDERABLES F inal Result [facility]
[address] [place] [address], * Microalbumin / Creatinine Urine Ratio - Urine, Clean Catch (01/27/2025 8:53 AM EDT) Microalbumin/C reatinine Ratio 11.0 0.0 - 29.0 mg/g 01/28/2025 2:12 AM EDT [facility] Creatinine, Urine 172.8 mg/dL 01/28/2025 2:12 AM EDT [facility] Microalbumin, Urine 1.9 mg/dL 01/28/2025 2:12 AM EDT [facility] Urine Urine specimen obtained by clean catch procedure / Unknown Collection / Unknown 01/27/2025 8:53 AM EDT 01/27/2025 8:53 AM EDT Vianey Gasca PA-C URINE ORDERABLES Final Result [facility]
[address] [place] [address], * Vitamin D,25-Hydroxy (01/27/2025 8:53 AM EDT) Pathologist [facility] 25 Hydroxy, Vitamin D 83.6 30.0 - 100.0 ng/ml 01/28/2025 1:06 AM EDT [facility] Blood Venipuncture / Unknown 01/27/2025 8:53 AM EDT 01/27/2025 8:53 AM EDT Narrative [facility] - 01/28/2025 1:06 AM EDT Reference Range for Total Vitamin D 25(OH) Deficiency <20.0 ng/mL Insufficiency 21-29 ng/mL Sufficiency 30-100 ng/mL Toxicity >100 ng/ml Vianey Gasca PA-C LAB BLOOD ORDERABLES F inal Result Performing Organization Address [facility]/ZIP Co de Phone Number [facility]
[address] [place] [address], * T3, Free (01/27/2025 8:53 AM EDT) Pathologist [facility] T3, Free 2.90 2.00 - 4.40 pg/mL 01/28/2025 12:33 AM EDT [facility] Blood Venipuncture / Unknown 01/27/2025 8:53 AM EDT 01/27/2025 8:53 AM EDT Vianey Gasca PA-C LAB BLOOD ORDERABLES F inal Result [facility]
[address] [place] [address], * TSH (01/27/2025 8:53 AM EDT) TSH 1.170 0.270 - 4.200 uIU/mL 01/28/2025 12:33 AM EDT [facility] Blood Venipuncture / Unknown 01/27/2025 8:53 AM EDT 01/27/2025 8:53 AM EDT Vianey Gasca PA-C LAB BLOOD ORDERABLES F inal Result Performing Organization Address City/[facility]/ZIP Co de Phone Number [facility]
[address] [place] [address], [place] [phone] * T4, Free (01/27/2025 8:53 AM EDT) Free T4 1.45 0.92 - 1.68 ng/dL 01/28/2025 12:33 AM EDT [facility] Blood Venipuncture / Unknown 01/27/2025 8:53 AM EDT 01/27/2025 8:53 AM EDT Vianey Gasca PA-C LAB BLOOD ORDERABLES F inal Result Performing Organization Address [facility] Co de Phone Number [facility]
[address] [place] [address], [place] [phone] * Vitamin B12 (01/27/2025 8:53 AM EDT) Vitamin B-12 360 211 - 946 pg/mL 01/28/2025 1:06 AM EDT [facility] Blood Venipuncture / Unknown 01/27/2025 8:53 AM EDT 01/27/2025 8:53 AM EDT Narrative [facility] - 01/28/2025 1:06 AM EDT Results may be falsely increased if patient taking Biotin. Vianey Gasca PA-C LAB BLOOD ORDERABLES F inal Result Performing Organization Address City/[facility]/ZIP Co de Phone Number [facility]
[address] [place] [address], * Lipid Panel (01/27/2025 8:53 AM EDT) Total Cholesterol 129 0 - 200 mg/dL 01/28/2025 12:28 AM EDT [facility] Triglycerides 62 0 - 150 mg/dL 01/28/2025 12:28 AM EDT [facility] HDL Cholesterol 53 40 - 60 mg/dL 01/28/2025 12:28 AM EDT [facility] LDL Cholesterol 63 0 - 100 mg/dL 01/28/2025 12:28 AM EDT [facility] VLDL Cholesterol 13 5 - 40 mg/dL 01/28/2025 12:28 AM EDT [facility] LDL/HDL Ratio 1.20 01/28/2025 12:28 AM EDT [facility] Blood Venipuncture / Unknown 01/27/2025 8:53 AM EDT 01/27/2025 8:53 AM EDT Narrative [facility] - 01/28/2025 12:28 AM EDT Cholesterol [...] is calculated using the NIH LDL-C calculation. us Vianey DELGADO-C LAB BLOOD ORDERABLES F inal Result [facility]
[address] [place] [address], * Comprehensive Metabolic Panel (01/27/2025 8:53 AM EDT) Glucose 68 65 - 99 mg/dL 01/28/2025 12:28 AM EDT [facility] BUN 15 8 - 23 mg/dL 01/28/2025 12:28 AM EDT [facility] Creatinine 0.70 0.57 - 1.00 mg/dL 01/28/2025 12:28 AM EDT [facility] Sodium 141 136 - 145 mmol/L 01/28/2025 12:28 AM EDT [facility] Potassium 4.4 3.5 - 5.2 mmol/L 01/28/2025 12:28 AM EDT [facility] Chloride 105 98 - 107 mmol/L 01/28/2025 12:28 AM EDT [facility] CO2 27.7 22.0 - 29.0 mmol/L 01/28/2025 12:28 AM EDT [facility] Calcium 9.4 8.6 - 10.5 mg/dL 01/28/2025 12:28 AM EDT [facility] Total Protein 6.6 6.0 - 8.5 g/dL 01/28/2025 12:28 AM EDT [facility] Albumin 4.1 3.5 - 5.2 g/dL 01/28/2025 12:28 AM EDT [facility] ALT (SGPT) 15 1 - 33 U/L 01/28/2025 12:28 AM EDT [facility] AST (SGOT) 23 1 - 32 U/L 01/28/2025 12:28 AM EDT [facility] Alkaline Phosphatase 62 39 - 117 U/L 01/28/2025 12:28 AM EDT [facility] Total Bilirubin 0.6 0.0 - 1.2 mg/dL 01/28/2025 12:28 AM EDT [facility] Globulin 2.5 gm/dL 01/28/2025 12:28 AM EDT [facility] A/G Ratio 1.6 g/dL 01/28/2025 12:28 AM EDT [facility] BUN/Creatinine Ratio 21.4 7.0 - 25.0 01/28/2025 12:28 AM EDT [facility] Anion Gap 8.3 5.0 - 15.0 mmol/L 01/28/2025 12:28 AM EDT [facility] eGFR 95.5 >60.0 mL/min/1.7 3 01/28/2025 12:28 AM EDT [facility] Blood Venipuncture / Unknown 01/27/2025 8:53 AM EDT 01/27/2025 8:53 AM EDT [facility] - 01/28/2025 12:28 AM EDT GFR [...] PA-C LAB BLOOD ORDERABLES F inal Result [facility]
[address] [place] [address], * (ABNORMAL) POC Glycosylated Hemoglobin (Hb A1C) (01/22/2025 3:35 PM EDT) Hemoglobin A1C 5.8(A) 4.5 - 5.7 % [facility] Lot Number [id number] [facility] Expiration Date 08/19/2026 [facility] Blood 01/22/2025 3:35 PM EDT Vianey Gasca PA-C POINT OF CARE TEST ORD ERABLES Final Result [facility]
[address] [place] [address], * DEXA Bone Density Axial (12/12/2023 4:23 [...] fall-prevention measurements. The National Osteoporosis Foundation recommends (http://www.nof.org/hcp/practice/qfqhlycp-cff-pesdfsjz-guidelines/clinicians-chandrakant de) that FDA-approved medical therapies be considered [...] the left hip with 95% confidence is 0.912557 gm/cm2 at the hip and 0.980301 g/cm2 at the lumbar spine. Report dictated by: Nikki Sood PA-c I have personally reviewed this case and agree with the findings above: Electronically Signed: Paul Schwab MD 12/13/2023 4:51 PM EDT Workstation ID: [id number] Narrative 12/13/2023 4:51 PM EDT DUAL-ENERGY X-RAY [...] normal patients. According to criteria established by the[facility], patients with T-scores between 1.0 [...] exercises and fall-prevention measurements. The NationalOsteoporosis Foundation recommends(http://www.nof.org/hcp/practice/nagiovwu-rko-ctlxwdmp-guidelines/clin ician s-guide) that FDA-approved medical therapies be [...] at the left hipwith 95% confidence is 0.127085 gm/cm2 at the hip and 0.896929 g/cm2 atthe lumbar spine. Report dictated by: Nikki Sood PA-c I have personally reviewed this case and agree with the findings above: Electronically Signed: Paul Schwab MD 12/13/2023 4:51 PM EDT Workstation ID: [id number] Vianey Gasca PA-C [facility] DXA ORDERABLES Fin al Result * Mammo [...] ve Non-Reacti ve 09/14/2023 12:14 AM EST [facility] Blood Venipuncture / Unknown 09/13/2023 8:34 AM EST 09/13/2023 8:41 AM EST Narrative [facility] - 09/14/2023 12:14 AM EST Results may be falsely decreased if patient taking Biotin. Vianey Gasca PA-C LAB BLOOD ORDERABLES F inal Result [facility]
[address] [place] [address], * SCANNED - EYE EXAM (08/14/2023) Anatomical Region Laterality Modality Other Vianey Gasca PA-C CHART REVIEW TABS F inal Result * SCANNED - COLONOSCOPY (01/02/2023) Vianey Gasca PA-C CHART REVIEW TABS F inal Result from Last 3 Months or Most Recently Relevant to Health Maintenance Insurance [facility] Care Teams History Department Chair Relationship Specialty Start Date End Date Vianey Gasca PA-C [address] [facility] [address] [place] [address] PCP - General Internal Medicine 10/27/19
--- OUTSIDE RECORDS SUMMARY | 2025-04-27 12:24 | XMS_ITS | Encounter Summary ---
[facility] [address] [place] [address] Care Team Providers Care Primary Substance Abuse Counselor Name Role Phone Vianey Gasca PA-C Primary Care Provider Encounter Details Date Type Department Care Team (Late st Contact Info) Description 04/17/2025 Telephone [facility] [address] [phone] Vianey Gasca PA-C [address] [address] Social History Tobacco Use Types [...] Description 05/05/2025 2:45 PM EDT Office Visit [facility] [address] [address] Vianey Gasca PA-C [address] [address] 05/18/2025 2:40 PM EDT Appointment [facility] [address] [place] [address] documented as of this encounter Visit Diagnoses Not on filedocumented in this encounter Care Teams Primary Substance Abuse Counselor Relationship Specialty Start Date End Date Vianey Gasca PA-C [address] [address] PCP - General Internal Medicine 10/27/19 documented as of this encounter
--- OUTSIDE RECORDS SUMMARY | 2025-04-27 12:24 | XMS_ITS | Encounter Summary ---
[facility] [address] [place] [address] Care Team Providers Care Credit Card Specialist Name Role Phone Vianey Gasca PA-C Primary Care Provider Reason for Visit * Reason Comments Med Refill Encounter Details Date Type Department Care Team (Late st Contact Info) Description 03/16/2025 Refill [facility] INTER[facility] MEDICINE [address] [address] Vianey Gasca PA-C [address] [place] [id number] Vitamin D deficiency Social History Tobacco Use [...] Visit [facility] [address] [facility] [address] [place] [address] Vianey Gasca PA-C [address] [address] 05/18/2025 2:40 PM EDT Appointment [facility] [address] [place] [address] documented as of this encounter Visit Diagnoses Diagnosis Vitamin D deficiency documented in this encounter Care Teams Credit Card Specialist Relationship Specialty Start Date End Date Vianey Gasca PA-C [address] [address] PCP - General Internal Medicine 10/27/19 documented as of this encounter
--- OUTSIDE RECORDS SUMMARY | 2025-04-27 12:24 | XMS_ITS | Encounter Summary ---
[facility] [address] [place] [address] Care Team Providers Care Billing Machine Operator Name Role Phone Vianey Gasca PA-C Primary Care Provider Reason for Visit * Reason Comments Med Refill Encounter Details Date Type Department Care Team (Late st Contact Info) Description 03/16/2025 Refill [facility] INTERNAL MEDICINE [address] [phone] Dilan Chappell MD [address] [address] Social History Tobacco Use Types [...] Description 05/05/2025 2:45 PM EDT Office Visit [facility] INTERNAL MEDICINE [address] [facility] [address] [place] [address] Vianey Gasca PA-C [address] [facility] [address] [place] [address] 05/18/2025 2:40 PM EDT Appointment [facility] [address] [place] [address] documented as of this encounter Visit Diagnoses Not on filedocumented in this encounter Care Teams Billing Machine Operator Relationship Specialty Start Date End Date Vianey Gasca PA-C [address] [address] PCP - General Internal Medicine 10/27/19 documented as of this encounter
== END 2025-04-24 23:59 ==
LOC: LAB.DROPOF 04-27 12:21
PROVIDERS: PCP Nurse Practitioner Family; Visit Provider Nurse Practitioner Family
DX: N39.0 Urinary tract infection, site not specified (principal)
CPT/HCPCS: 81001; 87086

== ENCOUNTER 2025-06-03 16:15 | Outpatient (CLI) | payer OTHER, MEDICARE, SELFPAY ==
--- OUTSIDE RECORDS SUMMARY | 2025-05-18 14:23 | XMS_ITS | Encounter Summary ---
Author Organization [facility] ystem Address [address] [place] [address] Care Team Providers Care Msw Name Role Phone Jenna Hassan APRN Primary Care Provider [phone] Reason for Referral * Diagnostic Imaging (Routine) - Closed Specialty Diagnoses / Procedures [facility] Referred To Contact Radiology Diagnoses Breast cancer screening by mammogram Procedures Mammo Screening Digital Tomosynthesis Bilateral With Dia Jeong MD [address] [facility] [address] [place] [address] Phone: tel: fax: [facility] [address] [place] [phone] Phone: tel: Referral ID Status Reason Start Date Expiration Date Visits Re quested Visits Authorized [id number] Closed 01/11/2025 04/12/2026 1 1 Reason for Visit * Diagnostic Imaging (Routine) - Closed Specialty Diagnoses / Procedures Referred By [facility] t Referred To Contact Radiology Diagnoses Breast cancer screening by mammogram Procedures Mammo Screening Digital Tomosynthesis Bilateral With Dia Jeong MD [address] [facility] [address] [place] [address] Phone: tel: fax: [facility] [address] [place] [address] Phone: tel: Referral ID Status Reason Start Date Expiration Date Visits Re quested Visits Authorized [id number] Closed 01/11/2025 04/12/2026 1 1 Encounter Details Date Type Department Care Team (Late st Contact Info) Description 05/18/2025 2:23 PM EDT - 05/18/2025 11:59 PM EDT Hospital Encounter [facility] [address] [place] [address] Dia Casas MD [address] [place] [address] Breast cancer screening by mammogram Discharge Disposition: Home or Self Care Social History Tobacco Use Types Packs/Day Years [...] PM EDT documented as of this encounter Medications at Time of Discharge Ascorbic Acid (VITAMIN C PO) Take 1 tablet by mouth Daily. BD Pen Needle Micro U/F 32G X 6 MM misc DIRECTED 100 each 5 Blood Glucose Monitoring Suppl (ONE TOUCH ULTRA MINI) w/Device kitIndications:Type 2 diabetes mellitus without complication, without long-term current use of insulin CHECK BLOOD SUGAR ONCE DAILY 1 each 4 Cyanocobalamin (VITAMIN B-12 PO) Take 1 tablet by mouth Daily. estradiol (ESTRACE VAGINAL) 0.1 MG/GM vaginal cream Insert 1 gm intravaginally 1 times each week 1 each 12 5 insulin glargine (Semglee) 100 UNIT/ML injectionIndication s:Type 2 diabetes mellitus without complication, without long-term current use of insulin Inject 20 Units under the skin into the appropriate area as directed Daily. 6 mL 2 5 levothyroxine (SYNTHROID, LEVOTHROID) 112 MCG tablet TAKE 1 TABLET BY MOUTH ONCE DAILY 30 tablet 4 5 methenamine (HIPREX) 1 g tablet Take 1 tablet by mouth 2 (Two) Times a Day. 3 Mounjaro 10 MG/0.5ML solution auto-injector INJECT 10 MG UNDER THE SKIN ONCE WEEKLY 2 mL 2 5 omeprazole (priLOSEC) 40 MG capsule TAKE 1 CAPSULE BY MOUTH ONCE DAILY BEFORE A MEAL 90 capsule 5 ONE TOUCH LANCETS miscIndications:Typ e 2 diabetes mellitus without complication, without long-term current use of insulin Check blood sugar daily 100 each 3 9 OneTouch Ultra Test test stripIndications:Ty pe 2 diabetes mellitus without complication, without long-term current use of insulin CHECK BLOOD SUGAR ONCE DAILY 100 each 4 tolterodine LA (DETROL LA) 4 MG 24 hr capsuleIndications: OAB (overactive bladder) TAKE 1 CAPSULE BY MOUTH ONCE DAILY 90 capsule 5 vitamin D (ERGOCALCIFEROL) 1.25 MG (16770 UT) capsule capsuleIndications: Vitamin D deficiency TAKE 1 CAPSULE BY MOUTH 1 (ONE) TIME PER WEEK. 12 capsule 5 VITAMIN D PO Take 1 tablet by mouth Daily. zolpidem (AMBIEN) 5 MG tabletIndications:P rimary insomnia TAKE 1 TABLET BY MOUTH ONCE DAILY AT NIGHT NEEDED FOR SLEEP 30 tablet 5 atorvastatin (LIPITOR) 10 MG tabletIndications:M ixed hyperlipidemia TAKE 1 TABLET BY MOUTH ONCE DAILY 90 tablet 5 06/02/20 25 escitalopram (LEXAPRO) 20 MG tablet TAKE 1 TABLET BY MOUTH ONCE DAILY 90 tablet 5 06/02/20 25 lisinopril (PRINIVIL,ZESTRIL) 20 MG tabletIndications:B enign essential hypertension TAKE 1 TABLET BY MOUTH ONCE DAILY 90 tablet 5 06/02/20 25 metFORMIN ER (GLUCOPHAGE-XR) 500 MG 24 hr tablet TAKE 1 TABLET BY MOUTH ONCE DAILY WITH BREAKFAST 90 tablet 5 06/02/20 25 documented as of this encounter Plan of Treatment Not on file documented as of this encounter Procedures Procedure Name Priority Date/Time Associated Diagnosis Comments MAMMO SCREENING DIGITAL TOMOSYNTHESIS BILATERAL W CAD Routine 05/18/2025 2:51 PM EDT Breast cancer screening by mammogram documented in this encounter Results * Mammo Screening Digital Tomosynthesis Bilateral With CAD (05/18/2025 2:51 PM EDT) Anatomical Region Laterality Modality Breast N/A Mammography 05/19/2025 5:19 PM EDT Impressions 05/19/2025 5:20 PM EDT No suspicious abnormality identified. OVERALL ASSESSMENT: ACR BI-RADS CATEGORY: 1, NEGATIVE: Recommend continued routine annual screening mammogram. The standard false-negative rate of mammography is between 10% and 25%. Complex patterns or increased breast density will markedly elevate the false-negative rate of mammography. A letter, in lay terminology, with the results of this exam will be mailed to the patient. 05/19/2025 5:20 PM by Evelyn Randall MD on Narrative 05/19/2025 5:20 PM EDT BILATERAL DIGITAL SCREENING MAMMOGRAM WITH TOMOSYNTHESIS CLINICAL INDICATION: Screening mammogram. TECHNIQUE: Bilateral low dose full field digital breast tomosynthesis imaging was performed. CAD was utilized. COMPARISON: Prior studies dating back to 08/01/2016. FINDINGS: There are scattered areas of fibroglandular density. RIGHT BREAST: No suspicious masses, calcifications, or areas of distortion are seen. LEFT BREAST: No suspicious masses, calcifications, or areas of distortion are seen. us Dia Casas MD IMG MAMMOGRAPHY ORDER KAIDEN Final Result documented in this encounter Visit Diagnoses Diagnosis Breast cancer screening by mammogram documented in this encounter Care Teams Msw Relationship Specialty Start Date End Date Jenna Hassan APRN [address] [place], [place] [id number] PCP - General 05/17/25 documented as of this encounter
[2025-06-03 17:45] LABS: Microscopic, Urine URINE MICROSCOPIC (MICROSCOPIC)
[2025-06-03 18:08] LABS: Hematocrit 38.7 % (37.0-47.0); Hemoglobin 13.0 g/dL (12.2-16.2); Immature Granulocytes % 0.2 %; Mean Corpuscular HGB Conc 33.6 g/dL (31.8-35.4); Mean Corpuscular Hemoglobin 30.1 pg (27.0-31.2); Mean Corpuscular Volume 89.6 fl (81-99); Nucleated Red Blood Cells % 0 %; Platelet Count 210 K/mm3 (142-424); Red Blood Count 4.32 M/mm3 (4.20-5.40); Red Cell Distribution Width-SD 40.6 fL; White Blood Count 4.2 K/mm3 (4.8-10.8)
[2025-06-03 19:18] LABS: Alanine Aminotransferase 15 U/L (12-78); Albumin Level 4.3 g/dl (3.5-5.0); Albumin/Globulin Ratio 1.6 (1.1-1.8); Alkaline Phosphatase 66 U/L (38-126); Anion Gap 12.6 mEq/L (5-15); Aspartate Amino Transferase 23 U/L (14-36); Bilirubin,Total 0.8 mg/dl (0.2-1.3); Blood Urea Nitrogen 14 mg/dl (7-17); Calcium 9.5 mg/dl (8.4-10.2); Carbon Dioxide 27 mmol/L (22.0-30.0); Chloride 102 mmol/L (98-107); Cholesterol 149 mg/dl (140-200); Creatinine,Serum 0.80 mg/dl (0.52-1.04); Estimated Glomerular Filt Rate 72 ml/min (>60); GFR (African American) 87 ML/MIN (>60); Globulin 2.7 g/dL (1.3-3.2); Glucose 74 mg/dl (74-100); HDL Cholesterol 48 mg/dl (40-60); Magnesium 1.7 mg/dl (1.6-2.3); Potassium 4.6 mmoL/L (3.5-5.1); Sodium 137 mmol/L (136-145); Total Protein,Serum 7.0 g/dl (6.3-8.2); Triglycerides 97 mg/dl (30-150)
[2025-06-03 19:33] LABS: 25-OH Vitamin D, Total 70.2 ng/mL (30-100)
[2025-06-03 19:55] LABS: Bilirubin,Urine Negative (Negative); Color,Urine YELLOW (Yellow); Glucose,Urine (UA) Negative (Negative); Ketones,Urine Negative (Negative); Leukocyte Esterase,Urine TRACE (Negative); PH,Urine 6.0 (5.0-8.5); Protein,Urine Negative (Negative); Specific Gravity, Urine 1.020 (1.005-1.030); Urobilinogen,Urine 0.2 EU/dl (0.2)
[2025-06-03 20:08] LABS: Vitamin B12 409 pg/mL (239-931)
[2025-06-03 20:49] LABS: Bacteria,Urine Trace /lpf
[2025-06-03 23:48] LABS: Thyroid Stimulating Hormone 5.57 uIU/mL (0.465-4.68)
[2025-06-04 00:31] LABS: Ferritin 28.5 ng/ml (11.1-264)
--- OUTSIDE RECORDS SUMMARY | 2025-06-05 09:29 | XMS_ITS | Clinical Summary ---
[facility] Address [address] [place] [address] Care Team Providers Care Wordpress Developer Name Role Phone Jenna Hassan APRN Primary Care Provider [phone] Allergies Active Allergy Reactions Criticality Noted Date [...] each week 1 each 12 025 Active Cyanocobalamin (VITAMIN B-12 PO) Take 1 tablet by mouth Daily. Active Ascorbic Acid (VITAMIN C PO) Take 1 tablet by mouth Daily. Active VITAMIN D PO Take 1 tablet by mouth Daily. Active BD Pen Needle Micro U/F 32G X 6 MM misc DIRECTED 100 each 025 Active levothyroxine (SYNTHROID, LEVOTHROID) 112 MCG tablet TAKE 1 TABLET BY MOUTH ONCE DAILY 30 tablet 4 025 Active vitamin D (ERGOCALCIFEROL) 1.25 MG (86241 UT) capsule capsuleIndication s:Vitamin D deficiency TAKE [...] MOUTH ONCE DAILY 90 capsule 025 Active omeprazole (priLOSEC) 40 MG capsule TAKE 1 CAPSULE BY MOUTH ONCE DAILY BEFORE A MEAL 90 capsule 025 Active Mounjaro 10 MG/0.5ML solution auto-injector INJECT 10 MG UNDER THE SKIN ONCE WEEKLY 2 mL 2 025 Active lisinopril (PRINIVIL,ZESTRIL ) 20 MG tabletIndications :Benign essential hypertension TAKE 1 TABLET BY MOUTH ONCE DAILY 90 tablet 025 Active escitalopram (LEXAPRO) 20 MG tablet TAKE 1 TABLET BY MOUTH ONCE DAILY 90 tablet 025 Active atorvastatin (LIPITOR) 10 MG tabletIndications :Mixed hyperlipidemia TAKE 1 TABLET BY MOUTH ONCE DAILY 90 tablet 025 Active metFORMIN ER (GLUCOPHAGE-XR) 500 MG 24 hr tablet TAKE 1 TABLET BY MOUTH ONCE DAILY WITH BREAKFAST 90 tablet 025 Active omeprazole (priLOSEC) 40 MG capsule TAKE 1 CAPSULE BY MOUTH ONCE DAILY BEFORE A MEAL 90 capsule 025 2024 Discontinued Mounjaro 10 MG/0.5ML solution auto-injector INJECT 10 MG UNDER THE SKIN ONCE WEEKLY 2 mL 2 025 2024 Discontinued metFORMIN ER (GLUCOPHAGE-XR) 500 MG 24 hr tablet TAKE 1 TABLET BY MOUTH ONCE DAILY WITH BREAKFAST 90 tablet 025 2024 Discontinued atorvastatin (LIPITOR) 10 MG tabletIndications :Mixed hyperlipidemia TAKE 1 TABLET BY MOUTH ONCE DAILY 90 tablet 025 2024 Discontinued lisinopril (PRINIVIL,ZESTRIL ) 20 MG tabletIndications :Benign essential hypertension TAKE 1 TABLET BY MOUTH ONCE DAILY 90 tablet 025 2024 Discontinued escitalopram (LEXAPRO) 20 MG tablet TAKE 1 TABLET BY MOUTH ONCE DAILY 90 tablet 025 2024 Discontinued Active Problems Problem Noted [...] Encounters Date Type Department Care Team Description 06/01/2025 Refill [facility] [address] [address] Dilan Chappell MD 06/01/2025 Refill [facility] [address] [address] Vianey Gasca PA-C Benign essential hypertension; Mixed hyperlipidemia 05/19/2025 Telephone [facility] [address] [address] Jenna Hassan APRN 05/19/2025 Telephone [facility] [address] [address] Vianey Gasca PA-C PAPERWORK REQUEST 05/18/2025 2:23 PM EDT - 05/18/2025 11:59 PM EDT Hospital Encounter [address] [address] Dia Casas MD Breast cancer screening by mammogram Discharge Disposition: Home or Self Care 05/18/2025 Travel 05/12/2025 Refill [facility] [address] [address] Vianey Gasca PA-C 05/12/2025 Refill [facility] [address] [address] Dilan Chappell MD 04/17/2025 Telephone [facility] [address] [address] Vianey Gasca PA-C 04/15/2025 Refill [facility] [address] [address] Dilan Chappell MD OAB (overactive bladder) 04/09/2025 Telephone [facility] [address] [address] Vianey Gasca PA-C MAMMOGRAM 04/09/2025 [facility] [address] [address] Vianey Gasca PA-C MEDICATION CONCERN 03/[facility] [address] [place] [phone] Dilan Chappell MD OAB (overactive bladder) 03/16/2025 [facility] [address] [place] [phone] Vianey Gasca PA-C Vitamin D deficiency 03/16/2025 [facility] [address] [address] Vianey Gasca PA-C Mixed hyperlipidemia; Benign essential hypertension 03/16/2025 Refill [facility] [address] [place] [address] [place] [phone] Dilan Chappell MD from Last 3 Months Immunizations Immunization Administration [...] 01/22/2025 3:14 PM EDT Plan of Treatment Health Maintenance Due Date Last Done Comments COLOGUARD 2003 COLON CANCER SCREENING 5 YEA R SIGMOIDOSCOPY 2003 CT COLONOGRAPHY 2003 FECAL OCCULT BLOOD TEST 2003 FIT Testing (1 year) 2003 TDAP/TD VACCINES (2 - Td or Tdap) 04/09/2023 013 DIABETIC EYE EXAM 08/14/2024 08/14/2023, , 06/15/2015 ANNUAL PHYSICAL 11/02/2024 11/02/2023, 12/28/2017 DIABETIC FOOT EXAM 11/02/2024 11/02/2023 COVID-19 Vaccine (6 - 2024-2 6 season) 2025 08/03/2023, 08/11/2022, 08/05/2021, Additional history exists INFLUENZA VACCINE 07/01/2025 07/08/2024, , 07/12/2021, Additional history exists HEMOGLOBIN A1C 07/24/2025 01/22/2025, 10/01, 06/05/2024, Additional history exists DXA SCAN 12/11/2025 12/12/2023, 05/09/2021 LIPID PANEL 01/27/2026 01/27/2025, 10/01, 06/05/2024, Additional history exists URINE MICROALBUMIN-CREATININ E RATIO (uACR) 01/27/2026 01/27/2025 MAMMOGRAM 05/18/2027 05/18/2025, 11/29, 10/04/2022, Additional history exists COLONOSCOPY 01/02/2033 01/02/2023, 07/29/2013 COLORECTAL CANCER SCREENING 01/02/2033 ZOSTER VACCINE Completed 09/30/2021, 07/22/2021 HEPATITIS C SCREENING Completed 09/13/2023 Pneumococcal Vaccine 50+ Completed 024, 08/16/2020, 07/16/2019, Additional history exists Procedures Procedure Name Priority Date/Time Associated Diagnosis Comments MAMMO SCREENING DIGITAL TOMOSYNTHESIS BILATERAL W CAD Routine 05/18/2025 2:51 PM EDT Breast cancer screening by mammogram MICROALBUMIN / CREATININE URINE RATIO Routine 01/27/2025 8:53 AM EDT Mixed hyperlipidemia LIPID PANEL Routine 01/27/2025 8:53 AM EDT Mixed hyperlipidemia POCT GLYCOSYLATED HEMOGLOBIN (HGB A1C) Routine 01/22/2025 3:35 PM EDT Type 2 diabetes mellitus without complication, without long-term current use of insulin DEXA BONE DENSITY AXIAL Routine 12/12/2023 4:23 PM EDT Post-menopausal HEPATITIS C ANTIBODY Routine 09/13/2023 8:34 AM EST Encounter for hepatitis C screening test for low risk patient SCANNED - EYE EXAM 08/14/2023 SCANNED - COLONOSCOPY 01/02/2023 from Last 3 Months or Most Recently Relevant to Health Maintenance Results * Mammo Screening Digital Tomosynthesis Bilateral [...] calcifications, or areas of distortion are seen. Dia Casas MD IMG MAMMOGRAPHY ORDER KAIDEN Final Result * Microalbumin / Creatinine Urine Ratio - Urine, Clean Catch (01/27/2025 8:53 AM EDT) Microalbumin/C reatinine Ratio 11.0 0.0 - 29.0 mg/g 01/28/2025 2:12 AM EDT [facility] Creatinine, Urine 172.8 mg/dL 01/28/2025 2:12 AM EDT [facility] Microalbumin, Urine 1.9 mg/dL 01/28/2025 2:12 AM EDT [facility] Urine Urine specimen obtained by clean catch procedure / Unknown Collection / Unknown 01/27/2025 8:53 AM EDT 01/27/2025 8:53 AM EDT Vianey Gasca PA-C URINE ORDERABLES Final Result [facility]
[address] [place] [address], * Lipid Panel (01/27/2025 8:53 AM EDT) Total Cholesterol 129 0 - 200 mg/dL 01/28/2025 12:28 AM EDT [facility] Triglycerides 62 0 - 150 mg/dL 01/28/2025 12:28 AM EDT [facility] HDL Cholesterol 53 40 - 60 mg/dL 01/28/2025 12:28 AM EDT [facility] LDL Cholesterol 63 0 - 100 mg/dL 01/28/2025 12:28 AM EDT [facility] VLDL Cholesterol 13 5 - 40 mg/dL 01/28/2025 12:28 AM T [facility] LDL/HDL Ratio 1.20 01/28/2025 12:28 AM T [facility] Blood Venipuncture / Unknown 01/27/2025 8:53 AM EDT 01/27/2025 8:53 AM EDT Narrative [facility] - 01/28/2025 12:28 AM EDT Cholesterol [...] using the NIH LDL-C calculation. us Vianey Gasca PA-C LAB BLOOD ORDERABLES F inal Result [facility]
[address] [place] [address], * (ABNORMAL) POC Glycosylated Hemoglobin (Hb A1C) (01/22/2025 3:35 PM EDT) Hemoglobin A1C 5.8(A) 4.5 - 5.7 % [facility] Lot Number [id number] [facility] Expiration Date 08/19/2026 [facility] Blood 01/22/2025 3:35 PM EDT Vianey Gasca PA-C POINT OF CARE TEST ORD ERABLES Final Result [facility]
[address] [place] [address], * DEXA Bone Density Axial (12/12/2023 4:23 [...] fall-prevention measurements. The National Osteoporosis Foundation recommends (http://www.nof.org/hcp/practice/rlykphuw-lia-gdlcfino-guidelines/clinicians-chandrakant de) that FDA-approved medical therapies be considered [...] the left hip with 95% confidence is 0.442528 gm/cm2 at the hip and 0.835719 g/cm2 at the lumbar spine. Report dictated by: Nikki Sood PA-c I have personally reviewed this case and agree with the findings above: Electronically Signed: Paul Schwab MD 12/13/2023 4:51 PM EDT Workstation ID: [id number] Narrative 12/13/2023 4:51 PM EDT DUAL-ENERGY X-RAY [...] normal patients. According to criteria established by the[facility], patients [...] exercises and fall-prevention measurements. The NationalOsteoporosis Foundation recommends(http://www.nof.org/hcp/practice/bldsuhxx-zig-sgeddyef-guidelines/clin ician s-guide) that FDA-approved medical therapies be [...] at the left hipwith 95% confidence is 0.166100 gm/cm2 at the hip and 0.446273 g/cm2 atthe lumbar spine. Report dictated by: Nikki Sood PA-c I have personally reviewed this case and agree with the findings above: Electronically Signed: Paul Schwab MD 12/13/2023 4:51 PM EDT Workstation ID: [id number] Vianey Gasca PA-C IMG DXA ORDERABLES Fin al Result * Hepatitis C antibody (09/13/2023 8:34 AM EST) Hepatitis C Ab Non-Reacti ve Non-Reacti ve 09/14/2023 12:14 AM EST [facility] Blood Venipuncture / Unknown 09/13/2023 8:34 AM EST 09/13/2023 8:41 AM EST Narrative [facility] - 09/14/2023 12:14 AM EST Results may be falsely decreased if patient taking Biotin. Vianey Gasca PA-C LAB BLOOD ORDERABLES F inal Result [facility]
[address] [place] [address], * SCANNED - EYE EXAM (08/14/2023) Anatomical Region Laterality Modality Other Vianey Gasca PA-C CHART REVIEW TABS F inal Result * SCANNED - COLONOSCOPY (01/02/2023) Vianey Gasca PA-C CHART REVIEW TABS F inal Result from Last 3 Months or Most Recently Relevant to Health Maintenance Insurance R Care Teams Wordpress Developer Relationship Specialty Start Date End Date Jenna Hassan APRN [facility] [address] [phone] PCP - General 05/17/25
--- OUTSIDE RECORDS SUMMARY | 2025-06-05 09:29 | XMS_ITS | Encounter Summary ---
Author Organization [facility] ystem Address [address] [place] [address] Care Team Providers Care Medical Technologist Prn Name Role Phone Vianey Gasca PA-C Primary Care Provider Reason for Visit * Reason Comments Med Refill Encounter Details Date Type Department Care Team (Late st Contact Info) Description 05/12/[address] [facility] [address] [address] Dilan Chappell MD [address] [address] Social History Tobacco Use Types [...] on file documented as of this encounter Visit Diagnoses Not on filedocumented in this encounter Care Teams Medical Technologist Prn Relationship Specialty Start Date End Date Vianey Gasca PA-C [address] [facility] [place] [address] PCP - General Internal Medicine 10/27/19 05/16/25 documented as of this encounter
--- OUTSIDE RECORDS SUMMARY | 2025-06-05 09:29 | XMS_ITS | Encounter Summary ---
Author Organization [facility] yste Address [address] [place] [address] Care Team Providers Care Him Clerk Name Role Phone Jenna Hassan APRN Primary Care Provider Reason for Visit * Reason Comments Med Refill Encounter Details Date Type Department Care Team (Late st Contact Info) Description 03/28/[address] [facility] [address] [facility] [address] [place] [address] Vianey Gasca PA-C [address] [address] Type 2 diabetes mellitus without [...] documented in this encounter Plan of Treatment Not on file documented as of this encounter Visit Diagnoses Diagnosis Type 2 diabetes mellitus without complication, without long-term current use of insulin documented in this encounter Care Teams Him Clerk Relationship Specialty Start Date End Date Jenna Hassan APRN [address] [place] [address] [place] [address] PCP - General 05/17/25 documented as of this encounter
--- OUTSIDE RECORDS SUMMARY | 2025-06-05 09:29 | XMS_ITS | Encounter Summary ---
Author Organization [facility] ystem Address [address] [place] [address] Care Team Providers Care Sensor Operator Name Role Phone Vianey Gasca PA-C Primary Care Provider Reason for Visit * Reason Comments Med Refill Encounter Details Date Type Department Care Team (Late st Contact Info) Description 05/12/2025 Refill [facility] [address] [address] Vianey Gasca PA-C [address] [address] Social History Tobacco Use Types [...] on filedocumented in this encounter Care Teams Sensor Operator Relationship Specialty Start Date End Date Vianey Gasca PA-C [address] [facility] [place] [address] PCP - General Internal Medicine 10/27/19 05/16/25 documented as of this encounter
--- OUTSIDE RECORDS SUMMARY | 2025-06-05 09:29 | XMS_ITS | Encounter Summary ---
Author Organization [facility] yste Address [address] [place] [address] Care Team Providers Care Video Clerk Name Role Phone Vianey Gasca PA-C Primary Care Provider Reason for Visit * Reason Onset Date Comments MAMMOGRAM 04/09/2025 Encounter Details Date Type Department Care Team (Late st Contact Info) Description 04/09/2025 Telephone [facility] 2101 [facility] [address] [place] [address] Vianey Gasca PA-C [address] [address] MAMMOGRAM Social History Tobacco Use [...] been placed for a mammogram by patient's [employer]. She will call the [facility] to schedule. * Telephone Encounter - Adriana Vaughan RegSched Rep - 04/09/2025 3:09 PM EDT Caller: Vianey Perla Relationship: Self Best call back number: [phone] What orders are you requesting (i.e. lab or imaging): MAMMOGRAM In what timeframe would the patient need to come in: SOON POSSIBLE Where will you receive your lab/imaging services: [facility] Additional notes: documented in this encounter Plan of Treatment Not on file documented as of this encounter Visit Diagnoses Not on filedocumented in this encounter Care Teams Video Clerk Relationship Specialty Start Date End Date Vianey Gasca PA-C [address] [place] [address] PCP - General Internal Medicine 10/27/19 05/16/25 documented as of this encounter
--- OUTSIDE RECORDS SUMMARY | 2025-06-05 09:29 | XMS_ITS | Encounter Summary ---
Author Organization [facility] yste Address [address] [place] [address] Care Team Providers Care Glove Cuffer Name Role Phone Jenna Hassan APRN Primary Care Provider Reason for Visit * Reason Onset Date Comments PAPERWORK REQUEST 05/19/2025 Encounter Details Date Type Department Care Team (Late st Contact Info) Description 05/19/2025 Telephone [facility] 210 [facility] [address] [place] [address] Vianey Gasca PA-C [address] [address] PAPERWORK REQUEST Social History Tobacco Use Types Packs/Day Years [...] encounter Miscellaneous Notes * Telephone Encounter - Vale Hanson - 05/20/2025 11:50 AM EDT I HAVE SP/W PT AND LET HER KNOW THAT WE ARE NO LONGER HER PCP AND SHE WILL NEED TO CONTACT HER PCP OFFICE. PT VERBALIZED AND UNDERSTOOD. * Telephone Encounter - Kamryn Velazquez RegSched Rep - 05/19/2025 3:51 PM EDT Caller: Vianey Perla Relationship: Self Best call back number: [phone] What form or medical record are you requesting: MEDICAL RECORDS Who is requesting this form or medical record from you: PATIENT How would you like to receive the form or medical records (pick-up, mail, fax): SEND TO HER NEW DOCTOR Additional notes: THE PATIENT STATES THAT SHE FILLED OUT A RELEASE OF MEDICAL RECORDS REQUEST AT HER NEW DOCTORS OFFICE SHE WOULD LIKE TO KNOW IF THAT HAS BEEN RECEIVED AND SENT TO THE NEW DOCTOR documented in this encounter Plan of Treatment Not on file documented as of this encounter Visit Diagnoses Not on filedocumented in this encounter Care Teams Glove Cuffer Relationship Specialty Start Date End Date Jenna Hassan APRN [address] [place] [address] [facility] [address] PCP - General 05/17/25 documented as of this encounter
--- OUTSIDE RECORDS SUMMARY | 2025-06-05 09:29 | XMS_ITS | Encounter Summary ---
Author Organization [facility] Address [address] [place] [address] Care Team Providers Care Retail Loss Prevention Officer Name Role Phone Jenna Hassan APRN Primary Care Provider [phone] Encounter Details Date Type Department Care Team (Latest Contact Info) Description 05/18/2025 Travel Social History Tobacco Use Types Packs/Day Years [...] on filedocumented in this encounter Care Teams Retail Loss Prevention Officer Relationship Specialty Start Date End Date Jenna Hassan APRN [address] [place] [address] BERTHA HAYWARD [id number] (work) PCP - General 05/17/25 documented as of this encounter
--- OUTSIDE RECORDS SUMMARY | 2025-06-05 09:29 | XMS_ITS | Encounter Summary ---
Author Organization [facility] ystem Address [address] [place] [id number] Care Team Providers Care Spoilage Worker Name Role Phone Jenna Hassan APRN Primary Care Provider Encounter Details Date Type Department Care Team (Late st Contact Info) Description 05/19/2025 Telephone [facility] INTERNAL MEDICINE 2101 [facility] 304 [place] [address] Jenna Hassan APRN 1210 [facility] 36 [facility] [address] [place] [address] Social History Tobacco Use Types Packs/Day Years [...] Telephone Encounter - Vale Hanson - 05/20/2025 11:53 AM EDT SP/W PT. SHE WILL CONTACT HER KNEW PCP. * Telephone Encounter - Earline Galeano RN - 05/19/2025 4:35 PM EDT See below. Not sure why you're not listed as the patient's PCP * Telephone Encounter - Janine Yanes RegSched Rep - 05/19/2025 4:20 PM EDT Patient called to request if prescription can be re-written for Mounjaro 10 MG/0.5ML solution auto-injector, Insurance didn't cover Rx due to Diagnostic code was missing and received a bill for $1000. Its usually covered Please refill to [facility]. Call Back #[phone] documented in this encounter Plan of Treatment Not on file documented as of this encounter Visit Diagnoses Not on filedocumented in this encounter Care Teams Spoilage Worker Relationship Specialty Start Date End Date Jenna Hassan APRN [address] [place] [address] B[place]A VERGARA [address] PCP - General 05/17/25 documented as of this encounter
--- OUTSIDE RECORDS SUMMARY | 2025-06-05 09:29 | XMS_ITS | Encounter Summary ---
Author Organization [facility] ystem Address [address] [place] [id number] Care Team Providers Care Rivet Heater Name Role Phone Jenna Hassan APRN Primary Care Provider [phone] Encounter Details Date Type Department Care Team (Late st Contact Info) Description 01/06/2025 Results Follow-Up [facility] OBGYN [address] [place] [address] Dia Casas MD 1700 [facility] [address] [place] [address] Social History Tobacco Use Types Packs/Day [...] on filedocumented in this encounter Care Teams Rivet Heater Relationship Specialty Start Date End Date Jenna Hassan APRN [facility]0 [place] [address] [place]GARA [address] PCP - General 05/17/25 documented as of this encounter
--- OUTSIDE RECORDS SUMMARY | 2025-06-05 09:29 | XMS_ITS | Encounter Summary ---
Author Organization [facility] ystem Address [address] [place] [address] Care Team Providers Care Busboy Name Role Phone Vianey Gasca PA-C Primary Care Provider Reason for Visit * Reason Comments Med Refill Encounter Details Date Type Department Care Team (Late st Contact Info) Description 04/15/2025 Refill [facility] INTERNAL MEDICINE [address] [address] Dilan Chappell MD [address] [address] OAB (overactive bladder) Social History [...] bladder) documented in this encounter Care Teams Busboy Relationship Specialty Start Date End Date Vianey Gasca PA-C 2101 [facility] [place] [address] PCP - General Internal Medicine 10/27/19 05/16/25 documented as of this encounter
--- OUTSIDE RECORDS SUMMARY | 2025-06-05 09:29 | XMS_ITS | Encounter Summary ---
Author Organization [facility] yste Address [address] [place] [address] Care Team Providers Care Report Clerk Name Role Phone Vianey Gasca PA-C Primary Care Provider Reason for Visit * Reason Onset Date Comments MEDICATION CONCERN 04/09/2025 Encounter Details Date Type Department Care Team (Late st Contact Info) Description 04/09/2025 Telephone [facility] INTERNAL MEDICINE 2101 [facility] 304 [place] [address] Vianey Gasca PA-C [address] [address] MEDICATION CONCERN Social History Tobacco [...] Perla Relationship: Self Best call back number: [phone] Which medication are you concerned about: Lantus [...] Primary documented in this encounter Care Teams Report Clerk Relationship Specialty Start Date End Date Vianey Gasca PA-C [address] [place] [address] PCP - General Internal Medicine 10/27/19 05/16/25 documented as of this encounter
--- OUTSIDE RECORDS SUMMARY | 2025-06-05 09:29 | XMS_ITS | Encounter Summary ---
Author Organization [facility] ystem Address [address] [place] [address] Care Team Providers Care Malter Operator Name Role Phone Jenna Hassan APRN Primary Care Provider [phone] Reason for Visit * Reason Comments Med Refill Encounter Details Date Type Department Care Team (Late st Contact Info) Description 03/01/2021 Refill [facility] INTERNAL MEDICINE 210 [facility] 304 [place] [address] Vianey Gasca PA-C [address] [address] Acquired hypothyroidism; Benign essential hypertension [...] benign documented in this encounter Care Teams Malter Operator Relationship Specialty Start Date End Date Jenna Hassan APRN [address] [place] [id number] PCP - General 05/17/25 documented as of this encounter
--- OUTSIDE RECORDS SUMMARY | 2025-06-05 09:29 | XMS_ITS | Encounter Summary ---
Author Organization [facility] ystem Address [address] [place] [address] Care Team Providers Care Physical Therapy Aides Teacher Name Role Phone Vianey Gasca PA-C Primary Care Provider Encounter Details Date Type Department Care Team (Late st Contact Info) Description 04/17/2025 Telephone [facility] INTERNAL MEDICINE 2101 [facility] 304 [place] [address] Vianey Gasca PA-C 2101 [facility] 304 [place] [address] Social History Tobacco Use Types Packs/Day [...] request from the pharmacy for the ALEX pen injector . I submitted he request to the insurance company and once I have a response back from them I will let her now as well. documented in this encounter Plan of Treatment Not on file documented as of this encounter Visit Diagnoses Not on filedocumented in this encounter Care Teams Physical Therapy Aides Teacher Relationship Specialty Start Date End Date Vianey Gasca PA-C [address] [place] [address] [address] PCP - General Internal Medicine 10/27/19 05/16/25 documented as of this encounter
--- OUTSIDE RECORDS SUMMARY | 2025-06-05 09:30 | XMS_ITS | Encounter Summary ---
Author Organization [facility] ystem Address [address] [place] [address] Care Team Providers Care Carburetor Mechanic Name Role Phone Jenna Hassan APRN Primary Care Provider [phone] Reason for Visit * Reason Comments Med Refill Encounter Details Date Type Department Care Team (Late st Contact Info) Description 06/01/2025 Refill [facility] INTERNAL MEDICINE [address] [address] Dilan Chappell MD [address] [address] Social History Tobacco Use Types [...] on filedocumented in this encounter Care Teams Carburetor Mechanic Relationship Specialty Start Date End Date Jenna Hassan APRN [facility] [place] [address] [place] [address] PCP - General 05/17/25 documented as of this encounter
--- OUTSIDE RECORDS SUMMARY | 2025-06-05 09:30 | XMS_ITS | Encounter Summary ---
Author Organization [facility] ystem Address [address] [place] [address] Care Team Providers Care Geology Teacher Name Role Phone Jenna Hassan APRN Primary Care Provider [phone] Reason for Visit * Reason Comments Med Refill Encounter Details Date Type Department Care Team (Late st Contact Info) Description 06/01/2025 Refill [facility] INTERNAL MEDICINE [address] [address] Vianey Gasca PA-C [address] [address] Benign essential hypertension; Mixed hyperlipidemia Social History Tobacco Use Types Packs/Day Years [...] as of this encounter Visit Diagnoses Diagnosis Benign essential hypertension Essential hypertension, benign Mixed hyperlipidemia documented in this encounter Care Teams Geology Teacher Relationship Specialty Start Date End Date Jenna Hassan APRN 1210 [place] [address] PCP - General 05/17/25 documented as of this encounter
== END 2025-06-03 23:59 ==
LOC: LAB.DROPOF 06-05 09:26
PROVIDERS: PCP Nurse Practitioner Family; Visit Provider Nurse Practitioner Family
DX: N39.0 Urinary tract infection, site not specified (principal); E11.9 Type 2 diabetes mellitus without complications; E78.5 Hyperlipidemia, unspecified; I10 Essential (primary) hypertension; E55.9 Vitamin D deficiency, unspecified; E03.9 Hypothyroidism, unspecified
CPT/HCPCS: 80053; 80061; 81001; 82043; 82306; 82570; 82607; 82728; 83735; 84443; 85025; 87086

== ENCOUNTER 2025-09-08 13:18 | Outpatient (CLI) | payer MEDICARE, OTHER, SELFPAY ==
[2025-09-08 13:56] LABS: Hemoglobin A1C 6.0 % (4.0-6.0)
[2025-09-08 14:07] LABS: Alanine Aminotransferase 23 U/L (12-78); Albumin Level 4.0 g/dl (3.5-5.0); Albumin/Globulin Ratio 1.5 (1.1-1.8); Alkaline Phosphatase 69 U/L (38-126); Anion Gap 12.7 mEq/L (5-15); Aspartate Amino Transferase 26 U/L (14-36); Bilirubin,Total 0.9 mg/dl (0.2-1.3); Blood Urea Nitrogen 12 mg/dl (7-17); Calcium 9.5 mg/dl (8.4-10.2); Carbon Dioxide 27 mmol/L (22.0-30.0); Chloride 104 mmol/L (98-107); Cholesterol 150 mg/dl (140-200); Creatinine,Serum 0.70 mg/dl (0.52-1.04); Estimated Glomerular Filt Rate 84 ml/min (>60); GFR (African American) 101 ML/MIN (>60); Globulin 2.7 g/dL (1.3-3.2); Glucose 95 mg/dl (74-100); HDL Cholesterol 55 mg/dl (40-60); Magnesium 1.7 mg/dl (1.6-2.3); Potassium 4.7 mmoL/L (3.5-5.1); Sodium 139 mmol/L (136-145); Total Protein,Serum 6.7 g/dl (6.3-8.2); Triglycerides 85 mg/dl (30-150)
[2025-09-08 14:35] LABS: Thyroid Stimulating Hormone 0.12 uIU/mL (0.465-4.68)
== END 2025-09-08 23:59 | disposition home or self-care (01) ==
LOC: LAB.DROPOF 09-10 13:19
PROVIDERS: PCP Nurse Practitioner Family; Visit Provider Nurse Practitioner Family
DX: E78.5 Hyperlipidemia, unspecified (principal); E11.9 Type 2 diabetes mellitus without complications; I10 Essential (primary) hypertension
CPT/HCPCS: 80053; 80061; 83036; 83735; 84443

== ENCOUNTER 2025-09-22 09:52 | Outpatient (CLI) | payer MEDICARE, OTHER, SELFPAY ==
--- OUTSIDE RECORDS SUMMARY | 2025-09-25 09:57 | XMS_ITS | Encounter Summary ---
Author Organization [facility] ystem Address [address] [place] [id number] Care Team Providers Care Die Maker Stamping Name Role Phone Jenna Hassan APRN Primary Care Provider Encounter Details Date Type Department Care Team (Late st Contact Info) Description 07/30/2025 Telephone [facility] INTERNAL MEDICINE 2101 [facility] 304 [place] [address] Jenna Hassan APRN 1210 [facility] 36 [facility] [address] [place] [address] Social History Tobacco Use Types Packs/Day Years [...] Telephone Encounter - Kathia Rainey MA - 07/30/2025 10:40 AM EDT Advised patient via my chart that I have received a prior authorization request from the pharmacy for the INSULIN GLARGINE 100 mg pen injector. I submitted the request to the insurance company so once I have response back from them I will let her know . documented in this encounter Plan of Treatment Not on file documented as of this encounter Visit Diagnoses Not on filedocumented in this encounter Care Teams Die Maker Stamping Relationship Specialty Start Date End Date Jenna Hassan APRN [facility] [address] [address] PCP - General 05/17/25 documented as of this encounter
--- OUTSIDE RECORDS SUMMARY | 2025-09-25 09:57 | XMS_ITS | Encounter Summary ---
Author Organization [facility] ystem Address [address] [place] [address] Care Team Providers Care Tap Grinder Name Role Phone Jenna Hassan APRN Primary Care Provider [phone] Reason for Visit * Reason Comments Med Refill Encounter Details Date Type Department Care Team (Late st Contact Info) Description 03/01/2021 Refill [facility] INTERNAL MEDICINE 210 [facility] 304 [place] [address] Vianey Gasca PA-C [address] [address] Acquired hypothyroidism; Benign essential hypertension [...] benign documented in this encounter Care Teams Tap Grinder Relationship Specialty Start Date End Date Jenna Hassan APRN 1210 [place] [id number] PCP - General 05/17/25 documented as of this encounter
--- OUTSIDE RECORDS SUMMARY | 2025-09-25 09:57 | XMS_ITS | Data Portability ---
Author Organization [facility] [place] Omar conley Kristopher LAWTON CLOSED Address [address] [place] [address] Assessment Encounter Date Assessment Date Assessment LastModified [...] Seldinger technique and the kit provided by [employer], we placed our permanent lead under good [...] vitamin C. [email or web address] Not available 11/13/2024 19:26:48 04/30/2025 04/30/2025 64-year-old fema le with urgency incontinence and recurrent UTIs, here for follow-up. Urgency incontinence managed with neuromodulation since 2023. Methenamine therapy effective for UTI prevention. Completed IV antibiotics for recent UTI, only episode in six months. Three UTIs in past six months, requires ongoing management. Considering vitamin C addition to methenamine therapy. Significant weight loss noted, may affect urinary symptoms. Urgency Incontinence: - Continue neuromodulation therapy. - Consider reprogramming for comfort. [email or web address] Not available 04/30/2025 16:40:53 Plan of Treatment Reminders Order Date Submit Date Provider Last Modified By Organization Details Last Modified Time Details Appointments RECHECK 2025 03:45P Sarina ROMAN MD Not available Not available Not available RECHECK 2025 02:45P Sarina ROMAN MD Not available Not available Not available Lab urinalysi s panel, auto 2024 025 [facility], [address], [place], [address], 04/30/2025 16:38:57 urinalysi s panel, auto 2024 025 [facility], [address], [address], [place], [address], 11/15/2024 12:55:00 culture, urine 2023 024 surya [facility], [address] [place] [address], [place], [address], 12/14/2023 11:26:48 urinalysi s panel, auto 2023 024 [facility], [address], [address], [place], [address], 11/17/2023 10:50:10 Referral None recorded. Procedures None recorded. Surgeries None recorded. Imaging None recorded. Medication Orders methenami ne hippurate 1 gram tablet [address] [facility], [address], [address], 04/30/2025 16:38:59 Estrace 0.01% (0.1 mg/gram) vaginal cream [address] [facility], [address], [address], 04/30/2025 16:39:55 Percocet 5 mg-325 mg tablet [address] [facility], [address] [address], [place], [address], 10/19/2023 13:55:03 doxycycli ne monohydra te 100 mg capsule [address] [facility], [address], [address], 10/19/2023 13:54:59 Patient TargetsNo targets recorded. Patient Instructions Encounter Date Encounter Id Patient Instructions Last Modified By Organization Details Last Modified Time 11/13/2024 [id number] - Add vitamin C to your current Methionamine regimen to increase effectiveness against UTIs. - Monitor your urinary symptoms and report any persistent issues. 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 - Keep track of any changes or recurrence of UTIs and inform us for further evaluation. [email or web address] Not available 11/13/2024 19:26:50 04/30/2025 [id number] - Continue takin g methenamine as prescribed. - Consider adding vitamin C to your regimen. - Monitor for any signs of urinary tract infections and report them. - Follow up in six months for re-evaluation. [email or web address] Not available 04/30/2025 16:40:55 Reason for Referral None Reported. Results Created Date Observation Date Name Description Value Unit Range Abnormal Flag Note LastModifiedBy Organization Detail LastModifiedTime 09/20/20 23 09/20/2023 URINE CULTU RE klebsiella pneumoniae Organi sm: Klebsi lana pneumo niae Not Available [facility] [address] [place] [address], [address], 09/22/2023 16:04:38 09/20/20 23 09/22/2023 URINE CULTU RE urine culture abnormal ISOLA TE #1 COLON Y COUNT : 10,00 0 - 100,0 00 CFU/M L Proba ble Gram Negat martha Bacil rogerio. ID and sensi tivit y in progr ess. See [employer] te Resul t(s) Below Klebs iella pneum oniae Not Available [facility] [address] [place] [address], [address], 09/22/2023 16:04:38 09/20/20 23 09/22/2023 URINE CULTU RE amox/K clav'ate(C) <=8/4 ug/mL susceptib le Not Available [facility] [address] [place] [address], [address], 09/22/2023 16:04:38 09/20/20 23 09/22/2023 URINE CULTU RE cefazolin <=2 ug/mL susceptib le Not Available [facility] [address] [place] [address], [address], 09/22/2023 16:04:38 09/20/20 23 09/22/2023 URINE CULTU RE ceftazidime <=1 ug/mL susceptib le Not Available [facility] [address] [place] [address], [address], 09/22/2023 16:04:38 09/20/20 23 09/22/2023 URINE CULTU RE ceftriaxone <=1 ug/mL susceptib le Not Available [facility] [address] [place] [address], [address], 09/22/2023 16:04:38 09/20/20 23 09/22/2023 URINE CULTU RE cefuroxime <=4 ug/mL susceptib le Not Available [facility] [address] [place] [address], [address], 09/22/2023 16:04:38 09/20/20 23 09/22/2023 URINE CULTU RE ciprofloxaci n <=0.25 ug/mL susceptib le Not Available [facility] [address] [place] [address], [address], 09/22/2023 16:04:38 09/20/20 23 09/22/2023 URINE CULTU RE gentamicin <=4 ug/mL susceptib le Not Available [facility] [address] [place] [address], [address], 09/22/2023 16:04:38 09/20/20 23 09/22/2023 URINE CULTU RE imipenem <=1 ug/mL susceptib le Not Available [facility] [address] [place] [address], [address], 09/22/2023 16:04:38 09/20/20 23 09/22/2023 URINE CULTU RE levofloxacin <=0.5 ug/mL susceptib le Not Available [facility] [address] [place] [address], [address], 09/22/2023 16:04:38 09/20/20 23 09/22/2023 URINE CULTU RE nitrofuranto in >64 ug/mL resistant Not Available [facility] [address] [place] [address], [address], 09/22/2023 16:04:38 09/20/20 23 09/22/2023 URINE CULTU RE piperacillin /robby <=16 ug/mL susceptib le Not Available [facility] [address] [place] [address], [address], 09/22/2023 16:04:38 09/20/20 23 09/22/2023 URINE CULTU RE tetracycline <=4 ug/mL susceptib le Not Available [facility] [address] [place] [address], [address], 09/22/2023 16:04:38 09/20/20 23 09/22/2023 URINE CULTU RE tobramycin <=2 ug/mL susceptib le Not Available [facility] [address] [place] [address], [address], 09/22/2023 16:04:38 09/20/20 23 09/22/2023 URINE CULTU RE trimeth/sulf a <=2/38 ug/mL susceptib le Not Available [facility] [address] [place] [address], [address], 09/22/2023 16:04:38 09/20/20 23 09/20/2023 urina lysis panel , auto Unknown Analyte Clean Catch Not Available [facility] [address] [place] [address], [address], 09/20/2023 16:18:59 09/20/20 23 09/20/2023 urina lysis panel , auto Unknown Analyte Yellow Not Available [facility] [address], [address], 09/20/2023 16:18:59 09/20/20 23 09/20/2023 urina lysis panel , auto Unknown Analyte Cloudy Not Available [facility] [address], [address], 09/20/2023 16:18:59 09/20/20 23 09/20/2023 urina lysis panel , auto Unknown Analyte 1.020 Not Available [facility] [address] [place] [address] Rd [address], [place], [address], 09/20/2023 16:18:59 09/20/20 23 09/20/2023 urina lysis panel , auto Unknown Analyte 1.003- 1.035 Not Available [facility] [address], [place], [address], 09/20/2023 16:18:59 09/20/20 23 09/20/2023 urina lysis panel , auto Unknown Analyte 5.0 Not Available [facility] [address] [place] [address] Rd [address], [place], [address], 09/20/2023 16:18:59 09/20/20 23 09/20/2023 urina lysis panel , auto Unknown Analyte 5.0-8. 0 Not Available [facility] [address], [place], [address], 09/20/2023 16:18:59 09/20/20 23 09/20/2023 urina lysis panel , auto Unknown Analyte 500 Sumi/ul (++) Not Available [facility] [address], [place], [address], 09/20/2023 16:18:59 09/20/20 23 09/20/2023 urina lysis panel , auto Unknown Analyte Negati ve Not Available [facility] [address] [place] [address] Rd [address], [place], [address], 09/20/2023 16:18:59 09/20/20 23 09/20/2023 urina lysis panel , auto Unknown Analyte Negati ve Not Available [facility] [address] [place] [address] Rd [address], [place], [address], 09/20/2023 16:18:59 09/20/20 23 09/20/2023 urina lysis panel , auto Unknown Analyte Negati ve Not Available [facility] [address], [place], [address], 09/20/2023 16:18:59 09/20/20 23 09/20/2023 urina lysis panel , auto Unknown Analyte Negati ve Not Available [facility] [address], [place], [address], 09/20/2023 16:18:59 09/20/20 23 09/20/2023 urina lysis panel , auto Unknown Analyte Negati ve Not Available [facility] [address] [place] [address] Rd [address], [place], [address], 09/20/2023 16:18:59 09/20/20 23 09/20/2023 urina lysis panel , auto Unknown Analyte Normal Not Available [facility] [address], [place], [address], 09/20/2023 16:18:59 09/20/20 23 09/20/2023 urina lysis panel , auto Unknown Analyte Normal Not Available [facility] [address], [place], [address], 09/20/2023 16:18:59 09/20/20 23 09/20/2023 urina lysis panel , auto Unknown Analyte Negati ve Not Available [facility] [address], [place], [address], 09/20/2023 16:18:59 09/20/20 23 09/20/2023 urina lysis panel , auto Unknown Analyte Negati ve Not Available [facility] [address], [place], [address], 09/20/2023 16:18:59 09/20/20 23 09/20/2023 urina lysis panel , auto Unknown Analyte Normal Not Available [facility] [address], [place], [address], 09/20/2023 16:18:59 09/20/20 23 09/20/2023 urina lysis panel , auto Unknown Analyte Normal 1 mg/dl Not Available [facility] [address], [place], [address], 09/20/2023 16:18:59 09/20/20 23 09/20/2023 urina lysis panel , auto Unknown Analyte Negati ve Not Available [facility] [address], [place], [address], 09/20/2023 16:18:59 09/20/20 23 09/20/2023 urina lysis panel , auto Unknown Analyte Negati ve Not Available [facility] [address], [place], [address], 09/20/2023 16:18:59 09/20/20 23 09/20/2023 urina lysis panel , auto Unknown Analyte 250 Kike/ul Not Available [facility] [address], [place], [address], 09/20/2023 16:18:59 09/20/20 23 09/20/2023 urina lysis panel , auto Unknown Analyte Negati ve Not Available [facility] [address], [place], [address], 09/20/2023 16:18:59 10/10/19 24 10/10/2023 urina lysis panel , auto Unknown Analyte Clean Catch Not Available [facility] Surgery Schedule [address] [place], [address], 10/10/2023 13:39:50 10/10/19 24 10/10/2023 urina lysis panel , auto Unknown Analyte Yellow Not Available [facility] Surgery Schedule [address] [place], [address], 10/10/2023 13:39:50 10/10/19 24 10/10/2023 urina lysis panel , auto Unknown Analyte Clear Not Available [facility] Schedule [address] [place], [address], 10/10/2023 13:39:50 10/10/19 24 10/10/2023 urina lysis panel , auto Unknown Analyte 1.015 Not Available [facility] Schedule [address] [place], [address], 10/10/2023 13:39:50 10/10/19 24 10/10/2023 urina lysis panel , auto Unknown Analyte 1.003- 1.035 Not Available [facility] Schedule [address] [place], [address], 10/10/2023 13:39:50 10/10/19 24 10/10/2023 urina lysis panel , auto Unknown Analyte 6.0 Not Available [facility] Schedule [address] [place], [address], 10/10/2023 13:39:50 10/10/19 24 10/10/2023 urina lysis panel , auto Unknown Analyte 5.0-8. 0 Not Available [facility] Surgery Schedule [address] [place], [address], 10/10/2023 13:39:50 10/10/19 24 10/10/2023 urina lysis panel , auto Unknown Analyte 25 Sumi/ul Trace Not Available [facility] Surgery Schedule [address] [place], [address], 10/10/2023 13:39:50 10/10/19 24 10/10/2023 urina lysis panel , auto Unknown Analyte Negati ve Not Available [facility] Surgery Schedule [address] [place], [address], 10/10/2023 13:39:50 10/10/19 24 10/10/2023 urina lysis panel , auto Unknown Analyte Negati ve Not Available [facility] Surgery Schedule [address] [place], [address], 10/10/2023 13:39:50 10/10/19 24 10/10/2023 urina lysis panel , auto Unknown Analyte Negati ve Not Available [facility] Surgery Schedule [address] [place], [address], 10/10/2023 13:39:50 10/10/19 24 10/10/2023 urina lysis panel , auto Unknown Analyte Negati ve Not Available [facility] Surgery Schedule [address] [place], [address], 10/10/2023 13:39:50 10/10/19 24 10/10/2023 urina lysis panel , auto Unknown Analyte Negati ve Not Available [facility] Surgery Schedule [address] [place], [address], 10/10/2023 13:39:50 10/10/19 24 10/10/2023 urina lysis panel , auto Unknown Analyte Normal Not Available [facility] Surgery Schedule [address] [place], [address], 10/10/2023 13:39:50 10/10/19 24 10/10/2023 urina lysis panel , auto Unknown Analyte Normal Not Available [facility] Surgery Schedule [address] [place], [address], 10/10/2023 13:39:50 10/10/19 24 10/10/2023 urina lysis panel , auto Unknown Analyte Negati ve Not Available [facility] Surgery Schedule [address] [place], [address], 10/10/2023 13:39:50 10/10/19 24 10/10/2023 urina lysis panel , auto Unknown Analyte Negati ve Not Available [facility] Surgery Schedule [facility] [place], [address], 10/10/2023 13:39:50 10/10/19 24 10/10/2023 urina lysis panel , auto Unknown Analyte Normal Not Available [facility] Surgery Schedule [facility] [place], [address], 10/10/2023 13:39:50 10/10/19 24 10/10/2023 urina lysis panel , auto Unknown Analyte Normal 1 mg/dl Not Available [facility] Surgery Schedule [address] [place], [address], 10/10/2023 13:39:50 10/10/19 24 10/10/2023 urina lysis panel , auto Unknown Analyte Negati ve Not Available [facility] Surgery Schedule [facility] [place], [address], 10/10/2023 13:39:50 10/10/19 24 10/10/2023 urina lysis panel , auto Unknown Analyte Negati ve Not Available [facility] Surgery Schedule [address] [place], [address], 10/10/2023 13:39:50 10/10/19 24 10/10/2023 urina lysis panel , auto Unknown Analyte 50 Kike/ul Not Available [facility] Surgery Schedule [address] [place], [address], 10/10/2023 13:39:50 10/10/19 24 10/10/2023 urina lysis panel , auto Unknown Analyte Negati ve Not Available [facility] Surgery Schedule [address] [place], [address], 10/10/2023 13:39:50 10/19/19 24 10/19/2023 urina lysis panel , auto Unknown Analyte Clean Catch Not Available [facility] Surgery Schedule [address] [place], [address], 10/19/2023 11:45:16 10/19/19 24 10/19/2023 urina lysis panel , auto Unknown Analyte Yellow Not Available [facility] Schedule [address] [place], [address], 10/19/2023 11:45:16 10/19/19 24 10/19/2023 urina lysis panel , auto Unknown Analyte Clear Not Available [facility] Schedule [address] [place], [address], 10/19/2023 11:45:16 10/19/19 24 10/19/2023 urina lysis panel , auto Unknown Analyte 1.020 Not Available [facility] Schedule [address] [place], [address], 10/19/2023 11:45:16 10/19/19 24 10/19/2023 urina lysis panel , auto Unknown Analyte 1.003- 1.035 Not Available [facility] Surgery Schedule [address] [place], [address], 10/19/2023 11:45:16 10/19/19 24 10/19/2023 urina lysis panel , auto Unknown Analyte 5.0 Not Available [facility] Schedule [address] [place], [address], 10/19/2023 11:45:16 10/19/19 24 10/19/2023 urina lysis panel , auto Unknown Analyte 5.0-8. 0 Not Available [facility] Surgery Schedule [address] [place], [address], 10/19/2023 11:45:16 10/19/19 24 10/19/2023 urina lysis panel , auto Unknown Analyte 75 Sumi/ul (+) Not Available [facility] Surgery Schedule [address] [place], [address], 10/19/2023 11:45:16 10/19/19 24 10/19/2023 urina lysis panel , auto Unknown Analyte Negati ve Not Available [facility] Surgery Schedule [facility] [place], [address], 10/19/2023 11:45:16 10/19/19 24 10/19/2023 urina lysis panel , auto Unknown Analyte Negati ve Not Available [facility] Surgery Schedule [address] [place], [address], 10/19/2023 11:45:16 10/19/19 24 10/19/2023 urina lysis panel , auto Unknown Analyte Negati ve Not Available [facility] Surgery Schedule [address] [place], [address], 10/19/2023 11:45:16 10/19/19 24 10/19/2023 urina lysis panel , auto Unknown Analyte Negati ve Not Available [facility] Surgery Schedule [address] [place], [address], 10/19/2023 11:45:16 10/19/19 24 10/19/2023 urina lysis panel , auto Unknown Analyte Negati ve Not Available [facility] Surgery Schedule [address] [place], [address], 10/19/2023 11:45:16 10/19/19 24 10/19/2023 urina lysis panel , auto Unknown Analyte Normal Not Available [facility] Surgery Schedule [address] [place], [address], 10/19/2023 11:45:16 10/19/19 24 10/19/2023 urina lysis panel , auto Unknown Analyte Normal Not Available [facility] Surgery Schedule [address] [place], [address], 10/19/2023 11:45:16 10/19/19 24 10/19/2023 urina lysis panel , auto Unknown Analyte Negati ve Not Available [facility] Surgery Schedule [address] [place], [address], 10/19/2023 11:45:16 10/19/19 24 10/19/2023 urina lysis panel , auto Unknown Analyte Negati ve Not Available [facility] Surgery Schedule [address] [place], [address], 10/19/2023 11:45:16 10/19/19 24 10/19/2023 urina lysis panel , auto Unknown Analyte Normal Not Available [facility] Surgery Schedule [address] [place], [address], 10/19/2023 11:45:16 10/19/19 24 10/19/2023 urina lysis panel , auto Unknown Analyte Normal 1 mg/dl Not Available [facility] Surgery Schedule [address] [place], [address], 10/19/2023 11:45:16 10/19/19 24 10/19/2023 urina lysis panel , auto Unknown Analyte Negati ve Not Available [facility] Surgery Schedule [address] [place], [address], 10/19/2023 11:45:16 10/19/19 24 10/19/2023 urina lysis panel , auto Unknown Analyte Negati ve Not Available [facility] Surgery Schedule [address] [place], [address], 10/19/2023 11:45:16 10/19/19 24 10/19/2023 urina lysis panel , auto Unknown Analyte 250 Kike/ul Not Available [facility] Surgery Schedule [address] [place], [address], 10/19/2023 11:45:16 10/19/19 24 10/19/2023 urina lysis panel , auto Unknown Analyte Negati ve Not Available [facility] Surgery Schedule [address] [place], [address], 10/19/2023 11:45:16 11/15/19 24 11/15/2023 urina lysis panel , auto Unknown Analyte Clean Catch Not Available [facility] [address], [address], 11/15/2023 16:39:36 11/15/19 24 11/15/2023 urina lysis panel , auto Unknown Analyte Yellow Not Available [facility] [address] [place] [address] Rd [address], [place], [address], 11/15/2023 16:39:36 11/15/19 24 11/15/2023 urina lysis panel , auto Unknown Analyte Clear Not Available [facility] [address], [address], 11/15/2023 16:39:36 11/15/19 24 11/15/2023 urina lysis panel , auto Unknown Analyte 1.020 Not Available [facility] [address] [place] [address] [address], [address], 11/15/2023 16:39:36 11/15/19 24 11/15/2023 urina lysis panel , auto Unknown Analyte 1.003- 1.035 Not Available [facility] [address], [place], [address], 11/15/2023 16:39:36 11/15/19 24 11/15/2023 urina lysis panel , auto Unknown Analyte 5.0 Not Available [facility] [address], [place], [address], 11/15/2023 16:39:36 11/15/19 24 11/15/2023 urina lysis panel , auto Unknown Analyte 5.0-8. 0 Not Available [facility] [address], [address], 11/15/2023 16:39:36 11/15/19 24 11/15/2023 urina lysis panel , auto Unknown Analyte 500 Sumi/ul (++) Not Available [facility] [address], [place], [address], 11/15/2023 16:39:36 11/15/19 24 11/15/2023 urina lysis panel , auto Unknown Analyte Negati ve Not Available [facility] [address], [place], [address], 11/15/2023 16:39:36 11/15/19 24 11/15/2023 urina lysis panel , auto Unknown Analyte Negati ve Not Available [facility] [address], [address], 11/15/2023 16:39:36 11/15/19 24 11/15/2023 urina lysis panel , auto Unknown Analyte Negati ve Not Available [facility] [address], [place], [address], 11/15/2023 16:39:36 11/15/19 24 11/15/2023 urina lysis panel , auto Unknown Analyte Negati ve Not Available [facility] [address] [place] [address] Rd [address], [place], [address], 11/15/2023 16:39:36 11/15/19 24 11/15/2023 urina lysis panel , auto Unknown Analyte Negati ve Not Available [facility] [address], [place], [address], 11/15/2023 16:39:36 11/15/19 24 11/15/2023 urina lysis panel , auto Unknown Analyte Normal Not Available [facility] [address], [place], [address], 11/15/2023 16:39:36 11/15/19 24 11/15/2023 urina lysis panel , auto Unknown Analyte Normal Not Available [facility] [address], [place], [address], 11/15/2023 16:39:36 11/15/19 24 11/15/2023 urina lysis panel , auto Unknown Analyte Negati ve Not Available [facility] [address], [place], [address], 11/15/2023 16:39:36 11/15/19 24 11/15/2023 urina lysis panel , auto Unknown Analyte Negati ve Not Available [facility] [address], [place], [address], 11/15/2023 16:39:36 11/15/19 24 11/15/2023 urina lysis panel , auto Unknown Analyte Normal Not Available [facility] [address], [place], [address], 11/15/2023 16:39:36 11/15/19 24 11/15/2023 urina lysis panel , auto Unknown Analyte Normal 1 mg/dl Not Available [facility] [address], [place], [address], 11/15/2023 16:39:36 11/15/19 24 11/15/2023 urina lysis panel , auto Unknown Analyte Negati ve Not Available [facility] [address], [place], [address], 11/15/2023 16:39:36 11/15/19 24 11/15/2023 urina lysis panel , auto Unknown Analyte Negati ve Not Available [facility] [address], [place], [address], 11/15/2023 16:39:36 11/15/19 24 11/15/2023 urina lysis panel , auto Unknown Analyte 250 Kike/ul Not Available [facility] [address], [place], [address], 11/15/2023 16:39:36 11/15/19 24 11/15/2023 urina lysis panel , auto Unknown Analyte Negati ve Not Available [facility] [address] [facility] [address], [place], [address], 11/15/2023 16:39:36 12/07/19 24 12/07/2023 URINE CULTU RE klebsiella pneumoniae Organi sm: Klebsi lana pneumo niae Not Available [facility] [address] [place] [address], [phone], 12/10/2023 09:33:47 12/07/19 24 12/10/2023 URINE CULTU RE urine culture abnormal ISOLA TE #1 COLON Y COUNT : 10,00 0 - 100,0 00 CFU/M L Proba ble Gram Negat martha Bacil rogerio. ID and sensi tivit y in progr ess. See [employer] te Resul t(s) Below Klebs iella pneum oniae Not Available [facility] [address] [place] [address], [address], 12/10/2023 09:33:47 12/07/19 24 12/10/2023 URINE CULTU RE amox/K clav'ate(C) <=8/4 ug/mL susceptib le Not Available [facility] [address] [place] [address], [address], 12/10/2023 09:33:47 12/07/19 24 12/10/2023 URINE CULTU RE cefazolin <=2 ug/mL susceptib le Not Available [facility] [address] [place] [address], [address], 12/10/2023 09:33:47 12/07/19 24 12/10/2023 URINE CULTU RE ceftazidime <=1 ug/mL susceptib le Not Available [facility] [address] [place] [address], [address], 12/10/2023 09:33:47 12/07/19 24 12/10/2023 URINE CULTU RE ceftriaxone <=1 ug/mL susceptib le Not Available [facility] [address] [place] [address], [address], 12/10/2023 09:33:47 12/07/19 24 12/10/2023 URINE CULTU RE cefuroxime 16 ug/mL intermedi ate Not Available [facility] [address] [place] [address], [address], 12/10/2023 09:33:47 12/07/19 24 12/10/2023 URINE CULTU RE ciprofloxaci n 0.5 ug/mL intermedi ate Not Available [facility] [address] [place] [address], [phone], 12/10/2023 09:33:47 12/07/19 24 12/10/2023 URINE CULTU RE gentamicin <=4 ug/mL susceptib le Not Available [facility] [address] [place] [address], [address], 12/10/2023 09:33:47 12/07/19 24 12/10/2023 URINE CULTU RE imipenem <=1 ug/mL susceptib le Not Available [facility] [address] [place] [address], [address], 12/10/2023 09:33:47 12/07/19 24 12/10/2023 URINE CULTU RE levofloxacin <=0.5 ug/mL susceptib le Not Available [facility] [address] [place] [address], [address], 12/10/2023 09:33:47 12/07/19 24 12/10/2023 URINE CULTU RE nitrofuranto in 64 ug/mL intermedi ate Not Available [facility] [address] [place] [address], [address], 12/10/2023 09:33:47 12/07/19 24 12/10/2023 URINE CULTU RE piperacillin /robby <=16 ug/mL susceptib le Not Available [facility] [address] [place], [address], 12/10/2023 09:33:47 12/07/19 24 12/10/2023 URINE CULTU RE tetracycline <=4 ug/mL susceptib le Not Available [facility] [address] [place] [address], [address], 12/10/2023 09:33:47 12/07/19 24 12/10/2023 URINE CULTU RE tobramycin <=2 ug/mL susceptib le Not Available [facility] [address] [place], [address], 12/10/2023 09:33:47 12/07/19 24 12/10/2023 URINE CULTU RE trimeth/sulf a <=2/38 ug/mL susceptib le Not Available [facility] [address] [place] [address], [address], 12/10/2023 09:33:47 11/13/19 25 11/13/2024 urina lysis panel , auto Unknown Analyte Clean Catch Not Available [facility] [address], [address], 11/13/2024 14:36:14 11/13/19 25 11/13/2024 urina lysis panel , auto Unknown Analyte Yellow Not Available [facility] [address], [address], 11/13/2024 14:36:14 11/13/19 25 11/13/2024 urina lysis panel , auto Unknown Analyte Clear Not Available [facility] [address], [address], 11/13/2024 14:36:14 11/13/19 25 11/13/2024 urina lysis panel , auto Unknown Analyte 1.005 Not Available [facility] [address], [place], [address], 11/13/2024 14:36:14 11/13/19 25 11/13/2024 urina lysis panel , auto Unknown Analyte 1.003- 1.035 Not Available [facility] [address], [place], [address], 11/13/2024 14:36:14 11/13/19 25 11/13/2024 urina lysis panel , auto Unknown Analyte 6.0 Not Available [facility] [address], [place], [address], 11/13/2024 14:36:14 11/13/19 25 11/13/2024 urina lysis panel , auto Unknown Analyte 5.0-8. 0 Not Available [facility] [address], [place], [address], 11/13/2024 14:36:14 11/13/19 25 11/13/2024 urina lysis panel , auto Unknown Analyte 25 Sumi/ul Trace Not Available [facility] [address], [place], [address], 11/13/2024 14:36:14 11/13/19 25 11/13/2024 urina lysis panel , auto Unknown Analyte Negati ve Not Available [facility] [address], [place], [address], 11/13/2024 14:36:14 11/13/19 25 11/13/2024 urina lysis panel , auto Unknown Analyte Negati ve Not Available [facility] [address], [place], [address], 11/13/2024 14:36:14 11/13/19 25 11/13/2024 urina lysis panel , auto Unknown Analyte Negati ve Not Available [facility] [address], [place], [address], 11/13/2024 14:36:14 11/13/19 25 11/13/2024 urina lysis panel , auto Unknown Analyte Negati ve Not Available [facility] [address], [place], [address], 11/13/2024 14:36:14 11/13/19 25 11/13/2024 urina lysis panel , auto Unknown Analyte Negati ve Not Available [facility] [address], [place], [address], 11/13/2024 14:36:14 11/13/19 25 11/13/2024 urina lysis panel , auto Unknown Analyte Normal Not Available [facility] [address] [place] [address] Rd [address], [place], [address], 11/13/2024 14:36:14 11/13/19 25 11/13/2024 urina lysis panel , auto Unknown Analyte Normal Not Available [facility] [address] [place] [address] Rd [address], [place], [address], 11/13/2024 14:36:14 11/13/19 25 11/13/2024 urina lysis panel , auto Unknown Analyte Negati ve Not Available [facility] [address] [place] [address] [address], [place], [address], 11/13/2024 14:36:14 11/13/19 25 11/13/2024 urina lysis panel , auto Unknown Analyte Negati ve Not Available [facility] [address], [place], [address], 11/13/2024 14:36:14 11/13/19 25 11/13/2024 urina lysis panel , auto Unknown Analyte Normal Not Available [facility] [address], [place], [address], 11/13/2024 14:36:14 11/13/19 25 11/13/2024 urina lysis panel , auto Unknown Analyte Normal 1 mg/dl Not Available [facility] [address], [place], [address], 11/13/2024 14:36:14 11/13/19 25 11/13/2024 urina lysis panel , auto Unknown Analyte Negati ve Not Available [facility] [address], [place], [address], 11/13/2024 14:36:14 11/13/19 25 11/13/2024 urina lysis panel , auto Unknown Analyte Negati ve Not Available [facility] [address], [place], [address], 11/13/2024 14:36:14 11/13/19 25 11/13/2024 urina lysis panel , auto Unknown Analyte 50 Kike/ul Not Available [facility] [address], [place], [address], 11/13/2024 14:36:14 11/13/19 25 11/13/2024 urina lysis panel , auto Unknown Analyte Negati ve Not Available [facility] [address], [place], [address], 11/13/2024 14:36:14 04/30/20 25 04/30/2025 urina lysis panel , auto Unknown Analyte Clean Catch Not Available [facility] [address], [place], [address], 04/30/2025 16:35:33 04/30/20 25 04/30/2025 urina lysis panel , auto Unknown Analyte Yellow Not Available [facility] [address], [place], [address], 04/30/2025 16:35:33 04/30/20 25 04/30/2025 urina lysis panel , auto Unknown Analyte Clear Not Available [facility] [address], [place], [address], 04/30/2025 16:35:33 04/30/20 25 04/30/2025 urina lysis panel , auto Unknown Analyte 1.020 Not Available [facility] [address], [place], [address], 04/30/2025 16:35:33 04/30/20 25 04/30/2025 urina lysis panel , auto Unknown Analyte 1.003 - 1.030 Not Available [facility] [address], [place], [address], 04/30/2025 16:35:33 04/30/20 25 04/30/2025 urina lysis panel , auto Unknown Analyte 5.0 Not Available [facility] [address], [place], [address], 04/30/2025 16:35:33 04/30/20 25 04/30/2025 urina lysis panel , auto Unknown Analyte 5.0 - 8.0 Not Available [facility] [address], [place], [address], 04/30/2025 16:35:33 04/30/20 25 04/30/2025 urina lysis panel , auto Unknown Analyte 75 Sumi/uL Not Available [facility] [address], [place], [address], 04/30/2025 16:35:33 04/30/20 25 04/30/2025 urina lysis panel , auto Unknown Analyte Negati ve Not Available [facility] [address], [place], [address], 04/30/2025 16:35:33 04/30/20 25 04/30/2025 urina lysis panel , auto Unknown Analyte Negati ve Not Available [facility] [address], [place], [address], 04/30/2025 16:35:33 04/30/20 25 04/30/2025 urina lysis panel , auto Unknown Analyte Negati ve Not Available [facility] [address], [place], [address], 04/30/2025 16:35:33 04/30/20 25 04/30/2025 urina lysis panel , auto Unknown Analyte Negati ve Not Available [facility] [address], [place], [address], 04/30/2025 16:35:33 04/30/20 25 04/30/2025 urina lysis panel , auto Unknown Analyte Negati ve Not Available [facility] [address], [place], [address], 04/30/2025 16:35:33 04/30/20 25 04/30/2025 urina lysis panel , auto Unknown Analyte Normal Not Available [facility] [address], [place], [address], 04/30/2025 16:35:33 04/30/20 25 04/30/2025 urina lysis panel , auto Unknown Analyte Normal Not Available [facility] [address], [place], [address], 04/30/2025 16:35:33 04/30/20 25 04/30/2025 urina lysis panel , auto Unknown Analyte Negati ve Not Available [facility] [address], [place], [address], 04/30/2025 16:35:33 04/30/20 25 04/30/2025 urina lysis panel , auto Unknown Analyte Negati ve Not Available [facility] [address], [place], [address], 04/30/2025 16:35:33 04/30/20 25 04/30/2025 urina lysis panel , auto Unknown Analyte Normal Not Available [facility] [address], [place], [address], 04/30/2025 16:35:33 04/30/20 25 04/30/2025 urina lysis panel , auto Unknown Analyte Normal Not Available [facility] [address], [place], [address], 04/30/2025 16:35:33 04/30/20 25 04/30/2025 urina lysis panel , auto Unknown Analyte Negati ve Not Available [facility] [address], [place], [address], 04/30/2025 16:35:33 04/30/20 25 04/30/2025 urina lysis panel , auto Unknown Analyte Negati ve Not Available [facility] [address], [place], [address], 04/30/2025 16:35:33 04/30/20 25 04/30/2025 urina lysis panel , auto Unknown Analyte Negati ve Not Available [facility] [address], [place], [address], 04/30/2025 16:35:33 04/30/20 25 04/30/2025 urina lysis panel , auto Unknown Analyte Negati ve Not Available [facility] [address], [place], [address], 04/30/2025 16:35:33 Result Notes None recorded. Problems Name Problem SNOMED Code Status Onset Date Resolution Date Notes Provider Name and Address Organization Details Recorded Time Recurrent urinary tract infection 083234324 Active 2022 [place] [address] [place] [address], [address], [facility] 3 09:29:45 Urinary tract infectious disease 48848959 Active 2022 WILFRIDO ROMAN JR, MD [address] [place] [address], [address], [facility] 3 09:29:46 Urge incontinence of urine 15498510 Active 2022 WILFRIDO ROMAN JR, MD [address] [place] [address], [address], [facility] 09:29:47 Problem Notes None recorded. Procedures Surgical History Date Name Laterality Status Provider Name and Address Organization Details Recorded Time 3 PNE Implantation; Sacral Nerve completed WILFRIDO ROMAN JR, MD [address] [place] [address], [address], [facility] 09/17/2023 07:38:44 3 Cystoscopy - female completed WILFRIDO ROMAN JR, MD [address] [place] [address], [address], [facility] 08/29/2023 14:45:16 9 Post Void Residual; Ultrasound completed Evelyne Felton [place] [facility] 10/28/2018 11:26:22 Other completed Evelyne Felton [place] [facility] 10/28/2018 11:17:20 Other completed Evelyne [place] [facility] 10/28/2018 11:17:29 Other completed Evelyne [place] [facility] 10/28/2018 11:17:39 Other completed Evelyne [place] [facility] 10/28/2018 11:17:45 Imaging Results None recorded. Procedure Notes None recorded. Medical Equipment None Reported. Allergies Allergen ID Allergen Name Allergen Category Reaction Reaction Severity Criticality Documentation Date Start Date Code Code System Note Provider Name and Address Organization Details Recorded Time 615079 Substance with sulfonami de structure and antibacte rial mechanism of action (substanc e) medicatio n Not available Not available Not available 10/28/2018 24331 [id number] SNOMED [facility] 11:10:53 Medications Name Sig [...] Available methenami ne hippurate 1 gram tablet Take 1 tablet twice a day by oral route. 2024 active Not Available Not Available Not Avai [...] active Not Available Not Available Not Available Estrace 0.01% (0.1 mg/gram) vaginal cream Insert 1 g 3 times a week by vaginal route as directed . 2024 active Not Available Not Available Not Avai lable multivita min with iron tablet Daily active [...] 0 Not Available Not Available Not Available Migelaglghanshyam LópezikPen U-100 Insulin 100 unit/mL (3 mL) [...] Updated DateTime 11/13/2024 167.64 cm 33.9 kg/m2 10207.4 g Shruthi Mckinley [facility] 11/13/2024 14:24:19 Date Recorded Body height Body mass index (BMI) Body weight Provider Name and Address Organization Details Last Updated DateTime 11/15/2023 167.64 cm 33.9 kg/m2 41163.4 g Danny Pyle [facility] 11/15/2023 16:06:35 Date Recorded Body height Body mass index (BMI) Body weight Provider Name and Address Organization Details Last Updated DateTime 04/30/2025 170.18 cm 26.6 kg/m2 86284.7 g Arianna Mk [facility] 04/30/2025 16:32:08 Social History Question Answer Notes LastModified by Organizat ion Details LastModified Time Tobacco Smoking Status Never Smoker Evelyne Ya breanna, [facility] 10/28/2018 11:16:44 Marital Status Informatio n [...] not available 04/02/2023 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 @ [employer] Information not available 10/28/2018 Mental Status None [...] GPAL:G 0 P 0 0 0 0 Immunizations Vaccine Type Date Status Note Provider Nam e and Address Organization Details Recorded Time pneumococcal polysaccharide PPV23 3 completed Not Available [facility] 04/30/2025 16:22:38 Tdap 3 completed Not Available [facility] 04/30/2025 16:22:38 Influenza, split virus, quadrivalent, PF 7 completed Not Available [facility] 04/30/2025 16:22:38 Influenza, split virus, quadrivalent, PF 8 completed Not Available [facility] 04/30/2025 16:22:38 Influenza, MDCK, quadrivalent, PF 9 completed Not Available [facility] 04/30/2025 16:22:38 Pneumococcal conjugate PCV 13 9 completed Not Available [facility] 04/30/2025 16:22:38 Influenza, split virus, quadrivalent, PF 0 completed Not Available [facility] 04/30/2025 16:22:38 Pneumococcal conjugate PCV 13 0 completed Not Available [facility] 04/30/2025 16:22:38 COVID-19, mRNA, LNP-S, PF, 100 mcg/0.5mL dose or 50 mcg/0.25mL dose 1 completed Not Available [facility] 04/30/2025 16:22:38 COVID-19, mRNA, LNP-S, PF, 100 mcg/0.5mL dose or 50 mcg/0.25mL dose 1 completed Not Available [facility] 04/30/2025 16:22:38 Influenza, split virus, quadrivalent, preservative 1 completed Not Available [facility] 04/30/2025 16:22:38 zoster recombinant 1 completed Not Available [facility] 04/30/2025 16:22:38 COVID-19, mRNA, LNP-S, PF, 100 mcg/0.5mL dose or 50 mcg/0.25mL dose 1 completed Not Available [facility] 04/30/2025 16:22:38 zoster recombinant 1 completed Not Available [facility] 04/30/2025 16:22:38 Influenza, split virus, quadrivalent, PF 2 completed [facility] Available [facility] 04/30/2025 16:22:38 COVID-19, mRNA, LNP-S, bivalent, PF, 50 mcg/0.5 mL or 25mcg/0.25 mL dose 2 completed Not Available [facility] 04/30/2025 16:22:38 Influenza, split virus, quadrivalent, PF 3 completed Not Available [facility] 04/30/2025 16:22:38 COVID-19, mRNA, LNP-S, PF, jose-sucrose, 30 mcg/0.3 mL 3 completed Not Available [facility] 04/30/2025 16:22:38 Pneumococcal conjugate PCV20, polysaccharide VOG282 conjugate, adjuvant, PF 4 completed Not Available [facility] 04/30/2025 16:22:38 Influenza, high-dose, trivalent, PF 4 completed Not Available [facility] 04/30/2025 16:22:38 Past Encounters Encounter ID Performer Location Encounter Start Date Encounter Closed Date Diagnosis/Indication Diagnosis SNOMED-CT Code Diagnosis ICD10 Code Diagnosis IMO Codes Diagnosis Note [id number] MARIA R ALEJO MD UROLOGY [facility] [address] [place] [address] 10/28/2018 10:25:59 10/29/2018 08:43:14 Urge incontinence of urine [id number] N39.41 Pt has been doing well with oxybutinin until recently. Her u/a today is wnl and PVR only 52 cc. Discussed that her increased caffeine use is probably responsibl e for her increased urgency and leakage. She has been drinking up to 40 oz/day. Discussed drinking 8 0z day of decaf. [id number] WILFRIDO ROMAN JR, MD CUA [facility] [address] [facility],[address]IMMI[address] [place] [address] 04/02/2023 13:16:15 04/09/2023 04:02:50 Recurrent urinary tract infection 579965192 N39.0 Urinary tr act infectious disease [id number] N39.0 Urge incon tinence of urine 74429038 N39.41 [id number] WILFRIDO ROMAN JR, MD TARAH [facility] UROLOGIC ASSOCIATE S [address] [facility] [facility] [address] [place] [address] 08/02/2023 15:01:31 08/02/2023 16:32:59 Acute urinary tract infection [id number] N39.0 Urge incon tinence of urine 78218894 N39.41 Recurrent urinary tract infection 530046171 N39.0 , [id number] WILFRIDO ROMAN JR, MD SURGERY SCHEDULE [address] [place] [address] 08/29/2023 14:42:52 08/29/2023 14:43:44 Recurrent urinary tract infection 369362538 N39.0 , Urge incon tinence of urine 82990663 N39.41 [id number] WILFRIDO ROMAN JR, MD CUA [facility] UROLOGIC ASSOCIATE S [address] [address] 09/13/2023 16:11:52 09/19/2023 10:45:57 Urge incontinence of urine 57244191 N39.41 [id number] WILFRIDO ROMAN JR, MD CUA [facility] UROLOGIC ASSOCIATE S [address] [address] 09/20/2023 14:57:25 09/20/2023 15:41:37 Acute urinary tract infection 503296458 N39.0 Urge incon tinence of urine 93987690 N39.41 [id number] WILFRIDO ROMAN JR, MD SURGERY SCHEDULE [address] [place] [address] 10/19/2023 11:27:51 10/19/2023 12:19:29 Postoperative pain 693821369 G89.18 [id number] WILFRIDO ROMAN JR, MD CUA [facility] UROLOGIC ASSOCIATE S [address] [place] [address] 11/15/2023 15:54:23 11/15/2023 16:22:19 Urge incontinence of urine 86222851 N39.41 [id number] ALLISON ALBERTS MD CUA [facility] UROLOGIC ASSOCIATE S [address] [place] [address] 12/07/2023 16:06:10 12/07/2023 16:09:12 Acute urinary tract infection 526385963 N39.0 [id number] WILFRIDO ROMAN JR, MD CUA [facility] UROLOGIC ASSOCIATE S [address] [address] 11/13/2024 13:53:24 11/13/2024 14:34:39 Recurrent urinary tract infection 527425144 N39.0 Recommend addition of vitamin C with Methionami ne. Monitor recurrence . Adjust preventive strategies if necessary. Urge incon tinence of urine 12577033 N39.41 Continue neuromodul ation therapy. Allow for adjustment of business programmer settings by patient. Evaluate future interventi ons if needed. [id number] WILFRIDO ROMAN JR, MD TARAH [facility] UROLOGIC ASSOCIATE S [address] [place] [address] 04/30/2025 16:21:33 04/30/2025 16:44:13 Recurrent urinary tract infection 241328895 N39.0 Recommend addition of vitamin C with Methionami ne. Monitor recurrence . Adjust preventive strategies if necessary. - Continue methenamin e therapy. - Consider vitamin C addition. - Monitor infection frequency. Urge incon tinence of urine 97496091 N39.41 Continue neuromodul ation therapy. Allow for adjustment of business programmer settings by patient. Evaluate future interventi ons if needed. Health Concerns Section Related Observation LastModified by Organization Detai ls LastModified Time None Recorded Concern Status LastModified by Organization Details LastModified Time None Recorded Advance Directives Directive None Recorded Payers Insurance Date Sequence Insurance Name Policy Number Policy Espinal Covered Member ID Espinal Member ID Guarantor Name 11/16/2024 2 [place] [id number] Salvador Booker Ewalt [id number] Vianey Kenyon Ewalt 12/04/2018 1 *SELF PAY* Robert Kenyon Ewalt 05/03/2025 1 UMR [id number] Vianey Kenyon Ewalt [id number] Vianey Kenyon Ewalt 11/16/2024 GENERIC INSURANCE - MOVED-HOLD Vianey Kenyon Ewalt Vianey Kenyon Ewalt Notes Date Note Type Note Provider Name and Address Organization Details Recorded Time 11/15/2023 text/html Patient is in today for follow-up of urgency incontinence. She underwent neuromodulation, Axonix implantation stages, one and 02 October 2023. She reports significant improvement of lower urinary tract symptoms. WILFRIDO ROMAN JR, MD [address] [place], [address], [facility] 11/17/2023 10:50:13 11/13/2024 text/html The patient is [...] incontinence. She underwent neuromodulation, Axonix implantation stages, one and 02 October 2023. WILFRIDO ROMAN JR, MD [address] [place] [address], [phone], [facility] 11/15/2024 12:55:04 04/30/2025 text/html The patient is a 64-year-old female presenting with follow-up for urgency incontinence and recurrent urinary tract infections. History of urgency incontinence treated with neuromodulation in 2023. Methenamine therapy used for UTI prevention, effective in reducing infection frequency. Completed IV antibiotics for UTI last week, only episode in past six months. Three UTIs in past six months. Methenamine sometimes combined with vitamin C. Lost 40 pounds over past year and a half. Documentation on this patient encounter was supported using voice-enabled Al technology. The patient consented to recording for the purpose of documenting the encounter. Provider reviewed content of the generated note prior to signature. WILFRIDO ROMAN JR, MD [address] [place] [address], [phone], [facility] 05/02/2025 11:26:56 OBGyn Episode No OBEpisode recorded.
--- OUTSIDE RECORDS SUMMARY | 2025-09-25 09:57 | XMS_ITS | Encounter Summary ---
Author Organization [facility] ystem Address [address] [place] [id number] Care Team Providers Care Video Technician Name Role Phone Jenna Hassan APRN Primary Care Provider [phone] Encounter Details Date Type Department Care Team (Late st Contact Info) Description 01/06/2025 Results Follow-Up [facility] OBGYN [address] [place] [address] Dia Casas MD [address] [facility] [address] [place] [address] Social History Tobacco Use Types Packs/Day [...] filedocumented in this encounter Care Teams Video Technician Relationship Specialty Start Date End Date Jenna Hassan APRN [facility] [place] [address] [place] [address] PCP - General 05/17/25 documented as of this encounter
--- OUTSIDE RECORDS SUMMARY | 2025-09-25 09:57 | XMS_ITS | Encounter Summary ---
Author Organization [facility] ystem Address [address] [place] [address] Care Team Providers Care Deicer Inspector Pneumatic Name Role Phone Jenna Hassan APRN Primary Care Provider [phone] Reason for Visit * Reason Comments Med Refill Encounter Details Date Type Department Care Team (Late st Contact Info) Description 08/05/2025 Refill [facility] INTERNAL MEDICINE [address] [address] Dilan Chappell MD [address] [address] OAB (overactive bladder) Social History [...] bladder) documented in this encounter Care Teams Deicer Inspector Pneumatic Relationship Specialty Start Date End Date Jenna Hassan APRN [address] [place] [address] PCP - General 05/17/25 documented as of this encounter
--- OUTSIDE RECORDS SUMMARY | 2025-09-25 09:57 | XMS_ITS | Encounter Summary ---
Author Organization [facility] ystem Address [address] [place] [address] Care Team Providers Care Furniture Finisher Name Role Phone Jenna Hassan APRN Primary Care Provider [phone] Reason for Visit * Reason Comments Med Refill Encounter Details Date Type Department Care Team (Late st Contact Info) Description 08/05/2025 Refill [facility] INTERNAL MEDICINE [address] [address] Vianey Gasca PA-C [address] [address] Vitamin D deficiency Social History Tobacco Use [...] deficiency documented in this encounter Care Teams Furniture Finisher Relationship Specialty Start Date End Date Jenna Hassan APRN [address] [place] [address] [place] [address] PCP - General 05/17/25 documented as of this encounter
--- OUTSIDE RECORDS SUMMARY | 2025-09-25 09:57 | XMS_ITS | Encounter Summary ---
Author Organization [facility] ystem Address [address] [place] [address] Care Team Providers Care Tanker Driver Name Role Phone Jenna Hassan APRN Primary Care Provider [phone] Reason for Visit * Reason Comments Med Refill Encounter Details Date Type Department Care Team (Late st Contact Info) Description 08/05/2025 Refill [facility] INTERNAL MEDICINE [address] [address] Vianey Gasca PA-C [address] [address] Vitamin D deficiency Social History [...] deficiency documented in this encounter Care Teams Tanker Driver Relationship Specialty Start Date End Date Jenna Hassan APRN [address] [place] [address] [place] [address] PCP - General 05/17/25 documented as of this encounter
--- OUTSIDE RECORDS SUMMARY | 2025-09-25 09:57 | XMS_ITS | Encounter Summary ---
Author Organization [facility] yste Address [address] [place] [address] Care Team Providers Care Sharepoint Solutions Developer Name Role Phone Jenna Hassan APRN Primary Care Provider Reason for Visit * Reason Comments Med Refill Encounter Details Date Type Department Care Team (Late st Contact Info) Description 03/28/2024 Refill [facility] INTERNAL MEDICINE 2101 [facility] [address] [place] [address] Vianey Gasca PA-C [address] [address] Type 2 diabetes mellitus without [...] insulin documented in this encounter Care Teams Sharepoint Solutions Developer Relationship Specialty Start Date End Date Jenna Hassan APRN [address] [place] [address] [place] [address] PCP - General 05/17/25 documented as of this encounter
--- OUTSIDE RECORDS SUMMARY | 2025-09-25 09:57 | XMS_ITS | Clinical Summary ---
[facility] Address [address] [place] [address] Care Team Providers Care Hand Plate Stacker Name Role Phone Jenna Hassan APRN Primary Care Provider [phone] Allergies Active Allergy Reactions Criticality Noted Date Comments Sulfa Antibiotics Swelling 11/07/2018 Lip swelling Trimethoprim Swelling 11/07/2018 Lip swelling Medications ONE TOUCH LANCETS miscIndications:Ty pe 2 diabetes mellitus without complication, without long-term current use of insulin Check blood sugar daily 100 each 3 01/24/20 19 Active methenamine (HIPREX) 1 g tablet Take 1 tablet by mouth 2 (Two) Times a Day. 09/29/20 23 Active Blood Glucose Monitoring Suppl (ONE TOUCH ULTRA MINI) w/Device kitIndications:Typ e 2 diabetes mellitus without complication, without long-term current use of insulin CHECK BLOOD SUGAR ONCE DAILY 1 each 03/15/20 24 Active OneTouch Ultra Test test stripIndications:T ype 2 diabetes mellitus without complication, without long-term current use of insulin CHECK BLOOD SUGAR ONCE DAILY 100 each 09/04/20 24 Active zolpidem (AMBIEN) 5 MG tabletIndications: Primary insomnia TAKE 1 TABLET BY MOUTH ONCE DAILY AT NIGHT NEEDED FOR SLEEP 30 tablet 12/04/19 25 Active estradiol (ESTRACE VAGINAL) 0.1 MG/GM vaginal cream Insert 1 gm intravaginally 1 times each week 1 each 12 01/02/20 25 Active Cyanocobalamin (VITAMIN B-12 PO) Take 1 tablet by mouth Daily. Active Ascorbic Acid (VITAMIN C PO) Take 1 tablet by mouth Daily. Active VITAMIN D PO Take 1 tablet by mouth Daily. Active BD Pen Needle Micro U/F 32G X 6 MM misc DIRECTED 100 each 02/03/20 25 Active levothyroxine (SYNTHROID, LEVOTHROID) 112 MCG tablet TAKE 1 TABLET BY MOUTH ONCE DAILY 30 tablet 4 03/16/20 25 Active vitamin D (ERGOCALCIFEROL) 1.25 MG (85981 UT) capsule capsuleIndications :Vitamin D deficiency TAKE 1 CAPSULE BY MOUTH 1 (ONE) TIME PER WEEK. 12 capsule 03/16/20 25 Active insulin glargine (Semglee) 100 UNIT/ML injectionIndicatio ns:Type 2 diabetes mellitus without complication, without long-term current use of insulin Inject 20 Units under the skin into the appropriate area as directed Daily. 6 mL 2 04/09/20 25 Active tolterodine LA (DETROL LA) 4 MG 24 hr capsuleIndications :OAB (overactive bladder) TAKE 1 CAPSULE BY MOUTH ONCE DAILY 90 capsule 04/15/20 25 Active omeprazole (priLOSEC) 40 MG capsule TAKE 1 CAPSULE BY MOUTH ONCE DAILY BEFORE A MEAL 90 capsule 05/12/20 25 Active Mounjaro 10 MG/0.5ML solution auto-injector INJECT 10 MG UNDER THE SKIN ONCE WEEKLY 2 mL 2 05/13/20 25 Active lisinopril (PRINIVIL,ZESTRIL) 20 MG tabletIndications: Benign essential hypertension TAKE 1 TABLET BY MOUTH ONCE DAILY 90 tablet 06/02/20 25 Active escitalopram (LEXAPRO) 20 MG tablet TAKE 1 TABLET BY MOUTH ONCE DAILY 90 tablet 06/02/20 25 Active atorvastatin (LIPITOR) 10 MG tabletIndications: Mixed hyperlipidemia TAKE 1 TABLET BY MOUTH ONCE DAILY 90 tablet 06/02/20 25 Active metFORMIN ER (GLUCOPHAGE-XR) 500 MG 24 hr tablet TAKE 1 TABLET BY MOUTH ONCE DAILY WITH BREAKFAST 90 tablet 06/02/20 25 Active Active Problems Problem Noted Date Diagnosed Date [...] Encounters Date Type Department Care Team Description [facility] [address] [facility] [address] [place] [address] Vianey Gasca PA-C Vitamin D deficiency 08/05/2025 Refill [facility] INTERNAL MEDICINE [address] [facility] [address] [place] [address] Vianey Gasca PA-C Vitamin D deficiency 08/05/2025 Refill [facility] INTERNAL MEDICINE [address] [address] Dilan Chappell MD OAB (overactive bladder) 07/30/2025 Telephone [facility] INTERNAL MEDICINE [address] [address] Jenna Hassan APRN 07/29/2025 Refill [facility] INTERNAL MEDICINE [address] [address] Vianey Gasca PA-C 07/22/2025 Telephone [facility] INTERNAL MEDICINE [address] [address] Jenna Hassan, TIFFANY from Last 3 Months Immunizations Immunization Administration [...] DIABETIC FOOT EXAM 11/02/2024 11/02/2023 INFLUENZA VACCINE 05/01/2025 07/08/2024, , 07/12/2021, Additional history exists COVID-19 Vaccine (2024-2 6 season) 2025 08/03/2023, 08/11/2022, 08/05/2021, Additional history exists HEMOGLOBIN A1C 07/24/2025 01/22/2025, 10/01, 06/05/2024, Additional history exists DXA SCAN 12/11/2025 12/12/2023, 05/09/2021 LIPID PANEL 01/27/2026 01/27/2025, 10/01, 06/05/2024, Additional history exists URINE MICROALBUMIN-CREATININ E RATIO (uACR) 01/27/2026 01/27/2025 MAMMOGRAM 05/19/2027 05/19/2025, 05/01, 12/12/2023, Additional history exists COLONOSCOPY 01/02/2033 01/02/2023, 07/29/2013 [...] - 29.0 mg/g 01/28/2025 2:12 AM EDT [facility] Creatinine, Urine 172.8 mg/dL 01/28/2025 2:12 AM EDT [facility] Microalbumin, Urine 1.9 mg/dL 01/28/2025 2:12 AM EDT [facility] Urine Urine specimen obtained by clean catch procedure / Unknown Collection / Unknown 01/27/2025 8:53 AM EDT 01/27/2025 8:53 AM EDT Vianey Gasca PA-C URINE ORDERABLES Final Result [facility]
[address] [place] [address], * Lipid Panel (01/27/2025 8:53 AM EDT) [facility] Total Cholesterol 129 0 - 200 mg/dL 01/28/2025 12:28 AM EDT [facility] Triglycerides 62 0 - 150 mg/dL 01/28/2025 12:28 AM EDT [facility] HDL Cholesterol 53 40 - 60 mg/dL 01/28/2025 12:28 AM EDT [facility] LDL Cholesterol 63 0 - 100 mg/dL 01/28/2025 12:28 AM EDT [facility] VLDL Cholesterol 13 5 - 40 mg/dL 01/28/2025 12:28 AM EDT [facility] LDL/HDL Ratio 1.20 01/28/2025 12:28 AM EDT [facility] Blood Venipuncture / Unknown 01/27/2025 8:53 AM EDT 01/27/2025 8:53 AM EDT Narrative [facility] - 01/28/2025 12:28 AM EDT [...] PA-C LAB BLOOD ORDERABLES F inal Result [facility]
[address] [place] [address], * (ABNORMAL) POC Glycosylated Hemoglobin (Hb A1C) (01/22/2025 3:35 PM EDT) Hemoglobin A1C 5.8(A) 4.5 - 5.7 % [facility] Lot Number [id number] [facility] Expiration Date 08/19/2026 [facility] Blood 01/22/2025 3:35 PM EDT Vianey Gasca PA-C POINT OF CARE TEST ORD ERABLES Final Result [facility]
[address] [place] [address], [place] [phone] * DEXA Bone Density Axial (12/12/2023 4:23 [...] fall-prevention measurements. The National Osteoporosis Foundation recommends (http://www.nof.org/hcp/practice/mvpfohux-hvj-ejgpzfph-guidelines/clinicians-chandrakant de) that FDA-approved medical therapies be considered [...] the left hip with 95% confidence is 0.571926 gm/cm2 at the hip and 0.377921 g/cm2 at the lumbar spine. Report dictated by: Nikki Sood PA-c I have personally reviewed this case and agree with the findings above: Electronically Signed: Paul Schwab MD 12/13/2023 4:51 PM EDT Workstation ID: [id number] Narrative 12/13/2023 4:51 PM EDT DUAL-ENERGY X-RAY [...] normal patients. According to criteria established by the[facility], patients [...] exercises and fall-prevention measurements. The NationalOsteoporosis Foundation recommends(http://www.nof.org/hcp/practice/fxstxvdv-xox-vqljaseg-guidelines/clin ician s-guide) that FDA-approved medical therapies be [...] at the left hipwith 95% confidence is 0.129688 gm/cm2 at the hip and 0.662846 g/cm2 atthe lumbar spine. Report dictated by: Nikki Sood PA-c I have personally reviewed this case and agree with the findings above: Electronically Signed: Paul Schwab MD 12/13/2023 4:51 PM EDT Workstation ID: [id number] Vianey Gasca PA-C [facility] DXA ORDERABLES Fin al Result * Hepatitis C antibody (09/13/2023 8:34 AM EST) Hepatitis C Ab Non-Reacti ve Non-Reacti ve 09/14/2023 12:14 AM EST [facility] Blood Venipuncture / Unknown 09/13/2023 8:34 AM EST 09/13/2023 8:41 AM EST Narrative [facility] - 09/14/2023 12:14 AM EST Results may be falsely decreased if patient taking Biotin. Vianey Gasca PA-C LAB BLOOD ORDERABLES F inal Result [facility]
[address] [place] [address], [place] [phone] * SCANNED - EYE EXAM (08/14/2023) Anatomical Region Laterality Modality Other Vianey Gasca PA-C CHART REVIEW TABS F inal Result * SCANNED - COLONOSCOPY (01/02/2023) Vianey Gasca PA-C CHART REVIEW TABS F inal Result from Last 3 Months or Most Recently Relevant to [place] [id number] Care Teams Hand Plate Stacker Relationship Specialty Start Date End Date Jenna Hassan APRN [address] [facility] [address] [place], [place] [id number] PCP - General 05/17/25
--- OUTSIDE RECORDS SUMMARY | 2025-09-25 09:57 | XMS_ITS | Encounter Summary ---
Author Organization [facility] ystem Address [address] [place] [address] Care Team Providers Care Air Intelligence Specialist Name Role Phone Jenna Hassan APRN Primary Care Provider [phone] Reason for Visit * Reason Comments Med Refill Encounter Details Date Type Department Care Team (Late st Contact Info) Description 07/29/2025 Refill [facility] INTERNAL MEDICINE [address] [address] Vianey Gasca PA-C [address] [address] Social History Tobacco Use Types [...] on filedocumented in this encounter Care Teams Air Intelligence Specialist Relationship Specialty Start Date End Date Jenan Hassan APRN [facility] [place] [address] [place] [address] PCP - General 05/17/25 documented as of this encounter
== END 2025-09-22 23:59 | disposition home or self-care (01) ==
LOC: LAB.DROPOF 09-25 09:54
PROVIDERS: PCP Nurse Practitioner Family; Visit Provider Internal Medicine
DX: N39.0 Urinary tract infection, site not specified (principal)
CPT/HCPCS: 87086; 87088; 87186